=== PATIENT | male | born 1955 | race American Indian/Alaskan Native ===

== ENCOUNTER 2019-09-07 13:00 | Inpatient (IN) | payer OTHER, MEDICARE ==
--- NOTE | 2019-12-12 15:17 | Anesthesia Consultation ---
Anesthesia Consult and Med Hx Date of service: 12/14/19 - Airway Anesthetic Teeth Evaluation: Partials ROM Head & Neck: Adequate Mental/Hyoid Distance: Adequate Mallampati Class: Class III Intubation Access Assessment: Possibly Difficult (previous LMA 4) - Pulmonary Exam CTA: Yes - Cardiac Exam Cardiac Exam: RRR - Pre-Operative Health Status ASA Pre-Surgery Classification: ASA3 Proposed Anesthetic Plan: General - Pulmonary Hx Smoking: No Hx Respiratory Symptoms: No Hx Sleep Apnea: No (JAYDEN PRE SCREEN HIGH RISK) - Cardiovascular System Hx Hypertension: Yes Hx Heart Attack/AMI: No (CHF EF 40-45%) Hx Percutaneous Transluminal Coronary Angioplasty (PTCA): No Hx Cardia Arrhythmia: Yes (hx a-fib s/p cardioversion) Hx Valvular Heart Disease: Yes (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 States swelling started on its own and cannot recall any injury to the hand. Denies hx of gout. There is some pain, usually at night. He has no fevers, chills, or other systemic symptoms. On exam, there is nonpitting edema of the right hand with erythema most concentrated around the first metocarpopha langeal joint. Skin is intact and there is no obvious evidence of previous skin puncture. No warmth. All fingers are mobile though limited. Discussed with patient my concern for possible gout vs infection of the hand. Patient reports that he receives care at the [facility] and does not believe can be evaluated between now and DOS. Will make surgeon's office aware of hand swelling so that surgeon may evaluate prior to the procedure, at which time procedure may potentially be postponed. In the meantime, patient has been instructed to present to the ED if he develops increased swelling and pain or develops fevers, chills or other signs of systemic infection. Patient verbalized understanding and is in agreement with the plan.
[2019-12-12 15:36] LABS: Hematocrit 20.6 % (35.5-45.6); Hemoglobin 6.3 gm/dl (11.8-15.2); Mean Corpuscular HGB Conc 31 % (32-34); Mean Corpuscular Volume 74 fl (84-94); Platelet Count 237 K/mm3 (140-440); Red Blood Count 2.77 M/mm3 (3.65-5.03); Red Cell Distribution Width 16.6 % (13.2-15.2)
[2019-12-12 15:46] LABS: Calcium 10.6 mg/dL (8.4-10.2)
[2019-12-14] MEDS ORDERED: LACTATED RINGERS 1,000 ML IV SCH (06:00)
[2019-12-14] MEDS ORDERED: MIDAZOLAM 2 MG/2 ML INJ IV NR (06:00)
[2019-12-14] MEDS ORDERED: SODIUM CHLORIDE 0.9% 1000 ML 1,000 ML IV SCH ×2 (11:30→17:45)
[2019-12-14] MEDS ORDERED: SODIUM CHLORIDE 0.9% 1000 ML 1,000 ML ONE (12:15)
[2019-12-14] MEDS ORDERED: MIDAZOLAM 2 MG/2 ML INJ ONE ×2 (12:15→14:58)
[2019-12-14] MEDS ORDERED: VANCOMYCIN/NS 1 GM/250 ML 1 GM/250 ML BAG IV NR (12:39)
[2019-12-14] MEDS ORDERED: SODIUM CHLORIDE 0.9% 500 ML 500 ML ONE (13:24)
[2019-12-14] MEDS ORDERED: fentaNYL 100 MCG/2 ML INJ IV PRN (13:28)
--- NOTE | 2019-12-14 13:28 | Anesthesia Day of Surgery ---
Anesthesia Day of Surgery - Day of Surgery Patient Examined: Yes Patient H&P Reviewed: Yes Patient is NPO: Yes
[2019-12-14] MEDS ORDERED: PHENYLEPHRINE/NS 1,000 MCG/10 ML SYRINGE (OR USE) IV ONE (14:30)
[2019-12-14] MEDS ORDERED: propofoL 200 MG/20 ML VIAL IV ONE (14:38)
[2019-12-14] MEDS ORDERED: fentaNYL 100 MCG/2 ML INJ ONE (14:38)
[2019-12-14] MEDS ORDERED: LIDOCAINE MPF (2%) 20 MG/1 ML VIAL 5 ML ONE (14:38)
[2019-12-14] MEDS ORDERED: LIDOCAINE (1%) 10 MG/1 ML VIAL 20 ML MDV ONE (15:00)
[2019-12-14] MEDS ORDERED: BUPIVACAINE/PF (0.5%) 5 MG/1 ML 30 ML VIAL INFILTRATI ONE (15:01)
[2019-12-14] MEDS ORDERED: KETAMINE/STERILE WATER 50 MG/ML SYRINGE ONE (15:15)
[2019-12-14] MEDS ORDERED: SODIUM CHLORIDE 0.9% IRR 1,500 ML BOTTLE IR ONE (15:22)
--- NOTE | 2019-12-14 15:32 | Procedure Note ---
Date of procedure: 12/14/19 Pre-op diagnosis: Right proximal tibial fracture status post external fixation Post-op diagnosis: same Procedure: Removal of external fixator right leg Procedure Patient was brought to the OR on the hospital bed, he was then requested to move to the OR table supine following the patient's right lower extremity was prepped and draped in the usual sterile manner the patient was given IV sedation following this timeout procedure was done to identify the patient and the correct operative site which was very obvious because of the external fixator. Using combination of wrench and in a power drill the connecting rods were removed first followed by removal of the Schanz screws using the power drill. He was noted to have's purulent drainage from the most superior pin site this was debrided using a curette and irrigated cultures were obtained and will be sent to microbiology routine postop dressings were applied patient tolerated procedure there were no complications Anesthesia: other (IV sedation) Surgeon: KALYANI DONOHUE Product Responsibility Liaison: BRODY GRACIA Estimated blood loss: minimal Pathology: none Condition: stable Disposition: PACU
--- NOTE | 2019-12-14 17:51 | Post Anesthesia Evaluation ---
- Post Anesthesia Evaluation Patient Participated: Yes Airway Patent: Yes Stable Respiratory Function: Yes Nausea/Vomiting: No Temp > 96.8F: Yes Pain Manageable: Yes Adequeate Hydration: Yes Anesthesia Complications: No Other Comments: Patient will be admitted to floor under hospitalist care for further monitoring overnight in light of anemia, low grade fever, and possible cellulitis vs gout.
[2019-12-14 19:24] LABS: Hematocrit 25.2 % (35.5-45.6); Hemoglobin 7.8 gm/dl (11.8-15.2); Mean Corpuscular HGB Conc 31 % (32-34); Mean Corpuscular Volume 77 fl (84-94); Platelet Count 229 K/mm3 (140-440); Red Blood Count 3.26 M/mm3 (3.65-5.03); Red Cell Distribution Width 18.9 % (13.2-15.2)
[2019-12-14 21:22] LABS: Band Neutrophils # (Manual) 0.5 K/mm3; Basophils % (Manual) 0 % (0.0-1.8); Eosinophils % (Manual) 0 % (0.0-4.3); Total Cells Counted 100
[2019-12-14 21:23] LABS: Burr Cells Few; Hypochromasia 1+
[2019-12-14 21:24] LABS: Platelet Estimate Consistent w Auto; Schistocytes Rare; Tear Drop Cells Rare
[2019-12-14] MEDS ORDERED: METOCLOPRAMIDE 10 MG/2 ML INJ IV PRN ×2 (22:57→23:11)
[2019-12-14] MEDS ORDERED: ONDANSETRON 4 MG/2 ML INJ IV PRN (22:57)
[2019-12-14] MEDS ORDERED: ACETAMINOPHEN 325 MG TAB PO PRN (22:57)
[2019-12-14] MEDS ORDERED: MYCOPHENOLATE 500 MG PO SCH (23:00)
[2019-12-14] MEDS ORDERED: FAMOTIDINE 20 MG/2 ML INJ IV SCH (23:00)
[2019-12-14] MEDS ORDERED: carvediloL 25 MG TAB PO SCH (23:00)
[2019-12-14] MEDS ORDERED: D5W/0.9% NACL 1,000 ML IV SCH (23:00)
[2019-12-14] MEDS ORDERED: PROGRAF 2 MG PO SCH (23:00)
[2019-12-14] MEDS: TACROLIMUS 1 MG CAP PO SCH (23:44)
[2019-12-14] MEDS: MYCOPHENOLATE 500 MG TAB PO SCH (23:44)
[2019-12-15 05:07] LABS: Hematocrit 24.7 % (35.5-45.6); Hemoglobin 7.5 gm/dl (11.8-15.2); Mean Corpuscular HGB Conc 31 % (32-34); Mean Corpuscular Volume 76 fl (84-94); Red Blood Count 3.26 M/mm3 (3.65-5.03); Red Cell Distribution Width 18.4 % (13.2-15.2)
[2019-12-15 05:10] LABS: Basophils % (Auto) 0.6 % (0.0-1.8); Lymphocytes # (Auto) 0.9 K/mm3 (1.2-5.4); Lymphocytes % (Auto) 16.8 % (13.4-35.0); Monocytes # (Auto) 2.5 K/mm3 (0.0-0.8); Platelet Count 249 K/mm3 (140-440)
[2019-12-15 05:11] LABS: Basophils # (Auto) 0.1 K/mm3 (0.0-0.1)
[2019-12-15 05:18] LABS: Albumin 3.1 g/dL (3.9-5); Calcium 10.4 mg/dL (8.4-10.2)
--- NOTE | 2019-12-15 07:38 | Consultation ---
History of Present Illness - Reason for Consult Consult date: 12/14/19 Medical management Requesting physician: KALYANI DONOHUE - History of Present Illness Patient admitted to the floor after - Right proximal tibial fracture status post external fixation . Postop patient is doing well. No complications. No shortness of breath. No chest pain. Past History Past Medical History: diabetes, hypertension, other (Transplant) Past Surgical History: Other (Tibial fracture--right with external fixation) Social history: lives with family, full code Family history: hypertension Medications and Allergies Allergies Allergy/AdvReac Type Severity Reaction Status Date / Time cefazolin Allergy Intermediate Hives Verified 10/19/19 13:26 Home Medications Medication Instructions Recorded Confirmed Last Taken Type Aspirin 81 mg PO DAILY 10/16/19 12/14/19 5 Days Ago History ~12/09/19 Calcium Citrate/Vitamin D3 1,000 units PO DAILY 10/16/19 12/08/19 12/13/19 History Dronedarone (Nf) [Multaq (Nf)] 400 mg PO DAILY 10/16/19 12/08/19 12/13/19 His tory Mycophenolate 500 mg PO BID 10/16/19 12/08/19 12/13/19 History Prograf 2 mg PO Q12HR 10/16/19 12/08/19 12/13/19 History amLODIPine 5 mg PO DAILY 10/16/19 12/08/19 12/14/19 07:00 History carvediloL [Coreg] 20 mg PO BID 10/16/19 12/08/19 12/14/19 07:00 History glipiZIDE 5 mg PO DAILY 10/16/19 12/08/19 12/13/19 History predniSONE [Deltasone] 5 mg PO DAILY 10/16/19 12/08/19 12/13/19 History HYDROcodone/APAP 5-325 [[place] 1 each PO Q6HR PRN #20 tablet 10/19/19 12/08/19 12/13/19 Rx 5-325 mg TAB] HYDROcodone/APAP 7.5-325 [[place] 1 each PO Q6HR PRN #20 tablet 12/14/19 Unknown Rx 7.5-325 mg TAB] Sulfamethoxazole/Trimethoprim 1 each PO BID #30 tablet 12/14/19 Unknown Rx [Bactrim DS TAB] Active Meds: Active Medications Acetaminophen (Tylenol) 650 mg PO Q4H PRN PRN Reason: Pain MILD(1-3)/Fever >100.5/WHALEY Amlodipine Besylate (Amlodipine) 5 mg PO DAILY [facility] Carvedilol (Coreg) 25 mg PO BID [facility] Famotidine (Pepcid) 20 mg IV DAILY [facility] Hydromorphone HCl (Dilaudid) 1 mg IV Q3H PRN PRN Reason: Pain , Severe (7-10) Dextrose/Sodium Chloride (D5ns) 1,000 mls @ 75 mls/hr IV DIRECT [facility] Last Admin: 12/14/19 23:45 Dose: 75 mls/hr Documented by: Metoclopramide HCl (Reglan) 5 mg IV Q6H PRN PRN Reason: Nausea And Vomiting Miscellaneous Medication (Dronedarone (Nf)) 400 mg PO DAILY [facility] Mycophenolate Mofetil (Cellcept) 500 mg PO BID [facility] Last Admin: 12/14/19 23:44 Dose: 500 mg Documented by: Ondansetron HCl (Zofran) 4 mg IV Q3H PRN PRN Reason: Nausea And Vomiting Oxycodone/Acetaminophen (Percocet 5/325) 1 tab PO Q6H PRN PRN Reason: Pain, Moderate (4-6) Prednisone (Deltasone) 5 mg PO DAILY [facility] Sodium Chloride (Sodium Chloride Flush Syringe 10 Ml) 10 ml IV BID [facility] Sodium Chloride (Sodium Chloride Flush Syringe 10 Ml) 10 ml IV PRN PRN PRN Reason: LINE FLUSH Tacrolimus (Prograf) 2 mg PO Q12HR [facility] Last Admin: 12/14/19 23:44 Dose: 2 mg Documented by: Review of Systems All systems: negative (Right lower extremity pain) Exam - Constitutional Vitals: Temp Pulse Resp BP Pulse Ox 100.2 F H 68 18 135/61 100 12/15/19 05:30 12/15/19 05:30 12/15/19 05:30 12/15/19 05:30 12/15/19 05:30 General appearance: Present: mild distress (Secondary to pain in the right lower extremity), well-nourished - EENT Eyes: Present: PERRL ENT: hearing intact, clear oral mucosa - Neck Neck: Present: supple, normal ROM - Respiratory Respiratory effort: normal Respiratory: bilateral: CTA - Cardiovascular Heart Sounds: Present: S1 & S2. Absent: rub, click - Extremities Extremities: pulses symmetrical, No edema Peripheral Pulses: within normal limits - Abdominal General gastrointestinal: Present: soft, non-tender, non-distended, normal bowel sounds Male genitourinary: Present: normal - Integumentary Integumentary: Present: clear, warm, dry - Musculoskeletal Musculoskeletal: gait normal, strength equal bilaterally - Psychiatric Psychiatric: appropriate mood/affect, intact judgment & insight - Neurologic Neurologic: CNII-XII intact, moves all extremities HEART Score - HEART Score History: Slightly suspicious Age: > 65 Risk factors: 1-2 risk factors - Critical Actions Critical Actions: 0-3 pts:0.9-1.7%risk of adverse cardiac event.Candidate for discharge Results - Labs CBC & Chem 7: 12/15/19 04:39 12/15/19 04:39 Labs: Abnormal lab results 12/14/19 12/14/19 12/14/19 Range/Units 11:40 12:07 13:24 WBC (4.5-11.0) K/mm3 RBC (3.65-5.03) M/mm3 Hgb (11.8-15.2) gm/dl Hct (35.5-45.6) % MCV (84-94) fl MCH (28-32) pg MCHC (32-34) % RDW (13.2-15.2) % Lymph # (Auto) (1.2-5.4) K/mm3 Barnes # (Auto) (0.0-0.8) K/mm3 Seg Neutrophils % (40.0-70.0) % Seg Neuts % (Manual) (40.0-70.0) % Lymphocytes % (Manual) (13.4-35.0) % Seg Neutrophils # (1.8-7.7) K/mm3 Seg Neutrophils # Man (1.8-7.7) K/mm3 Lymphocytes # (Manual) (1.2-5.4) K/mm3 Monocytes # (Manual) (0.0-0.8) K/mm3 Sodium (137-145) mmol/L Potassium (3.6-5.0) mmol/L Chloride (98-107) mmol/L Carbon Dioxide (22-30) mmol/L BUN (9-20) mg/dL Creatinine (0.8-1.3) mg/dL Glucose (75-100) mg/dL POC Glucose 224 H (70-105) Uric Acid 11.7 H (3.5-7.6) mg/dL Calcium (8.4-10.2) mg/dL Alkaline Phosphatase (35-129) units/L Total Protein (6.3-8.2) g/dL Albumin (3.9-5) g/dL Crossmatch See Detail 12/14/19 12/14/19 12/15/19 Range/Units 16:10 19:01 04:39 WBC 17.7 H 13.9 H (4.5-11.0) K/mm3 RBC 3.26 L 3.26 L (3.65-5.03) M/mm3 Hgb 7.8 L 7.5 L (11.8-15.2) gm/dl Hct 25.2 L 24.7 L (35.5-45.6) % MCV 77 L 76 L (84-94) fl MCH 24 L 23 L (28-32) pg MCHC 31 L 31 L (32-34) % RDW 18.9 H 18.4 H (13.2-15.2) % Lymph # (Auto) 0.9 L (1.2-5.4) K/mm3 Barnes # (Auto) 2.5 H (0.0-0.8) K/mm3 Seg Neutrophils % 74.5 H (40.0-70.0) % Seg Neuts % (Manual) 86.0 H (40.0-70.0) % Lymphocytes % (Manual) 5.0 L (13.4-35.0) % Seg Neutrophils # 10.4 H (1.8-7.7) K/mm3 Seg Neutrophils # Man 15.2 H (1.8-7.7) K/mm3 Lymphocytes # (Manual) 0.9 L (1.2-5.4) K/mm3 Monocytes # (Manual) 0.9 H (0.0-0.8) K/mm3 Sodium (137-145) mmol/L Potassium (3.6-5.0) mmol/L Chloride (98-107) mmol/L Carbon Dioxide (22-30) mmol/L BUN (9-20) mg/dL Creatinine (0.8-1.3) mg/dL Glucose (75-100) mg/dL POC Glucose 198 H (70-105) Uric Acid (3.5-7.6) mg/dL Calcium (8.4-10.2) mg/dL Alkaline Phosphatase (35-129) units/L Total Protein (6.3-8.2) g/dL Albumin (3.9-5) g/dL Crossmatch 12/15/19 Range/Units 04:39 WBC (4.5-11.0) K/mm3 RBC (3.65-5.03) M/mm3 Hgb (11.8-15.2) gm/dl Hct (35.5-45.6) % MCV (84-94) fl MCH (28-32) pg MCHC (32-34) % RDW (13.2-15.2) % Lymph # (Auto) (1.2-5.4) K/mm3 Barnes # (Auto) (0.0-0.8) K/mm3 Seg Neutrophils % (40.0-70.0) % Seg Neuts % (Manual) (40.0-70.0) % Lymphocytes % (Manual) (13.4-35.0) % Seg Neutrophils # (1.8-7.7) K/mm3 Seg Neutrophils # Man (1.8-7.7) K/mm3 Lymphocytes # (Manual) (1.2-5.4) K/mm3 Monocytes # (Manual) (0.0-0.8) K/mm3 Sodium 149 H D (137-145) mmol/L Potassium 3.3 L (3.6-5.0) mmol/L Chloride 120.9 H (98-107) mmol/L Carbon Dioxide 11 L (22-30) mmol/L BUN 68 H (9-20) mg/dL Creatinine 2.8 H (0.8-1.3) mg/dL Glucose 157 H (75-100) mg/dL POC Glucose (70-105) Uric Acid (3.5-7.6) mg/dL Calcium 10.4 H (8.4-10.2) mg/dL Alkaline Phosphatase 141 H (35-129) units/L Total Protein 5.5 L (6.3-8.2) g/dL Albumin 3.1 L (3.9-5) g/dL Crossmatch Assessment and Plan - Patient Problems (1) Right tibial fracture Current Visit: Yes Status: Acute Qualifiers: Encounter type: initial encounter Salter-Ocampo Fracture Type: unspecified configuration Plan to address problem: Patient had right tibial fracture external fixation Postop patient doing well (2) URMILA (acute kidney injury) Current Visit: Yes Status: Acute Plan to address problem: IV fluids for now Nephrology consult (3) Hypernatremia Current Visit: Yes Status: Acute Plan to address problem: Half-normal saline for now (4) Hypokalemia Current Visit: Yes Status: Acute Plan to address problem: Supplemented (5) Hypertension Current Visit: Yes Status: Chronic Qualifiers: Hypertension type: essential hypertension Qualified Code(s): I10 - Essential (primary) hypertension Plan to address problem: Continue antihypertensives (6) T2DM (type 2 diabetes mellitus) Current Visit: Yes Status: Chronic Qualifiers: Diabetes mellitus keno terminal operator insulin use: without keno terminal operator use Plan to address problem: Hold her oral hypoglycemics Coverage for now Oral hypoglycemics to be resumed by primary team (7) S/P kidney transplant Current Visit: Yes Status: Acute Plan to address problem: Continue transplant medications including Prograf and mycophenolate (8) DVT prophylaxis Current Visit: Yes Status: Acute Plan to address problem: On heparin and GI prophylaxis
[2019-12-15] MEDS ORDERED: POTASSIUM CHLORIDE ER 20 MEQ TAB PO SCH (08:00)
[2019-12-15] MEDS ORDERED: SODIUM CHLORIDE 0.45% 500 ML IV SCH (09:00)
[2019-12-15] MEDS: carvediloL 25 MG TAB PO SCH ×2 (09:18→21:24)
[2019-12-15] MEDS: MYCOPHENOLATE 500 MG TAB PO SCH ×2 (09:18→21:23)
[2019-12-15] MEDS: amLODIPine 5 MG TAB PO SCH (09:18)
[2019-12-15] MEDS: TACROLIMUS 1 MG CAP PO SCH ×2 (09:18→21:22)
[2019-12-15] MEDS: predniSONE 5 MG TAB PO SCH (09:19)
[2019-12-15] MEDS ORDERED: DRONEDARONE 400 MG PO SCH (10:00)
[2019-12-15] MEDS ORDERED: FAMOTIDINE 20 MG/2 ML INJ IV SCH (10:00)
--- NOTE | 2019-12-15 11:36 | Consultation ---
History of Present Illness - Reason for Consult Consult date: 12/15/19 acute renal failure Requesting physician: LAYA ALDRIDGE - History of Present Illness This is a 64 yo AAM with past medical history of Hypertension, ESRD, has been on HD since 2008 until September 29 2017 when he received donor kidney transplantation. After initial delayed graft function renal function stabilized with baseline Cr around 1.3-1.5mg/dl based on recent chart review. Pt follows up with Dr Haque for management of CKD. Pt was hospitalized on 12/14/19 for elective surgery for Right proximal tibial fracture, now status post external fixation. Post op patient was admitted under hospitalist service for further monitoring overnight in light of anemia, low grade fever, and possible cellulitis. Labs also showed elevated BUN/Cr at 68/2.8mg/dl along with mild hypernatremia and hypokalemia for which renal consult is requested. Past History Past Medical History: diabetes, hypertension, renal failure (s/p DDKTx in 09/2017 ), other (Transplant) Past Surgical History: Other (Tibial fracture--right with external fixation, DDKTx in 09/2017) Social history: lives with family, full code Family history: hypertension Medications and Allergies Allergies Allergy/AdvReac Type Severity Reaction Status Date / Time cefazolin Allergy Intermediate Hives Verified 10/19/19 13:26 Home Medications Medication Instructions Recorded Confirmed Last Taken Type Aspirin 81 mg PO DAILY 10/16/19 12/14/19 5 Days Ago History ~12/09/19 Calcium Citrate/Vitamin D3 1,000 units PO DAILY 10/16/19 12/08/19 12/13/19 History Dronedarone (Nf) [Multaq (Nf)] 400 mg PO DAILY 10/16/19 12/08/19 12/13/19 History Mycophenolate 500 mg PO BID 10/16/19 12/08/19 12/13/19 History Prograf 2 mg PO Q12HR 10/16/19 12/08/19 12/13/19 History amLODIPine 5 mg PO DAILY 10/16/19 12/08/19 12/14/19 07:00 History carvediloL [Coreg] 20 mg PO BID 10/16/19 12/08/19 12/14/19 07:00 History glipiZIDE 5 mg PO DAILY 10/16/19 12/08/1920 History predniSONE [Deltasone] 5 mg PO DAILY 10/16/19 12/08/19 12/13/19 History HYDROcodone/APAP 5-325 [[place] 1 each PO Q6HR PRN #20 tablet 10/19/19 12/08/19 12/13/19 Rx 5-325 mg TAB] HYDROcodone/APAP 7.5-325 [[place] 1 each PO Q6HR PRN #20 tablet 12/14/19 Unknown Rx 7.5-325 mg TAB] Sulfamethoxazole/Trimethoprim 1 each PO BID #30 tablet 12/14/19 Unknown Rx [Bactrim DS TAB] Active Meds: Active Medications Acetaminophen (Tylenol) 650 mg PO Q4H PRN PRN Reason: Pain MILD(1-3)/Fever >100.5/WHALEY Amlodipine Besylate (Amlodipine) 5 mg PO DAILY [facility] Last Admin: 12/15/19 09:18 Dose: 5 mg Documented by: Carvedilol (Coreg) 25 mg PO BID [facility] Last Admin: 12/15/19 09:18 Dose: 25 mg Documented by: Famotidine (Pepcid) 20 mg IV DAILY [facility] Stop: 12/15/19 14:00 Last Admin: 12/15/19 09:18 Dose: 20 mg Documented by: Famotidine (Pepcid) 20 mg PO DAILY [facility] Hydromorphone HCl (Dilaudid) 1 mg IV Q3H PRN PRN Reason: Pain , Severe (7-10) Sodium Chloride (Nacl 0.45% 1000 Ml) 1,000 mls @ 75 mls/hr IV DIRECT [facility] Metoclopramide HCl (Reglan) 5 mg IV Q6H PRN PRN Reason: Nausea And Vomiting Miscellaneous Medication (Dronedarone (Nf)) 400 mg PO DAILY [facility] Mycophenolate Mofetil (Cellcept) 500 mg PO BID [facility] Last Admin: 12/15/19 09:18 Dose: 500 mg Documented by: Ondansetron HCl (Zofran) 4 mg IV Q3H PRN PRN Reason: Nausea And Vomiting Oxycodone/Acetaminophen (Percocet 5/325) 1 tab PO Q6H PRN PRN Reason: Pain, Moderate (4-6) Potassium Chloride (K-Dur) 40 meq PO ONCE [facility] Stop: 12/15/19 12:00 Last Admin: 12/15/19 09:18 Dose: 40 meq Documented by: Prednisone (Deltasone) 5 mg PO DAILY [facility] Last Admin: 12/15/19 09:19 Dose: 5 mg Documented by: Sodium Chloride (Sodium Chloride Flush Syringe 10 Ml) 10 ml IV BID [facility] Last Admin: 12/15/19 09:20 Dose: 10 ml Documented by: Sodium Chloride (Sodium Chloride Flush Syringe 10 Ml) 10 ml IV PRN PRN PRN Reason: LINE FLUSH Tacrolimus (Prograf) 2 mg PO Q12HR [facility] Last Admin: 12/15/19 09:18 Dose: 2 mg Documented by: Review of Systems All systems: negative Constitutional: fatigue, weakness, malaise Exam - Vital Signs Vital signs: Vital Signs Temp Pulse Resp BP Pulse Ox 98.3 F 70 20 116/52 100 12/12/19 14:45 12/12/19 14:45 12/12/19 14:45 12/12/19 14:45 12/12/19 14:45 - General Appearance General appearance: well-developed, well-nourished, appears stated age EENT: ATNC, PERRL, mucous membranes moist Neck: Present: neck supple Respiratory: Clear to Ascultation Heart: regular, S1S2 Gastrointestinal: Present: normoactive bowel sounds Integumentary: no rash Neurologic: no focal deficit, alert and oriented x3, strength 5/5, CN 3-12 intact Psychiatric: mood/affect appropriate, cooperative Results - Lab Results 12/15/19 04:39 12/15/19 04:39 Most recent lab results Calcium 10.4 mg/dL (8.4-10.2) H 12/15/19 04:39 Assessment and Plan - Patient Problems (1) URMILA (acute kidney injury) Current Visit: Yes Status: Acute Plan to address problem: Most likely secondary to pre-renal azotemia in post operative setting and in the setting of anemia. check UA, urine lytes, urine protein/cr ratio. IVF changed to 1/2 NS d/t developing hypernatrema, K supplementation with K Dur ongoing. Cont current immunossuppressive regime with prograf 2mg po bid, cellcept 500gm po bid, prednisone 5mg po qd. avoid nephrotoxins, NSAIDS, IV contrast (2) Hypernatremia Current Visit: Yes Status: Acute Plan to address problem: changed IVF to 1/2 NS (3) Hypokalemia Current Visit: Yes Status: Acute Plan to address problem: cont K supplementation with K Dur (4) Right tibial fracture Current Visit: Yes Status: Acute Qualifiers: Encounter type: initial encounter Salter-Ocampo Fracture Type: unspecified configuration Plan to address problem: s/p external fixation. follow ortho recommendations (5) S/P kidney transplant Current Visit: Yes Status: Acute Plan to address problem: Cont current immunossuppressive regime with prograf 2mg po bid, cellcept 500gm po bid, prednisone 5mg po qd. (6) Hypertension Current Visit: Yes Status: Chronic Qualifiers: Hypertension type: essential hypertension Qualified Code(s): I10 - Essential (primary) hypertension Plan to address problem: Monitor BP on current meds (7) T2DM (type 2 diabetes mellitus) Current Visit: Yes Status: Chronic Qualifiers: Diabetes mellitus supervisor intermediates insulin use: without detention use Plan to address problem: DM management as per hospitalist (8) Metabolic acidosis Current Visit: Yes Status: Acute Plan to address problem: start sodium bicarb 650mg po bid
--- NOTE | 2019-12-15 16:01 | Progress Note ---
Assessment and Plan s/p removal of external fixator multiple medical issues necessitating admission Subjective Date of service: 12/15/19 Interval history: feeling weak and tired... Objective Vital signs: Vital Signs - 12hr 12/15/19 12/15/19 12/15/19 05:30 07:46 07:51 Temperature 100.2 F H 99.4 F 98.5 F Pulse Rate 68 65 92 H Respiratory 18 18 18 Rate Blood Pressure 135/61 136/54 133/55 O2 Sat by Pulse 100 93 95 Oximetry 12/15/19 12:18 Temperature 97.9 F Pulse Rate 70 Respiratory 19 Rate Blood Pressure 130/61 O2 Sat by Pulse 100 Oximetry Incision: healing, clean and dry Weight bearing status: as tolerated - Labs CBC & BMP: 12/15/19 04:39 12/15/19 04:39 Labs: Abnormal lab results 12/14/19 12/15/19 12/15/19 Range/Units 19:01 04:39 04:39 WBC 17.7 H 13.9 H (4.5-11.0) K/mm3 RBC 3.26 L 3.26 L (3.65-5.03) M/mm3 Hgb 7.8 L 7.5 L (11.8-15.2) gm/dl Hct 25.2 L 24.7 L (35.5-45.6) % MCV 77 L 76 L (84-94) fl MCH 24 L 23 L (28-32) pg MCHC 31 L 31 L (32-34) % RDW 18.9 H 18.4 H (13.2-15.2) % Lymph # (Auto) 0.9 L (1.2-5.4) K/mm3 Kerr # (Auto) 2.5 H (0.0-0.8) K/mm3 Seg Neutrophils % 74.5 H (40.0-70.0) % Seg Neuts % (Manual) 86.0 H (40.0-70.0) % Lymphocytes % (Manual) 5.0 L (13.4-35.0) % Seg Neutrophils # 10.4 H (1.8-7.7) K/mm3 Seg Neutrophils # Man 15.2 H (1.8-7.7) K/mm3 Lymphocytes # (Manual) 0.9 L (1.2-5.4) K/mm3 Monocytes # (Manual) 0.9 H (0.0-0.8) K/mm3 Sodium 149 H D (137-145) mmol/L Potassium 3.3 L (3.6-5.0) mmol/L Chloride 120.9 H (98-107) mmol/L Carbon Dioxide 11 L (22-30) mmol/L BUN 68 H (9-20) mg/dL Creatinine 2.8 H (0.8-1.3) mg/dL Glucose 157 H (75-100) mg/dL Calcium 10.4 H (8.4-10.2) mg/dL Alkaline Phosphatase 141 H (35-129) units/L Total Protein 5.5 L (6.3-8.2) g/dL Albumin 3.1 L (3.9-5) g/dL
[2019-12-15] MEDS: HYDROmorphone 1 MG/1 ML INJ IV PRN (16:29)
[2019-12-15] MEDS: SODIUM CHLORIDE 0.45% 1000 ML 1,000 ML IV SCH (16:38)
--- NOTE | 2019-12-15 17:54 | Progress Note ---
Assessment and Plan - Patient Problems (1) URMILA (acute kidney injury) Current Visit: Yes Status: Acute Plan to address problem: Acute on chronic kidney disease gentle hydration. Follow-up creatinine baseline 1.5 (2) Hypernatremia Current Visit: Yes Status: Acute Plan to address problem: Hyponatremia treated with half-normal saline follow-up labs in a.m. (3) Hypokalemia Current Visit: Yes Status: Acute Plan to address problem: Hypokalemia we will treat with p.o. KCl. (4) Right tibial fracture Current Visit: Yes Status: Acute Qualifiers: Encounter type: initial encounter Salter-Ocampo Fracture Type: unspecified configuration Plan to address problem: Right tibial fracture followed by Orth O. External fixator has been removed. Stable for discharge. (5) S/P kidney transplant Current Visit: Yes Status: Acute (6) Hypertension Current Visit: Yes Status: Chronic Qualifiers: Hypertension type: essential hypertension Qualified Code(s): I10 - Essential (primary) hypertension Plan to address problem: Patient has fair control blood pressure amlodipine Coreg continue present [facility] management. (7) T2DM (type 2 diabetes mellitus) Current Visit: Yes Status: Chronic Qualifiers: Diabetes mellitus prison insulin use: without division field inspector use Plan to address problem: Fair but suboptimal control of diabetes will re-add glipizide 5 mg daily. Subjective Date of service: 12/15/19 Principal diagnosis: Leg pain Interval history: 64-year-old male with history of hypertension end-stage renal disease diabetes presented with left leg pain. Found to be secondary to pressure from external fixator. After having leg fused. Patient had external fixator removed. Plan discharge was discontinued secondary to multiple medical problems including anemia low-grade temp which is resolved and acute kidney injury. Patient had a baseline creatinine of about 1.3 and 1.5 it was now found to be 2.8. Renal consult was obtained. At present patient feels pretty good pain fairly well controlled does not want any pain medications at this time. Evaluated by Ortho no new recommendations from Ortho. Objective - Constitutional Vitals: Vital Signs - 12hr 12/15/19 12/15/19 12/15/19 07:46 07:51 12:18 Temperature 99.4 F 98.5 F 97.9 F Pulse Rate 65 92 H 70 Respiratory 18 18 19 Rate Blood Pressure 136/54 133/55 130/61 O2 Sat by Pulse 93 95 100 Oximetry 12/15/19 15:48 Temperature 97.5 F L Pulse Rate 73 Respiratory 19 Rate Blood Pressure 125/56 O2 Sat by Pulse 100 Oximetry General appearance: Present: no acute distress, well-nourished - EENT Eyes: PERRL, EOM intact ENT: hearing intact, clear oral mucosa Ears: bilateral: normal - Neck Neck: supple, normal ROM - Respiratory Respiratory effort: normal Respiratory: bilateral: CTA - Breasts Breasts: normal - Cardiovascular Rhythm: regular Heart Sounds: Present: S1 & S2. Absent: gallop, rub Extremities: pulses intact, No edema, normal color, Full ROM Extremity abnormal: other (Hip bandage.) - Gastrointestinal General gastrointestinal: Present: soft, non-tender, non-distended, normal bowel sounds - Genitourinary Male genitourinary: normal - Integumentary Integumentary: clear, warm, dry - Musculoskeletal Musculoskeletal: 1, strength equal bilaterally - Neurologic Neurologic: moves all extremities - Psychiatric Psychiatric: memory intact, appropriate mood/affect, intact judgment & insight - Labs CBC & Chem 7: 12/15/19 04:39 12/15/19 04:39 Labs: Abnormal lab results 12/14/19 12/15/19 12/15/19 Range/Units 19:01 04:39 04:39 WBC 17.7 H 13.9 H (4.5-11.0) K/mm3 RBC 3.26 L 3.26 L (3.65-5.03) M/mm3 Hgb 7.8 L 7.5 L (11.8-15.2) gm/dl Hct 25.2 L 24.7 L (35.5-45.6) % MCV 77 L 76 L (84-94) fl MCH 24 L 23 L (28-32) pg MCHC 31 L 31 L (32-34) % RDW 18.9 H 18.4 H (13.2-15.2) % Lymph # (Auto) 0.9 L (1.2-5.4) K/mm3 [place] # (Auto) 2.5 H (0.0-0.8) K/mm3 Seg Neutrophils % 74.5 H (40.0-70.0) % Seg Neuts % (Manual) 86.0 H (40.0-70.0) % Lymphocytes % (Manual) 5.0 L (13.4-35.0) % Seg Neutrophils # 10.4 H (1.8-7.7) K/mm3 Seg Neutrophils # Man 15.2 H (1.8-7.7) K/mm3 Lymphocytes # (Manual) 0.9 L (1.2-5.4) K/mm3 Monocytes # (Manual) 0.9 H (0.0-0.8) K/mm3 Sodium 149 H D (137-145) mmol/L Potassium 3.3 L (3.6-5.0) mmol/L Chloride 120.9 H (98-107) mmol/L Carbon Dioxide 11 L (22-30) mmol/L BUN 68 H (9-20) mg/dL Creatinine 2.8 H (0.8-1.3) mg/dL Glucose 157 H (75-100) mg/dL Calcium 10.4 H (8.4-10.2) mg/dL Alkaline Phosphatase 141 H (35-129) units/L Total Protein 5.5 L (6.3-8.2) g/dL Albumin 3.1 L (3.9-5) g/dL HEART Score - HEART Score Age: > 65 Risk factors: 1-2 risk factors - Critical Actions Critical Actions: 0-3 pts:0.9-1.7%risk of adverse cardiac event.Candidate for discharge
[2019-12-15] MEDS: POTASSIUM CHLORIDE ER 20 MEQ TAB PO SCH (18:35)
[2019-12-15] MEDS: SODIUM BICARBONATE 650 MG TAB PO SCH (21:22)
[2019-12-15] MEDS: LOPERAMIDE 2 MG CAP PO PRN (21:23)
[2019-12-16 06:55] LABS: Bacteria,Urine 1+ /HPF (Negative); Bilirubin,Urine NEG (Negative); Blood,Urine MOD (Negative); Color,Urine Yellow (Yellow); Mucus,Urine FEW /HPF; Urobilinogen,Urine < 2.0 mg/dL (<2.0)
[2019-12-16 07:18] LABS: Calcium 10.1 mg/dL (8.4-10.2)
[2019-12-16 07:32] LABS: Mean Corpuscular HGB Conc 28 % (32-34); Mean Corpuscular Volume 85 fl (84-94); Platelet Count 198 K/mm3 (140-440); Red Blood Count 3.07 M/mm3 (3.65-5.03); Red Cell Distribution Width 19.1 % (13.2-15.2)
[2019-12-16 07:33] LABS: Creatinine,Urine 97.4 mg/dL (0.1-20.0)
[2019-12-16 07:42] LABS: Hematocrit 26.1 % (35.5-45.6); Hemoglobin 7.3 gm/dl (11.8-15.2)
[2019-12-16] MEDS: SODIUM CHLORIDE 0.45% 1000 ML 1,000 ML IV SCH (07:59)
[2019-12-16] MEDS ORDERED: SODIUM BICARBONATE 150 MEQ in DEXTROSE 5% IN WATER 1,000 ML IV SCH (10:00)
[2019-12-16] MEDS: glipiZIDE XL 5 MG TAB PO SCH (10:42)
[2019-12-16 11:40] LABS: Band Neutrophils # (Manual) 0.3 K/mm3; Basophils % (Manual) 0 % (0.0-1.8); Eosinophils % (Manual) 0 % (0.0-4.3); Total Cells Counted 100
[2019-12-16 11:41] LABS: Hypochromasia 1+; Platelet Estimate Consistent w Auto; Poikilocytosis Few; Target Cells Few; Tear Drop Cells Few
[2019-12-16] MEDS: FAMOTIDINE 20 MG TAB PO SCH (12:38)
[2019-12-16] MEDS: SODIUM BICARBONATE 650 MG TAB PO SCH ×2 (12:39→22:00)
[2019-12-16] MEDS: POTASSIUM CHLORIDE ER 20 MEQ TAB PO SCH (12:39)
[2019-12-16] MEDS: amLODIPine 5 MG TAB PO SCH (12:40)
[2019-12-16] MEDS: carvediloL 25 MG TAB PO SCH ×2 (12:40→22:00)
[2019-12-16] MEDS: predniSONE 5 MG TAB PO SCH (12:40)
[2019-12-16] MEDS: TACROLIMUS 1 MG CAP PO SCH ×2 (12:42→22:00)
[2019-12-16] MEDS: MYCOPHENOLATE 500 MG TAB PO SCH ×2 (12:44→21:59)
--- NOTE | 2019-12-16 13:35 | Progress Note ---
Assessment and Plan - Patient Problems (1) URMILA (acute kidney injury) Current Visit: Yes Status: Acute Plan to address problem: In the setting of pre-renal injury. Renal function is stable, and showing slow improvement back to baseline. Continue with current regimen, IVF hydration. Agree with switching IVF to isotonic bicarbonate at 42 cc/hr. (2) Hypernatremia Current Visit: Yes Status: Acute Plan to address problem: Improved on most recent labs. (3) Hypokalemia Current Visit: Yes Status: Acute Plan to address problem: Replete per protocol. (4) Right tibial fracture Current Visit: Yes Status: Acute Qualifiers: Encounter type: initial encounter Salter-Ocampo Fracture Type: unspecified configuration Plan to address problem: S/p fixation. Further management per orthopedic surgery. (5) S/P kidney transplant Current Visit: Yes Status: Acute Plan to address problem: Continue on current immunosupression. (6) Hypertension Current Visit: Yes Status: Chronic Qualifiers: Hypertension type: essential hypertension Qualified Code(s): I10 - Essential (primary) hypertension Plan to address problem: Monitor on current regimen. (7) T2DM (type 2 diabetes mellitus) Current Visit: Yes Status: Chronic Qualifiers: Diabetes mellitus refrigerator glazier insulin use: without mcfp use Plan to address problem: DM management per primary attending. Subjective Date of service: 12/16/19 Principal diagnosis: Leg pain Interval history: No acute complaints this am. Objective - Vital Signs Vital signs: Vital Signs - 12hr 12/16/19 04:41 Temperature 97.6 F Pulse Rate 77 Respiratory 17 Rate Blood Pressure 125/52 [Right] O2 Sat by Pulse 99 Oximetry - General Appearance General appearance: well-developed, well-nourished, appears stated age EENT: ATNC, PERRL Neck: no JVD Respiratory: Present: Clear to Ascultation, Normal Exam Cardiology: regular Gastrointestinal: normal Integumentary: no rash Neurologic: no focal deficit Musculoskeletal: deferred Psychiatric: cooperative - Lab 12/16/19 06:38 12/16/19 06:38 Most recent lab results Calcium 10.1 mg/dL (8.4-10.2) 12/16/19 06:38 Urine Creatinine 97.4 mg/dL (0.1-20.0) H 12/16/19 06:15 Urine Sodium 14 mmol/L 12/16/19 06:15 Urine Total Protein 30 mg/dL (5-11.8) H 12/16/19 06:15 - Allied health notes Allied health notes reviewed: nursing Medications & Allergies - Medications Allergies/Adverse Reactions: Allergies cefazolin Allergy (Intermediate, Verified 10/19/19 13:26) Hives itching & hives Home Medications: Home Medications Medication Instructions Recorded Confirmed Last Taken Type Aspirin 81 mg PO DAILY 10/16/19 12/14/19 5 Days Ago History ~12/09/19 Calcium Citrate/Vitamin D3 1,000 units PO DAILY 10/16/19 12/08/19 12/13/19 History Mycophenolate 500 mg PO BID 10/16/19 12/08/19 12/13/19 History Prograf 2 mg PO Q12HR 10/16/19 12/08/19 12/13/19 History RX: Dronedarone (Nf) [Multaq (Nf)] 400 mg PO DAILY 10/16/19 12/08/19 12/13/19 History RX: carvediloL [Coreg] 20 mg PO BID 10/16/19 12/08/19 12/14/19 07:00 History RX: predniSONE [Deltasone] 5 mg PO DAILY 10/16/19 12/08/19 12/13/19 History amLODIPine 5 mg PO DAILY 10/16/19 12/08/19 12/14/19 07:00 History glipiZIDE 5 mg PO DAILY 10/16/19 12/08/19 12/13/19 History RX: HYDROcodone/APAP 5-325 [[facility] 1 each PO Q6HR PRN #20 tablet 10/19/19 12/08/19 12/13/19 Rx 5-325 mg TAB] RX: HYDROcodone/APAP 7.5-325 1 each PO Q6HR PRN #20 tablet 12/14/19 Unknown Rx [[facility] 7.5-325 mg TAB] Sulfamethoxazole/Trimethoprim 1 each PO BID #30 tablet 12/14/19 Unknown Rx [Bactrim DS TAB] Active Medications: Generic Name Dose Route Start Last Admin Trade Name Freq PRN Reason Stop Dose Admin Acetaminophen 650 mg 12/14/19 22:57 Tylenol PO Q4H PRN Pain MILD(1-3)/Fever >100.5/WHALEY Amlodipine Besylate 5 mg 12/15/19 10:00 12/15/19 09:18 Amlodipine PO 5 mg DAILY NANCY Administration Carvedilol 25 mg 12/15/19 10:00 12/15/19 21:24 Coreg PO 25 mg BID NANCY Administration Famotidine 20 mg 12/16/19 10:00 Pepcid PO DAILY NANCY Glipizide 5 mg 12/16/19 08:00 Glucotrol Xl PO DAILY@0800 [facility] Hydromorphone HCl 1 mg 12/14/19 22:57 12/15/19 16:29 Dilaudid IV 1 mg Q3H PRN Administration Pain , Severe (7-10) Sodium Chloride 1,000 mls @ 75 mls/hr 12/15/19 12:00 12/16/19 07:59 Nacl 0.45% 1000 Ml IV 75 mls/hr DIRECT NANCY Administration Sodium Bicarbonate 150 meq/ 1,150 mls @ 42 mls/hr 12/16/19 10:00 Dextrose IV DIRECT NANCY Loperamide HCl 2 mg 12/15/19 14:01 12/15/19 21:23 Imodium PO 2 mg BID PRN Administration Diarrhea Metoclopramide HCl 5 mg 12/14/19 23:11 Reglan IV Q6H PRN Nausea And Vomiting Miscellaneous Medication 400 mg 12/15/19 10:00 Dronedarone (Nf) PO DAILY [facility] Mycophenolate Mofetil 500 mg 12/14/19 23:00 12/15/19 21:23 Cellcept PO 500 mg BID NANCY Administration Ondansetron HCl 4 mg 12/14/19 22:57 Zofran IV Q3H PRN Nausea And Vomiting Oxycodone/Acetaminophen 1 tab 12/14/19 22:57 Percocet 5/325 PO Q6H PRN Pain, Moderate (4-6) Potassium Chloride 20 meq 12/15/19 18:00 12/15/19 18:35 K-Dur PO Not Given QDAY [facility] Prednisone 5 mg 12/15/19 10:00 12/15/19 09:19 Deltasone PO 5 mg DAILY NANCY Administration Sodium Bicarbonate 650 mg 12/15/19 22:00 12/15/19 21:22 Sodium Bicarbonate PO 650 mg BID NANCY Administration Sodium Chloride 10 ml 12/15/19 10:00 12/16/19 05:53 Sodium Chloride Flush Syringe 10 Ml IV Not Given BID NANCY Sodium Chloride 10 ml 12/14/19 22:57 Sodium Chloride Flush Syringe 10 Ml IV PRN PRN LINE FLUSH Tacrolimus 2 mg 12/14/19 23:00 12/15/19 21:22 Prograf PO 2 mg Q12HR NANCY Administration
--- NOTE | 2019-12-16 13:52 | Progress Note ---
Assessment and Plan - Patient Problems (1) URMILA (acute kidney injury) Current Visit: Yes Status: Acute Plan to address problem: Acute on chronic kidney disease gentle hydration. Renal function continues to improve down to 2.3 now. Follow-up creatinine baseline 1.5 renal function continues to improve (2) Hypernatremia Current Visit: Yes Status: Acute Plan to address problem: Hypernatremia resolved. (3) Hypokalemia Current Visit: Yes Status: Acute Plan to address problem: Hypokalemia we will treat with p.o. KCl. (4) Right tibial fracture Current Visit: Yes Status: Acute Qualifiers: Encounter type: initial encounter Salter-Ocampo Fracture Type: unspecified configuration Plan to address problem: Hardware removed external filter was removed. Await Ortho recommendations. Stable for discharge. (5) S/P kidney transplant Current Visit: Yes Status: Acute (6) Hypertension Current Visit: Yes Status: Chronic Qualifiers: Hypertension type: essential hypertension Qualified Code(s): I10 - Essential (primary) hypertension Plan to address problem: Patient has fair control blood pressure amlodipine Coreg continue present medical management. (7) T2DM (type 2 diabetes mellitus) Current Visit: Yes Status: Chronic Qualifiers: Diabetes mellitus jail insulin use: without jail use Plan to address problem: Fair but suboptimal control of diabetes will re-add glipizide 5 mg daily. Subjective Date of service: 12/16/19 Principal diagnosis: Leg pain Interval history: In bed resting comfortably pain controlled. Hospital course complicated over p.m. by metabolic acidosis. Objective - Constitutional Vitals: Vital Signs - 12hr 12/16/19 04:41 Temperature 97.6 F Pulse Rate 77 Respiratory 17 Rate Blood Pressure 125/52 [Right] O2 Sat by Pulse 99 Oximetry General appearance: Present: no acute distress, well-nourished - EENT Eyes: PERRL, EOM intact ENT: hearing intact, clear oral mucosa Ears: bilateral: normal - Neck Neck: supple, normal ROM - Respiratory Respiratory effort: normal Respiratory: bilateral: CTA - Breasts Breasts: normal - Cardiovascular Rhythm: regular Heart Sounds: Present: S1 & S2. Absent: gallop, rub Extremities: pulses intact, No edema, normal color, Full ROM Extremity abnormal: other (Knee grossly distended. Right knee. Area where external fixators were removed looks good no evidence of infection.) - Gastrointestinal General gastrointestinal: Present: soft, non-tender, non-distended, normal bowel sounds - Genitourinary Male genitourinary: normal - Integumentary Integumentary: clear, warm, dry - Musculoskeletal Musculoskeletal: 1, strength equal bilaterally - Neurologic Neurologic: moves all extremities - Psychiatric Psychiatric: memory intact, appropriate mood/affect, intact judgment & insight - Labs CBC & Chem 7: 12/16/19 06:38 12/16/19 06:38 Labs: Abnormal lab results 12/16/19 12/16/19 12/16/19 Range/Units 06:15 06:38 06:38 WBC 11.1 H (4.5-11.0) K/mm3 RBC 3.07 L (3.65-5.03) M/mm3 Hgb 7.3 L (11.8-15.2) gm/dl Hct 26.1 L (35.5-45.6) % MCH 24 L (28-32) pg MCHC 28 L (32-34) % RDW 19.1 H (13.2-15.2) % Seg Neuts % (Manual) 90.0 H (40.0-70.0) % Lymphocytes % (Manual) 5.0 L (13.4-35.0) % Seg Neutrophils # Man 10.0 H (1.8-7.7) K/mm3 Lymphocytes # (Manual) 0.6 L (1.2-5.4) K/mm3 Chloride 115.0 H (98-107) mmol/L Carbon Dioxide 9 L* (22-30) mmol/L BUN 57 H (9-20) mg/dL Creatinine 2.3 H (0.8-1.3) mg/dL Glucose 153 H (75-100) mg/dL Urine Creatinine 97.4 H (0.1-20.0) mg/dL Urine Total Protein 30 H (5-11.8) mg/dL HEART Score - HEART Score Age: > 65 Risk factors: 1-2 risk factors - Critical Actions Critical Actions: 0-3 pts:0.9-1.7%risk of adverse cardiac event.Candidate for discharge
[2019-12-16] MEDS: HYDROmorphone 1 MG/1 ML INJ IV PRN (18:32)
[2019-12-17] MEDS: carvediloL 25 MG TAB PO SCH ×2 (09:34→22:11)
[2019-12-17] MEDS: MYCOPHENOLATE 500 MG TAB PO SCH ×2 (09:34→22:11)
[2019-12-17] MEDS: SODIUM BICARBONATE 650 MG TAB PO SCH ×2 (09:34→22:10)
[2019-12-17] MEDS: POTASSIUM CHLORIDE ER 20 MEQ TAB PO SCH (09:35)
[2019-12-17] MEDS: TACROLIMUS 1 MG CAP PO SCH ×2 (09:35→22:10)
[2019-12-17] MEDS: FAMOTIDINE 20 MG TAB PO SCH (09:35)
[2019-12-17] MEDS: predniSONE 5 MG TAB PO SCH (09:35)
[2019-12-17] MEDS: glipiZIDE XL 5 MG TAB PO SCH (09:35)
[2019-12-17] MEDS: levoFLOXacin 500 MG TAB PO SCH (11:07)
[2019-12-17] MEDS: amLODIPine 5 MG TAB PO SCH (11:14)
[2019-12-17 11:55] LABS: Albumin 2.5 g/dL (3.9-5)
--- NOTE | 2019-12-17 12:17 | Progress Note ---
Assessment and Plan - Patient Problems (1) URMILA (acute kidney injury) Current Visit: Yes Status: Acute Plan to address problem: In the setting of pre-renal injury. Renal function is stable, and showing slow improvement back to baseline. Continue with current regimen, IVF hydration. Agree with switching IVF to isotonic bicarbonate but will plan to increase rate to 75cc/hr. (2) Hypernatremia Current Visit: Yes Status: Acute Plan to address problem: Improved on most recent labs. (3) Hypokalemia Current Visit: Yes Status: Acute Plan to address problem: Replete per protocol. (4) Right tibial fracture Current Visit: Yes Status: Acute Qualifiers: Encounter type: initial encounter Salter-Ocampo Fracture Type: unspecified configuration Plan to address problem: S/p fixation. Further management per orthopedic surgery. Surgical cultures now indicating (+)MRSA. Would recommend ID consult and evaluation. (5) S/P kidney transplant Current Visit: Yes Status: Acute Plan to address problem: Continue on current immunosupression. (6) Hypertension Current Visit: Yes Status: Chronic Qualifiers: Hypertension type: essential hypertension Qualified Code(s): I10 - Essential (primary) hypertension Plan to address problem: Monitor on current regimen. (7) T2DM (type 2 diabetes mellitus) Current Visit: Yes Status: Chronic Qualifiers: Diabetes mellitus watermaster insulin use: without watermaster use Plan to address problem: DM management per primary attending. Subjective Date of service: 12/17/19 Principal diagnosis: Leg pain Interval history: Labs reviewed, with fluctuations noted in serum creatinine. Surgical culture now showing evidence of MRSA. Objective - Vital Signs Vital signs: Vital Signs - 12hr 12/17/19 12/17/19 12/17/19 05:55 07:45 11:11 Temperature 98.3 F 98.8 F 98.6 F Pulse Rate 115 H 94 H 83 Respiratory 18 19 19 Rate Blood Pressure 109/52 117/56 136/55 O2 Sat by Pulse 100 98 100 Oximetry 12/17/19 11:14 Temperature Pulse Rate 82 Respiratory Rate Blood Pressure 136/55 O2 Sat by Pulse Oximetry - General Appearance General appearance: appears stated age, frail EENT: ATNC Neck: no JVD Respiratory: Present: Clear to Ascultation Cardiology: regular Gastrointestinal: normal Integumentary: warm and dry Neurologic: no focal deficit Musculoskeletal: deferred Psychiatric: cooperative - Lab 12/16/19 06:38 12/17/19 10:57 Most recent lab results Calcium 10.0 mg/dL (8.4-10.2) 12/17/19 10:57 Urine Creatinine 97.4 mg/dL (0.1-20.0) H 12/16/19 06:15 Urine Sodium 14 mmol/L 12/16/19 06:15 Urine Total Protein 30 mg/dL (5-11.8) H 12/16/19 06:15 Medications & Allergies - Medications Allergies/Adverse Reactions: Allergies cefazolin Allergy (Intermediate, Verified 10/19/19 13:26) Hives itching & hives Home Medications: Home Medications Medication Instructions Recorded Confirmed Last Taken Type Aspirin 81 mg PO DAILY 10/16/19 12/14/19 5 Days Ago History ~12/09/19 Calcium Citrate/Vitamin D3 1,000 units PO DAILY 10/16/19 12/08/19 12/13/19 Hi story Dronedarone (Nf) [Multaq (Nf)] 400 mg PO DAILY 10/16/19 12/08/19 12/13/19 History Mycophenolate 500 mg PO BID 10/16/19 12/08/19 12/13/19 History Prograf 2 mg PO Q12HR 10/16/19 12/08/19 12/13/19 History amLODIPine 5 mg PO DAILY 10/16/19 12/08/19 12/14/19 07:00 History carvediloL [Coreg] 20 mg PO BID 10/16/19 12/08/19 12/14/19 07:00 History glipiZIDE 5 mg PO DAILY 10/16/19 12/08/19 12/13/19 History predniSONE [Deltasone] 5 mg PO DAILY 10/16/19 12/08/19 12/13/19 History HYDROcodone/APAP 5-325 [[place] 1 each PO Q6HR PRN #20 tablet 10/19/19 12/08/19 12/13/19 Rx 5-325 mg TAB] HYDROcodone/APAP 7.5-325 [[place] 1 each PO Q6HR PRN #20 tablet 12/14/19 Unknown Rx 7.5-325 mg TAB] Sulfamethoxazole/Trimethoprim 1 each PO BID #30 tablet 12/14/19 Unknown Rx [Bactrim DS TAB] Active Medications: Generic Name Dose Route Start Last Admin Trade Name Freq PRN Reason Stop Dose Admin Acetaminophen 650 mg 12/14/19 22:57 Tylenol PO Q4H PRN Pain MILD(1-3)/Fever >100.5/WHALEY Amlodipine Besylate 5 mg 12/15/19 10:00 12/17/19 11:14 Amlodipine PO 5 mg DAILY NANCY Administration Carvedilol 25 mg 12/15/19 10:00 12/17/19 09:34 Coreg PO 25 mg BID NANCY Administration Famotidine 20 mg 12/16/19 10:00 12/17/19 09:35 Pepcid PO 20 mg DAILY NANCY Administration Glipizide 5 mg 12/16/19 08:00 12/17/19 09:35 Glucotrol Xl PO 5 mg DAILY@0800 NANCY Administration Hydromorphone HCl 1 mg 12/14/19 22:57 12/16/19 18:32 Dilaudid IV 1 mg Q3H PRN Administration Pain , Severe (7-10) Sodium Chloride 1,000 mls @ 75 mls/hr 12/15/19 12:00 12/16/19 07:59 Nacl 0.45% 1000 Ml IV 75 mls/hr DIRECT NANCY Administration Sodium Bicarbonate 150 meq/ 1,150 mls @ 42 mls/hr 12/16/19 10:00 12/16/19 17:30 Dextrose IV 42 mls/hr DIRECT NANCY Administration Levofloxacin 500 mg 12/17/19 10:00 12/17/19 11:07 Levaquin PO 500 mg Q48H NANCY Administration Loperamide HCl 2 mg 12/15/19 14:01 12/15/19 21:23 Imodium PO 2 mg BID PRN Administration Diarrhea Metoclopramide HCl 5 mg 12/14/19 23:11 Reglan IV Q6H PRN Nausea And Vomiting Miscellaneous Medication 400 mg 12/15/19 10:00 Dronedarone (Nf) PO DAILY [facility] Mycophenolate Mofetil 500 mg 12/14/19 23:00 12/17/19 09:34 Cellcept PO 500 mg BID NANCY Administration Ondansetron HCl 4 mg 12/14/19 22:57 Zofran IV Q3H PRN Nausea And Vomiting Oxycodone/Acetaminophen 1 tab 12/14/19 22:57 Percocet 5/325 PO Q6H PRN Pain, Moderate (4-6) Potassium Chloride 20 meq 12/15/19 18:00 12/17/19 09:35 K-Dur PO 20 meq QDAY NANCY Administration Prednisone 5 mg 12/15/19 10:00 12/17/19 09:35 Deltasone PO 5 mg DAILY NANCY Administration Sodium Bicarbonate 650 mg 12/15/19 22:00 12/17/19 09:34 Sodium Bicarbonate PO 650 mg BID NANCY Administration Sodium Chloride 10 ml 12/15/19 10:00 12/17/19 09:43 Sodium Chloride Flush Syringe 10 Ml IV 10 ml BID NANCY Administration Sodium Chloride 10 ml 12/14/19 22:57 Sodium Chloride Flush Syringe 10 Ml IV PRN PRN LINE FLUSH Tacrolimus 2 mg 12/14/19 23:00 12/17/19 09:35 Prograf PO 2 mg Q12HR NANCY Administration
--- NOTE | 2019-12-17 13:43 | Progress Note ---
Assessment and Plan - Patient Problems (1) URMILA (acute kidney injury) Current Visit: Yes Status: Acute Plan to address problem: Secondary to prerenal azotemia continues to improve. (2) Hypernatremia Current Visit: Yes Status: Acute Plan to address problem: Hypernatremia resolved. Sodium 143. (3) Hypokalemia Current Visit: Yes Status: Acute Plan to address problem: Hypokalemia we will treat with p.o. KCl. (4) Right tibial fracture Current Visit: Yes Status: Acute Qualifiers: Encounter type: initial encounter Salter-Ocampo Fracture Type: unspecified configuration Plan to address problem: Surgical procedure intervention went well. Further work-up pending Ortho recommendations. Otherwise patient could be discharged. (5) S/P kidney transplant Current Visit: Yes Status: Acute Plan to address problem: Renal function stable. (6) Hypertension Current Visit: Yes Status: Chronic Qualifiers: Hypertension type: essential hypertension Qualified Code(s): I10 - Essential (primary) hypertension Plan to address problem: Patient has optimal control blood pressure amlodipine Coreg continue present medical management. (7) T2DM (type 2 diabetes mellitus) Current Visit: Yes Status: Chronic Qualifiers: Diabetes mellitus prison insulin use: without termination clerk use Plan to address problem: Fair but suboptimal control of diabetes will re-add glipizide 5 mg daily. Improved with glipizide however we will add sliding scale insulin. (8) Metabolic acidosis Current Visit: Yes Status: Acute Plan to address problem: Improved with the initiation of bicarbonate isotonic. Subjective Date of service: 12/17/19 Principal diagnosis: Leg pain Interval history: In bed resting comfortably pain controlled. Hospital course complicated over p.m. by metabolic acidosis. Hospital course complicated by positive methicillin-resistant staph right leg. Sensitivities pending. Objective - Constitutional Vitals: Vital Signs - 12hr 12/17/19 12/17/19 12/17/19 05:55 07:45 11:11 Temperature 98.3 F 98.8 F 98.6 F Pulse Rate 115 H 94 H 83 Respiratory 18 19 19 Rate Blood Pressure 109/52 117/56 136/55 O2 Sat by Pulse 100 98 100 Oximetry 12/17/19 11:14 Temperature Pulse Rate 82 Respiratory Rate Blood Pressure 136/55 O2 Sat by Pulse Oximetry General appearance: Present: no acute distress, well-nourished - EENT Eyes: PERRL, EOM intact ENT: hearing intact, clear oral mucosa Ears: bilateral: normal - Neck Neck: supple, normal ROM - Respiratory Respiratory effort: normal Respiratory: bilateral: CTA - Breasts Breasts: normal - Cardiovascular Rhythm: regular Heart Sounds: Present: S1 & S2. Absent: gallop, rub Extremities: pulses intact, No edema, normal color, Full ROM Extremity abnormal: other (Right leg bandaged surgical site looks good.) - Gastrointestinal General gastrointestinal: Present: soft, non-tender, non-distended, normal bowel sounds - Genitourinary Male genitourinary: normal - Integumentary Integumentary: clear, warm, dry - Musculoskeletal Musculoskeletal: 1, strength equal bilaterally - Neurologic Neurologic: moves all extremities - Psychiatric Psychiatric: memory intact, appropriate mood/affect, intact judgment & insight - Labs CBC & Chem 7: 12/16/19 06:38 12/17/19 10:57 Labs: Abnormal lab results 12/17/19 Range/Units 10:57 Chloride 114.9 H (98-107) mmol/L Carbon Dioxide 11 L (22-30) mmol/L BUN 57 H (9-20) mg/dL Creatinine 2.7 H (0.8-1.3) mg/dL Glucose 334 H (75-100) mg/dL Total Bilirubin 1.50 H (0.1-1.2) mg/dL AST 166 H (5-40) units/L ALT 116 H (7-56) units/L Alkaline Phosphatase 279 H (35-129) units/L Total Protein 5.1 L (6.3-8.2) g/dL Albumin 2.5 L (3.9-5) g/dL HEART Score - HEART Score Age: > 65 Risk factors: 1-2 risk factors - Critical Actions Critical Actions: 0-3 pts:0.9-1.7%risk of adverse cardiac event.Candidate for heidi booth
[2019-12-17] MEDS ORDERED: VANCOMYCIN/NS 1 GM/250 ML 1 GM/250 ML BAG IV SCH (14:00)
[2019-12-17] MEDS ORDERED: VANCOMYCIN 1,250 MG in SODIUM CHLORIDE 0.9% 250ML 250 ML IV ONE (22:00)
[2019-12-17] MEDS: SODIUM BICARBONATE 150 MEQ in DEXTROSE 5% IN WATER 1,000 ML IV SCH (22:10)
[2019-12-18] MEDS: oxyCODONE /ACETAMINOPHEN 5-325MG TAB PO PRN (04:30)
[2019-12-18] MEDS: glipiZIDE XL 5 MG TAB PO SCH (09:31)
[2019-12-18] MEDS: predniSONE 5 MG TAB PO SCH (09:32)
[2019-12-18] MEDS: POTASSIUM CHLORIDE ER 20 MEQ TAB PO SCH (09:33)
[2019-12-18] MEDS: carvediloL 25 MG TAB PO SCH ×2 (10:32→21:54)
[2019-12-18] MEDS: SODIUM BICARBONATE 650 MG TAB PO SCH ×2 (10:34→21:53)
[2019-12-18] MEDS: FAMOTIDINE 20 MG TAB PO SCH (10:34)
[2019-12-18] MEDS ORDERED: VANCOMYCIN PHARMACY TO DOSE IV SCH (11:00)
[2019-12-18] MEDS: TACROLIMUS 1 MG CAP PO SCH ×2 (11:29→21:53)
[2019-12-18] MEDS: MYCOPHENOLATE 500 MG TAB PO SCH ×2 (11:30→21:53)
[2019-12-18] MEDS: amLODIPine 5 MG TAB PO SCH (11:31)
--- NOTE | 2019-12-18 12:12 | XRay Report ---
RIGHT FEMUR 2 VIEW(S) INDICATION / CLINICAL INFORMATION: rule out osteomyelitis COMPARISON: Prior radiograph of the tibia and fibula dated 12/04/2019 FINDINGS: BONES / JOINT(S): No acute fracture is noted of the femur. Old fractures are again noted of the proxi mal tibia metadiaphysis and proximal fibular shaft relatively unchanged from prior exam. There has be en interval removal of previously noted external fixation device in the tibia. Remote trauma of the i nferior aspect of the patella is similar to prior exam. 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 SOFT TISSUES: There is a persistent large suprapatellar knee joint effusion. Significant articular sw elling and fat stranding again noted at the knee, minimally worsened. Post surgical changes are noted in the pelvis. ADDITIONAL FINDINGS: None. Signer Name: Shelton Blum MD Signed: 12/18/2019 12:07 PM Workstation Name: [id number]
--- NOTE | 2019-12-18 14:33 | Progress Note ---
Assessment and Plan - Patient Problems (1) URMILA (acute kidney injury) Current Visit: Yes Status: Acute Plan to address problem: In the setting of pre-renal injury. Renal function is stable, and showing slow improvement back to baseline. No new labs this am Continue with current regimen, IVF hydration. Agree with switching IVF to isotonic bicarbonate but will plan to increase rate to 75cc/hr. Have discussed with nursing staff. (2) Hypernatremia Current Visit: Yes Status: Acute Plan to address problem: Improved on most recent labs. (3) Hypokalemia Current Visit: Yes Status: Acute Plan to address problem: Replete per protocol. (4) Right tibial fracture Current Visit: Yes Status: Acute Qualifiers: Encounter type: initial encounter Salter-Ocampo Fracture Type: unspecified configuration Plan to address problem: S/p fixation. Further management per orthopedic surgery. Surgical cultures now indicating (+)MRSA. Would recommend ID consult and evaluation. (5) S/P kidney transplant Current Visit: Yes Status: Acute Plan to address problem: Continue on current immunosupression. (6) Hypertension Current Visit: Yes Status: Chronic Qualifiers: Hypertension type: essential hypertension Qualified Code(s): I10 - Essential (primary) hypertension Plan to address problem: Monitor on current regimen. (7) T2DM (type 2 diabetes mellitus) Current Visit: Yes Status: Chronic Qualifiers: Diabetes mellitus intermodal dispatcher insulin use: without intermodal dispatcher use Plan to address problem: DM management per primary attending. Subjective Date of service: 12/18/19 Principal diagnosis: Leg pain Interval history: No acute changes overnight. No new renal function labs this am. Objective - Vital Signs Vital signs: Vital Signs - 12hr 12/18/19 12/18/19 07:29 12:00 Temperature 98.9 F 98.8 F Pulse Rate 98 H 97 H Respiratory 20 20 Rate Blood Pressure 90/47 Blood Pressure 104/52 [Right] O2 Sat by Pulse 98 98 Oximetry - General Appearance General appearance: appears stated age EENT: ATNC Neck: no JVD Respiratory: Present: Clear to Ascultation Cardiology: regular Gastrointestinal: normal Integumentary: no rash Neurologic: no focal deficit Musculoskeletal: deferred Psychiatric: cooperative - Lab 12/16/19 06:38 12/17/19 10:57 Most recent lab results Calcium 10.0 mg/dL (8.4-10.2) 12/17/19 10:57 Urine Creatinine 97.4 mg/dL (0.1-20.0) H 12/16/19 06:15 Urine Sodium 14 mmol/L 12/16/19 06:15 Urine Total Protein 30 mg/dL (5-11.8) H 12/16/19 06:15 - Allied health notes Allied health notes reviewed: nursing Medications & Allergies - Medications Allergies/Adverse Reactions: Allergies cefazolin Allergy (Intermediate, Verified 10/19/19 13:26) Hives itching & hives Home Medications: Home Medications Medication Instructions Recorded Confirmed Last Taken Type Aspirin 81 mg PO DAILY 10/16/19 12/14/19 5 Days Ago History ~12/09/19 Calcium Citrate/Vitamin D3 1,000 units PO DAILY 10/16/19 12/08/19 12/13/19 History Dronedarone (Nf) [Multaq (Nf)] 400 mg PO DAILY 10/16/19 12/08/19 12/13/19 History Mycophenolate 500 mg PO BID 10/16/19 12/08/19 12/13/19 History Prograf 2 mg PO Q12HR 10/16/19 12/08/19 12/13/19 History amLODIPine 5 mg PO DAILY 10/16/19 12/08/19 12/14/19 07:00 History carvediloL [Coreg] 20 mg PO BID 10/16/19 12/08/19 12/14/19 07:00 History glipiZIDE 5 mg PO DAILY 10/16/19 12/08/19 12/13/19 History predniSONE [Deltasone] 5 mg PO DAILY 10/16/19 12/08/19 12/13/19 History HYDROcodone/APAP 5-325 [[place] 1 each PO Q6HR PRN #20 tablet 10/19/19 12/08/19 12/13/19 Rx 5-325 mg TAB] HYDROcodone/APAP 7.5-325 [[place] 1 each PO Q6HR PRN #20 tablet 12/14/19 Unknown Rx 7.5-325 mg TAB] Sulfamethoxazole/Trimethoprim 1 each PO BID #30 tablet 12/14/19 Unknown Rx [Bactrim DS TAB] Active Medications: Generic Name Dose Route Start Last Admin Trade Name Freq PRN Reason Stop Dose Admin Acetaminophen 650 mg 12/14/19 22:57 Tylenol PO Q4H PRN Pain MILD(1-3)/Fever >100.5/WHALEY Amlodipine Besylate 5 mg 12/15/19 10:00 12/17/19 11:14 Amlodipine PO 5 mg DAILY NANCY Administration Carvedilol 25 mg 12/15/19 10:00 12/17/19 22:11 Coreg PO Not Given BID NANCY Famotidine 20 mg 12/16/19 10:00 12/17/19 09:35 Pepcid PO 20 mg DAILY NANCY Administration Glipizide 5 mg 12/16/19 08:00 12/17/19 09:35 Glucotrol Xl PO 5 mg DAILY@0800 NANCY Administration Hydromorphone HCl 1 mg 12/14/19 22:57 12/16/19 18:32 Dilaudid IV 1 mg Q3H PRN Administration Pain , Severe (7-10) Sodium Bicarbonate 150 meq/ 1,150 mls @ 75 mls/hr 12/17/19 13:00 12/17/19 22:10 Dextrose IV 75 mls/hr DIRECT NANCY Administration Levofloxacin 500 mg 12/17/19 10:00 12/17/19 11:07 Levaquin PO 500 mg Q48H NANCY Administration Loperamide HCl 2 mg 12/15/19 14:01 12/15/19 21:23 Imodium PO 2 mg BID PRN Administration Diarrhea Metoclopramide HCl 5 mg 12/14/19 23:11 Reglan IV Q6H PRN Nausea And Vomiting Miscellaneous Medication 400 mg 12/15/19 10:00 Dronedarone (Nf) PO DAILY [facility] Mycophenolate Mofetil 500 mg 12/14/19 23:00 12/17/19 22:11 Cellcept PO 500 mg BID NANCY Administration Ondansetron HCl 4 mg 12/14/19 22:57 Zofran IV Q3H PRN Nausea And Vomiting Oxycodone/Acetaminophen 1 tab 12/14/19 22:57 12/18/19 04:30 Percocet 5/325 PO 1 tab Q6H PRN Administration Pain, Moderate (4-6) Potassium Chloride 20 meq 12/15/19 18:00 12/17/19 09:35 K-Dur PO 20 meq QDAY NANCY Administration Prednisone 5 mg 12/15/19 10:00 12/17/19 09:35 Deltasone PO 5 mg DAILY NANCY Administration Sodium Bicarbonate 650 mg 12/15/19 22:00 12/17/19 22:10 Sodium Bicarbonate PO 650 mg BID NANCY Administration Sodium Chloride 10 ml 12/15/19 10:00 12/17/19 22:12 Sodium Chloride Flush Syringe 10 Ml IV 10 ml BID NANCY Administration Sodium Chloride 10 ml 12/14/19 22:57 Sodium Chloride Flush Syringe 10 Ml IV PRN PRN LINE FLUSH Tacrolimus 2 mg 12/14/19 23:00 12/17/19 22:10 Prograf PO 2 mg Q12HR NANCY Administration
--- NOTE | 2019-12-18 16:36 | Progress Note ---
Assessment and Plan - Patient Problems (1) URMILA (acute kidney injury) Current Visit: Yes Status: Acute Plan to address problem: Appears to be resolving closer to baseline. Renal following. Current creatinine 2.7. Follow-up labs in the a.m. (2) Hypernatremia Current Visit: Yes Status: Acute Plan to address problem: Hypernatremia has resolved now 143. (3) Hypokalemia Current Visit: Yes Status: Acute Plan to address problem: Hypokalemia we will treat with p.o. KCl. (4) Right tibial fracture Current Visit: Yes Status: Acute Qualifiers: Encounter type: initial encounter Salter-Ocampo Fracture Type: unspecified configuration Plan to address problem: Right tibial fracture status post correction. No evidence of infection. Clinically. Patient did have positive blood culture for MRSA most likely a con taminant. I have given patient a dose of bank await any ID recommendations. Started patient on p.o. Bactrim tolerating well. Await Ortho recommendations for discharge planning. (5) S/P kidney transplant Current Visit: Yes Status: Acute Plan to address problem: Renal function stable. (6) Hypertension Current Visit: Yes Status: Chronic Qualifiers: Hypertension type: essential hypertension Qualified Code(s): I10 - Essential (primary) hypertension Plan to address problem: Patient has optimal control blood pressure amlodipine Coreg continue present medical management. (7) T2DM (type 2 diabetes mellitus) Current Visit: Yes Status: Chronic Qualifiers: Diabetes mellitus prison insulin use: without prison use Plan to address problem: Patient diabetes still has suboptimal control. Patient is not eating better would add long acting insulin 15 units Levemir at night. (8) Metabolic acidosis Current Visit: Yes Status: Acute Plan to address problem: Improved with the initiation of bicarbonate isotonic. (9) DVT prophylaxis Current Visit: Yes Status: Acute Subjective Date of service: 12/18/19 Principal diagnosis: Leg pain Interval history: 64-year-old male with a history of hypertension end-stage renal disease received a kidney transplant several years ago and has had baseline creatinine of 1.3- 1.5. 12/14/2019 patient admitted for elective surgical correction of right proximal to tibial fracture. Patient underwent surgical intervention and external fixation device. 12/15/1999 patient was found to have elevated creatinine up from 1.5 at baseline to 2.8. Therefore renal consult was obtained. Was thought to be secondary to prerenal azotemia. Symptoms responding to IV volume replacement and creatinine going back down to baseline. 12/16/2019 patient's creatinine continued to improve toward baseline. 12/17/2019. Patient surgical blood culture showed positive for methicillin resistant staph aureus. May be contaminant because patient remained afebrile no leukocytosis. No tenderness to the area. And sensitivity of MRSA was pansensitive to Cipro and Bactrim. Patient was given 1 dose of Vanco IV and await any ID recommendations. Patient should be able to discharge with Bactrim since it is sensitive and patient is afebrile no leukocytosis. Does not appear to have underlying infection at this time. 12/18/2019. Patient is resting doubly afebrile placed on Bactrim because MRSA was sensitive to this. Await further recommendations from Ortho about discharge planning. Patient somewhat sad today. States he just lost his sister. Patient denies any wants for antidepressant medications. Objective - Constitutional Vitals: Vital Signs - 12hr 12/18/19 12/18/19 07:29 12:00 Temperature 98.9 F 98.8 F Pulse Rate 98 H 97 H Respiratory 20 20 Rate Blood Pressure 90/47 Blood Pressure 104/52 [Right] O2 Sat by Pulse 98 98 Oximetry General appearance: Present: no acute distress, well-nourished - EENT Eyes: PERRL, EOM intact ENT: hearing intact, clear oral mucosa Ears: bilateral: normal - Neck Neck: supple, normal ROM - Respiratory Respiratory effort: normal Respiratory: bilateral: CTA - Breasts Breasts: normal - Cardiovascular Rhythm: regular Heart Sounds: Present: S1 & S2. Absent: gallop, rub Extremities: pulses intact, No edema, normal color, Full ROM - Gastrointestinal General gastrointestinal: Present: soft, non-tender, non-distended, normal bowel sounds - Genitourinary Male genitourinary: normal - Integumentary Integumentary: clear, warm, dry - Musculoskeletal Musculoskeletal: strength equal bilaterally, other (Right leg bandaged. Very minimal serosanguineous exudate from external fixator site.) - Neurologic Neurologic: moves all extremities - Psychiatric Psychiatric: appropriate mood/affect, intact judgment & insight, memory intact, other (Poor cognition.) - Labs CBC & Chem 7: 12/16/19 06:38 12/17/19 10:57 HEART Score - HEART Score Age: > 65 Risk factors: 1-2 risk factors - Critical Actions Critical Actions: 0-3 pts:0.9-1.7%risk of adverse cardiac event.Candidate for discharge
[2019-12-18] MEDS: SULFAMETHOXAZOLE/TRIMETHOPRIM 800/160MG DS TAB PO SCH (21:53)
[2019-12-18] MEDS ORDERED: VANCOMYCIN 1,250 MG in SODIUM CHLORIDE 0.9% 250ML 250 ML IV SCH (22:00)
[2019-12-18] MEDS ORDERED: SULFAMETHOXAZOLE/TRIMETHOPRIM 200-40 MG/5 ML ORAL LIQD 30 ML PO SCH (22:00)
[2019-12-18] MEDS: INSULIN GLARGINE 100 UNITS/ML SUB-Q SCH (22:17)
[2019-12-19] MEDS: SULFAMETHOXAZOLE/TRIMETHOPRIM 800/160MG DS TAB PO SCH (09:35)
[2019-12-19] MEDS: predniSONE 5 MG TAB PO SCH (09:35)
[2019-12-19] MEDS: SODIUM BICARBONATE 650 MG TAB PO SCH ×2 (09:35→23:18)
[2019-12-19] MEDS: FAMOTIDINE 20 MG TAB PO SCH (09:35)
[2019-12-19] MEDS: TACROLIMUS 1 MG CAP PO SCH ×2 (09:35→23:22)
[2019-12-19] MEDS: carvediloL 25 MG TAB PO SCH ×2 (09:35→23:17)
[2019-12-19] MEDS: POTASSIUM CHLORIDE ER 20 MEQ TAB PO SCH (09:35)
[2019-12-19] MEDS: levoFLOXacin 500 MG TAB PO SCH (09:35)
[2019-12-19] MEDS: amLODIPine 5 MG TAB PO SCH (09:36)
[2019-12-19] MEDS: MYCOPHENOLATE 500 MG TAB PO SCH ×2 (09:36→23:18)
[2019-12-19] MEDS: glipiZIDE XL 5 MG TAB PO SCH (09:36)
[2019-12-19] MEDS: oxyCODONE /ACETAMINOPHEN 5-325MG TAB PO PRN (10:36)
[2019-12-19 10:56] LABS: Calcium 9.9 mg/dL (8.4-10.2)
--- NOTE | 2019-12-19 13:13 | Progress Note ---
Assessment and Plan - Patient Problems (1) URMILA (acute kidney injury) Current Visit: Yes Status: Acute Plan to address problem: In the setting of pre-renal injury. Renal function is stable, and showing slow improvement back to baseline. No new labs this am Continue with current regimen, IVF hydration. (2) Hypernatremia Current Visit: Yes Status: Acute Plan to address problem: Improved on most recent labs. (3) Hypokalemia Current Visit: Yes Status: Acute Plan to address problem: Replete per protocol. (4) Right tibial fracture Current Visit: Yes Status: Acute Qualifiers: Encounter type: initial encounter Salter-Ocampo Fracture Type: unspecified configuration Plan to address problem: S/p fixation. Further management per orthopedic surgery. Surgical cultures now indicating (+)MRSA. Antibiotic treatment per primary attending. (5) S/P kidney transplant Current Visit: Yes Status: Acute Plan to address problem: Continue on current immunosupression. (6) Hypertension Current Visit: Yes Status: Chronic Qualifiers: Hypertension type: essential hypertension Qualified Code(s): I10 - Essential (primary) hypertension Plan to address problem: Monitor on current regimen. (7) T2DM (type 2 diabetes mellitus) Current Visit: Yes Status: Chronic Qualifiers: Diabetes mellitus long term care phlebotomist insulin use: without mcc use Plan to address problem: DM management per primary attending. Subjective Date of service: 12/19/19 Principal diagnosis: Leg pain Interval history: Renal function stable, metabolic acidosis showing improvement with sodium bicarbonate gtt. No acute issues overnight. Objective - Vital Signs Vital signs: Vital Signs - 12hr 12/19/19 12/19/19 12/19/19 04:17 06:40 07:13 Temperature 99.6 F 98.1 F Pulse Rate 96 H 109 H Respiratory 20 19 Rate Respiratory Rate [Right Leg ] Blood Pressure 100/57 114/58 O2 Sat by Pulse 98 95 Oximetry 12/19/19 10:00 Temperature Pulse Rate Respiratory Rate Respiratory 17 Rate [Right Leg ] Blood Pressure O2 Sat by Pulse Oximetry - General Appearance General appearance: appears stated age EENT: ATNC Neck: no JVD Respiratory: Present: Clear to Ascultation Cardiology: regular, S1S2 Gastrointestinal: normal Integumentary: warm and dry Neurologic: no focal deficit Musculoskeletal: deferred - Lab 12/16/19 06:38 12/19/19 09:37 Most recent lab results Calcium 9.9 mg/dL (8.4-10.2) 12/19/19 09:37 Urine Creatinine 97.4 mg/dL (0.1-20.0) H 12/16/19 06:15 Urine Sodium 14 mmol/L 12/16/19 06:15 Urine Total Protein 30 mg/dL (5-11.8) H 12/16/19 06:15 - Allied health notes Allied health notes reviewed: nursing Medications & Allergies - Medications Allergies/Adverse Reactions: Allergies cefazolin Allergy (Intermediate, Verified 10/19/19 13:26) Hives itching & hives Home Medications: Home Medications Medication Instructions Recorded Confirmed Last Taken Type Aspirin 81 mg PO DAILY 10/16/19 12/14/19 5 Days Ago History ~12/09/19 Calcium Citrate/Vitamin D3 1,000 units PO DAILY 10/16/19 12/08/19 12/13/19 History Dronedarone (Nf) [Multaq (Nf)] 400 mg PO DAILY 10/16/19 12/08/19 12/13/19 History Mycophenolate 500 mg PO BID 10/16/19 12/08/19 12/13/19 History Prograf 2 mg PO Q12HR 10/16/19 12/08/19 12/13/19 History amLODIPine 5 mg PO DAILY 10/16/19 12/08/19 12/14/19 07:00 History carvediloL [Coreg] 20 mg PO BID 10/16/19 12/08/19 12/14/19 07:00 History glipiZIDE 5 mg PO DAILY 10/16/19 12/08/19 12/13/19 History predniSONE [Deltasone] 5 mg PO DAILY 10/16/19 12/08/19 12/13/19 History HYDROcodone/APAP 5-325 [[place] 1 each PO Q6HR PRN #20 tablet 10/19/19 12/08/19 12/13/19 Rx 5-325 mg TAB] HYDROcodone/APAP 7.5-325 [[place] 1 each PO Q6HR PRN #20 tablet 12/14/19 Unknown Rx 7.5-325 mg TAB] Sulfamethoxazole/Trimethoprim 1 each PO BID #30 tablet 12/14/19 Unknown Rx [Bactrim DS TAB] Active Medications: Generic Name Dose Route Start Last Admin Trade Name Freq PRN Reason Stop Dose Admin Acetaminophen 650 mg 12/14/19 22:57 Tylenol PO Q4H PRN Pain MILD(1-3)/Fever >100.5/WHALEY Amlodipine Besylate 5 mg 12/15/19 10:00 12/19/19 09:36 Amlodipine PO Not Given DAILY [facility] Carvedilol 25 mg 12/15/19 10:00 12/19/19 09:35 Coreg PO 25 mg BID NANCY Administration Famotidine 20 mg 12/16/19 10:00 12/19/19 09:35 Pepcid PO 20 mg DAILY NANCY Administration Glipizide 5 mg 12/16/19 08:00 12/19/19 09:36 Glucotrol Xl PO 5 mg DAILY@0800 [facility] Administration Hydromorphone HCl 1 mg 12/14/19 22:57 12/16/19 18:32 Dilaudid IV 1 mg Q3H PRN Administration Pain , Severe (7-10) Sodium Bicarbonate 150 meq/ 1,150 mls @ 75 mls/hr 12/17/19 13:00 12/17/19 22:10 Dextrose IV 75 mls/hr DIRECT NANCY Administration Insulin Glargine 15 units 12/18/19 22:00 12/18/19 22:17 Lantus SUB-Q 15 units QHS [facility] Administration Levofloxacin 500 mg 12/17/19 10:00 12/19/19 09:35 Levaquin PO 500 mg Q48H NANCY Administration Loperamide HCl 2 mg 12/15/19 14:01 12/15/19 21:23 Imodium PO 2 mg BID PRN Administration Diarrhea Metoclopramide HCl 5 mg 12/14/19 23:11 Reglan IV Q6H PRN Nausea And Vomiting Miscellaneous Medication 400 mg 12/15/19 10:00 Dronedarone (Nf) PO DAILY [facility] Mycophenolate Mofetil 500 mg 12/14/19 23:00 12/19/19 09:36 Cellcept PO 500 mg BID NANCY Administration Ondansetron HCl 4 mg 12/14/19 22:57 12/19/19 10:36 Zofran IV 4 mg Q3H PRN Administration Nausea And Vomiting Oxycodone/Acetaminophen 1 tab 12/14/19 22:57 12/19/19 10:36 Percocet 5/325 PO 1 tab Q6H PRN Administration Pain, Moderate (4-6) Potassium Chloride 20 meq 12/15/19 18:00 12/19/19 09:35 K-Dur PO 20 meq QDAY NANCY Administration Prednisone 5 mg 12/15/19 10:00 12/19/19 09:35 Deltasone PO 5 mg DAILY NANCY Administration Sodium Bicarbonate 650 mg 12/15/19 22:00 12/19/19 09:35 Sodium Bicarbonate PO 650 mg BID NANCY Administration Sodium Chloride 10 ml 12/15/19 10:00 12/19/19 09:36 Sodium Chloride Flush Syringe 10 Ml IV 10 ml BID NANCY Administration Sodium Chloride 10 ml 12/14/19 22:57 12/18/19 22:09 Sodium Chloride Flush Syringe 10 Ml IV 10 ml PRN PRN Administration LINE FLUSH Tacrolimus 2 mg 12/14/19 23:00 12/19/19 09:35 Prograf PO 2 mg Q12HR NANCY Administration Trimethoprim/Sulfamethoxazole 1 each 12/18/19 22:00 12/19/19 09:35 Bactrim Ds PO 1 each Q12HR NANCY Administration
--- NOTE | 2019-12-19 14:29 | Consultation ---
History of Present Illness - Reason for Consult Consult date: 12/19/19 Positive culture Requesting physician: OLEG HAQ - History of Present Illness The patient is a 64-year-old male with diabetes, hypertension, renal transplant recipient in 2018, on immunosuppression with Prograf, CellCept and prednisone underwent right proximal tibia fracture closed reduction and external fixator placement on 10/19/2019. He was hospitalized on 12/14/2019 for elective surgery for removal of his external fixator. Intraoperatively, patient was noted to have purulent drainage from the superior pin which was debrided using a curette and cultures were obtained. These cultures are growing MRSA, hence infectious diseases was consulted. Hospital stay has also been complicated by acute kidney injury being managed by nephrology. And with some low-grade fevers at the time of admission which have now improved. Patient is not the best of historians. Review of Systems: General: Low-grade fever HEENT: no new visual disturbance Respiratory: No cough, sputum, hemoptysis or shortness of breath Cardiovascular: No chest pain, syncope Gastrointestinal: No nausea, vomiting or diarrhea Genitourinary: No dysuria or hematuria Musculoskeletal: No new or worsening neck pain or back pain Neurologic: No headaches, seizures Hematologic: No easy bruising or bleeding Endocrine: No night sweats or acute weight loss Skin: negative for rash, jaundice Psychiatric: No suicidal or homicidal ideation Past History Past Medical History: diabetes, hypertension, renal failure (s/p DDKTx in 09/2017 ), other (Transplant) Past Surgical History: Other (Tibial fracture--right with external fixation, DDKTx in 09/2017) Social history: lives with family, full code Family history: hypertension Medications and Allergies Allergies Allergy/AdvReac Type Severity Reaction Status Date / Time cefazolin Allergy Intermediate Hives Verified 10/19/19 13:26 Home Medications Medication Instructions Recorded Confirmed Last Taken Type Aspirin 81 mg PO DAILY 10/16/19 12/14/19 5 Days Ago History ~12/09/19 Calcium Citrate/Vitamin D3 1,000 units PO DAILY 10/16/19 12/08/19 12/13/19 History Dronedarone (Nf) [Multaq (Nf)] 400 mg PO DAILY 10/16/19 12/08/19 12/13/19 Hist ory Mycophenolate 500 mg PO BID 10/16/19 12/08/19 12/13/19 History Prograf 2 mg PO Q12HR 10/16/19 12/08/19 12/13/19 History amLODIPine 5 mg PO DAILY 10/16/19 12/08/19 12/14/19 07:00 History carvediloL [Coreg] 20 mg PO BID 10/16/19 12/08/19 12/14/19 07:00 History glipiZIDE 5 mg PO DAILY 10/16/19 12/08/19 12/13/19 History predniSONE [Deltasone] 5 mg PO DAILY 10/16/19 12/08/19 12/13/19 History HYDROcodone/APAP 5-325 [Goldsmith 1 each PO Q6HR PRN #20 tablet 10/19/19 12/08/19 12/13/19 Rx 5-325 mg TAB] HYDROcodone/APAP 7.5-325 [Goldsmith 1 each PO Q6HR PRN #20 tablet 12/14/19 Unknown Rx 7.5-325 mg TAB] Sulfamethoxazole/Trimethoprim 1 each PO BID #30 tablet 12/14/19 Unknown Rx [Bactrim DS TAB] Active Meds: Active Medications Acetaminophen (Tylenol) 650 mg PO Q4H PRN PRN Reason: Pain MILD(1-3)/Fever >100.5/WHALEY Amlodipine Besylate (Amlodipine) 5 mg PO DAILY [facility] Last Admin: 12/19/19 09:36 Dose: Not Given Documented by: Carvedilol (Coreg) 25 mg PO BID [facility] Last Admin: 12/19/19 09:35 Dose: 25 mg Documented by: Famotidine (Pepcid) 20 mg PO DAILY [facility] Last Admin: 12/19/19 09:35 Dose: 20 mg Documented by: Glipizide (Glucotrol Xl) 5 mg PO DAILY@0800 [facility] Last Admin: 12/19/19 09:36 Dose: 5 mg Documented by: Hydromorphone HCl (Dilaudid) 1 mg IV Q3H PRN PRN Reason: Pain , Severe (7-10) Last Admin: 12/16/19 18:32 Dose: 1 mg Documented by: Sodium Bicarbonate 150 meq/ (Dextrose) 1,150 mls @ 75 mls/hr IV DIRECT [facility] Last Admin: 12/17/19 22:10 Dose: 75 mls/hr Documented by: Insulin Glargine (Lantus) 15 units SUB-Q QHS [facility] Last Admin: 12/18/19 22:17 Dose: 15 units Documented by: Levofloxacin (Levaquin) 500 mg PO Q48H [facility] Last Admin: 12/19/19 09:35 Dose: 500 mg Documented by: Loperamide HCl (Imodium) 2 mg PO BID PRN PRN Reason: Diarrhea Last Admin: 12/15/19 21:23 Dose: 2 mg Documented by: Metoclopramide HCl (Reglan) 5 mg IV Q6H PRN PRN Reason: Nausea And Vomiting Miscellaneous Medication (Dronedarone (Nf)) 400 mg PO DAILY [facility] Mycophenolate Mofetil (Cellcept) 500 mg PO BID [facility] Last Admin: 12/19/19 09:36 Dose: 500 mg Documented by: Ondansetron HCl (Zofran) 4 mg IV Q3H PRN PRN Reason: Nausea And Vomiting Last Admin: 12/19/19 10:36 Dose: 4 mg Documented by: Oxycodone/Acetaminophen (Percocet 5/325) 1 tab PO Q6H PRN PRN Reason: Pain, Moderate (4-6) Last Admin: 12/19/19 10:36 Dose: 1 tab Documented by: Potassium Chloride (K-Dur) 20 meq PO QDAY [facility] Last Admin: 12/19/19 09:35 Dose: 20 meq Documented by: Prednisone (Deltasone) 5 mg PO DAILY [facility] Last Admin: 12/19/19 09:35 Dose: 5 mg Documented by: Sodium Bicarbonate (Sodium Bicarbonate) 650 mg PO BID [facility] Last Admin: 12/19/19 09:35 Dose: 650 mg Documented by: Sodium Chloride (Sodium Chloride Flush Syringe 10 Ml) 10 ml IV BID [facility] Last Admin: 12/19/19 09:36 Dose: 10 ml Documented by: Sodium Chloride (Sodium Chloride Flush Syringe 10 Ml) 10 ml IV PRN PRN PRN Reason: LINE FLUSH Last Admin: 12/18/19 22:09 Dose: 10 ml Documented by: Tacrolimus (Prograf) 2 mg PO Q12HR [facility] Last Admin: 12/19/19 09:35 Dose: 2 mg Documented by: Trimethoprim/Sulfamethoxazole (Bactrim Ds) 1 each PO Q12HR [facility] Last Admin: 12/19/19 09:35 Dose: 1 each Documented by: Physical Examination - Physical Exam Narrative exam: Physical Exam: Constitutional: Alert, cooperative. No acute distress Head, Ears, Nose: Normocephalic, atraumatic. External ears, nose normal Eyes: Conjunctivae/corneas clear. No icterus. No ptosis. Neck: Supple, no meningeal signs Cardiovascular: S1, S2 normal. Respiratory: Good air entry, clear to auscultation bilaterally GI: Soft, non-tender; bowel sounds normal. No peritoneal signs Musculoskeletal: Right knee effusion. Right proximal tibia dressing present with small wound. Right hand and forearm with swelling, no warmth or cellulitis Skin: No rash or abscess Hem/Lymphatic: No palpable cervical or supraclavicular nodes. No lymphangitis Psych: Flat affect Neurological: Awake, alert, answering basic questions - Constitutional Vitals: Vital Signs Temp Pulse Resp BP Pulse Ox 98.1 F 109 H 17 114/58 95 12/19/19 07:13 12/19/19 07:13 12/19/19 10:00 12/19/19 07:13 12/19/19 07:13 Temperature -Last 24 Hours Temperature 98.1 F Temperature 99.6 F Temperature 98.4 F Temperature 99.7 F Temperature 98.9 F Results - Labs CBC & Chem 7: 12/16/19 06:38 12/19/19 09:37 Labs: Abnormal lab results 12/18/19 12/19/19 12/19/19 Range/Units 21:52 07:26 09:37 Potassium 3.4 L (3.6-5.0) mmol/L Chloride 109.8 H (98-107) mmol/L Carbon Dioxide 20 L D (22-30) mmol/L BUN 56 H (9-20) mg/dL Creatinine 2.8 H (0.8-1.3) mg/dL Glucose 245 H (75-100) mg/dL POC Glucose 237 H 204 H (70-105) Assessment and Plan Cultures: 12/14/2019 right leg surgical culture: MRSA A/P: 64-year-old male with diabetes, hypertension, renal transplant recipient in 2018, on immunosuppression with Prograf, CellCept and prednisone underwent right proximal tibia fracture closed reduction and external fixator placement on 10/19/2019. He was hospitalized on 12/14/2019 for elective surgery for removal of his external fixator, noted to have: #Low-grade fever, leukocytosis, infection associated with external fixator involving proximal tibia: Intraoperatively, patient was noted to have purulent drainage from the superior pin which was debrided using a curette and cultures were obtained. These cultures are growing MRSA. Patient is immunocompromised. All hardware has been removed. Patient is at risk of osteomyelitis. #Immunocompromised host, renal transplant recipient: On Prograf, CellCept, prednisone. #URMILA on CKD: Nephrology following. Renally dose antibiotics. Recs: Discontinued Bactrim, levofloxacin Started renally dosed IV daptomycin, avoiding vancomycin due to his URMILA on CKD and renal transplant Plan for 4 to 6 weeks of antibiotics, will likely need a tunneled central line for antibiotics ESR and CRP ordered Mike Andrade MD, FACP [facility] C: [phone] O: [phone] F: [phone]
--- NOTE | 2019-12-19 16:37 | Progress Note ---
Assessment and Plan s/p removal of external fixator multiple medical issues Continue observation Subjective Date of service: 12/19/19 Principal diagnosis: Leg pain Interval history: No major complaints noted Objective Vital signs: Vital Signs - 12hr 12/19/19 12/19/19 12/19/19 06:40 07:13 10:00 Temperature 98.1 F Pulse Rate 96 H 109 H Respiratory 19 Rate Respiratory 17 Rate [Right Leg ] Blood Pressure 114/58 O2 Sat by Pulse 98 95 Oximetry 12/19/19 16:20 Temperature 98.1 F Pulse Rate 94 H Respiratory 19 Rate Respiratory Rate [Right Leg ] Blood Pressure 113/55 O2 Sat by Pulse 93 Oximetry Incision: healing, clean and dry Weight bearing status: as tolerated - Labs CBC & BMP: 12/16/19 06:38 12/19/19 09:37 Labs: Abnormal lab results 12/18/19 12/19/19 12/19/19 Range/Units 21:52 07:26 09:37 Potassium 3.4 L (3.6-5.0) mmol/L Chloride 109.8 H (98-107) mmol/L Carbon Dioxide 20 L D (22-30) mmol/L BUN 56 H (9-20) mg/dL Creatinine 2.8 H (0.8-1.3) mg/dL Glucose 245 H (75-100) mg/dL POC Glucose 237 H 204 H (70-105)
[2019-12-19] MEDS: SODIUM BICARBONATE 150 MEQ in DEXTROSE 5% IN WATER 1,000 ML IV SCH (18:43)
--- NOTE | 2019-12-19 20:43 | Progress Note ---
Assessment and Plan Assessment and plan: - Patient Problems (1) URMILA (acute kidney injury) Current Visit: Yes Status: Acute Plan to address problem: Appears to be resolving closer to baseline. Renal following. Current creatinine 2.7. Follow-up labs in the a.m. (2) Hypernatremia Current Visit: Yes Status: Acute Plan to address problem: Hypernatremia has resolved now 143. (3) Hypokalemia Current Visit: Yes Status: Acute Plan to address problem: Hypokalemia we will treat with p.o. KCl. (4) Right tibial fracture Current Visit: Yes Status: Acute Qualifiers: Encounter type: initial encounter Salter-Ocampo Fracture Type: unspecified configuration Plan to address problem: Right tibial fracture status post correction. No evidence of infection. Clinically. Patient did have positive blood culture for MRSA most likely a contaminant. I have given patient a dose of bank await any ID recommendations. Started patient on p.o. Bactrim tolerating well. Await Ortho recommendations for discharge planning. (5) S/P kidney transplant Current Visit: Yes Status: Acute Plan to address problem: Renal function stable. (6) Hypertension Current Visit: Yes Status: Chronic Qualifiers: Hypertension type: essential hypertension Qualified Code(s): I10 - Essential (primary) hypertension Plan to address problem: Patient has optimal control blood pressure amlodipine Coreg continue present medical management. (7) T2DM (type 2 diabetes mellitus) Current Visit: Yes Status: Chronic Qualifiers: Diabetes mellitus fpc insulin use: without manager terminal use Plan to address problem: Patient diabetes still has suboptimal control. Patient is not eating better would add long acting insulin 15 units Levemir at night. (8) Metabolic acidosis Current Visit: Yes Status: Acute Plan to address problem: Improved with the initiation of bicarbonate isotonic. (9) DVT prophylaxis Current Visit: Yes Status: Acute Subjective Date of service: 12/18/19 Principal diagnosis: Leg pain Interval history: 64-year-old male with a history of hypertension end-stage renal disease received a kidney transplant several years ago and has had baseline creatinine of 1.3- 1.5. 12/14/2019 patient admitted for elective surgical correction of right proximal to tibial fracture. Patient underwent surgical intervention and external fixation device. 12/15/1999 patient was found to have elevated creatinine up from 1.5 at baseline to 2.8. Therefore renal consult was obtained. Was thought to be secondary to prerenal azotemia. Symptoms responding to IV volume replacement and creatinine going back down to baseline. 12/16/2019 patient's creatinine continued to improve toward baseline. 12/17/2019. Patient surgical blood culture showed positive for methicillin resistant staph aureus. May be contaminant because patient remained afebrile no leukocytosis. No tenderness to the area. And sensitivity of MRSA was pansensitive to Cipro and Bactrim. Patient was given 1 dose of Vanco IV and await any ID recommendations. Patient should be able to discharge with Bactrim since it is sensitive and patient is afebrile no leukocytosis. Does not appear to have underlying infection at this time. 12/18/2019. Patient is resting doubly afebrile placed on Bactrim because MRSA was sensitive to this. Await further recommendations from Ortho about discharge planning. Patient somewhat sad today. States he just lost his sister. Patient denies any wants for antidepressant medications. 12/18: Awaiting further plan by othor, continue on abx per ID and Nephrology following for Urmila, Showing slight improvement and not at baseline. monitor upper ext History Interval history: Patient seen and examined, still with right upper ext edema, moves it some, no pain. Hospitalist Physical - Physical exam Narrative exam: General appearance: Present: no acute distress, well-nourished - EENT Eyes: PERRL, EOM intact ENT: hearing intact, clear oral mucosa Ears: bilateral: normal - Neck Neck: supple, normal ROM - Respiratory Respiratory effort: normal Respiratory: bilateral: CTA - Breasts Breasts: normal - Cardiovascular Rhythm: regular Heart Sounds: Present: S1 & S2. Absent: gallop, rub Extremities: pulses intact, edema, normal color, Full ROM - Gastrointestinal General gastrointestinal: Present: soft, non-tender, non-distended, normal bowel sounds - Genitourinary Male genitourinary: normal - Integumentary Integumentary: clear, warm, edema on right upper ext - Musculoskeletal Musculoskeletal: strength equal bilaterally, right knee with bulging, chronic, other (Right leg bandaged. Very minimal serosanguineous exudate from external fixator site.) - Neurologic Neurologic: moves all extremities - Psychiatric Psychiatric: appropriate mood/affect, intact judgment & insight, memory intact, other (Poor cognition.) - Constitutional Vitals: Temp Pulse Resp BP Pulse Ox 98.3 F 90 20 100/55 96 12/19/19 19:03 12/19/19 19:03 12/19/19 19:03 12/19/19 19:03 12/19/19 19:03 General appearance: Present: no acute distress, well-nourished HEART Score - HEART Score Age: > 65 Risk factors: 1-2 risk factors - Critical Actions Critical Actions: 0-3 pts:0.9-1.7%risk of adverse cardiac event.Candidate for discharge Results - Labs CBC & Chem 7: 12/16/19 06:38 12/20/19 09:11 Labs: Laboratory Last Values WBC 11.1 K/mm3 (4.5-11.0) H 12/16/19 06:38 RBC 3.07 M/mm3 (3.65-5.03) L 12/16/19 06:38 Hgb 7.3 gm/dl (11.8-15.2) L 12/16/19 06:38 Hct 26.1 % (35.5-45.6) L 12/16/19 06:38 MCV 85 fl (84-94) 12/16/19 06:38 MCH 24 pg (28-32) L 12/16/19 06:38 MCHC 28 % (32-34) L 12/16/19 06:38 RDW 19.1 % (13.2-15.2) H 12/16/19 06:38 Plt Count 198 K/mm3 (140-440) 12/16/19 06:38 Lymph % (Auto) Plasma Processing Centrifuge Operator 12/16/19 06:38 [place] % (Auto) Plasma Processing Centrifuge Operator 12/16/19 06:38 Eos % (Auto) Plasma Processing Centrifuge Operator 12/16/19 06:38 Baso % (Auto) Plasma Processing Centrifuge Operator 12/16/19 06:38 Lymph # (Auto) Plasma Processing Centrifuge Operator 12/16/19 06:38 [place] # (Auto) Plasma Processing Centrifuge Operator 12/16/19 06:38 Eos # (Auto) Plasma Processing Centrifuge Operator 12/16/19 06:38 Baso # (Auto) Plasma Processing Centrifuge Operator 12/16/19 06:38 Add Manual Diff Complete 12/16/19 06:38 Total Counted 100 12/16/19 06:38 Seg Neutrophils % Plasma Processing Centrifuge Operator 12/16/19 06:38 Seg Neuts % (Manual) 90.0 % (40.0-70.0) H 12/16/19 06:38 Band Neutrophils % 3.0 % 12/16/19 06:38 Lymphocytes % (Manual) 5.0 % (13.4-35.0) L 12/16/19 06:38 Reactive Lymphs % (Man) 0 % 12/16/19 06:38 Monocytes % (Manual) 2.0 % (0.0-7.3) 12/16/19 06:38 Eosinophils % (Manual) 0 % (0.0-4.3) 12/16/19 06:38 Basophils % (Manual) 0 % (0.0-1.8) 12/16/19 06:38 Metamyelocytes % 0 % 12/16/19 06:38 Myelocytes % 0 % 12/16/19 06:38 Promyelocytes % 0 % 12/16/19 06:38 Blast Cells % 0 % 12/16/19 06:38 Nucleated RBC % Not Reportable 12/16/19 06:38 Seg Neutrophils # Plasma Processing Centrifuge Operator 12/16/19 06:38 Seg Neutrophils # Man 10.0 K/mm3 (1.8-7.7) H 12/16/19 06:38 Band Neutrophils # 0.3 K/mm3 12/16/19 06:38 Lymphocytes # (Manual) 0.6 K/mm3 (1.2-5.4) L 12/16/19 06:38 Abs React Lymphs (Man) 0.0 K/mm3 12/16/19 06:38 Monocytes # (Manual) 0.2 K/mm3 (0.0-0.8) 12/16/19 06:38 Eosinophils # (Manual) 0.0 K/mm3 (0.0-0.4) 12/16/19 06:38 Basophils # (Manual) 0.0 K/mm3 (0.0-0.1) 12/16/19 06:38 Metamyelocytes # 0.0 K/mm3 12/16/19 06:38 Myelocytes # 0.0 K/mm3 12/16/19 06:38 Promyelocytes # 0.0 K/mm3 12/16/19 06:38 Blast Cells # 0.0 K/mm3 12/16/19 06:38 WBC Morphology Not Reportable 12/16/19 06:38 Hypersegmented Neuts Not Reportable 12/16/19 06:38 Hyposegmented Neuts Not Reportable 12/16/19 06:38 Hypogranular Neuts Not Reportable 12/16/19 06:38 Smudge Cells Not Reportable 12/16/19 06:38 Toxic Granulation Not Reportable 12/16/19 06:38 Toxic Vacuolation Not Reportable 12/16/19 06:38 Dohle Bodies Not Reportable 12/16/19 06:38 Pelger-Huet Anomaly Not Reportable 12/16/19 06:38 Robert Rods Not Reportable 12/16/19 06:38 Platelet Estimate Consistent w auto 12/16/19 06:38 Clumped Platelets Not Reportable 12/16/19 06:38 Plt Clumps, EDTA Not Reportable 12/16/19 06:38 Large Platelets Not Reportable 12/16/19 06:38 Giant Platelets Not Reportable 12/16/19 06:38 Platelet Satelliting Not Reportable 12/16/19 06:38 Plt Morphology Comment Not Reportable 12/16/19 06:38 RBC Morphology Not Reportable 12/16/19 06:38 Dimorphic RBCs Not Reportable 12/16/19 06:38 Polychromasia Not Reportable 12/16/19 06:38 Hypochromasia 1+ 12/16/19 06:38 Poikilocytosis Few 12/16/19 06:38 Anisocytosis Not Reportable 12/16/19 06:38 Microcytosis Few 12/16/19 06:38 Macrocytosis Not Reportable 12/16/19 06:38 Spherocytes Not Reportable 12/16/19 06:38 Pappenheimer Bodies Not Reportable 12/16/19 06:38 Sickle Cells Not Reportable 12/16/19 06:38 Target Cells Few 12/16/19 06:38 Tear Drop Cells Few 12/16/19 06:38 Ovalocytes Not Reportable 12/16/19 06:38 Helmet Cells Not Reportable 12/16/19 06:38 [place] Bodies Not Reportable 12/16/19 06:38 [place] Rings Not Reportable 12/16/19 06:38 Juju Cells Not Reportable 12/16/19 06:38 Bite Cells Not Reportable 12/16/19 06:38 Crenated Cell Not Reportable 12/16/19 06:38 Elliptocytes Not Reportable 12/16/19 06:38 Acanthocytes (Spur) Not Reportable 12/16/19 06:38 Rouleaux Not Reportable 12/16/19 06:38 Hemoglobin C Crystals Not Reportable 12/16/19 06:38 Schistocytes Not Reportable 12/16/19 06:38 Malaria parasites Not Reportable 12/16/19 06:38 Hector Bodies Not Reportable 12/16/19 06:38 Hem Pathologist Commnt No 12/16/19 06:38 Sodium 144 mmol/L (137-145) 12/19/19 09:37 Potassium 3.4 mmol/L (3.6-5.0) L 12/19/19 09:37 Chloride 109.8 mmol/L (98-107) H 12/19/19 09:37 Carbon Dioxide 20 mmol/L (22-30) L D 12/19/19 09:37 Anion Gap 18 mmol/L 12/19/19 09:37 BUN 56 mg/dL (9-20) H 12/19/19 09:37 Creatinine 2.8 mg/dL (0.8-1.3) H 12/19/19 09:37 Estimated GFR 28 ml/min 12/19/19 09:37 BUN/Creatinine Ratio 20 % 12/19/19 09:37 Glucose 245 mg/dL (75-100) H 12/19/19 09:37 POC Glucose 204 (70-105) H 12/19/19 07:26 Uric Acid 11.7 mg/dL (3.5-7.6) H 12/14/19 13:24 Calcium 9.9 mg/dL (8.4-10.2) 12/19/19 09:37 Total Bilirubin 1.50 mg/dL (0.1-1.2) H 12/17/19 10:57 AST 166 units/L (5-40) H 12/17/19 10:57 ALT 116 units/L (7-56) H 12/17/19 10:57 Alkaline Phosphatase 279 units/L (35-129) H 12/17/19 10:57 Total Protein 5.1 g/dL (6.3-8.2) L 12/17/19 10:57 Albumin 2.5 g/dL (3.9-5) L 12/17/19 10:57 Albumin/Globulin Ratio 1.0 % 12/17/19 10:57 Urine Color Yellow (Yellow) 12/16/19 06:15 Urine Turbidity Clear (Clear) 12/16/19 06:15 Urine pH 5.0 (5.0-7.0) 12/16/19 06:15 Ur Specific [place] 1.013 (1.003-1.030) 12/16/19 06:15 Urine Protein 30 mg/dl mg/dL (Negative) 12/16/19 06:15 Urine Glucose (UA) Neg mg/dL (Negative) 12/16/19 06:15 Urine Ketones Neg mg/dL (Negative) 12/16/19 06:15 Urine Blood Mod (Negative) 12/16/19 06:15 Urine Nitrite Neg (Negative) 12/16/19 06:15 Urine Bilirubin Neg (Negative) 12/16/19 06:15 Urine Urobilinogen < 2.0 mg/dL (<2.0) 12/16/19 06:15 Ur Leukocyte Esterase Neg (Negative) 12/16/19 06:15 Urine WBC (Auto) 1.0 /HPF (0.0-6.0) 12/16/19 06:15 Urine RBC (Auto) 1.0 /HPF (0.0-6.0) 12/16/19 06:15 Urine Bacteria (Auto) 1+ /HPF (Negative) 12/16/19 06:15 Urine Mucus Few /HPF 12/16/19 06:15 Urine Creatinine 97.4 mg/dL (0.1-20.0) H 12/16/19 06:15 Urine Sodium 14 mmol/L 12/16/19 06:15 Urine Total Protein 30 mg/dL (5-11.8) H 12/16/19 06:15 Random Vancomycin 11.7 ug/mL (0-40.0) 12/19/19 09:37 Coronavirus (PCR) Negative (Negative) 12/12/19 14:40 Blood Type O POSITIVE 12/14/19 11:40 Antibody Screen Negative 12/14/19 11:40 Crossmatch See Detail 12/14/19 11:40 Lassiter/IV: Voiding Method Urinal IV Catheter Type [Left Wrist] INT / Saline Lock IV Catheter Type [Left Hand] Peripheral IV IV Catheter Type [Left Forearm Peripheral IV ] Active Medications - Current Medications Current Medications: Generic Name Dose Route Start Last Admin Trade Name Freq PRN Reason Stop Dose Admin Acetaminophen 650 mg 12/14/19 22:57 Tylenol PO Q4H PRN Pain MILD(1-3)/Fever >100.5/WHALEY Amlodipine Besylate 5 mg 12/15/19 10:00 12/19/19 09:36 Amlodipine PO Not Given DAILY [facility] Carvedilol 25 mg 12/15/19 10:00 12/19/19 09:35 Coreg PO 25 mg BID NANCY Administration Famotidine 20 mg 12/16/19 10:00 12/19/19 09:35 Pepcid PO 20 mg DAILY NANCY Administration Glipizide 5 mg 12/16/19 08:00 12/19/19 09:36 Glucotrol Xl PO 5 mg DAILY@0800 NANCY Administration Hydromorphone HCl 1 mg 12/14/19 22:57 12/16/19 18:32 Dilaudid IV 1 mg Q3H PRN Administration Pain , Severe (7-10) Sodium Bicarbonate 150 meq/ 1,150 mls @ 75 mls/hr 12/17/19 13:00 12/19/19 18:43 Dextrose IV 75 mls/hr DIRECT NANCY Administration Daptomycin 500 mg/ Sodium 100 mls @ 200 mls/hr 12/19/19 16:00 Chloride IV Q48H [facility] Protocol Insulin Glargine 15 units 12/18/19 22:00 12/18/19 22:17 Lantus SUB-Q 15 units QHS NANCY Administration Loperamide HCl 2 mg 12/15/19 14:01 12/15/19 21:23 Imodium PO 2 mg BID PRN Administration Diarrhea Metoclopramide HCl 5 mg 12/14/19 23:11 Reglan IV Q6H PRN Nausea And Vomiting Miscellaneous Medication 400 mg 12/15/19 10:00 Dronedarone (Nf) PO DAILY [facility] Mycophenolate Mofetil 500 mg 12/14/19 23:00 12/19/19 09:36 Cellcept PO 500 mg BID NANCY Administration Ondansetron HCl 4 mg 12/14/19 22:57 12/19/19 10:36 Zofran IV 4 mg Q3H PRN Administration Nausea And Vomiting Oxycodone/Acetaminophen 1 tab 12/14/19 22:57 12/19/19 10:36 Percocet 5/325 PO 1 tab Q6H PRN Administration Pain, Moderate (4-6) Potassium Chloride 20 meq 12/15/19 18:00 12/19/19 09:35 K-Dur PO 20 meq QDAY NANCY Administration Prednisone 5 mg 12/15/19 10:00 12/19/19 09:35 Deltasone PO 5 mg DAILY NANCY Administration Sodium Bicarbonate 650 mg 12/15/19 22:00 12/19/19 09:35 Sodium Bicarbonate PO 650 mg BID NANCY Administration Sodium Chloride 10 ml 12/15/19 10:00 12/19/19 09:36 Sodium Chloride Flush Syringe 10 Ml IV 10 ml BID NANCY Administration Sodium Chloride 10 ml 12/14/19 22:57 12/18/19 22:09 Sodium Chloride Flush Syringe 10 Ml IV 10 ml PRN PRN Administration LINE FLUSH Tacrolimus 2 mg 12/14/19 23:00 12/19/19 09:35 Prograf PO 2 mg Q12HR NANCY Administration Nutrition/Malnutrition Assess - Dietary Evaluation Nutrition/Malnutrition Findings: Nutrition Notes Start: 12/15/19 14:11 Freq: Status: Active Protocol: Document 12/19/19 14:32 AMIE (Rec: 12/19/19 14:44 AMIE [id number]) Co-Sign 12/19/19 14:32 LM Nutrition Notes Initial or Follow up Reassessment Current Diagnosis Acute Kidney Injury,Diabetes Other Pertinent Diagnosis s/p kidney transplant, tibia fx, Hypernatremia, Hypokalemia Current Diet Consistent Carb Labs/Tests Na 143 K 4 BUN 57 Cr 2.7 BG 334 Pertinent Medications Glipizide Lantus K-Dur 20 mEq Prednisone Prograft Height 6 ft Weight 79.3 kg [place] Body Weight (kg) 80.90 BMI 23.7 Weight Status Underweight Subjective/Other Information F/u Torrey administration and intakes. Per RN, pt is sleeping. RN reported pt drinking [place] in water at breakfast. Pt ate 50% of breakfast due to low appetite and slept during lunch. Pt had some vomit this AM prior to meal. Burn Absent Trauma Absent GI Symptoms Vomiting Skin Integrity/Comment multiple pressure ulcers Current % PO Fair (50-74%) Minimum of two criteria No physical signs of malnutrition #1 Nutrition Diagnosis Increased nutrient needs ( specify in comment below) Diagnosis Progress(for reassessment Continues documentation) Is patient on ventilator? No Is Patient Ambulatory and/or Out of Bed No REE-([facility]-confined to bed) [phone] Calculation Used for Recommendations [facility] Additional Notes Protein (.8-1.5g/kg): 63-119g Fluid 1ml/kcal Nutrition Intervention Change Diet Order: Continue consistent carbohydrate diet Add Supplement/Snack (indicate name/kcal [place] BID /protein ) Glucerna Vanilla daily Provides kCal: 410 Provides Protein (gm) 15 Goal #1 Pt will meet 75-100% of energy and protein needs by PO. Goal #2 Wound care Anticipated Discharge Needs: Consistent Carbohydrate diet Follow-Up By: 01/19/20 Additional Comments F/u [place], ONS, and intakes
[2019-12-19] MEDS: INSULIN GLARGINE 100 UNITS/ML SUB-Q SCH (23:18)
--- NOTE | 2019-12-20 08:45 | Progress Note ---
Assessment and Plan Assessment and plan: - Patient Problems (1) URMILA (acute kidney injury) Current Visit: Yes Status: Acute Plan to address problem: Appears to be resolving closer to baseline. Renal following. Current creatinine 2.7. Follow-up labs in the a.m. (2) Hypernatremia Current Visit: Yes Status: Acute Plan to address problem: Hypernatremia has resolved now 143. (3) Hypokalemia Current Visit: Yes Status: Acute Plan to address problem: Hypokalemia we will treat with p.o. KCl. (4) Right tibial fracture Current Visit: Yes Status: Acute Qualifiers: Encounter type: initial encounter Salter-Ocampo Fracture Type: unspecified configuration Plan to address problem: Right tibial fracture status post correction. No evidence of infection. Clinically. Patient did have positive blood culture for MRSA most likely a contaminant. I have given patient a dose of bank await any ID recommendations. Started patient on p.o. Bactrim tolerating well. Await Ortho recommendations for discharge planning. (5) S/P kidney transplant Current Visit: Yes Status: Acute Plan to address problem: Renal function stable. (6) Hypertension Current Visit: Yes Status: Chronic Qualifiers: Hypertension type: essential hypertension Qualified Code(s): I10 - Essential (primary) hypertension Plan to address problem: Patient has optimal control blood pressure amlodipine Coreg continue present medical management. (7) T2DM (type 2 diabetes mellitus) Current Visit: Yes Status: Chronic Qualifiers: Diabetes mellitus senior living insulin use: without intermediate frame tender use Plan to address problem: Patient diabetes still has suboptimal control. Patient is not eating better would add long acting insulin 15 units Levemir at night. (8) Metabolic acidosis Current Visit: Yes Status: Acute Plan to address problem: Improved with the initiation of bicarbonate isotonic. (9) DVT prophylaxis Current Visit: Yes Status: Acute Subjective Date of service: 12/18/19 Principal diagnosis: Leg pain Interval history: 64-year-old male with a history of hypertension end-stage renal disease received a kidney transplant several years ago and has had baseline creatinine of 1.3- 1.5. 12/14/2019 patient admitted for elective surgical correction of right proximal to tibial fracture. Patient underwent surgical intervention and external fixation device. 12/15/1999 patient was found to have elevated creatinine up from 1.5 at baseline to 2.8. Therefore renal consult was obtained. Was thought to be secondary to prerenal azotemia. Symptoms responding to IV volume replacement and creatinine going back down to baseline. 12/16/2019 patient's creatinine continued to improve toward baseline. 12/17/2019. Patient surgical blood culture showed positive for methicillin resistant staph aureus. May be contaminant because patient remained afebrile no leukocytosis. No tenderness to the area. And sensitivity of MRSA was pansensitive to Cipro and Bactrim. Patient was given 1 dose of Vanco IV and await any ID recommendations. Patient should be able to discharge with Bactrim since it is sensitive and patient is afebrile no leukocytosis. Does not appear to have underlying infection at this time. 12/18/2019. Patient is resting doubly afebrile placed on Bactrim because MRSA was sensitive to this. Await further recommendations from Ortho about discharge planning. Patient somewhat sad today. States he just lost his sister. Patient denies any wants for antidepressant medications. 12/18: Awaiting further plan by othor, continue on abx per ID and Nephrology following for urmila, Showing slight improvement and not at baseline. Monitor Right upper ext 12/19: Consult Vascular due to concern for upper ext, obtain doppler of right upper ext History Interval history: Patient seen and examined, still with right upper ext edema, moves it some, no pain. Hospitalist Physical - Physical exam Narrative exam: General appearance: Present: no acute distress, well-nourished - EENT Eyes: PERRL, EOM intact ENT: hearing intact, clear oral mucosa Ears: bilateral: normal - Neck Neck: supple, normal ROM - Respiratory Respiratory effort: normal Respiratory: bilateral: CTA - Breasts Breasts: normal - Cardiovascular Rhythm: regular Heart Sounds: Present: S1 & S2. Absent: gallop, rub Extremities: pulses intact, edema, normal color, Full ROM - Gastrointestinal General gastrointestinal: Present: soft, non-tender, non-distended, normal bowel sounds - Genitourinary Male genitourinary: normal - Integumentary Integumentary: clear, warm, edema on right upper ext - Musculoskeletal Musculoskeletal: strength equal bilaterally, right knee with bulging, chronic, other (Right leg bandaged. Very minimal serosanguineous exudate from external fixator site.) - Neurologic Neurologic: moves all extremities - Psychiatric Psychiatric: appropriate mood/affect, intact judgment & insight, memory intact, other (Poor cognition.) - Constitutional Vitals: Temp Pulse Resp BP Pulse Ox 97.9 F 94 H 20 108/63 99 12/20/19 08:04 12/20/19 08:04 12/20/19 08:04 12/20/19 08:04 12/20/19 08:04 General appearance: Present: no acute distress, well-nourished HEART Score - HEART Score Age: > 65 Risk factors: 1-2 risk factors - Critical Actions Critical Actions: 0-3 pts:0.9-1.7%risk of adverse cardiac event.Candidate for discharge Results - Labs CBC & Chem 7: 12/16/19 06:38 12/20/19 09:11 Labs: Laboratory Last Values WBC 11.1 K/mm3 (4.5-11.0) H 12/16/19 06:38 RBC 3.07 M/mm3 (3.65-5.03) L 12/16/19 06:38 Hgb 7.3 gm/dl (11.8-15.2) L 12/16/19 06:38 Hct 26.1 % (35.5-45.6) L 12/16/19 06:38 MCV 85 fl (84-94) 12/16/19 06:38 MCH 24 pg (28-32) L 12/16/19 06:38 MCHC 28 % (32-34) L 12/16/19 06:38 RDW 19.1 % (13.2-15.2) H 12/16/19 06:38 Plt Count 198 K/mm3 (140-440) 12/16/19 06:38 Lymph % (Auto) Criminal Records Technician 12/16/19 06:38 Gallia % (Auto) Criminal Records Technician 12/16/19 06:38 Eos % (Auto) Criminal Records Technician 12/16/19 06:38 Baso % (Auto) Criminal Records Technician 12/16/19 06:38 Lymph # (Auto) Criminal Records Technician 12/16/19 06:38 [place] # (Auto) Criminal Records Technician 12/16/19 06:38 Eos # (Auto) Criminal Records Technician 12/16/19 06:38 Baso # (Auto) Criminal Records Technician 12/16/19 06:38 Add Manual Diff Complete 12/16/19 06:38 Total Counted 100 12/16/19 06:38 Seg Neutrophils % Criminal Records Technician 12/16/19 06:38 Seg Neuts % (Manual) 90.0 % (40.0-70.0) H 12/16/19 06:38 Band Neutrophils % 3.0 % 12/16/19 06:38 Lymphocytes % (Manual) 5.0 % (13.4-35.0) L 12/16/19 06:38 Reactive Lymphs % (Man) 0 % 12/16/19 06:38 Monocytes % (Manual) 2.0 % (0.0-7.3) 12/16/19 06:38 Eosinophils % (Manual) 0 % (0.0-4.3) 12/16/19 06:38 Basophils % (Manual) 0 % (0.0-1.8) 12/16/19 06:38 Metamyelocytes % 0 % 12/16/19 06:38 Myelocytes % 0 % 12/16/19 06:38 Promyelocytes % 0 % 12/16/19 06:38 Blast Cells % 0 % 12/16/19 06:38 Nucleated RBC % Not Reportable 12/16/19 06:38 Seg Neutrophils # Criminal Records Technician 12/16/19 06:38 Seg Neutrophils # Man 10.0 K/mm3 (1.8-7.7) H 12/16/19 06:38 Band Neutrophils # 0.3 K/mm3 12/16/19 06:38 Lymphocytes # (Manual) 0.6 K/mm3 (1.2-5.4) L 12/16/19 06:38 Abs React Lymphs (Man) 0.0 K/mm3 12/16/19 06:38 Monocytes # (Manual) 0.2 K/mm3 (0.0-0.8) 12/16/19 06:38 Eosinophils # (Manual) 0.0 K/mm3 (0.0-0.4) 12/16/19 06:38 Basophils # (Manual) 0.0 K/mm3 (0.0-0.1) 12/16/19 06:38 Metamyelocytes # 0.0 K/mm3 12/16/19 06:38 Myelocytes # 0.0 K/mm3 12/16/19 06:38 Promyelocytes # 0.0 K/mm3 12/16/19 06:38 Blast Cells # 0.0 K/mm3 12/16/19 06:38 WBC Morphology Not Reportable 12/16/19 06:38 Hypersegmented Neuts Not Reportable 12/16/19 06:38 Hyposegmented Neuts Not Reportable 12/16/19 06:38 Hypogranular Neuts Not Reportable 12/16/19 06:38 Smudge Cells Not Reportable 12/16/19 06:38 Toxic Granulation Not Reportable 12/16/19 06:38 Toxic Vacuolation Not Reportable 12/16/19 06:38 Dohle Bodies Not Reportable 12/16/19 06:38 Pelger-Huet Anomaly Not Reportable 12/16/19 06:38 Robert Rods Not Reportable 12/16/19 06:38 Platelet Estimate Consistent w auto 12/16/19 06:38 Clumped Platelets Not Reportable 12/16/19 06:38 Plt Clumps, EDTA Not Reportable 12/16/19 06:38 Large Platelets Not Reportable 12/16/19 06:38 Giant Platelets Not Reportable 12/16/19 06:38 Platelet Satelliting Not Reportable 12/16/19 06:38 Plt Morphology Comment Not Reportable 12/16/19 06:38 RBC Morphology Not Reportable 12/16/19 06:38 Dimorphic RBCs Not Reportable 12/16/19 06:38 Polychromasia Not Reportable 12/16/19 06:38 Hypochromasia 1+ 12/16/19 06:38 Poikilocytosis Few 12/16/19 06:38 Anisocytosis Not Reportable 12/16/19 06:38 Microcytosis Few 12/16/19 06:38 Macrocytosis Not Reportable 12/16/19 06:38 Spherocytes Not Reportable 12/16/19 06:38 Pappenheimer Bodies Not Reportable 12/16/19 06:38 Sickle Cells Not Reportable 12/16/19 06:38 Target Cells Few 12/16/19 06:38 Tear Drop Cells Few 12/16/19 06:38 Ovalocytes Not Reportable 12/16/19 06:38 Helmet Cells Not Reportable 12/16/19 06:38 [place] Bodies Not Reportable 12/16/19 06:38 [place] Rings Not Reportable 12/16/19 06:38 Juju Cells Not Reportable 12/16/19 06:38 Bite Cells Not Reportable 12/16/19 06:38 Crenated Cell Not Reportable 12/16/19 06:38 Elliptocytes Not Reportable 12/16/19 06:38 Acanthocytes (Spur) Not Reportable 12/16/19 06:38 Rouleaux Not Reportable 12/16/19 06:38 Hemoglobin C Crystals Not Reportable 12/16/19 06:38 Schistocytes Not Reportable 12/16/19 06:38 Malaria parasites Not Reportable 12/16/19 06:38 Hector Bodies Not Reportable 12/16/19 06:38 Hem Pathologist Commnt No 12/16/19 06:38 Sodium 144 mmol/L (137-145) 12/19/19 09:37 Potassium 3.4 mmol/L (3.6-5.0) L 12/19/19 09:37 Chloride 109.8 mmol/L (98-107) H 12/19/19 09:37 Carbon Dioxide 20 mmol/L (22-30) L D 12/19/19 09:37 Anion Gap 18 mmol/L 12/19/19 09:37 BUN 56 mg/dL (9-20) H 12/19/19 09:37 Creatinine 2.8 mg/dL (0.8-1.3) H 12/19/19 09:37 Estimated GFR 28 ml/min 12/19/19 09:37 BUN/Creatinine Ratio 20 % 12/19/19 09:37 Glucose 245 mg/dL (75-100) H 12/19/19 09:37 POC Glucose 134 (70-105) H 12/20/19 08:18 Uric Acid 11.7 mg/dL (3.5-7.6) H 12/14/19 13:24 Calcium 9.9 mg/dL (8.4-10.2) 12/19/19 09:37 Total Bilirubin 1.50 mg/dL (0.1-1.2) H 12/17/19 10:57 AST 166 units/L (5-40) H 12/17/19 10:57 ALT 116 units/L (7-56) H 12/17/19 10:57 Alkaline Phosphatase 279 units/L (35-129) H 12/17/19 10:57 Total Protein 5.1 g/dL (6.3-8.2) L 12/17/19 10:57 Albumin 2.5 g/dL (3.9-5) L 12/17/19 10:57 Albumin/Globulin Ratio 1.0 % 12/17/19 10:57 Urine Color Yellow (Yellow) 12/16/19 06:15 Urine Turbidity Clear (Clear) 12/16/19 06:15 Urine pH 5.0 (5.0-7.0) 12/16/19 06:15 Ur Specific [place] 1.013 (1.003-1.030) 12/16/19 06:15 Urine Protein 30 mg/dl mg/dL (Negative) 12/16/19 06:15 Urine Glucose (UA) Neg mg/dL (Negative) 12/16/19 06:15 Urine Ketones Neg mg/dL (Negative) 12/16/19 06:15 Urine Blood Mod (Negative) 12/16/19 06:15 Urine Nitrite Neg (Negative) 12/16/19 06:15 Urine Bilirubin Neg (Negative) 12/16/19 06:15 Urine Urobilinogen < 2.0 mg/dL (<2.0) 12/16/19 06:15 Ur Leukocyte Esterase Neg (Negative) 12/16/19 06:15 Urine WBC (Auto) 1.0 /HPF (0.0-6.0) 12/16/19 06:15 Urine RBC (Auto) 1.0 /HPF (0.0-6.0) 12/16/19 06:15 Urine Bacteria (Auto) 1+ /HPF (Negative) 12/16/19 06:15 Urine Mucus Few /HPF 12/16/19 06:15 Urine Creatinine 97.4 mg/dL (0.1-20.0) H 12/16/19 06:15 Urine Sodium 14 mmol/L 12/16/19 06:15 Urine Total Protein 30 mg/dL (5-11.8) H 12/16/19 06:15 Random Vancomycin 11.7 ug/mL (0-40.0) 12/19/19 09:37 Coronavirus (PCR) Negative (Negative) 12/12/19 14:40 Blood Type O POSITIVE 12/14/19 11:40 Antibody Screen Negative 12/14/19 11:40 Crossmatch See Detail 12/14/19 11:40 Lassiter/IV: Voiding Method Diaper IV Catheter Type [Left Wrist] INT / Saline Lock IV Catheter Type [Left Hand] Peripheral IV IV Catheter Type [Left Forearm Peripheral IV ] Active Medications - Current Medications Current Medications: Generic Name Dose Route Start Last Admin Trade Name Freq PRN Reason Stop Dose Admin Acetaminophen 650 mg 12/14/19 22:57 Tylenol PO Q4H PRN Pain MILD(1-3)/Fever >100.5/WHALEY Amlodipine Besylate 5 mg 12/15/19 10:00 12/19/19 09:36 Amlodipine PO Not Given DAILY [facility] Carvedilol 25 mg 12/15/19 10:00 12/19/19 23:17 Coreg PO 25 mg BID NANCY Administration Famotidine 20 mg 12/16/19 10:00 12/19/19 09:35 Pepcid PO 20 mg DAILY NANCY Administration Glipizide 5 mg 12/16/19 08:00 12/19/19 09:36 Glucotrol Xl PO 5 mg DAILY@0800 [facility] Administration Hydromorphone HCl 1 mg 12/14/19 22:57 12/16/19 18:32 Dilaudid IV 1 mg Q3H PRN Administration Pain , Severe (7-10) Sodium Bicarbonate 150 meq/ 1,150 mls @ 75 mls/hr 12/17/19 13:00 12/19/19 18:43 Dextrose IV 75 mls/hr DIRECT NANCY Administration Daptomycin 500 mg/ Sodium 100 mls @ 200 mls/hr 12/19/19 16:00 12/19/19 23:28 Chloride IV Not Given Q48H [facility] Protocol Insulin Glargine 15 units 12/18/19 22:00 12/19/19 23:18 Lantus SUB-Q 15 units QHS NANCY Administration Loperamide HCl 2 mg 12/15/19 14:01 12/15/19 21:23 Imodium PO 2 mg BID PRN Administration Diarrhea Metoclopramide HCl 5 mg 12/14/19 23:11 Reglan IV Q6H PRN Nausea And Vomiting Miscellaneous Medication 400 mg 12/15/19 10:00 Dronedarone (Nf) PO DAILY [facility] Mycophenolate Mofetil 500 mg 12/14/19 23:00 12/19/19 23:18 Cellcept PO 500 mg BID NANCY Administration Ondansetron HCl 4 mg 12/14/19 22:57 12/19/19 10:36 Zofran IV 4 mg Q3H PRN Administration Nausea And Vomiting Oxycodone/Acetaminophen 1 tab 12/14/19 22:57 12/19/19 10:36 Percocet 5/325 PO 1 tab Q6H PRN Administration Pain, Moderate (4-6) Potassium Chloride 20 meq 12/15/19 18:00 12/19/19 09:35 K-Dur PO 20 meq QDAY NANCY Administration Prednisone 5 mg 12/15/19 10:00 12/19/19 09:35 Deltasone PO 5 mg DAILY NANCY Administration Sodium Bicarbonate 650 mg 12/15/19 22:00 12/19/19 23:18 Sodium Bicarbonate PO 650 mg BID NANCY Administration Sodium Chloride 10 ml 12/15/19 10:00 12/19/19 23:27 Sodium Chloride Flush Syringe 10 Ml IV 10 ml BID NANCY Administration Sodium Chloride 10 ml 12/14/19 22:57 12/18/19 22:09 Sodium Chloride Flush Syringe 10 Ml IV 10 ml PRN PRN Administration LINE FLUSH Tacrolimus 2 mg 12/14/19 23:00 12/19/19 23:22 Prograf PO 2 mg Q12HR NANCY Administration Nutrition/Malnutrition Assess - Dietary Evaluation Nutrition/Malnutrition Findings: Nutrition Notes Start: 12/15/19 14:11 Freq: Status: Active Protocol: Document 12/19/19 14:32 AMIE (Rec: 12/19/19 14:44 AMIE [id number]) Co-Sign 12/19/19 14:32 LM Nutrition Notes Initial or Follow up Reassessment Current Diagnosis Acute Kidney Injury,Diabetes Other Pertinent Diagnosis s/p kidney transplant, tibia fx, Hypernatremia, Hypokalemia Current Diet Consistent Carb Labs/Tests Na 143 K 4 BUN 57 Cr 2.7 BG 334 Pertinent Medications Glipizide Lantus K-Dur 20 mEq Prednisone Prograft Height 6 ft Weight 79.3 kg [place] Body Weight (kg) 80.90 BMI 23.7 Weight Status Underweight Subjective/Other Information F/u Torrey administration and intakes. Per RN, pt is sleeping. RN reported pt drinking Torrey in water at breakfast. Pt ate 50% of breakfast due to low appetite and slept during lunch. Pt had some vomit this AM prior to meal. Burn Absent Trauma Absent GI Symptoms Vomiting Skin Integrity/Comment multiple pressure ulcers Current % PO Fair (50-74%) Minimum of two criteria No physical signs of malnutrition #1 Nutrition Diagnosis Increased nutrient needs ( specify in comment below) Diagnosis Progress(for reassessment Continues documentation) Is patient on ventilator? No Is Patient Ambulatory and/or Out of Bed No REE-([facility]-confined to bed) [phone] Calculation Used for Recommendations [facility] Additional Notes Protein (.8-1.5g/kg): 63-119g Fluid 1ml/kcal Nutrition Intervention Change Diet Order: Continue consistent carbohydrate diet Add Supplement/Snack (indicate name/kcal Torrey BID /protein ) Glucerna Vanilla daily Provides kCal: 410 Provides Protein (gm) 15 Goal #1 Pt will meet 75-100% of energy and protein needs by PO. Goal #2 Wound care Anticipated Discharge Needs: Consistent Carbohydrate diet Follow-Up By: 12/21/19 Additional Comments F/u Torrey, ONS, and intakes
--- NOTE | 2019-12-20 09:29 | Progress Note ---
Assessment and Plan - Patient Problems (1) URMILA (acute kidney injury) Current Visit: Yes Status: Acute Plan to address problem: In the setting of pre-renal injury. Renal function is stable, and showing slow improvement back to baseline. No new labs this am Given level of swelling/edema on RUE, will hold off on IVF for now and will await assessment of labs this am. (2) Hypernatremia Current Visit: Yes Status: Acute Plan to address problem: Improved on most recent labs. (3) Hypokalemia Current Visit: Yes Status: Acute Plan to address problem: Replete per protocol. (4) Right tibial fracture Current Visit: Yes Status: Acute Qualifiers: Encounter type: initial encounter Salter-Ocampo Fracture Type: unspecified configuration Plan to address problem: S/p fixation. Further management per orthopedic surgery. Surgical cultures now indicating (+)MRSA. ID recommendations appreciated. Plan for detention antibiotics for 4-6 weeks. Per ID would need central line placement for buttermaker helper antibiotic regimen as an outpatient. He has IV line inserted in his LUE, which is the site of the previous AVF. Antibiotic treatment per primary attending. (5) S/P kidney transplant Current Visit: Yes Status: Acute Plan to address problem: Continue on current immunosupression. (6) Hypertension Current Visit: Yes Status: Chronic Qualifiers: Hypertension type: essential hypertension Qualified Code(s): I10 - Essential (primary) hypertension Plan to address problem: Monitor on current regimen. (7) T2DM (type 2 diabetes mellitus) Current Visit: Yes Status: Chronic Qualifiers: Diabetes mellitus buttermaker helper insulin use: without buttermaker helper use Plan to address problem: DM management per primary attending. Subjective Date of service: 12/20/19 Principal diagnosis: Leg pain Interval history: No acute changes overnight. Labs are being drawn this am. Continues on IVF hydration. Objective - Vital Signs Vital signs: Vital Signs - 12hr 12/20/19 12/20/19 12/20/19 00:17 05:03 08:04 Temperature 98.2 F 97.6 F 97.9 F Pulse Rate 94 H 93 H 94 H Respiratory 17 17 20 Rate Blood Pressure 100/64 110/57 108/63 O2 Sat by Pulse 96 96 99 Oximetry - General Appearance General appearance: appears stated age, chronically ill EENT: ATNC Neck: no JVD Respiratory: Present: Clear to Ascultation, Normal Exam Cardiology: regular Gastrointestinal: normal Integumentary: warm and dry Neurologic: no focal deficit Musculoskeletal: deferred Psychiatric: cooperative - Lab 12/16/19 06:38 12/19/19 09:37 Most recent lab results Calcium 9.9 mg/dL (8.4-10.2) 12/19/19 09:37 Urine Creatinine 97.4 mg/dL (0.1-20.0) H 12/16/19 06:15 Urine Sodium 14 mmol/L 12/16/19 06:15 Urine Total Protein 30 mg/dL (5-11.8) H 12/16/19 06:15 - Allied health notes Allied health notes reviewed: nursing Medications & Allergies - Medications Allergies/Adverse Reactions: Allergies cefazolin Allergy (Intermediate, Verified 10/19/19 13:26) Hives itching & hives Home Medications: Home Medications Medication Instructions Recorded Confirmed Last Taken Type Aspirin 81 mg PO DAILY 10/16/19 12/14/19 5 Days Ago History ~12/09/19 Calcium Citrate/Vitamin D3 1,000 units PO DAILY 10/16/19 12/08/19 12/13/19 History Dronedarone (Nf) [Multaq (Nf)] 400 mg PO DAILY 10/16/19 12/08/19 12/13/19 History Mycophenolate 500 mg PO BID 10/16/19 12/08/19 12/13/19 History Prograf 2 mg PO Q12HR 10/16/19 12/08/19 12/13/19 History amLODIPine 5 mg PO DAILY 10/16/19 12/08/19 12/14/19 07:00 History carvediloL [Coreg] 20 mg PO BID 10/16/19 12/08/19 12/14/19 07:00 History glipiZIDE 5 mg PO DAILY 10/16/19 12/08/19 12/13/19 History predniSONE [Deltasone] 5 mg PO DAILY 10/16/19 12/08/19 12/13/19 History HYDROcodone/APAP 5-325 [[place] 1 each PO Q6HR PRN #20 tablet 10/19/19 12/08/19 12/13/19 Rx 5-325 mg TAB] HYDROcodone/APAP 7.5-325 [[place] 1 each PO Q6HR PRN #20 tablet 12/14/19 Unknown Rx 7.5-325 mg TAB] Sulfamethoxazole/Trimethoprim 1 each PO BID #30 tablet 12/14/19 Unknown Rx [Bactrim DS TAB] Active Medications: Generic Name Dose Route Start Last Admin Trade Name Freq PRN Reason Stop Dose Admin Acetaminophen 650 mg 12/14/19 22:57 Tylenol PO Q4H PRN Pain MILD(1-3)/Fever >100.5/WHALEY Amlodipine Besylate 5 mg 12/15/19 10:00 12/19/19 09:36 Amlodipine PO Not Given DAILY [facility] Carvedilol 25 mg 12/15/19 10:00 12/19/19 23:17 Coreg PO 25 mg BID NANCY Administration Famotidine 20 mg 12/16/19 10:00 12/19/19 09:35 Pepcid PO 20 mg DAILY NANCY Administration Glipizide 5 mg 12/16/19 08:00 12/19/19 09:36 Glucotrol Xl PO 5 mg DAILY@0800 NANCY Administration Hydromorphone HCl 1 mg 12/14/19 22:57 12/16/19 18:32 Dilaudid IV 1 mg Q3H PRN Administration Pain , Severe (7-10) Sodium Bicarbonate 150 meq/ 1,150 mls @ 75 mls/hr 12/17/19 13:00 12/19/19 18:43 Dextrose IV 75 mls/hr DIRECT NANCY Administration Daptomycin 500 mg/ Sodium 100 mls @ 200 mls/hr 12/19/19 16:00 12/19/19 23:28 Chloride IV Not Given Q48H [facility] Protocol Insulin Glargine 15 units 12/18/19 22:00 12/19/19 23:18 Lantus SUB-Q 15 units QHS NANCY Administration Loperamide HCl 2 mg 12/15/19 14:01 12/15/19 21:23 Imodium PO 2 mg BID PRN Administration Diarrhea Metoclopramide HCl 5 mg 12/14/19 23:11 Reglan IV Q6H PRN Nausea And Vomiting Miscellaneous Medication 400 mg 12/15/19 10:00 Dronedarone (Nf) PO DAILY [facility] Mycophenolate Mofetil 500 mg 12/14/19 23:00 12/19/19 23:18 Cellcept PO 500 mg BID NANCY Administration Ondansetron HCl 4 mg 12/14/19 22:57 12/19/19 10:36 Zofran IV 4 mg Q3H PRN Administration Nausea And Vomiting Oxycodone/Acetaminophen 1 tab 12/14/19 22:57 12/19/19 10:36 Percocet 5/325 PO 1 tab Q6H PRN Administration Pain, Moderate (4-6) Potassium Chloride 20 meq 12/15/19 18:00 12/19/19 09:35 K-Dur PO 20 meq QDAY NANCY Administration Prednisone 5 mg 12/15/19 10:00 12/19/19 09:35 Deltasone PO 5 mg DAILY NANCY Administration Sodium Bicarbonate 650 mg 12/15/19 22:00 12/19/19 23:18 Sodium Bicarbonate PO 650 mg BID NANCY Administration Sodium Chloride 10 ml 12/15/19 10:00 12/19/19 23:27 Sodium Chloride Flush Syringe 10 Ml IV 10 ml BID NANCY Administration Sodium Chloride 10 ml 12/14/19 22:57 12/18/19 22:09 Sodium Chloride Flush Syringe 10 Ml IV 10 ml PRN PRN Administration LINE FLUSH Tacrolimus 2 mg 12/14/19 23:00 12/19/19 23:22 Prograf PO 2 mg Q12HR NANCY Administration
[2019-12-20] MEDS: amLODIPine 5 MG TAB PO SCH (10:15)
[2019-12-20 10:34] LABS: Calcium 9.8 mg/dL (8.4-10.2)
[2019-12-20 10:37] LABS: C-Reactive Protein 25.9 mg/dL (0.00-1.30)
[2019-12-20] MEDS: FAMOTIDINE 20 MG TAB PO SCH (10:49)
[2019-12-20] MEDS: SODIUM BICARBONATE 650 MG TAB PO SCH ×2 (10:49→21:26)
[2019-12-20] MEDS: carvediloL 25 MG TAB PO SCH ×2 (10:50→21:26)
[2019-12-20] MEDS: predniSONE 5 MG TAB PO SCH (10:50)
[2019-12-20] MEDS: POTASSIUM CHLORIDE ER 20 MEQ TAB PO SCH (10:50)
[2019-12-20] MEDS: glipiZIDE XL 5 MG TAB PO SCH (10:50)
[2019-12-20] MEDS: MYCOPHENOLATE 500 MG TAB PO SCH ×2 (10:50→21:27)
[2019-12-20] MEDS: TACROLIMUS 1 MG CAP PO SCH ×2 (10:51→21:27)
[2019-12-20] MEDS: oxyCODONE /ACETAMINOPHEN 5-325MG TAB PO PRN (10:55)
--- NOTE | 2019-12-20 12:18 | Progress Note ---
Assessment and Plan Cultures: 12/14/2019 right leg surgical culture: MRSA A/P: 64-year-old male with diabetes, hypertension, renal transplant recipient in 2018, on immunosuppression with Prograf, CellCept and prednisone underwent right proximal tibia fracture closed reduction and external fixator placement on 10/19/2019. He was hospitalized on 12/14/2019 for elective surgery for removal of his external fixator, noted to have: #Low-grade fever, leukocytosis, infection associated with external fixator involving proximal tibia: Intraoperatively, patient was noted to have purulent drainage from the superior pin which was debrided using a curette and cultures were obtained. These cultures are growing MRSA. Patient is immunocompromised. All hardware has been removed. Patient is at risk of osteomyelitis. ESR and CRP are both elevated. #Immunocompromised host, renal transplant recipient: On Prograf, CellCept, prednisone. #URMILA on CKD: Nephrology following. Renally dose antibiotics. #RUE swelling/edema Recs: Continue renally dosed IV daptomycin, avoiding vancomycin due to his URMILA on CKD and renal transplant Plan for 4 to 6 weeks of antibiotics, will likely need a tunneled central line for antibiotics ?Eval for RUE DVT, patient with edematous RUE. D/W Dr. Rosario. Mike Andrade MD, FACP [facility] ([facility]) C: [phone] O: [phone] F: [phone] Subjective Date of service: 12/20/19 Principal diagnosis: Leg pain Interval history: Patient complains of R hand swelling. NO fever. No other complaints. Objective - Exam Narrative Exam: Physical Exam: Constitutional: Alert, cooperative. No acute distress Head, Ears, Nose: Normocephalic, atraumatic. External ears, nose normal Eyes: Conjunctivae/corneas clear. No icterus. No ptosis. Neck: Supple, no meningeal signs Cardiovascular: S1, S2 normal. Respiratory: Good air entry, clear to auscultation bilaterally GI: Soft, non-tender; bowel sounds normal. No peritoneal signs Musculoskeletal: Right knee effusion. Right proximal tibia dressing present with small wound. Right hand and forearm with swelling, no warmth or cellulitis Skin: No rash or abscess Hem/Lymphatic: No palpable cervical or supraclavicular nodes. No lymphangitis Psych: Flat affect Neurological: Awake, alert, answering basic questions - Constitutional Vitals: Vital Signs Temp Pulse Resp BP Pulse Ox 97.9 F 94 H 20 108/63 99 12/20/19 08:04 12/20/19 08:04 12/20/19 08:04 12/20/19 08:04 12/20/19 08:04 Temperature -Last 24 Hours Temperature 97.9 F Temperature 97.6 F Temperature 98.2 F Temperature 98.3 F Temperature 98.1 F - Labs CBC & Chem 7: 12/16/19 06:38 12/20/19 09:11 Labs: Abnormal lab results 12/19/19 12/20/19 12/20/19 Range/Units 21:27 08:18 09:11 BUN (9-20) mg/dL Creatinine (0.8-1.3) mg/dL Glucose (75-100) mg/dL POC Glucose 262 H 134 H (70-105) C-Reactive Protein 25.90 H (0.00-1.30) mg/dL 12/20/19 12/20/19 Range/Units 09:11 12:08 BUN 58 H (9-20) mg/dL Creatinine 2.7 H (0.8-1.3) mg/dL Glucose 140 H (75-100) mg/dL POC Glucose 172 H (70-105) C-Reactive Protein (0.00-1.30) mg/dL
[2019-12-20] MEDS: INSULIN GLARGINE 100 UNITS/ML SUB-Q SCH (21:27)
[2019-12-21] MEDS ORDERED: ENOXAPARIN 100 MG/1 ML INJ SUB-Q ONE (08:10)
--- NOTE | 2019-12-21 08:15 | Progress Note ---
Assessment and Plan Assessment and plan: 64-year-old male with a history of hypertension end-stage renal disease received a kidney transplant several years ago and has had baseline creatinine of 1.3- 1.5. - Patient Problems SEPSIS UNKNOWN SOURCE- POA URMILA (acute kidney injury) with vasomotor nephropathy Current Visit: Yes Status: Acute Plan to address problem: Appears to be resolving closer to baseline. Renal following. Current cre atinine 2.7. Follow-up labs in the a.m. Hypernatremia Current Visit: Yes Status: Acute Plan to address problem: Hypernatremia has resolved now 143. Hypokalemia Current Visit: Yes Status: Acute Plan to address problem: Hypokalemia we will treat with p.o. KCl. Right tibial fracture Current Visit: Yes Status: Acute Qualifiers: Encounter type: initial encounter Salter-Ocampo Fracture Type: unspecified configuration Plan to address problem: Right tibial fracture status post correction. No evidence of infection. Clinically. Patient did have positive blood culture for MRSA most likely a contaminant. I have given patient a dose of bank await any ID recommendations. Started patient on p.o. Bactrim tolerating well. Await Ortho recommendations fo r discharge planning. Bilateral pressure ulcer of the sacrum stge 3: Wound care following S/P kidney transplant Current Visit: Yes Status: Acute Plan to address problem: Renal function stable. Hypertension Current Visit: Yes Status: Chronic Qualifiers: Hypertension type: essential hypertension Qualified Code(s): I10 - Essential (primary) hypertension Plan to address problem: Patient has optimal control blood pressure amlodipine Coreg continue present medical management. T2DM (type 2 diabetes mellitus) Current Visit: Yes Status: Chronic Qualifiers: Diabetes mellitus equipment operator intermodal yard insulin use: without equipment operator intermodal yard use Plan to address problem: Patient diabetes still has suboptimal control. Patient is not eating better w ould add long acting insulin 15 units Levemir at night. Metabolic acidosis Current Visit: Yes Status: Acute Plan to address problem: Improved with the initiation of bicarbonate isotonic. Precipitous drop in HCT, Anemia: Continue to monitor. DVT prophylaxis Current Visit: Yes Status: Acute 12/14/2019 patient admitted for elective surgical correction of right proximal to tibial fracture. Patient underwent surgical intervention and external fixation device. 12/15/1999 patient was found to have elevated creatinine up from 1.5 at baseline to 2.8. Therefore renal consult was obtained. Was thought to be secondary to prerenal azotemia. Symptoms responding to IV volume replacement and creatinine going back down to baseline. 12/16/2019 patient's creatinine continued to improve toward baseline. 12/17/2019. Patient surgical blood culture showed positive for methicillin resi stant staph aureus. May be contaminant because patient remained afebrile no leukocytosis. No tenderness to the area. And sensitivity of MRSA was pansensitive to Cipro and Bactrim. Patient was given 1 dose of Vanco IV and await any ID recommendations. Patient should be able to discharge with Bactrim since it is sensitive and patient is afebrile no leukocytosis. Does not appear to have underlying infection at this time. 12/18/2019. Patient is resting doubly afebrile placed on Bactrim because MRSA was sensitive to this. Await further recommendations from Ortho about discharge planning. Patient somewhat sad today. States he just lost his sister. Patient denies any wants for antidepressant medications. 12/18: Awaiting further plan by othor, continue on abx per ID and Nephrology following for urmila, Showing slight improvement and not at baseline. Monitor Right upper ext 12/19: Consult Vascular due to concern for upper ext, obtain doppler of right upper ext 12/20: Unsure why Doppler has not been done, nurse not aware either, call placed to department for stat exam, will give a dose of Lovenox prophylactically. Finally doppler done and no DVT. Elevate Upper ext History Interval history: Patient seen and examined, still with right upper ext edema, moves it some, no pain. Hospitalist Physical - Physical exam Narrative exam: General appearance: Present: no acute distress, well-nourished - EENT Eyes: PERRL, EOM intact ENT: hearing intact, clear oral mucosa Ears: bilateral: normal - Neck Neck: supple, normal ROM - Respiratory Respiratory effort: normal Respiratory: bilateral: CTA - Breasts Breasts: normal - Cardiovascular Rhythm: regular Heart Sounds: Present: S1 & S2. Absent: gallop, rub Extremities: pulses intact, edema, normal color, Full ROM - Gastrointestinal General gastrointestinal: Present: soft, non-tender, non-distended, normal bowel sounds - Genitourinary Male genitourinary: normal - Integumentary Integumentary: clear, warm, edema on right upper ext EXTENSIVE SWELLING WITH BLISTER. - Musculoskeletal Musculoskeletal: strength equal bilaterally, right knee with bulging, chronic, other (Right leg bandaged. Very minimal serosanguineous exudate from external fixator site.) - Neurologic Neurologic: moves all extremities - Psychiatric Psychiatric: appropriate mood/affect, intact judgment & insight, memory intact, other (Poor cognition.) - Constitutional Vitals: Temp Pulse Resp BP Pulse Ox 97.8 F 75 16 105/58 97 12/21/19 05:19 12/21/19 05:19 12/21/19 05:19 12/21/19 05:19 12/21/19 05:19 General appearance: Present: no acute distress, well-nourished HEART Score - HEART Score Age: > 65 Risk factors: 1-2 risk factors - Critical Actions Critical Actions: 0-3 pts:0.9-1.7%risk of adverse cardiac event.Candidate for discharge Results - Labs CBC & Chem 7: 12/16/19 06:38 12/20/19 09:11 Labs: Laboratory Last Values WBC 11.1 K/mm3 (4.5-11.0) H 12/16/19 06:38 RBC 3.07 M/mm3 (3.65-5.03) L 12/16/19 06:38 Hgb 7.3 gm/dl (11.8-15.2) L 12/16/19 06:38 Hct 26.1 % (35.5-45.6) L 12/16/19 06:38 MCV 85 fl (84-94) 12/16/19 06:38 MCH 24 pg (28-32) L 12/16/19 06:38 MCHC 28 % (32-34) L 12/16/19 06:38 RDW 19.1 % (13.2-15.2) H 12/16/19 06:38 Plt Count 198 K/mm3 (140-440) 12/16/19 06:38 Lymph % (Auto) [employer] 12/16/19 06:38 [place] % (Auto) [employer] 12/16/19 06:38 Eos % (Auto) [employer] 12/16/19 06:38 Baso % (Auto) [employer] 12/16/19 06:38 Lymph # (Auto) [employer] 12/16/19 06:38 [place] # (Auto) [employer] 12/16/19 06:38 Eos # (Auto) [employer] 12/16/19 06:38 Baso # (Auto) [employer] 12/16/19 06:38 Add Manual Diff Complete 12/16/19 06:38 Total Counted 100 12/16/19 06:38 Seg Neutrophils % [employer] 12/16/19 06:38 Seg Neuts % (Manual) 90.0 % (40.0-70.0) H 12/16/19 06:38 Band Neutrophils % 3.0 % 12/16/19 06:38 Lymphocytes % (Manual) 5.0 % (13.4-35.0) L 12/16/19 06:38 Reactive Lymphs % (Man) 0 % 12/16/19 06:38 Monocytes % (Manual) 2.0 % (0.0-7.3) 12/16/19 06:38 Eosinophils % (Manual) 0 % (0.0-4.3) 12/16/19 06:38 Basophils % (Manual) 0 % (0.0-1.8) 12/16/19 06:38 Metamyelocytes % 0 % 12/16/19 06:38 Myelocytes % 0 % 12/16/19 06:38 Promyelocytes % 0 % 12/16/19 06:38 Blast Cells % 0 % 12/16/19 06:38 Nucleated RBC % Not Reportable 12/16/19 06:38 Seg Neutrophils # [employer] 12/16/19 06:38 Seg Neutrophils # Man 10.0 K/mm3 (1.8-7.7) H 12/16/19 06:38 Band Neutrophils # 0.3 K/mm3 12/16/19 06:38 Lymphocytes # (Manual) 0.6 K/mm3 (1.2-5.4) L 12/16/19 06:38 Abs React Lymphs (Man) 0.0 K/mm3 12/16/19 06:38 Monocytes # (Manual) 0.2 K/mm3 (0.0-0.8) 12/16/19 06:38 Eosinophils # (Manual) 0.0 K/mm3 (0.0-0.4) 12/16/19 06:38 Basophils # (Manual) 0.0 K/mm3 (0.0-0.1) 12/16/19 06:38 Metamyelocytes # 0.0 K/mm3 12/16/19 06:38 Myelocytes # 0.0 K/mm3 12/16/19 06:38 Promyelocytes # 0.0 K/mm3 12/16/19 06:38 Blast Cells # 0.0 K/mm3 12/16/19 06:38 WBC Morphology Not Reportable 12/16/19 06:38 Hypersegmented Neuts Not Reportable 12/16/19 06:38 Hyposegmented Neuts Not Reportable 12/16/19 06:38 Hypogranular Neuts Not Reportable 12/16/19 06:38 Smudge Cells Not Reportable 12/16/19 06:38 Toxic Granulation Not Reportable 12/16/19 06:38 Toxic Vacuolation Not Reportable 12/16/19 06:38 Dohle Bodies Not Reportable 12/16/19 06:38 Pelger-Huet Anomaly Not Reportable 12/16/19 06:38 Robert Rods Not Reportable 12/16/19 06:38 Platelet Estimate Consistent w auto 12/16/19 06:38 Clumped Platelets Not Reportable 12/16/19 06:38 Plt Clumps, EDTA Not Reportable 12/16/19 06:38 Large Platelets Not Reportable 12/16/19 06:38 Giant Platelets Not Reportable 12/16/19 06:38 Platelet Satelliting Not Reportable 12/16/19 06:38 Plt Morphology Comment Not Reportable 12/16/19 06:38 RBC Morphology Not Reportable 12/16/19 06:38 Dimorphic RBCs Not Reportable 12/16/19 06:38 Polychromasia Not Reportable 12/16/19 06:38 Hypochromasia 1+ 12/16/19 06:38 Poikilocytosis Few 12/16/19 06:38 Anisocytosis Not Reportable 12/16/19 06:38 Microcytosis Few 12/16/19 06:38 Macrocytosis Not Reportable 12/16/19 06:38 Spherocytes Not Reportable 12/16/19 06:38 Pappenheimer Bodies Not Reportable 12/16/19 06:38 Sickle Cells Not Reportable 12/16/19 06:38 Target Cells Few 12/16/19 06:38 Tear Drop Cells Few 12/16/19 06:38 Ovalocytes Not Reportable 12/16/19 06:38 Helmet Cells Not Reportable 12/16/19 06:38 Santana-Eton Bodies Not Reportable 12/16/19 06:38 [place] Rings Not Reportable 12/16/19 06:38 [place] Cells Not Reportable 12/16/19 06:38 Bite Cells Not Reportable 12/16/19 06:38 Crenated Cell Not Reportable 12/16/19 06:38 Elliptocytes Not Reportable 12/16/19 06:38 Acanthocytes (Spur) Not Reportable 12/16/19 06:38 Rouleaux Not Reportable 12/16/19 06:38 Hemoglobin C Crystals Not Reportable 12/16/19 06:38 Schistocytes Not Reportable 12/16/19 06:38 Malaria parasites Not Reportable 12/16/19 06:38 ESR 73 mm/Hr (0-20) 12/20/19 09:11 Hector Bodies Not Reportable 12/16/19 06:38 Hem Pathologist Commnt No 12/16/19 06:38 Sodium 141 mmol/L (137-145) 12/20/19 09:11 Potassium 3.6 mmol/L (3.6-5.0) 12/20/19 09:11 Chloride 103.7 mmol/L (98-107) 12/20/19 09:11 Carbon Dioxide 23 mmol/L (22-30) 12/20/19 09:11 Anion Gap 18 mmol/L 12/20/19 09:11 BUN 58 mg/dL (9-20) H 12/20/19 09:11 Creatinine 2.7 mg/dL (0.8-1.3) H 12/20/19 09:11 Estimated GFR 29 ml/min 12/20/19 09:11 BUN/Creatinine Ratio 21 % 12/20/19 09:11 Glucose 140 mg/dL (75-100) H 12/20/19 09:11 POC Glucose 192 (70-105) H 12/20/19 21:15 Uric Acid 11.7 mg/dL (3.5-7.6) H 12/14/19 13:24 Calcium 9.8 mg/dL (8.4-10.2) 12/20/19 09:11 Total Bilirubin 1.50 mg/dL (0.1-1.2) H 12/17/19 10:57 AST 166 units/L (5-40) H 12/17/19 10:57 ALT 116 units/L (7-56) H 12/17/19 10:57 Alkaline Phosphatase 279 units/L (35-129) H 12/17/19 10:57 Total Creatine Kinase 101 units/L (55-170) 12/20/19 09:11 C-Reactive Protein 25.90 mg/dL (0.00-1.30) H 12/20/19 09:11 Total Protein 5.1 g/dL (6.3-8.2) L 12/17/19 10:57 Albumin 2.5 g/dL (3.9-5) L 12/17/19 10:57 Albumin/Globulin Ratio 1.0 % 12/17/19 10:57 Urine Color Yellow (Yellow) 12/16/19 06:15 Urine Turbidity Clear (Clear) 12/16/19 06:15 Urine pH 5.0 (5.0-7.0) 12/16/19 06:15 Ur Specific [place] 1.013 (1.003-1.030) 12/16/19 06:15 Urine Protein 30 mg/dl mg/dL (Negative) 12/16/19 06:15 Urine Glucose (UA) Neg mg/dL (Negative) 12/16/19 06:15 Urine Ketones Neg mg/dL (Negative) 12/16/19 06:15 Urine Blood Mod (Negative) 12/16/19 06:15 Urine Nitrite Neg (Negative) 12/16/19 06:15 Urine Bilirubin Neg (Negative) 12/16/19 06:15 Urine Urobilinogen < 2.0 mg/dL (<2.0) 12/16/19 06:15 Ur Leukocyte Esterase Neg (Negative) 12/16/19 06:15 Urine WBC (Auto) 1.0 /HPF (0.0-6.0) 12/16/19 06:15 Urine RBC (Auto) 1.0 /HPF (0.0-6.0) 12/16/19 06:15 Urine Bacteria (Auto) 1+ /HPF (Negative) 12/16/19 06:15 Urine Mucus Few /HPF 12/16/19 06:15 Urine Creatinine 97.4 mg/dL (0.1-20.0) H 12/16/19 06:15 Urine Sodium 14 mmol/L 12/16/19 06:15 Urine Total Protein 30 mg/dL (5-11.8) H 12/16/19 06:15 Random Vancomycin 11.7 ug/mL (0-40.0) 12/19/19 09:37 Coronavirus (PCR) Negative (Negative) 12/12/19 14:40 Blood Type O POSITIVE 12/14/19 11:40 Antibody Screen Negative 12/14/19 11:40 Crossmatch See Detail 12/14/19 11:40 Lassiter/IV: Voiding Method Urinal IV Catheter Type [Left Wrist] INT / Saline Lock IV Catheter Type [Left Hand] Peripheral IV IV Catheter Type [Left Forearm Peripheral IV ] Active Medications - Current Medications Current Medications: Generic Name Dose Route Start Last Admin Trade Name Freq PRN Reason Stop Dose Admin Acetaminophen 650 mg 12/14/19 22:57 Tylenol PO Q4H PRN Pain MILD(1-3)/Fever >100.5/WHALEY Amlodipine Besylate 5 mg 12/15/19 10:00 12/20/19 10:15 Amlodipine PO Not Given DAILY NANCY Carvedilol 25 mg 12/15/19 10:00 12/20/19 21:26 Coreg PO 25 mg BID NANCY Administration Enoxaparin Sodium 100 mg 12/21/19 08:10 Enoxaparin SUB-Q 12/21/19 08:11 ONCE ONE Protocol Famotidine 20 mg 12/16/19 10:00 12/20/19 10:49 Pepcid PO 20 mg DAILY NANCY Administration Glipizide 5 mg 12/16/19 08:00 12/20/19 10:50 Glucotrol Xl PO 5 mg DAILY@0800 NANCY Administration Hydromorphone HCl 1 mg 12/14/19 22:57 12/16/19 18:32 Dilaudid IV 1 mg Q3H PRN Administration Pain , Severe (7-10) Sodium Bicarbonate 150 meq/ 1,150 mls @ 75 mls/hr 12/17/19 13:00 12/19/19 18 :43 Dextrose IV 75 mls/hr DIRECT NANCY Administration Daptomycin 500 mg/ Sodium 100 mls @ 200 mls/hr 12/19/19 16:00 12/19/19 23:28 Chloride IV Not Given Q48H NANCY Protocol Insulin Glargine 15 units 12/18/19 22:00 12/20/19 21:27 Lantus SUB-Q 15 units QHS NANCY Administration Loperamide HCl 2 mg 12/15/19 14:01 12/15/19 21:23 Imodium PO 2 mg BID PRN Administration Diarrhea Metoclopramide HCl 5 mg 12/14/19 23:11 Reglan IV Q6H PRN Nausea And Vomiting Miscellaneous Medication 400 mg 12/15/19 10:00 Dronedarone (Nf) PO DAILY NANCY Mycophenolate Mofetil 500 mg 12/14/19 23:00 12/20/19 21:27 Cellcept PO 500 mg BID NANCY Administration Ondansetron HCl 4 mg 12/14/19 22:57 12/19/19 10:36 Zofran IV 4 mg Q3H PRN Administration Nausea And Vomiting Oxycodone/Acetaminophen 1 tab 12/14/19 22:57 12/20/19 10:55 Percocet 5/325 PO 1 tab Q6H PRN Administration Pain, Moderate (4-6) Potassium Chloride 20 meq 12/15/19 18:00 12/20/19 10:50 K-Dur PO 20 meq QDAY NANCY Administration Prednisone 5 mg 12/15/19 10:00 12/20/19 10:50 Deltasone PO 5 mg DAILY NANCY Administration Sodium Bicarbonate 650 mg 12/15/19 22:00 12/20/19 21:26 Sodium Bicarbonate PO 650 mg BID NANCY Administration Sodium Chloride 10 ml 12/15/19 10:00 12/20/19 21:28 Sodium Chloride Flush Syringe 10 Ml IV 10 ml BID NANCY Administration Sodium Chloride 10 ml 12/14/19 22:57 12/18/19 22:09 Sodium Chloride Flush Syringe 10 Ml IV 10 ml PRN PRN Administration LINE FLUSH Tacrolimus 2 mg 12/14/19 23:00 12/20/19 21:27 Prograf PO 2 mg Q12HR NANCY Administration Nutrition/Malnutrition Assess - Dietary Evaluation Nutrition/Malnutrition Findings: Nutrition Notes Start: 12/15/19 14:1 1 Freq: Status: Active Protocol: Document 12/19/19 14:32 AMIE (Rec: 12/19/19 14:44 AMIE [id number]) Co-Sign 12/19/19 14:32 LM Nutrition Notes Initial or Follow up Reassessment Current Diagnosis Acute Kidney Injury,Diabetes Other Pertinent Diagnosis s/p kidney transplant, tibia fx, Hypernatremia, Hypokalemia Current Diet Consistent Carb Labs/Tests Na 143 K 4 BUN 57 Cr 2.7 BG 334 Pertinent Medications Glipizide Lantus K-Dur 20 mEq Prednisone Prograft Height 6 ft Weight 79.3 kg [place] Body Weight (kg) 80.90 BMI 23.7 Weight Status Underweight Subjective/Other Information F/u Torrey administration and intakes. Per RN, pt is sleeping. RN reported pt drinking Torrey in water at breakfast. Pt ate 50% of breakfast due to low appetite and slept during lunch. Pt had some vomit this AM prior to meal. Burn Absent Trauma Absent GI Symptoms Vomiting Skin Integrity/Comment multiple pressure ulcers Current % PO Fair (50-74%) Minimum of two criteria No physical signs of malnutrition #1 Nutrition Diagnosis Increased nutrient needs ( specify in comment below) Diagnosis Progress(for reassessment Continues documentation) Is patient on ventilator? No Is Patient Ambulatory and/or Out of Bed No REE-([facility]-confined to bed) [phone] Calculation Used for Recommendations [facility] Additional Notes Protein (.8-1.5g/kg): 63-119g Fluid 1ml/kcal Nutrition Intervention Change Diet Order: Continue consistent carbohydrate diet Add Supplement/Snack (indicate name/kcal Torrey BID /protein ) Glucerna Vanilla daily Provides kCal: 410 Provides Protein (gm) 15 Goal #1 Pt will meet 75-100% of energy and protein needs by PO. Goal #2 Wound care Anticipated Discharge Needs: Consistent Carbohydrate diet Follow-Up By: 12/21/19 Additional Comments F/u Torrey, ONS, and intakes
[2019-12-21] MEDS: glipiZIDE XL 5 MG TAB PO SCH (09:35)
[2019-12-21] MEDS: TACROLIMUS 1 MG CAP PO SCH ×2 (09:35→21:01)
[2019-12-21] MEDS: predniSONE 5 MG TAB PO SCH (09:35)
[2019-12-21] MEDS: POTASSIUM CHLORIDE ER 20 MEQ TAB PO SCH (09:35)
[2019-12-21] MEDS: MYCOPHENOLATE 500 MG TAB PO SCH ×2 (09:36→21:01)
[2019-12-21] MEDS: amLODIPine 5 MG TAB PO SCH (09:36)
[2019-12-21] MEDS: SODIUM BICARBONATE 650 MG TAB PO SCH ×2 (09:36→21:01)
[2019-12-21] MEDS: FAMOTIDINE 20 MG TAB PO SCH (09:36)
[2019-12-21] MEDS: carvediloL 25 MG TAB PO SCH ×2 (09:37→21:01)
[2019-12-21] MEDS ORDERED: ENOXAPARIN 80 MG/0.8 ML INJ SUB-Q NR (10:00)
--- NOTE | 2019-12-21 10:13 | Consultation ---
History of Present Illness - Reason for Consult Consult date: 12/21/19 Right arm swelling - History of Present Illness Patient with a history of end-stage renal disease previously on dialysis through left arm accesses. He has since undergone a renal transplant and no longer has any active accesses. The patient's does not state that he has had any access created in his right arm nor catheters placed in his right neck. He complains of massive right arm swelling that begins just below the humeral head and extends to the hand. There is discoloration with blistering extending onto the dorsum of the hand extending onto the proximal fingers. Patient does have a palpable radial pulse. He has intact sensation and motor. He states that the swelling began approximately 1 week ago. No inciting events. Patient has not had prior arm swelling Past History Past Medical History: diabetes, hypertension, renal failure (s/p DDKTx in 09/2017 ), other (Transplant) Past Surgical History: Other (Tibial fracture--right with external fixation, DDKTx in 09/2017) Social history: lives with family, full code Family history: hypertension Medications and Allergies Allergies Allergy/AdvReac Type Severity Reaction Status Date / Time cefazolin Allergy Intermediate Hives Verified 10/19/19 13:26 Home Medications Medication Instructions Recorded Confirmed Last Taken Type Aspirin 81 mg PO DAILY 10/16/19 12/14/19 5 Days Ago History ~12/09/19 Calcium Citrate/Vitamin D3 1,000 units PO DAILY 10/16/19 12/08/19 12/13/19 History Dronedarone (Nf) [Multaq (Nf)] 400 mg PO DAILY 10/16/19 12/08/19 12/13/19 History Mycophenolate 500 mg PO BID 10/16/19 12/08/19 12/13/19 History Prograf 2 mg PO Q12HR 10/16/19 12/08/19 12/13/19 History amLODIPine 5 mg PO DAILY 10/16/19 12/08/19 12/14/19 07:00 History carvediloL [Coreg] 20 mg PO BID 10/16/19 12/08/19 12/14/19 07:00 History glipiZIDE 5 mg PO DAILY 10/16/19 12/08/19 12/13/19 History predniSONE [Deltasone] 5 mg PO DAILY 10/16/19 12/08/19 12/13/19 History HYDROcodone/APAP 5-325 [[place] 1 each PO Q6HR PRN #20 tablet 10/19/19 12/08/19 Rx 5-325 mg TAB] HYDROcodone/APAP 7.5-325 [[place] 1 each PO Q6HR PRN #20 tablet 12/14/19 Unknown Rx 7.5-325 mg TAB] Sulfamethoxazole/Trimethoprim 1 each PO BID #30 tablet 12/14/19 Unknown Rx [Bactrim DS TAB] Active Meds: Active Medications Acetaminophen (Tylenol) 650 mg PO Q4H PRN PRN Reason: Pain MILD(1-3)/Fever >100.5/WHALEY Amlodipine Besylate (Amlodipine) 5 mg PO DAILY [facility] Last Admin: 12/21/19 09:36 Dose: 5 mg Documented by: Carvedilol (Coreg) 25 mg PO BID [facility] Last Admin: 12/21/19 09:37 Dose: Not Given Documented by: Enoxaparin Sodium (Enoxaparin) 80 mg SUB-Q ONCE NR Stop: 12/21/19 14:00 Last Admin: 12/21/19 09:34 Dose: 80 mg Documented by: Famotidine (Pepcid) 20 mg PO DAILY [facility] Last Admin: 12/21/19 09:36 Dose: 20 mg Documented by: Glipizide (Glucotrol Xl) 5 mg PO DAILY@0800 [facility] Last Admin: 12/21/19 09:35 Dose: 5 mg Documented by: Hydromorphone HCl (Dilaudid) 1 mg IV Q3H PRN PRN Reason: Pain , Severe (7-10) Last Admin: 12/16/19 18:32 Dose: 1 mg Documented by: Sodium Bicarbonate 150 meq/ (Dextrose) 1,150 mls @ 75 mls/hr IV DIRECT [facility] Last Admin: 12/19/19 18:43 Dose: 75 mls/hr Documented by: Daptomycin 500 mg/ Sodium (Chloride) 100 mls @ 200 mls/hr IV Q48H [facility]; Protocol Last Admin: 12/19/19 23:28 Dose: Not Given Documented by: Insulin Glargine (Lantus) 15 units SUB-Q QHS [facility] Last Admin: 12/20/19 21:27 Dose: 15 units Documented by: Loperamide HCl (Imodium) 2 mg PO BID PRN PRN Reason: Diarrhea Last Admin: 12/15/19 21:23 Dose: 2 mg Documented by: Metoclopramide HCl (Reglan) 5 mg IV Q6H PRN PRN Reason: Nausea And Vomiting Miscellaneous Medication (Dronedarone (Nf)) 400 mg PO DAILY [facility] Mycophenolate Mofetil (Cellcept) 500 mg PO BID [facility] Last Admin: 12/21/19 09:36 Dose: 500 mg Documented by: Ondansetron HCl (Zofran) 4 mg IV Q3H PRN PRN Reason: Nausea And Vomiting Last Admin: 12/19/19 10:36 Dose: 4 mg Documented by: Oxycodone/Acetaminophen (Percocet 5/325) 1 tab PO Q6H PRN PRN Reason: Pain, Moderate (4-6) Last Admin: 12/20/19 10:55 Dose: 1 tab Documented by: Potassium Chloride (K-Dur) 20 meq PO QDAY [facility] Last Admin: 12/21/19 09:35 Dose: 20 meq Documented by: Prednisone (Deltasone) 5 mg PO DAILY [facility] Last Admin: 12/21/19 09:35 Dose: 5 mg Documented by: Sodium Bicarbonate (Sodium Bicarbonate) 650 mg PO BID [facility] Last Admin: 12/21/19 09:36 Dose: 650 mg Documented by: Sodium Chloride (Sodium Chloride Flush Syringe 10 Ml) 10 ml IV BID [facility] Last Admin: 12/21/19 09:44 Dose: 10 ml Documented by: Sodium Chloride (Sodium Chloride Flush Syringe 10 Ml) 10 ml IV PRN PRN PRN Reason: LINE FLUSH Last Admin: 12/18/19 22:09 Dose: 10 ml Documented by: Tacrolimus (Prograf) 2 mg PO Q12HR [facility] Last Admin: 12/21/19 09:35 Dose: 2 mg Documented by: Review of Systems All systems: negative Exam - Constitutional Vitals: Temp Pulse Resp BP Pulse Ox 97.8 F 56 L 16 114/53 97 12/21/19 05:19 12/21/19 09:37 12/21/19 05:19 12/21/19 09:37 12/21/19 05:19 General appearance: Present: no acute distress - EENT Eyes: Present: EOM intact ENT: hearing intact - Neck Neck: Present: supple, normal ROM - Respiratory Respiratory effort: normal - Extremities Extremities: abnormal Extremity abnormal: edema - Abdominal General gastrointestinal: Present: deferred Male genitourinary: Present: deferred - Rectal Rectal Exam: deferred - Psychiatric Psychiatric: cooperative Results - Labs CBC & Chem 7: 12/16/19 06:38 12/20/19 09:11 Labs: Abnormal lab results 12/20/19 12/20/19 12/20/19 Range/Units 09:11 09:11 12:08 BUN 58 H (9-20) mg/dL Creatinine 2.7 H (0.8-1.3) mg/dL Glucose 140 H (75-100) mg/dL POC Glucose 172 H (70-105) C-Reactive Protein 25.90 H (0.00-1.30) mg/dL 12/20/19 12/20/19 Range/Units 17:11 21:15 BUN (9-20) mg/dL Creatinine (0.8-1.3) mg/dL Glucose (75-100) mg/dL POC Glucose 142 H 192 H (70-105) C-Reactive Protein (0.00-1.30) mg/dL Assessment and Plan Patient with new onset right arm swelling from just below the humeral head extending onto the hands with discoloration and blistering and intact motor, sensation and pulses. He is awaiting a ultrasound which was ordered yesterday. Patient was prophylactically placed on Lovenox. Further recommendations to follow.
--- NOTE | 2019-12-21 11:22 | Event Note ---
Date: 12/21/19 Patient scheduled for tunneled PICC line tomorrow tentatively. The patient is still awaiting an ultrasound of his right arm with massive right arm swelling. He may require intervention on the right arm depending on ultrasound results.
--- NOTE | 2019-12-21 12:23 | Progress Note ---
Assessment and Plan Cultures: 12/14/2019 right leg surgical culture: MRSA A/P: 64-year-old male with diabetes, hypertension, renal transplant recipient in 2018, on immunosuppression with Prograf, CellCept and prednisone underwent right proximal tibia fracture closed reduction and external fixator placement on 10/19/2019. He was hospitalized on 12/14/2019 for elective surgery for removal of his external fixator, noted to have: #Low-grade fever, leukocytosis, infection associated with external fixator involving proximal tibia: Intraoperatively, patient was noted to have purulent drainage from the superior pin which was debrided using a curette and cultures were obtained. These cultures are growing MRSA. Patient is immunocompromised. All hardware has been removed. Patient is at risk of osteomyelitis. ESR and CRP are both elevated. #Immunocompromised host, renal transplant recipient: On Prograf, CellCept, prednisone. #URMILA on CKD: Nephrology following. Renally dose antibiotics. #RUE swelling/edema Recs: Continue renally dosed IV daptomycin, avoiding vancomycin due to his URMILA on CKD and renal transplant Plan for 4 to 6 weeks of antibiotics, will likely need a tunneled central line for antibiotics awaiting RUE US results, vascular IR on board Mike Andrade MD, FACP [facility] C: [phone] O: [phone] F: [phone] Subjective Date of service: 12/21/19 Principal diagnosis: Leg pain Interval history: No fever. No other complaints. Right UE still swollen. Objective - Exam Narrative Exam: Physical Exam: Constitutional: Alert, cooperative. No acute distress Head, Ears, Nose: Normocephalic, atraumatic. External ears, nose normal Eyes: Conjunctivae/corneas clear. No icterus. No ptosis. Neck: Supple, no meningeal signs Cardiovascular: S1, S2 normal. Respiratory: Good air entry, clear to auscultation bilaterally GI: Soft, non-tender; bowel sounds normal. No peritoneal signs Musculoskeletal: Right knee effusion. Right proximal tibia dressing present with small wound. Right hand and forearm with swelling/edema, no warmth or cellulitis Skin: No rash or abscess Hem/Lymphatic: No palpable cervical or supraclavicular nodes. No lymphangitis Psych: Flat affect Neurological: Awake, alert, answering basic questions - Constitutional Vitals: Vital Signs Temp Pulse Resp BP Pulse Ox 97.8 F 56 L 16 114/53 97 12/21/19 05:19 12/21/19 09:37 12/21/19 05:19 12/21/19 09:37 12/21/19 05:19 Temperature -Last 24 Hours Temperature 97.8 F Temperature 97.9 F Temperature 98.1 F Temperature 97.9 F - Labs CBC & Chem 7: 12/16/19 06:38 12/20/19 09:11 Labs: Abnormal lab results 12/20/19 12/20/19 Range/Units 17:11 21:15 POC Glucose 142 H 192 H (70-105)
--- NOTE | 2019-12-21 13:01 | Vascular Lab Report ---
RIGHT UPPER EXTREMITY VENOUS DOPPLER ULTRASOUND HISTORY: Right arm swelling for 2 weeks COMPARISON: None. TECHNIQUE: Grayscale, color and spectral Doppler imaging of the venous system of the right upper extr emity was performed. FINDINGS: Internal Jugular Vein: Normal grayscale appearance and flow. Subclavian Vein: Normal grayscale appearance and flow. Axillary Vein: Normal venous flow, compressibility and augmentation. Brachial vein: Normal venous flow, compressibility and augmentation. Radial vein: Normal venous flow, compressibility and augmentation. Ulnar vein: Normal venous flow, compressibility and augmentation. Additional Findings: None. IMPRESSION: 1. No sonographic evidence of deep venous thrombosis in the right upper extremity. Signer Name: Fermin Ware Jr, MD Signed: 12/21/2019 12:56 PM Workstation Name: [id number]
--- NOTE | 2019-12-21 13:20 | Progress Note ---
Assessment and Plan - Patient Problems (1) URMILA (acute kidney injury) Current Visit: Yes Status: Acute Plan to address problem: In the setting of pre-renal injury. Renal function is stable, and showing slow improvement back to baseline. No new labs this am Given level of swelling/edema on RUE, have held off on IVF for now and closely monitor. Need to encourage adequate oral intake. (2) Hypernatremia Current Visit: Yes Status: Acute Plan to address problem: Improved on most recent labs. (3) Hypokalemia Current Visit: Yes Status: Acute Plan to address problem: Replete per protocol. (4) Right tibial fracture Current Visit: Yes Status: Acute Qualifiers: Encounter type: initial encounter Salter-Ocampo Fracture Type: unspecified configuration Plan to address problem: S/p fixation. Further management per orthopedic surgery. Surgical cultures now indicating (+)MRSA. ID recommendations appreciated. Plan for termite treater helper antibiotics for 4-6 weeks. Per ID would need central line placement for termite treater helper antibiotic regimen as an outpatient. He has IV line inserted in his LUE, which is the site of the previous AVF. Antibiotic treatment per primary attending. (5) S/P kidney transplant Current Visit: Yes Status: Acute Plan to address problem: Continue on current immunosupression. (6) Hypertension Current Visit: Yes Status: Chronic Qualifiers: Hypertension type: essential hypertension Qualified Code(s): I10 - Essential (primary) hypertension Plan to address problem: Monitor on current regimen. (7) T2DM (type 2 diabetes mellitus) Current Visit: Yes Status: Chronic Qualifiers: Diabetes mellitus skilled nursing insulin use: without termite treater helper use Plan to address problem: DM management per primary attending. Subjective Date of service: 12/21/19 Principal diagnosis: Leg pain Interval history: No acute issues overnight. Vascular consult noted. Patient underwent RUE US, which did not show evidence of thrombosis. Placed on prophylactic lovenox. Renal function reviewed, stable. Objective - Vital Signs Vital signs: Vital Signs - 12hr 12/21/19 12/21/19 12/21/19 05:19 09:36 09:37 Temperature 97.8 F Pulse Rate 75 56 L 56 L Respiratory 16 Rate Blood Pressure 105/58 114/53 114/53 O2 Sat by Pulse 97 Oximetry - General Appearance General appearance: appears stated age EENT: ATNC Neck: no JVD Respiratory: Present: Clear to Ascultation Cardiology: regular Gastrointestinal: normal Integumentary: warm and dry Neurologic: no focal deficit Musculoskeletal: other (edema of RUE noted ) Psychiatric: cooperative - Lab 12/16/19 06:38 12/20/19 09:11 Most recent lab results Calcium 9.8 mg/dL (8.4-10.2) 12/20/19 09:11 Urine Creatinine 97.4 mg/dL (0.1-20.0) H 12/16/19 06:15 Urine Sodium 14 mmol/L 12/16/19 06:15 Urine Total Protein 30 mg/dL (5-11.8) H 12/16/19 06:15 - Allied health notes Allied health notes reviewed: nursing Medications & Allergies - Medications Allergies/Adverse Reactions: Allergies cefazolin Allergy (Intermediate, Verified 10/19/19 13:26) Hives itching & hives Home Medications: Home Medications Medication Instructions Recorded Confirmed Last Taken Type Aspirin 81 mg PO DAILY 10/16/19 12/14/19 5 Days Ago History ~12/09/19 Calcium Citrate/Vitamin D3 1,000 units PO DAILY 10/16/19 12/08/19 12/13/19 History Dronedarone (Nf) [Multaq (Nf)] 400 mg PO DAILY 10/16/19 12/08/19 12/13/19 History Mycophenolate 500 mg PO BID 10/16/19 12/08/19 12/13/19 History Prograf 2 mg PO Q12HR 10/16/19 12/08/19 12/13/19 History amLODIPine 5 mg PO DAILY 10/16/19 12/08/19 12/14/19 07:00 History carvediloL [Coreg] 20 mg PO BID 10/16/19 12/08/19 12/14/19 07:00 History glipiZIDE 5 mg PO DAILY 10/16/19 12/08/19 12/13/19 History predniSONE [Deltasone] 5 mg PO DAILY 10/16/19 12/08/19 12/13/19 History HYDROcodone/APAP 5-325 [[place] 1 each PO Q6HR PRN #20 tablet 10/19/19 12/08/19 12/13/19 Rx 5-325 mg TAB] HYDROcodone/APAP 7.5-325 [[place] 1 each PO Q6HR PRN #20 tablet 12/14/19 Unknown Rx 7.5-325 mg TAB] Sulfamethoxazole/Trimethoprim 1 each PO BID #30 tablet 12/14/19 Unknown Rx [Bactrim DS TAB] Active Medications: Generic Name Dose Route Start Last Admin Trade Name Freq PRN Reason Stop Dose Admin Acetaminophen 650 mg 12/14/19 22:57 Tylenol PO Q4H PRN Pain MILD(1-3)/Fever >100.5/WHALEY Amlodipine Besylate 5 mg 12/15/19 10:00 12/21/19 09:36 Amlodipine PO 5 mg DAILY [facility] Administration Carvedilol 25 mg 12/15/19 10:00 12/21/19 09:37 Coreg PO Not Given BID NANCY Enoxaparin Sodium 80 mg 12/21/19 10:00 12/21/19 09:34 Enoxaparin SUB-Q 12/21/19 14:00 80 mg ONCE NR Administration Famotidine 20 mg 12/16/19 10:00 12/21/19 09:36 Pepcid PO 20 mg DAILY [facility] Administration Glipizide 5 mg 12/16/19 08:00 12/21/19 09:35 Glucotrol Xl PO 5 mg DAILY@0800 [facility] Administration Hydromorphone HCl 1 mg 12/14/19 22:57 12/16/19 18:32 Dilaudid IV 1 mg Q3H PRN Administration Pain , Severe (7-10) Sodium Bicarbonate 150 meq/ 1,150 mls @ 75 mls/hr 12/17/19 13:00 12/19/19 18:43 Dextrose IV 75 mls/hr DIRECT [facility] Administration Daptomycin 500 mg/ Sodium 100 mls @ 200 mls/hr 12/19/19 16:00 12/19/19 23:28 Chloride IV Not Given Q48H [facility] Protocol Insulin Glargine 15 units 12/18/19 22:00 12/20/19 21:27 Lantus SUB-Q 15 units QHS [facility] Administration Loperamide HCl 2 mg 12/15/19 14:01 12/15/19 21:23 Imodium PO 2 mg BID PRN Administration Diarrhea Metoclopramide HCl 5 mg 12/14/19 23:11 Reglan IV Q6H PRN Nausea And Vomiting Miscellaneous Medication 400 mg 12/15/19 10:00 Dronedarone (Nf) PO DAILY [facility] Mycophenolate Mofetil 500 mg 12/14/19 23:00 12/21/19 09:36 Cellcept PO 500 mg BID [facility] Administration Ondansetron HCl 4 mg 12/14/19 22:57 12/19/19 10:36 Zofran IV 4 mg Q3H PRN Administration Nausea And Vomiting Oxycodone/Acetaminophen 1 tab 12/14/19 22:57 12/20/19 10:55 Percocet 5/325 PO 1 tab Q6H PRN Administration Pain, Moderate (4-6) Potassium Chloride 20 meq 12/15/19 18:00 12/21/19 09:35 K-Dur PO 20 meq QDAY [facility] Administration Prednisone 5 mg 12/15/19 10:00 12/21/19 09:35 Deltasone PO 5 mg DAILY [facility] Administration Sodium Bicarbonate 650 mg 12/15/19 22:00 12/21/19 09:36 Sodium Bicarbonate PO 650 mg BID [facility] Administration Sodium Chloride 10 ml 12/15/19 10:00 12/21/19 09:44 Sodium Chloride Flush Syringe 10 Ml IV 10 ml BID [facility] Administration Sodium Chloride 10 ml 12/14/19 22:57 12/18/19 22:09 Sodium Chloride Flush Syringe 10 Ml IV 10 ml PRN PRN Administration LINE FLUSH Tacrolimus 2 mg 12/14/19 23:00 12/21/19 09:35 Prograf PO 2 mg Q12HR [facility] Administration
[2019-12-21] MEDS: INSULIN GLARGINE 100 UNITS/ML SUB-Q SCH (21:46)
[2019-12-22 06:22] LABS: Hematocrit 20.4 % (35.5-45.6); Hemoglobin 6.6 gm/dl (11.8-15.2); Mean Corpuscular HGB Conc 32 % (32-34); Mean Corpuscular Volume 73 fl (84-94); Platelet Count 288 K/mm3 (140-440); Red Blood Count 2.77 M/mm3 (3.65-5.03); Red Cell Distribution Width 18.2 % (13.2-15.2)
[2019-12-22 06:36] LABS: Calcium 9.6 mg/dL (8.4-10.2)
[2019-12-22] MEDS: DEXTROSE 50% IN WATER (25GM) 50 ML SYRINGE IV PRN ×2 (07:05→14:00)
[2019-12-22] MEDS ORDERED: MIDAZOLAM 2 MG/2 ML INJ ONE (08:35)
[2019-12-22] MEDS ORDERED: HEPARIN 10,000 UNITS/10 ML VIAL ONE (08:35)
[2019-12-22] MEDS ORDERED: fentaNYL 100 MCG/2 ML INJ ONE (08:35)
[2019-12-22] MEDS ORDERED: HEPARIN/NS 5000 UNIT/500ML 500 ML IR ONE (08:35)
[2019-12-22] MEDS ORDERED: SODIUM CHLORIDE 0.9% 250ML 250 ML ONE (08:36)
[2019-12-22] MEDS: LIDOCAINE 1%/EPINEPHRINE 1:100,000 VIAL (20 ML) INFILTRATI ONE ×2 (09:22→09:25)
--- NOTE | 2019-12-22 09:27 | Progress Note ---
Assessment and Plan - Patient Problems (1) URMILA (acute kidney injury) Current Visit: Yes Status: Acute Plan to address problem: In the setting of pre-renal injury. Renal function noted this am. Will place on gentle IVF with NS at 42 cc/hr x 1L and reassess labs. (2) Hypernatremia Current Visit: Yes Status: Acute Plan to address problem: Improved on most recent labs. (3) Hypokalemia Current Visit: Yes Status: Acute Plan to address problem: Replete per protocol. (4) Right tibial fracture Current Visit: Yes Status: Acute Qualifiers: Encounter type: initial encounter Salter-Ocampo Fracture Type: unspecified configuration Plan to address problem: S/p fixation. Further management per orthopedic surgery. Surgical cultures now indicating (+)MRSA. ID recommendations appreciated. Plan for custodial antibiotics for 4-6 weeks. Per ID would need central line placement for computer terminal operator antibiotic regimen as an outpatient. He has IV line inserted in his LUE, which is the site of the previous AVF. Antibiotic treatment per primary attending. (5) S/P kidney transplant Current Visit: Yes Status: Acute Plan to address problem: Continue on current immunosupression. (6) Hypertension Current Visit: Yes Status: Chronic Qualifiers: Hypertension type: essential hypertension Qualified Code(s): I10 - Essential (primary) hypertension Plan to address problem: Monitor on current regimen. (7) T2DM (type 2 diabetes mellitus) Current Visit: Yes Status: Chronic Qualifiers: Diabetes mellitus computer terminal operator insulin use: without computer terminal operator use Plan to address problem: DM management per primary attending. Subjective Date of service: 12/22/19 Principal diagnosis: Leg pain Interval history: For tunnelled PICC placement today. Renal function labs noted. Hypoglycemia episode this am, with levels improved after an amp d50. NPO for procedure. Objective - Vital Signs Vital signs: Vital Signs - 12hr 12/22/19 12/22/19 12/22/19 01:19 07:58 08:00 Temperature 98.2 F Pulse Rate 58 L 61 61 Respiratory 18 20 Rate Blood Pressure 124/64 Blood Pressure 107/56 [Right] O2 Sat by Pulse 100 99 100 Oximetry - General Appearance General appearance: well-developed EENT: ATNC Neck: no JVD Respiratory: Present: Clear to Ascultation Cardiology: regular Integumentary: warm and dry Neurologic: no focal deficit Musculoskeletal: other (RUE edema. ) - Lab 12/22/19 05:48 12/22/19 05:48 Most recent lab results Calcium 9.6 mg/dL (8.4-10.2) 12/22/19 05:48 Urine Creatinine 97.4 mg/dL (0.1-20.0) H 12/16/19 06:15 Urine Sodium 14 mmol/L 12/16/19 06:15 Urine Total Protein 30 mg/dL (5-11.8) H 12/16/19 06:15 - Allied health notes Allied health notes reviewed: nursing Medications & Allergies - Medications Allergies/Adverse Reactions: Allergies cefazolin Allergy (Intermediate, Verified 10/19/19 13:26) Hives itching & hives Home Medications: Home Medications Medication Instructions Recorded Confirmed Last Taken Type Aspirin 81 mg PO DAILY 10/16/19 12/14/19 5 Days Ago History ~12/09/19 Calcium Citrate/Vitamin D3 1,000 units PO DAILY 10/16/19 12/08/19 12/13/19 History Dronedarone (Nf) [Multaq (Nf)] 400 mg PO DAILY 10/16/19 12/08/19 12/13/19 History Mycophenolate 500 mg PO BID 10/16/19 12/08/19 12/13/19 History Prograf 2 mg PO Q12HR 10/16/19 12/08/19 12/13/19 History amLODIPine 5 mg PO DAILY 10/16/19 12/08/19 12/14/19 07:00 History carvediloL [Coreg] 20 mg PO BID 10/16/19 12/08/19 12/14/19 07:00 History glipiZIDE 5 mg PO DAILY 10/16/19 12/08/19 12/13/19 History predniSONE [Deltasone] 5 mg PO DAILY 10/16/19 12/08/19 12/13/19 History HYDROcodone/APAP 5-325 [[place] 1 each PO Q6HR PRN #20 tablet 10/19/19 12/08/19 12/13/19 Rx 5-325 mg TAB] HYDROcodone/APAP 7.5-325 [[place] 1 each PO Q6HR PRN #20 tablet 12/14/19 Unknown Rx 7.5-325 mg TAB] Sulfamethoxazole/Trimethoprim 1 each PO BID #30 tablet 12/14/19 Unknown Rx [Bactrim DS TAB] Active Medications: Generic Name Dose Route Start Last Admin Trade Name Freq PRN Reason Stop Dose Admin Acetaminophen 650 mg 12/14/19 22:57 Tylenol PO Q4H PRN Pain MILD(1-3)/Fever >100.5/WHALEY Amlodipine Besylate 5 mg 12/15/19 10:00 12/21/19 09:36 Amlodipine PO 5 mg DAILY [facility] Administration Carvedilol 25 mg 12/15/19 10:00 12/21/19 21:01 Coreg PO 25 mg BID [facility] Administration Dextrose 50 ml 12/22/19 07:00 12/22/19 07:05 D50w (25gm) Syringe IV 25 ml PRN PRN Administration Hypoglycemia Protocol Famotidine 20 mg 12/16/19 10:00 12/21/19 09:36 Pepcid PO 20 mg DAILY [facility] Administration Glipizide 5 mg 12/16/19 08:00 12/21/19 09:35 Glucotrol Xl PO 5 mg DAILY@0800 [facility] Administration Hydromorphone HCl 1 mg 12/14/19 22:57 12/16/19 18:32 Dilaudid IV 1 mg Q3H PRN Administration Pain , Severe (7-10) Daptomycin 500 mg/ Sodium 100 mls @ 200 mls/hr 12/19/19 16:00 12/21/19 16:39 Chloride IV 200 mls/hr Q48H [facility] Administration Protocol Insulin Glargine 15 units 12/18/19 22:00 12/21/19 21:46 Lantus SUB-Q Not Given QHS [facility] Loperamide HCl 2 mg 12/15/19 14:01 12/15/19 21:23 Imodium PO 2 mg BID PRN Administration Diarrhea Metoclopramide HCl 5 mg 12/14/19 23:11 Reglan IV Q6H PRN Nausea And Vomiting Miscellaneous Medication 400 mg 12/15/19 10:00 Dronedarone (Nf) PO DAILY [facility] Mycophenolate Mofetil 500 mg 12/14/19 23:00 12/21/19 21:01 Cellcept PO 500 mg BID [facility] Administration Ondansetron HCl 4 mg 12/14/19 22:57 12/19/19 10:36 Zofran IV 4 mg Q3H PRN Administration Nausea And Vomiting Oxycodone/Acetaminophen 1 tab 12/14/19 22:57 12/20/19 10:55 Percocet 5/325 PO 1 tab Q6H PRN Administration Pain, Moderate (4-6) Potassium Chloride 20 meq 12/15/19 18:00 12/21/19 09:35 K-Dur PO 20 meq QDAY [facility] Administration Prednisone 5 mg 12/15/19 10:00 12/21/19 09:35 Deltasone PO 5 mg DAILY [facility] Administration Sodium Bicarbonate 650 mg 12/15/19 22:00 12/21/19 21:01 Sodium Bicarbonate PO 650 mg BID [facility] Administration Sodium Chloride 10 ml 12/15/19 10:00 12/21/19 21:01 Sodium Chloride Flush Syringe 10 Ml IV 10 ml BID [facility] Administration Sodium Chloride 10 ml 12/14/19 22:57 12/18/19 22:09 Sodium Chloride Flush Syringe 10 Ml IV 10 ml PRN PRN Administration LINE FLUSH Tacrolimus 2 mg 12/14/19 23:00 12/21/19 21:01 Prograf PO 2 mg Q12HR [facility] Administration
[2019-12-22] MEDS ORDERED: SODIUM CHLORIDE 0.9% 1000 ML 1,000 ML IV SCH (09:45)
--- NOTE | 2019-12-22 09:47 | Operative Report ---
Operative Report Operative Report: Date of Procedure: 12/22/2019 Pre-operative Diagnosis: Need for Long-Term Antibiotics with Limited IV Access Post-operative Diagnosis: Same Procedure(s): 1. Ultrasound-Guided Access Right Internal Jugular Vein 2. Placement of Bard 5 Angolan Cuffed Power Line PICC Line 3. Radiologic Supervision with Interpretation 4. Monitored Moderate Sedation (Total Anesthesia Time: 20 minutes) Surgeon: Indio Becker M.D. Medical Director Of Hospice: None Anesthesia: Monitored Moderate Sedation/2% Lidocaine Total Anesthesia Time: 20 Minutes EBL: Minimal Counts: Correct Complications: None Condition: Stable Findings: Successful placement of right internal jugular PICC line with distal tip in the right atrium. 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 He had a right tibial fracture that was initially treated with external fixation. Upon going to the operating room for ORIF he was found to have purulent drainage from the superior screw of his external fixator. The microbiology revealed MRSA so it was determined that he would require long-term antibiotics. He is in need of a PICC line for the antibiotics. He was given the risk, benefits, and alternative procedures and consented to the procedure. Description of Procedure: The patient was brought to the [facility] and laid in supine position. After timeout was performed the patient's right neck and chest were prepped and draped in normal sterile fashion. Ultrasound was used to identify the right internal jugular vein and confirm patency. Once patency was confirmed the overlying skin and soft tissue was anesthetized with lidocaine. An 11 blade was used to make a small stab incision and a 21-gauge micropuncture needle was used with ultrasound guidance in the right internal jugular vein. A 0.018 wire was advanced through the needle and into the inferior vena cava under direct fluoroscopic visualization. The needle was removed and the 5 Angolan MicroEZ Peel-Away Sheath was advanced into the internal jugular vein by Seldinger technique. The exit site on the chest and the presumed tract was then anesthetized with lidocaine. The PICC line was then connected to the tunneler and after making a small stab incision on the chest with an 11 blade the PICC line was tunneled from the exit site on the chest to the entry site on the neck. The PICC line was then cut to length and inserted into the MicroEZ Peel-Away Sheath. The SafeSheath was peeled away and the PICC line was positioned with the distal tip in the right atrium. Both ports easily aspirated and flushed. The neck incision was then closed with a 4-0 Monocryl in interrupted fashion and dressed with Dermabond. The catheter was secured in position with a 3-0 Ethilon and dressed with a sterile dressing. The final fluoroscopy demonstrated the catheter was in adequate position with the distal tip in the right atrium and no evidence of pneumothorax. The patient tolerated the procedure well and was transported back to his room in stable condition.
[2019-12-22] MEDS ORDERED: SODIUM CHLORIDE 0.9% 500 ML 500 ML IV NR (11:20)
[2019-12-22] MEDS: POTASSIUM CHLORIDE ER 20 MEQ TAB PO SCH (12:07)
[2019-12-22] MEDS: carvediloL 25 MG TAB PO SCH ×2 (12:07→21:25)
[2019-12-22] MEDS: SODIUM BICARBONATE 650 MG TAB PO SCH (12:07)
[2019-12-22] MEDS: FAMOTIDINE 20 MG TAB PO SCH (12:11)
[2019-12-22] MEDS: predniSONE 5 MG TAB PO SCH (12:11)
[2019-12-22] MEDS: MYCOPHENOLATE 500 MG TAB PO SCH ×2 (12:12→21:24)
[2019-12-22] MEDS: TACROLIMUS 1 MG CAP PO SCH ×2 (12:12→21:24)
[2019-12-22] MEDS: amLODIPine 5 MG TAB PO SCH (12:13)
--- NOTE | 2019-12-22 13:07 | Progress Note ---
Assessment and Plan Cultures: 12/14/2019 right leg surgical culture: MRSA A/P: 64-year-old male with diabetes, hypertension, renal transplant recipient in 2018, on immunosuppression with Prograf, CellCept and prednisone underwent right proximal tibia fracture closed reduction and external fixator placement on 10/19/2019. He was hospitalized on 12/14/2019 for elective surgery for removal of his external fixator, noted to have: #Low-grade fever, leukocytosis, infection associated with external fixator involving proximal tibia: Intraoperatively, patient was noted to have purulent drainage from the superior pin which was debrided using a curette and cultures were obtained. These cultures are growing MRSA. Patient is immunocompromised. All hardware has been removed. Patient is at risk of osteomyelitis. ESR and CRP are both elevated. #Immunocompromised host, renal transplant recipient: On Prograf, CellCept, prednisone. #URMILA on CKD: Nephrology following. Renally dose antibiotics. #RUE swelling/edema: DVT scan negative. Recs: Continue renally dosed IV daptomycin 500 mg q48 hours, avoiding vancomycin due to his URMILA on CKD and renal transplant Plan to complete 4 weeks of abx ending 01/11/2020 Weekly CBC, creatinine, AST, ALT, CPK, CRP while on IV abx ID clinic follow up in 3 weeks (supervisor net making notified) Mike Andrade MD, FACP [facility] C: [phone] O: [phone] F: [phone] Subjective Date of service: 12/22/19 Principal diagnosis: Leg pain Interval history: No fever. No other complaints. Right UE still swollen. Got tunneled line placement. Objective - Exam Narrative Exam: Physical Exam: Constitutional: Alert, cooperative. No acute distress Head, Ears, Nose: Normocephalic, atraumatic. External ears, nose normal Eyes: Conjunctivae/corneas clear. No icterus. No ptosis. Neck: Supple, no meningeal signs Cardiovascular: S1, S2 normal. Respiratory: Good air entry, clear to auscultation bilaterally GI: Soft, non-tender; bowel sounds normal. No peritoneal signs Musculoskeletal: Right knee effusion. Right proximal tibia dressing present with small wound. Right hand and forearm with swelling/edema, no warmth or cellulitis. Right upper chest PICC line + Skin: No rash or abscess Hem/Lymphatic: No palpable cervical or supraclavicular nodes. No lymphangitis Psych: Flat affect Neurological: Awake, alert, answering basic questions - Constitutional Vitals: Vital Signs Temp Pulse Resp BP Pulse Ox 98.2 F 61 20 144/59 100 12/22/19 01:19 12/22/19 12:13 12/22/19 07:58 12/22/19 12:13 12/22/19 08:00 Temperature -Last 24 Hours Temperature 98.2 F Temperature 98.5 F - Labs CBC & Chem 7: 12/22/19 05:48 12/22/19 05:48 Labs: Abnormal lab results 12/22/19 12/22/19 12/22/19 Range/Units 05:48 05:48 06:59 WBC 13.7 H (4.5-11.0) K/mm3 RBC 2.77 L (3.65-5.03) M/mm3 Hgb 6.6 L (11.8-15.2) gm/dl Hct 20.4 L (35.5-45.6) % MCV 73 L (84-94) fl MCH 24 L (28-32) pg RDW 18.2 H (13.2-15.2) % BUN 57 H (9-20) mg/dL Creatinine 3.1 H (0.8-1.3) mg/dL Glucose 31 L* (75-100) mg/dL POC Glucose 47 L (70-105) 12/22/19 Range/Units 07:39 WBC (4.5-11.0) K/mm3 RBC (3.65-5.03) M/mm3 Hgb (11.8-15.2) gm/dl Hct (35.5-45.6) % MCV (84-94) fl MCH (28-32) pg RDW (13.2-15.2) % BUN (9-20) mg/dL Creatinine (0.8-1.3) mg/dL Glucose (75-100) mg/dL POC Glucose 107 H (70-105)
--- NOTE | 2019-12-22 14:33 | Progress Note ---
Assessment and Plan Assessment and plan: 64-year-old male with a history of hypertension end-stage renal disease received a kidney transplant several years ago and has had baseline creatinine of 1.3- 1.5. - Patient Problems SEPSIS UNKNOWN SOURCE- POA URMILA (acute kidney injury) with vasomotor nephropathy Current Visit: Yes Status: Acute Plan to address problem: Appears to be resolving closer to baseline. Renal following. Current cre atinine 2.7. Follow-up labs in the a.m. Hypernatremia Current Visit: Yes Status: Acute Plan to address problem: Hypernatremia has resolved now 143. Hypokalemia Current Visit: Yes Status: Acute Plan to address problem: Hypokalemia we will treat with p.o. KCl. Right tibial fracture Current Visit: Yes Status: Acute Qualifiers: Encounter type: initial encounter Salter-Ocampo Fracture Type: unspecified configuration Plan to address problem: Right tibial fracture status post correction. No evidence of infection. Clinically. Patient did have positive blood culture for MRSA most likely a contaminant. I have given patient a dose of bank await any ID recommendations. Started patient on p.o. Bactrim tolerating well. Await Ortho recommendations fo r discharge planning. Bilateral pressure ulcer of the sacrum stge 3: Wound care following S/P kidney transplant Current Visit: Yes Status: Acute Plan to address problem: Renal function stable. Hypertension Current Visit: Yes Status: Chronic Qualifiers: Hypertension type: essential hypertension Qualified Code(s): I10 - Essential (primary) hypertension Plan to address problem: Patient has optimal control blood pressure amlodipine Coreg continue present medical management. T2DM (type 2 diabetes mellitus) Current Visit: Yes Status: Chronic Qualifiers: Diabetes mellitus intermission coordinator insulin use: without intermission coordinator use Plan to address problem: Patient diabetes still has suboptimal control. Patient is not eating better w ould add long acting insulin 15 units Levemir at night. Metabolic acidosis Current Visit: Yes Status: Acute Plan to address problem: Improved with the initiation of bicarbonate isotonic. Precipitous drop in HCT, Anemia: Continue to monitor. DVT prophylaxis Current Visit: Yes Status: Acute 12/14/2019 patient admitted for elective surgical correction of right proximal to tibial fracture. Patient underwent surgical intervention and external fixation device. 12/15/1999 patient was found to have elevated creatinine up from 1.5 at baseline to 2.8. Therefore renal consult was obtained. Was thought to be secondary to prerenal azotemia. Symptoms responding to IV volume replacement and creatinine going back down to baseline. 12/16/2019 patient's creatinine continued to improve toward baseline. 12/17/2019. Patient surgical blood culture showed positive for methicillin resi stant staph aureus. May be contaminant because patient remained afebrile no leukocytosis. No tenderness to the area. And sensitivity of MRSA was pansensitive to Cipro and Bactrim. Patient was given 1 dose of Vanco IV and await any ID recommendations. Patient should be able to discharge with Bactrim since it is sensitive and patient is afebrile no leukocytosis. Does not appear to have underlying infection at this time. 12/18/2019. Patient is resting doubly afebrile placed on Bactrim because MRSA was sensitive to this. Await further recommendations from Ortho about discharge planning. Patient somewhat sad today. States he just lost his sister. Patient denies any wants for antidepressant medications. 12/18: Awaiting further plan by othor, continue on abx per ID and Nephrology following for urmila, Showing slight improvement and not at baseline. Monitor Right upper ext 12/19: Consult Vascular due to concern for upper ext, obtain doppler of right upper ext 12/20: Unsure why Doppler has not been done, nurse not aware either, call placed to department for stat exam, will give a dose of Lovenox prophylactically. Finally doppler done and no DVT. Elevate Upper ext 12/21: CONTINUE ABX, DISCUSSED WITH NURSINGS STAFF TO ELEVATE UPPER EXT, Tunnle catheter placed. Renal function slightly worse. Continue to monitor. History Interval history: Patient seen and examined, still with right upper ext edema, moves it some, no pain. Hospitalist Physical - Physical exam Narrative exam: General appearance: Present: no acute distress, well-nourished - EENT Eyes: PERRL, EOM intact ENT: hearing intact, clear oral mucosa Ears: bilateral: normal - Neck Neck: supple, normal ROM - Respiratory Respiratory effort: normal Respiratory: bilateral: CTA - Breasts Breasts: normal - Cardiovascular Rhythm: regular Heart Sounds: Present: S1 & S2. Absent: gallop, rub Extremities: pulses intact, edema, normal color, Full ROM - Gastrointestinal General gastrointestinal: Present: soft, non-tender, non-distended, normal bowel sounds - Genitourinary Male genitourinary: normal - Integumentary Integumentary: clear, warm, edema on right upper ext EXTENSIVE SWELLING WITH BLISTER. - Musculoskeletal Musculoskeletal: strength equal bilaterally, right knee with bulging, chronic, other (Right leg bandaged. Very minimal serosanguineous exudate from external fixator site.) - Neurologic Neurologic: moves all extremities - Psychiatric Psychiatric: appropriate mood/affect, intact judgment & insight, memory intact, other (Poor cognition.) - Constitutional Vitals: Temp Pulse Resp BP Pulse Ox 98.2 F 61 20 144/59 100 12/22/19 01:19 12/22/19 12:13 12/22/19 07:58 12/22/19 12:13 12/22/19 08:00 General appearance: Present: no acute distress, well-nourished HEART Score - HEART Score Age: > 65 Risk factors: 1-2 risk factors - Critical Actions Critical Actions: 0-3 pts:0.9-1.7%risk of adverse cardiac event.Candidate for discharge Results - Labs CBC & Chem 7: 12/22/19 05:48 12/22/19 05:48 Labs: Laboratory Last Values WBC 13.7 K/mm3 (4.5-11.0) H 12/22/19 05:48 RBC 2.77 M/mm3 (3.65-5.03) L 12/22/19 05:48 Hgb 6.6 gm/dl (11.8-15.2) L 12/22/19 05:48 Hct 20.4 % (35.5-45.6) L 12/22/19 05:48 MCV 73 fl (84-94) L 12/22/19 05:48 MCH 24 pg (28-32) L 12/22/19 05:48 MCHC 32 % (32-34) 12/22/19 05:48 RDW 18.2 % (13.2-15.2) H 12/22/19 05:48 Plt Count 288 K/mm3 (140-440) 12/22/19 05:48 Lymph % (Auto) [facility] 12/16/19 06:38 [place] % (Auto) [facility] 12/16/19 06:38 Eos % (Auto) [facility] 12/16/19 06:38 Baso % (Auto) [facility] 12/16/19 06:38 Lymph # (Auto) [facility] 12/16/19 06:38 [place] # (Auto) [facility] 12/16/19 06:38 Eos # (Auto) [facility] 12/16/19 06:38 Baso # (Auto) [facility] 12/16/19 06:38 Add Manual Diff Complete 12/16/19 06:38 Total Counted 100 12/16/19 06:38 Seg Neutrophils % [facility] 12/16/19 06:38 Seg Neuts % (Manual) 90.0 % (40.0-70.0) H 12/16/19 06:38 Band Neutrophils % 3.0 % 12/16/19 06:38 Lymphocytes % (Manual) 5.0 % (13.4-35.0) L 12/16/19 06:38 Reactive Lymphs % (Man) 0 % 12/16/19 06:38 Monocytes % (Manual) 2.0 % (0.0-7.3) 12/16/19 06:38 Eosinophils % (Manual) 0 % (0.0-4.3) 12/16/19 06:38 Basophils % (Manual) 0 % (0.0-1.8) 12/16/19 06:38 Metamyelocytes % 0 % 12/16/19 06:38 Myelocytes % 0 % 12/16/19 06:38 Promyelocytes % 0 % 12/16/19 06:38 Blast Cells % 0 % 12/16/19 06:38 Nucleated RBC % Not Reportable 12/16/19 06:38 Seg Neutrophils # [facility] 12/16/19 06:38 Seg Neutrophils # Man 10.0 K/mm3 (1.8-7.7) H 12/16/19 06:38 Band Neutrophils # 0.3 K/mm3 12/16/19 06:38 Lymphocytes # (Manual) 0.6 K/mm3 (1.2-5.4) L 12/16/19 06:38 Abs React Lymphs (Man) 0.0 K/mm3 12/16/19 06:38 Monocytes # (Manual) 0.2 K/mm3 (0.0-0.8) 12/16/19 06:38 Eosinophils # (Manual) 0.0 K/mm3 (0.0-0.4) 12/16/19 06:38 Basophils # (Manual) 0.0 K/mm3 (0.0-0.1) 12/16/19 06:38 Metamyelocytes # 0.0 K/mm3 12/16/19 06:38 Myelocytes # 0.0 K/mm3 12/16/19 06:38 Promyelocytes # 0.0 K/mm3 12/16/19 06:38 Blast Cells # 0.0 K/mm3 12/16/19 06:38 WBC Morphology Not Reportable 12/16/19 06:38 Hypersegmented Neuts Not Reportable 12/16/19 06:38 Hyposegmented Neuts Not Reportable 12/16/19 06:38 Hypogranular Neuts Not Reportable 12/16/19 06:38 Smudge Cells Not Reportable 12/16/19 06:38 Toxic Granulation Not Reportable 12/16/19 06:38 Toxic Vacuolation Not Reportable 12/16/19 06:38 Dohle Bodies Not Reportable 12/16/19 06:38 Pelger-Huet Anomaly Not Reportable 12/16/19 06:38 Robert Rods Not Reportable 12/16/19 06:38 Platelet Estimate Consistent w auto 12/16/19 06:38 Clumped Platelets Not Reportable 12/16/19 06:38 Plt Clumps, EDTA Not Reportable 12/16/19 06:38 Large Platelets Not Reportable 12/16/19 06:38 Giant Platelets Not Reportable 12/16/19 06:38 Platelet Satelliting Not Reportable 12/16/19 06:38 Plt Morphology Comment Not Reportable 12/16/19 06:38 RBC Morphology Not Reportable 12/16/19 06:38 Dimorphic RBCs Not Reportable 12/16/19 06:38 Polychromasia Not Reportable 12/16/19 06:38 Hypochromasia 1+ 12/16/19 06:38 Poikilocytosis Few 12/16/19 06:38 Anisocytosis Not Reportable 12/16/19 06:38 Microcytosis Few 12/16/19 06:38 Macrocytosis Not Reportable 12/16/19 06:38 Spherocytes Not Reportable 12/16/19 06:38 Pappenheimer Bodies Not Reportable 12/16/19 06:38 Sickle Cells Not Reportable 12/16/19 06:38 Target Cells Few 12/16/19 06:38 Tear Drop Cells Few 12/16/19 06:38 Ovalocytes Not Reportable 12/16/19 06:38 Helmet Cells Not Reportable 12/16/19 06:38 [place] Bodies Not Reportable 12/16/19 06:38 [place] Rings Not Reportable 12/16/19 06:38 Juju Cells Not Reportable 12/16/19 06:38 Bite Cells Not Reportable 12/16/19 06:38 Crenated Cell Not Reportable 12/16/19 06:38 Elliptocytes Not Reportable 12/16/19 06:38 Acanthocytes (Spur) Not Reportable 12/16/19 06:38 Rouleaux Not Reportable 12/16/19 06:38 Hemoglobin C Crystals Not Reportable 12/16/19 06:38 Schistocytes Not Reportable 12/16/19 06:38 Malaria parasites Not Reportable 12/16/19 06:38 ESR 73 mm/Hr (0-20) 12/20/19 09:11 Hector Bodies Not Reportable 12/16/19 06:38 Hem Pathologist Commnt No 12/16/19 06:38 Sodium 139 mmol/L (137-145) 12/22/19 05:48 Potassium 4.0 mmol/L (3.6-5.0) 12/22/19 05:48 Chloride 101.2 mmol/L (98-107) 12/22/19 05:48 Carbon Dioxide 26 mmol/L (22-30) 12/22/19 05:48 Anion Gap 16 mmol/L 12/22/19 05:48 BUN 57 mg/dL (9-20) H 12/22/19 05:48 Creatinine 3.1 mg/dL (0.8-1.3) H 12/22/19 05:48 Estimated GFR 25 ml/min 12/22/19 05:48 BUN/Creatinine Ratio 18 % 12/22/19 05:48 Glucose 31 mg/dL (75-100) L* 12/22/19 05:48 POC Glucose 59 (70-105) L 12/22/19 14:07 Uric Acid 11.7 mg/dL (3.5-7.6) H 12/14/19 13:24 Calcium 9.6 mg/dL (8.4-10.2) 12/22/19 05:48 Total Bilirubin 1.50 mg/dL (0.1-1.2) H 12/17/19 10:57 AST 166 units/L (5-40) H 12/17/19 10:57 ALT 116 units/L (7-56) H 12/17/19 10:57 Alkaline Phosphatase 279 units/L (35-129) H 12/17/19 10:57 Total Creatine Kinase 101 units/L (55-170) 12/20/19 09:11 C-Reactive Protein 25.90 mg/dL (0.00-1.30) H 12/20/19 09:11 Total Protein 5.1 g/dL (6.3-8.2) L 12/17/19 10:57 Albumin 2.5 g/dL (3.9-5) L 12/17/19 10:57 Albumin/Globulin Ratio 1.0 % 12/17/19 10:57 Urine Color Yellow (Yellow) 12/16/19 06:15 Urine Turbidity Clear (Clear) 12/16/19 06:15 Urine pH 5.0 (5.0-7.0) 12/16/19 06:15 Ur Specific [place] 1.013 (1.003-1.030) 12/16/19 06:15 Urine Protein 30 mg/dl mg/dL (Negative) 12/16/19 06:15 Urine Glucose (UA) Neg mg/dL (Negative) 12/16/19 06:15 Urine Ketones Neg mg/dL (Negative) 12/16/19 06:15 Urine Blood Mod (Negative) 12/16/19 06:15 Urine Nitrite Neg (Negative) 12/16/19 06:15 Urine Bilirubin Neg (Negative) 12/16/19 06:15 Urine Urobilinogen < 2.0 mg/dL (<2.0) 12/16/19 06:15 Ur Leukocyte Esterase Neg (Negative) 12/16/19 06:15 Urine WBC (Auto) 1.0 /HPF (0.0-6.0) 12/16/19 06:15 Urine RBC (Auto) 1.0 /HPF (0.0-6.0) 12/16/19 06:15 Urine Bacteria (Auto) 1+ /HPF (Negative) 12/16/19 06:15 Urine Mucus Few /HPF 12/16/19 06:15 Urine Creatinine 97.4 mg/dL (0.1-20.0) H 12/16/19 06:15 Urine Sodium 14 mmol/L 12/16/19 06:15 Urine Total Protein 30 mg/dL (5-11.8) H 12/16/19 06:15 Random Vancomycin 11.7 ug/mL (0-40.0) 12/19/19 09:37 Coronavirus (PCR) Negative (Negative) 12/12/19 14:40 Blood Type O POSITIVE 12/22/19 11:20 Antibody Screen Negative 12/22/19 11:20 Crossmatch See Detail 12/22/19 11:20 Lassiter/IV: Voiding Method Diaper IV Catheter Type [Left Wrist] INT / Saline Lock IV Catheter Type [Left Hand] Peripheral IV IV Catheter Type [Right CVL Internal Jugular] IV Catheter Type [Left Forearm Peripheral IV ] Active Medications - Current Medications Current Medications: Generic Name Dose Route Start Last Admin Trade Name Freq PRN Reason Stop Dose Admin Acetaminophen 650 mg 12/14/19 22:57 Tylenol PO Q4H PRN Pain MILD(1-3)/Fever >100.5/WHALEY Amlodipine Besylate 5 mg 12/15/19 10:00 12/22/19 12:13 Amlodipine PO 5 mg DAILY NANCY Administration Carvedilol 25 mg 12/15/19 10:00 12/22/19 12:07 Coreg PO 25 mg BID NANCY Administration Dextrose 50 ml 12/22/19 07:00 12/22/19 14:00 D50w (25gm) Syringe IV 20 ml PRN PRN Administration Hypoglycemia Protocol Famotidine 20 mg 12/16/19 10:00 12/22/19 12:11 Pepcid PO 20 mg DAILY NANCY Administration Hydromorphone HCl 1 mg 12/14/19 22:57 12/16/19 18:32 Dilaudid IV 1 mg Q3H PRN Administration Pain , Severe (7-10) Daptomycin 500 mg/ Sodium 100 mls @ 200 mls/hr 12/19/19 16:00 12/21/19 16:39 Chloride IV 200 mls/hr Q48H NANCY Administration Protocol Sodium Chloride 1,000 mls @ 42 mls/hr 12/22/19 09:45 12/22/19 12:48 Nacl 0.9% 1000 Ml IV 12/23/19 09:34 42 mls/hr DIRECT NANCY Administration Sodium Chloride 500 mls @ 0 mls/hr 12/22/19 11:20 Nacl 0.9% 500 Ml IV 12/22/19 20:00 ONCE NR As Directed Insulin Glargine 15 units 12/18/19 22:00 12/21/19 21:46 Lantus SUB-Q Not Given QHS NANCY Loperamide HCl 2 mg 12/15/19 14:01 12/15/19 21:23 Imodium PO 2 mg BID PRN Administration Diarrhea Metoclopramide HCl 5 mg 12/14/19 23:11 Reglan IV Q6H PRN Nausea And Vomiting Miscellaneous Medication 400 mg 12/15/19 10:00 Dronedarone (Nf) PO DAILY NANCY Mycophenolate Mofetil 500 mg 12/14/19 23:00 12/22/19 12:12 Cellcept PO 500 mg BID NANCY Administration Ondansetron HCl 4 mg 12/14/19 22:57 12/19/19 10:36 Zofran IV 4 mg Q3H PRN Administration Nausea And Vomiting Oxycodone/Acetaminophen 1 tab 12/14/19 22:57 12/20/19 10:55 Percocet 5/325 PO 1 tab Q6H PRN Administration Pain, Moderate (4-6) Potassium Chloride 20 meq 12/15/19 18:00 12/22/19 12:07 K-Dur PO 20 meq QDAY NANCY Administration Prednisone 5 mg 12/15/19 10:00 12/22/19 12:11 Deltasone PO 5 mg DAILY NANCY Administration Sodium Bicarbonate 650 mg 12/15/19 22:00 12/22/19 12:07 Sodium Bicarbonate PO 650 mg BID NANCY Administration Sodium Chloride 10 ml 12/15/19 10:00 12/22/19 12:15 Sodium Chloride Flush Syringe 10 Ml IV 10 ml BID NANCY Administration Sodium Chloride 10 ml 12/14/19 22:57 12/18/19 22:09 Sodium Chloride Flush Syringe 10 Ml IV 10 ml PRN PRN Administration LINE FLUSH Tacrolimus 2 mg 12/14/19 23:00 12/22/19 12:12 Prograf PO 2 mg Q12HR NANCY Administration Nutrition/Malnutrition Assess - Dietary Evaluation Nutrition/Malnutrition Findings: Nutrition Notes Start: 12/15/19 14:11 Freq: Status: Active Protocol: Document 12/21/19 13:25 [email or web address] (Rec: 12/21/19 14:10 [email or web address]) Co-Sign 12/21/19 13:25 LP Nutrition Notes Initial or Follow up Reassessment Current Diagnosis Acute Kidney Injury,Diabetes Other Pertinent Diagnosis s/p kidney transplant, tibia fx, Hypernatremia, Hypokalemia Current Diet Consistent CHO Labs/Tests 12/19 BUN 58 Cr 2.7 BG 140 Pertinent Medications K-Dur 20mEq Height 6 ft Weight 79.3 kg [place] Body Weight (kg) 80.90 BMI 23.7 Weight Status Underweight Subjective/Other Information F/U for torrey, ONS and intakes . Pt had 3 torrey packets at bedside. Pt was sleeping at time of visit x2.Per RN, pt drinks liquids alot. Pt just received lunch tray at time of second visit. Burn Absent Trauma Absent Skin Integrity/Comment multiple pressure ulcers Current % PO Negligible Minimum of two criteria No Fluid Accumulation Mild (non-severe) #1 Nutrition Diagnosis Increased nutrient needs ( specify in comment below) Diagnosis Progress(for reassessment Continues documentation) Is patient on ventilator? No Is Patient Ambulatory and/or Out of Bed No REE-([facility]-confined to bed) [phone] Calculation Used for Recommendations [facility] Additional Notes Protein (0.8-1.5g/kg): 63-119g Fluid 1ml/kcal Nutrition Intervention Change Diet Order: Continue Add Supplement/Snack (indicate name/kcal Glucerna TID /protein ) D/C Torrey Provides kCal: 660 Provides Protein (gm) 30 Goal #1 Pt will meet 75-100% of energy and protein needs by PO. Goal #2 Wound healing Anticipated Discharge Needs: Consistent Carbohydrate diet Follow-Up By: 12/26/19 Additional Comments F/U intakes, ONS
[2019-12-22] MEDS: INSULIN GLARGINE 100 UNITS/ML SUB-Q SCH (21:40)
[2019-12-23 06:46] LABS: Hematocrit 23.6 % (35.5-45.6); Hemoglobin 7.6 gm/dl (11.8-15.2); Mean Corpuscular HGB Conc 32 % (32-34); Mean Corpuscular Volume 76 fl (84-94); Platelet Count 267 K/mm3 (140-440); Red Blood Count 3.11 M/mm3 (3.65-5.03)
[2019-12-23 06:48] LABS: Red Cell Distribution Width 20.4 % (13.2-15.2)
[2019-12-23 07:08] LABS: Calcium 9.4 mg/dL (8.4-10.2)
--- NOTE | 2019-12-23 09:04 | Progress Note ---
Assessment and Plan Assessment and plan: 64-year-old male with a history of hypertension end-stage renal disease received a kidney transplant several years ago and has had baseline creatinine of 1.3- 1.5. - Patient Problems SEPSIS UNKNOWN SOURCE- POA URMILA (acute kidney injury) with vasomotor nephropathy Current Visit: Yes Status: Acute Plan to address problem: Appears to be resolving closer to baseline. Renal following. Current cre atinine 2.7. Follow-up labs in the a.m. Hypernatremia Current Visit: Yes Status: Acute Plan to address problem: Hypernatremia has resolved now 143. Hypokalemia Current Visit: Yes Status: Acute Plan to address problem: Hypokalemia we will treat with p.o. KCl. Right tibial fracture Current Visit: Yes Status: Acute Qualifiers: Encounter type: initial encounter Salter-Ocampo Fracture Type: unspecified configuration Plan to address problem: Right tibial fracture status post correction. No evidence of infection. Clinically. Patient did have positive blood culture for MRSA most likely a contaminant. I have given patient a dose of bank await any ID recommendations. Started patient on p.o. Bactrim tolerating well. Await Ortho recommendations fo r discharge planning. Bilateral pressure ulcer of the sacrum stge 3: Wound care following S/P kidney transplant Current Visit: Yes Status: Acute Plan to address problem: Renal function stable. Hypertension Current Visit: Yes Status: Chronic Qualifiers: Hypertension type: essential hypertension Qualified Code(s): I10 - Essential (primary) hypertension Plan to address problem: Patient has optimal control blood pressure amlodipine Coreg continue present medical management. T2DM (type 2 diabetes mellitus) Current Visit: Yes Status: Chronic Qualifiers: Diabetes mellitus long chain dyeing machine operator insulin use: without long chain dyeing machine operator use Plan to address problem: Patient diabetes still has suboptimal control. Patient is not eating better w ould add long acting insulin 15 units Levemir at night. Metabolic acidosis Current Visit: Yes Status: Acute Plan to address problem: Improved with the initiation of bicarbonate isotonic. Precipitous drop in HCT, Anemia: Continue to monitor. DVT prophylaxis Current Visit: Yes Status: Acute 12/14/2019 patient admitted for elective surgical correction of right proximal to tibial fracture. Patient underwent surgical intervention and external fixation device. 12/15/1999 patient was found to have elevated creatinine up from 1.5 at baseline to 2.8. Therefore renal consult was obtained. Was thought to be secondary to prerenal azotemia. Symptoms responding to IV volume replacement and creatinine going back down to baseline. 12/16/2019 patient's creatinine continued to improve toward baseline. 12/17/2019. Patient surgical blood culture showed positive for methicillin resi stant staph aureus. May be contaminant because patient remained afebrile no leukocytosis. No tenderness to the area. And sensitivity of MRSA was pansensitive to Cipro and Bactrim. Patient was given 1 dose of Vanco IV and await any ID recommendations. Patient should be able to discharge with Bactrim since it is sensitive and patient is afebrile no leukocytosis. Does not appear to have underlying infection at this time. 12/18/2019. Patient is resting doubly afebrile placed on Bactrim because MRSA was sensitive to this. Await further recommendations from Ortho about discharge planning. Patient somewhat sad today. States he just lost his sister. Patient denies any wants for antidepressant medications. 12/18: Awaiting further plan by othor, continue on abx per ID and Nephrology following for urmila, Showing slight improvement and not at baseline. Monitor Right upper ext 12/19: Consult Vascular due to concern for upper ext, obtain doppler of right upper ext 12/20: Unsure why Doppler has not been done, nurse not aware either, call placed to department for stat exam, will give a dose of Lovenox prophylactically. Finally doppler done and no DVT. Elevate Upper ext 12/21: CONTINUE ABX, DISCUSSED WITH NURSINGS STAFF TO ELEVATE UPPER EXT, Tunnle catheter placed. Renal function slightly worse. Continue to monitor. 12/22: Clinically improving, Tunnel catheter placed, awaiting, clearance from Nephrology for discharge, Leukocytosis and renal functions showing slight improvement. Continue to monitor Right upper ext swelling. S/P 1 unit PRBC transfused, totalling 2 units for this admission. History Interval history: Patient seen and examined, still with right upper ext edema, moves it some, no pain. warm, pulses appreciated Hospitalist Physical - Physical exam Narrative exam: General appearance: Present: no acute distress, well-nourished - EENT Eyes: PERRL, EOM intact ENT: hearing intact, clear oral mucosa Ears: bilateral: normal - Neck Neck: supple, normal ROM - Respiratory Respiratory effort: normal Respiratory: bilateral: CTA - Breasts Breasts: normal - Cardiovascular Rhythm: regular Heart Sounds: Present: S1 & S2. Absent: gallop, rub Extremities: pulses intact, edema, normal color, Full ROM - Gastrointestinal General gastrointestinal: Present: soft, non-tender, non-distended, normal bowel sounds - Genitourinary Male genitourinary: normal - Integumentary Integumentary: clear, warm, edema on right upper ext EXTENSIVE SWELLING WITH BLISTER. - Musculoskeletal Musculoskeletal: strength equal bilaterally, right knee with bulging, chronic, other (Right leg bandaged. Very minimal serosanguineous exudate from external fixator site.) - Neurologic Neurologic: moves all extremities - Psychiatric Psychiatric: appropriate mood/affect, intact judgment & insight, memory intact, other (Poor cognition.) - Constitutional Vitals: Temp Pulse Resp BP Pulse Ox 98.1 F 58 L 18 135/61 96 12/23/19 07:43 12/23/19 07:43 12/23/19 07:43 12/23/19 07:43 12/23/19 07:43 General appearance: Present: no acute distress, well-nourished HEART Score - HEART Score Age: > 65 Risk factors: 1-2 risk factors - Critical Actions Critical Actions: 0-3 pts:0.9-1.7%risk of adverse cardiac event.Candidate for discharge Results - Labs CBC & Chem 7: 12/23/19 06:35 12/23/19 06:35 Labs: Laboratory Last Values WBC 12.9 K/mm3 (4.5-11.0) H 12/23/19 06:35 RBC 3.11 M/mm3 (3.65-5.03) L 12/23/19 06:35 Hgb 7.6 gm/dl (11.8-15.2) L 12/23/19 06:35 Hct 23.6 % (35.5-45.6) L 12/23/19 06:35 MCV 76 fl (84-94) L 12/23/19 06:35 MCH 25 pg (28-32) L 12/23/19 06:35 MCHC 32 % (32-34) 12/23/19 06:35 RDW 20.4 % (13.2-15.2) H 12/23/19 06:35 Plt Count 267 K/mm3 (140-440) 12/23/19 06:35 Lymph % (Auto) Television News Reporter 12/16/19 06:38 Dixon % (Auto) Television News Reporter 12/16/19 06:38 Eos % (Auto) Television News Reporter 12/16/19 06:38 Baso % (Auto) Television News Reporter 12/16/19 06:38 Lymph # (Auto) Television News Reporter 12/16/19 06:38 Dixon # (Auto) Television News Reporter 12/16/19 06:38 Eos # (Auto) Television News Reporter 12/16/19 06:38 Baso # (Auto) Television News Reporter 12/16/19 06:38 Add Manual Diff Complete 12/16/19 06:38 Total Counted 100 12/16/19 06:38 Seg Neutrophils % Television News Reporter 12/16/19 06:38 Seg Neuts % (Manual) 90.0 % (40.0-70.0) H 12/16/19 06:38 Band Neutrophils % 3.0 % 12/16/19 06:38 Lymphocytes % (Manual) 5.0 % (13.4-35.0) L 12/16/19 06:38 Reactive Lymphs % (Man) 0 % 12/16/19 06:38 Monocytes % (Manual) 2.0 % (0.0-7.3) 12/16/19 06:38 Eosinophils % (Manual) 0 % (0.0-4.3) 12/16/19 06:38 Basophils % (Manual) 0 % (0.0-1.8) 12/16/19 06:38 Metamyelocytes % 0 % 12/16/19 06:38 Myelocytes % 0 % 12/16/19 06:38 Promyelocytes % 0 % 12/16/19 06:38 Blast Cells % 0 % 12/16/19 06:38 Nucleated RBC % Not Reportable 12/16/19 06:38 Seg Neutrophils # Television News Reporter 12/16/19 06:38 Seg Neutrophils # Man 10.0 K/mm3 (1.8-7.7) H 12/16/19 06:38 Band Neutrophils # 0.3 K/mm3 12/16/19 06:38 Lymphocytes # (Manual) 0.6 K/mm3 (1.2-5.4) L 12/16/19 06:38 Abs React Lymphs (Man) 0.0 K/mm3 12/16/19 06:38 Monocytes # (Manual) 0.2 K/mm3 (0.0-0.8) 12/16/19 06:38 Eosinophils # (Manual) 0.0 K/mm3 (0.0-0.4) 12/16/19 06:38 Basophils # (Manual) 0.0 K/mm3 (0.0-0.1) 12/16/19 06:38 Metamyelocytes # 0.0 K/mm3 12/16/19 06:38 Myelocytes # 0.0 K/mm3 12/16/19 06:38 Promyelocytes # 0.0 K/mm3 12/16/19 06:38 Blast Cells # 0.0 K/mm3 12/16/19 06:38 WBC Morphology Not Reportable 12/16/19 06:38 Hypersegmented Neuts Not Reportable 12/16/19 06:38 Hyposegmented Neuts Not Reportable 12/16/19 06:38 Hypogranular Neuts Not Reportable 12/16/19 06:38 Smudge Cells Not Reportable 12/16/19 06:38 Toxic Granulation Not Reportable 12/16/19 06:38 Toxic Vacuolation Not Reportable 12/16/19 06:38 Dohle Bodies Not Reportable 12/16/19 06:38 Pelger-Huet Anomaly Not Reportable 12/16/19 06:38 Robert Rods Not Reportable 12/16/19 06:38 Platelet Estimate Consistent w auto 12/16/19 06:38 Clumped Platelets Not Reportable 12/16/19 06:38 Plt Clumps, EDTA Not Reportable 12/16/19 06:38 Large Platelets Not Reportable 12/16/19 06:38 Giant Platelets Not Reportable 12/16/19 06:38 Platelet Satelliting Not Reportable 12/16/19 06:38 Plt Morphology Comment Not Reportable 12/16/19 06:38 RBC Morphology Not Reportable 12/16/19 06:38 Dimorphic RBCs Not Reportable 12/16/19 06:38 Polychromasia Not Reportable 12/16/19 06:38 Hypochromasia 1+ 12/16/19 06:38 Poikilocytosis Few 12/16/19 06:38 Anisocytosis Not Reportable 12/16/19 06:38 Microcytosis Few 12/16/19 06:38 Macrocytosis Not Reportable 12/16/19 06:38 Spherocytes Not Reportable 12/16/19 06:38 Pappenheimer Bodies Not Reportable 12/16/19 06:38 Sickle Cells Not Reportable 12/16/19 06:38 Target Cells Few 12/16/19 06:38 Tear Drop Cells Few 12/16/19 06:38 Ovalocytes Not Reportable 12/16/19 06:38 Helmet Cells Not Reportable 12/16/19 06:38 Santana-Derma Bodies Not Reportable 12/16/19 06:38 [place] Rings Not Reportable 12/16/19 06:38 [place] Cells Not Reportable 12/16/19 06:38 Bite Cells Not Reportable 12/16/19 06:38 Crenated Cell Not Reportable 12/16/19 06:38 Elliptocytes Not Reportable 12/16/19 06:38 Acanthocytes (Spur) Not Reportable 12/16/19 06:38 Rouleaux Not Reportable 12/16/19 06:38 Hemoglobin C Crystals Not Reportable 12/16/19 06:38 Schistocytes Not Reportable 12/16/19 06:38 Malaria parasites Not Reportable 12/16/19 06:38 ESR 73 mm/Hr (0-20) 12/20/19 09:11 Hector Bodies Not Reportable 12/16/19 06:38 Hem Pathologist Commnt No 12/16/19 06:38 Sodium 138 mmol/L (137-145) 12/23/19 06:35 Potassium 4.4 mmol/L (3.6-5.0) 12/23/19 06:35 Chloride 102.2 mmol/L (98-107) 12/23/19 06:35 Carbon Dioxide 26 mmol/L (22-30) 12/23/19 06:35 Anion Gap 14 mmol/L 12/23/19 06:35 BUN 51 mg/dL (9-20) H 12/23/19 06:35 Creatinine 2.7 mg/dL (0.8-1.3) H 12/23/19 06:35 Estimated GFR 29 ml/min 12/23/19 06:35 BUN/Creatinine Ratio 19 % 12/23/19 06:35 Glucose 78 mg/dL (75-100) 12/23/19 06:35 POC Glucose 96 (70-105) 12/23/19 07:59 Uric Acid 11.7 mg/dL (3.5-7.6) H 12/14/19 13:24 Calcium 9.4 mg/dL (8.4-10.2) 12/23/19 06:35 Total Bilirubin 1.50 mg/dL (0.1-1.2) H 12/17/19 10:57 AST 166 units/L (5-40) H 12/17/19 10:57 ALT 116 units/L (7-56) H 12/17/19 10:57 Alkaline Phosphatase 279 units/L (35-129) H 12/17/19 10:57 Total Creatine Kinase 101 units/L (55-170) 12/20/19 09:11 C-Reactive Protein 25.90 mg/dL (0.00-1.30) H 12/20/19 09:11 Total Protein 5.1 g/dL (6.3-8.2) L 12/17/19 10:57 Albumin 2.5 g/dL (3.9-5) L 12/17/19 10:57 Albumin/Globulin Ratio 1.0 % 12/17/19 10:57 Urine Color Yellow (Yellow) 12/16/19 06:15 Urine Turbidity Clear (Clear) 12/16/19 06:15 Urine pH 5.0 (5.0-7.0) 12/16/19 06:15 Ur Specific [place] 1.013 (1.003-1.030) 12/16/19 06:15 Urine Protein 30 mg/dl mg/dL (Negative) 12/16/19 06:15 Urine Glucose (UA) Neg mg/dL (Negative) 12/16/19 06:15 Urine Ketones Neg mg/dL (Negative) 12/16/19 06:15 Urine Blood Mod (Negative) 12/16/19 06:15 Urine Nitrite Neg (Negative) 12/16/19 06:15 Urine Bilirubin Neg (Negative) 12/16/19 06:15 Urine Urobilinogen < 2.0 mg/dL (<2.0) 12/16/19 06:15 Ur Leukocyte Esterase Neg (Negative) 12/16/19 06:15 Urine WBC (Auto) 1.0 /HPF (0.0-6.0) 12/16/19 06:15 Urine RBC (Auto) 1.0 /HPF (0.0-6.0) 12/16/19 06:15 Urine Bacteria (Auto) 1+ /HPF (Negative) 12/16/19 06:15 Urine Mucus Few /HPF 12/16/19 06:15 Urine Creatinine 97.4 mg/dL (0.1-20.0) H 12/16/19 06:15 Urine Sodium 14 mmol/L 12/16/19 06:15 Urine Total Protein 30 mg/dL (5-11.8) H 12/16/19 06:15 Random Vancomycin 11.7 ug/mL (0-40.0) 12/19/19 09:37 Coronavirus (PCR) Negative (Negative) 12/12/19 14:40 Blood Type O POSITIVE 12/22/19 11:20 Antibody Screen Negative 12/22/19 11:20 Crossmatch See Detail 12/22/19 11:20 Lassiter/IV: Voiding Method Diaper IV Catheter Type [Left Wrist] INT / Saline Lock IV Catheter Type [Left Hand] Peripheral IV IV Catheter Type [Right PICC Line Internal Jugular] IV Catheter Type [Left Forearm Peripheral IV ] Active Medications - Current Medications Current Medications: Generic Name Dose Route Start Last Admin Trade Name Freq PRN Reason Stop Dose Admin Acetaminophen 650 mg 12/14/19 22:57 Tylenol PO Q4H PRN Pain MILD(1-3)/Fever >100.5/WHALEY Amlodipine Besylate 5 mg 12/15/19 10:00 12/22/19 12:13 Amlodipine PO 5 mg DAILY NANCY Administration Carvedilol 25 mg 12/15/19 10:00 12/22/19 21:25 Coreg PO 25 mg BID NANCY Administration Dextrose 50 ml 12/22/19 07:00 12/22/19 14:00 D50w (25gm) Syringe IV 20 ml PRN PRN Administration Hypoglycemia Protocol Famotidine 20 mg 12/16/19 10:00 12/22/19 12:11 Pepcid PO 20 mg DAILY NANCY Administration Hydromorphone HCl 1 mg 12/14/19 22:57 12/16/19 18:32 Dilaudid IV 1 mg Q3H PRN Administration Pain , Severe (7-10) Daptomycin 500 mg/ Sodium 100 mls @ 200 mls/hr 12/19/19 16:00 12/21/19 16:39 Chloride IV 200 mls/hr Q48H NANCY Administration Protocol Sodium Chloride 1,000 mls @ 42 mls/hr 12/22/19 09:45 12/22/19 12:48 Nacl 0.9% 1000 Ml IV 12/23/19 09:34 42 mls/hr DIRECT NANCY Administration Insulin Glargine 15 units 12/18/19 22:00 12/22/19 21:40 Lantus SUB-Q Not Given QHS NANCY Loperamide HCl 2 mg 12/15/19 14:01 12/15/19 21:23 Imodium PO 2 mg BID PRN Administration Diarrhea Metoclopramide HCl 5 mg 12/14/19 23:11 Reglan IV Q6H PRN Nausea And Vomiting Miscellaneous Medication 400 mg 12/15/19 10:00 Dronedarone (Nf) PO DAILY NANCY Mycophenolate Mofetil 500 mg 12/14/19 23:00 12/22/19 21:24 Cellcept PO 500 mg BID NANCY Administration Ondansetron HCl 4 mg 12/14/19 22:57 12/19/19 10:36 Zofran IV 4 mg Q3H PRN Administration Nausea And Vomiting Oxycodone/Acetaminophen 1 tab 12/14/19 22:57 12/20/19 10:55 Percocet 5/325 PO 1 tab Q6H PRN Administration Pain, Moderate (4-6) Potassium Chloride 20 meq 12/15/19 18:00 12/22/19 12:07 K-Dur PO 20 meq QDAY NANCY Administration Prednisone 5 mg 12/15/19 10:00 12/22/19 12:11 Deltasone PO 5 mg DAILY NANCY Administration Sodium Bicarbonate 650 mg 12/15/19 22:00 12/22/19 12:07 Sodium Bicarbonate PO 650 mg BID NANCY Administration Sodium Chloride 10 ml 12/15/19 10:00 12/22/19 12:15 Sodium Chloride Flush Syringe 10 Ml IV 10 ml BID NANCY Administration Sodium Chloride 10 ml 12/14/19 22:57 12/18/19 22:09 Sodium Chloride Flush Syringe 10 Ml IV 10 ml PRN PRN Administration LINE FLUSH Tacrolimus 2 mg 12/14/19 23:00 12/22/19 21:24 Prograf PO 2 mg Q12HR NANCY Administration Nutrition/Malnutrition Assess - Dietary Evaluation Nutrition/Malnutrition Findings: Nutrition Notes Start: 12/15/19 14:11 Freq: Status: Active Protocol: Document 12/21/19 13:25 [email or web address] (Rec: 12/21/19 14:10 [email or web address]) Co-Sign 12/21/19 13:25 LP Nutrition Notes Initial or Follow up Reassessment Current Diagnosis Acute Kidney Injury,Diabetes Other Pertinent Diagnosis s/p kidney transplant, tibia fx, Hypernatremia, Hypokalemia Current Diet Consistent CHO Labs/Tests 12/19 BUN 58 Cr 2.7 BG 140 Pertinent Medications K-Dur 20mEq Height 6 ft Weight 79.3 kg [place] Body Weight (kg) 80.90 BMI 23.7 Weight Status Underweight Subjective/Other Information F/U for torrey, ONS and intakes . Pt had 3 torrey packets at bedside. Pt was sleeping at time of visit x2.Per RN, pt drinks liquids alot. Pt just received lunch tray at time of second visit. Burn Absent Trauma Absent Skin Integrity/Comment multiple pressure ulcers Current % PO Negligible Minimum of two criteria No Fluid Accumulation Mild (non-severe) #1 Nutrition Diagnosis Increased nutrient needs ( specify in comment below) Diagnosis Progress(for reassessment Continues documentation) Is patient on ventilator? No Is Patient Ambulatory and/or Out of Bed No REE-([facility]-confined to bed) [phone] Calculation Used for Recommendations [facility] Additional Notes Protein (0.8-1.5g/kg): 63-119g Fluid 1ml/kcal Nutrition Intervention Change Diet Order: Continue Add Supplement/Snack (indicate name/kcal Glucerna TID /protein ) D/C Torrey Provides kCal: 660 Provides Protein (gm) 30 Goal #1 Pt will meet 75-100% of energy and protein needs by PO. Goal #2 Wound healing Anticipated Discharge Needs: Consistent Carbohydrate diet Follow-Up By: 12/26/19 Additional Comments F/U intakes, ONS
[2019-12-23] MEDS: carvediloL 25 MG TAB PO SCH ×2 (10:41→23:28)
[2019-12-23] MEDS: POTASSIUM CHLORIDE ER 20 MEQ TAB PO SCH (10:42)
[2019-12-23] MEDS: predniSONE 5 MG TAB PO SCH (10:43)
[2019-12-23] MEDS: TACROLIMUS 1 MG CAP PO SCH ×2 (10:43→23:21)
[2019-12-23] MEDS: MYCOPHENOLATE 500 MG TAB PO SCH ×2 (10:43→23:21)
[2019-12-23] MEDS: amLODIPine 5 MG TAB PO SCH (10:43)
[2019-12-23] MEDS: SODIUM BICARBONATE 650 MG TAB PO SCH ×2 (10:44→23:19)
[2019-12-23] MEDS: FAMOTIDINE 20 MG TAB PO SCH (10:44)
--- NOTE | 2019-12-23 11:28 | Progress Note ---
Assessment and Plan - Patient Problems (1) Acute kidney failure Current Visit: Yes Status: Acute Plan to address problem: Acute tubular necrosis secondary to sepsis. Kidney function is improving. Continue to monitor electrolytes and renal function (2) S/P kidney transplant Current Visit: Yes Status: Acute Plan to address problem: Check Prograf level. Continue immunosuppression (3) Swelling of right upper extremity Current Visit: Yes Status: Acute Plan to address problem: Needs vascular follow-up (4) Type 2 diabetes mellitus with diabetic nephropathy Current Visit: Yes Status: Acute Plan to address problem: Blood sugar management by primary attending (5) Hypertensive chronic kidney disease with stage 1 through stage 4 chronic kidney disease, or unspecified chronic kidney disease Current Visit: Yes Status: Acute Plan to address problem: Follow-up blood pressure on current medication (6) Metabolic acidosis Current Visit: Yes Status: Acute Plan to address problem: Improving. Continue treatment (7) Infection of wound due to methicillin resistant Staphylococcus aureus (MRSA) Current Visit: Yes Status: Acute Plan to address problem: Continue antibiotics. Patient on isolation. Infectious disease web consultant on the case (8) Right tibial fracture Current Visit: Yes Status: Acute Qualifiers: Encounter type: initial encounter Salter-Ocampo Fracture Type: unspecified configuration Plan to address problem: Management per orthopedic surgery (9) Diarrhea Current Visit: Yes Status: Acute Plan to address problem: Needs stool work-up including excluding C. difficile colitis given the antibiotic use Subjective Date of service: 12/23/19 Principal diagnosis: Leg pain Interval history: Patient seen sitting up in bed. He is having diarrhea. He complains of the swelling of his right arm/hand Objective - Exam Narrative Exam: Middle-aged -[place] male sitting up in bed in no acute distress HEENT: NCAT, pink oral mucous membrane Neck: Supple, no venous distention CVS: S1S2 RRR with no murmur, rub or gallop Chest: Clear to auscultation Abdomen: Protuberant, soft, nontender, no organomegaly, bowel sounds are present Extremities: 3+ swelling of the right' upper extremity extending to the hand. Mild edema to the right leg,, Dressing right leg Genitourinary deferred Neuro: Awake, alert no focal deficits - Vital Signs Vital signs: Vital Signs - 12hr 12/22/19 12/23/19 12/23/19 23:35 05:16 07:43 Temperature 98.2 F 98.0 F 98.1 F Pulse Rate 69 58 L Respiratory 18 18 18 Rate Blood Pressure 144/68 145/63 135/61 O2 Sat by Pulse 97 96 Oximetry 12/23/19 12/23/19 10:41 10:43 Temperature Pulse Rate 58 L 58 L Respiratory Rate Blood Pressure 135/61 135/61 O2 Sat by Pulse Oximetry - Lab 12/23/19 06:35 12/23/19 06:35 Most recent lab results Calcium 9.4 mg/dL (8.4-10.2) 12/23/19 06:35 Urine Creatinine 97.4 mg/dL (0.1-20.0) H 12/16/19 06:15 Urine Sodium 14 mmol/L 12/16/19 06:15 Urine Total Protein 30 mg/dL (5-11.8) H 12/16/19 06:15 Medications & Allergies - Medications Allergies/Adverse Reactions: Allergies cefazolin Allergy (Intermediate, Verified 10/19/19 13:26) Hives itching & hives Home Medications: Home Medications Medication Instructions Recorded Confirmed Last Taken Type Aspirin 81 mg PO DAILY 10/16/19 12/14/19 5 Days Ago History ~12/09/19 Calcium Citrate/Vitamin D3 1,000 units PO DAILY 10/16/19 12/08/19 12/13/19 History Dronedarone (Nf) [Multaq (Nf)] 400 mg PO DAILY 10/16/19 12/08/19 12/13/19 History Mycophenolate 500 mg PO BID 10/16/19 12/08/19 12/13/19 History Prograf 2 mg PO Q12HR 10/16/19 12/08/19 12/13/19 History amLODIPine 5 mg PO DAILY 10/16/19 12/08/19 12/14/19 07:00 History carvediloL [Coreg] 20 mg PO BID 10/16/19 12/08/19 12/14/19 07:00 History glipiZIDE 5 mg PO DAILY 10/16/19 12/08/19 12/13/19 History predniSONE [Deltasone] 5 mg PO DAILY 10/16/19 12/08/19 12/13/19 History HYDROcodone/APAP 5-325 [[place] 1 each PO Q6HR PRN #20 tablet 10/19/19 12/08/19 12/13/19 Rx 5-325 mg TAB] HYDROcodone/APAP 7.5-325 [[place] 1 each PO Q6HR PRN #20 tablet 12/14/19 Unknown Rx 7.5-325 mg TAB] Sulfamethoxazole/Trimethoprim 1 each PO BID #30 tablet 12/14/19 Unknown Rx [Bactrim DS TAB] Active Medications: Generic Name Dose Route Start Last Admin Trade Name Freq PRN Reason Stop Dose Admin Acetaminophen 650 mg 12/14/19 22:57 Tylenol PO Q4H PRN Pain MILD(1-3)/Fever >100.5/WHALEY Amlodipine Besylate 5 mg 12/15/19 10:00 12/23/19 10:43 Amlodipine PO 5 mg DAILY NANCY Administration Carvedilol 25 mg 12/15/19 10:00 12/23/19 10:41 Coreg PO 25 mg BID NANCY Administration Dextrose 50 ml 12/22/19 07:00 12/22/19 14:00 D50w (25gm) Syringe IV 20 ml PRN PRN Administration Hypoglycemia Protocol Famotidine 20 mg 12/16/19 10:00 12/23/19 10:44 Pepcid PO 20 mg DAILY NANCY Administration Hydromorphone HCl 1 mg 12/14/19 22:57 12/16/19 18:32 Dilaudid IV 1 mg Q3H PRN Administration Pain , Severe (7-10) Daptomycin 500 mg/ Sodium 100 mls @ 200 mls/hr 12/19/19 16:00 12/21/19 16:39 Chloride IV 200 mls/hr Q48H NANCY Administration Protocol Insulin Glargine 15 units 12/18/19 22:00 12/22/19 21:40 Lantus SUB-Q Not Given QHS NANCY Loperamide HCl 2 mg 12/15/19 14:01 12/15/19 21:23 Imodium PO 2 mg BID PRN Administration Diarrhea Metoclopramide HCl 5 mg 12/14/19 23:11 Reglan IV Q6H PRN Nausea And Vomiting Miscellaneous Medication 400 mg 12/15/19 10:00 Dronedarone (Nf) PO DAILY NANCY Mycophenolate Mofetil 500 mg 12/14/19 23:00 12/23/19 10:43 Cellcept PO 500 mg BID NANCY Administration Ondansetron HCl 4 mg 12/14/19 22:57 12/19/19 10:36 Zofran IV 4 mg Q3H PRN Administration Nausea And Vomiting Oxycodone/Acetaminophen 1 tab 12/14/19 22:57 12/20/19 10:55 Percocet 5/325 PO 1 tab Q6H PRN Administration Pain, Moderate (4-6) Potassium Chloride 20 meq 12/15/19 18:00 12/23/19 10:42 K-Dur PO 20 meq QDAY NANCY Administration Prednisone 5 mg 12/15/19 10:00 12/23/19 10:43 Deltasone PO 5 mg DAILY NANCY Administration Sodium Bicarbonate 650 mg 12/15/19 22:00 12/23/19 10:44 Sodium Bicarbonate PO 650 mg BID NANCY Administration Sodium Chloride 10 ml 12/15/19 10:00 12/22/19 12:15 Sodium Chloride Flush Syringe 10 Ml IV 10 ml BID NANCY Administration Sodium Chloride 10 ml 12/14/19 22:57 12/18/19 22:09 Sodium Chloride Flush Syringe 10 Ml IV 10 ml PRN PRN Administration LINE FLUSH Tacrolimus 2 mg 12/14/19 23:00 12/23/19 10:43 Prograf PO 2 mg Q12HR NANCY Administration
[2019-12-23] MEDS: LOPERAMIDE 2 MG CAP PO PRN (12:33)
--- NOTE | 2019-12-23 15:44 | Progress Note ---
Assessment and Plan Cultures: 12/14/2019 right leg surgical culture: MRSA A/P: 64-year-old male with diabetes, hypertension, renal transplant recipient in 2018, on immunosuppression with Prograf, CellCept and prednisone underwent right proximal tibia fracture closed reduction and external fixator placement on 10/19/2019. He was hospitalized on 12/14/2019 for elective surgery for removal of his external fixator, noted to have: #Low-grade fever, leukocytosis, infection associated with external fixator involving proximal tibia: Intraoperatively, patient was noted to have purulent drainage from the superior pin which was debrided using a curette and cultures were obtained. These cultures are growing MRSA. Patient is immunocompromised. All hardware has been removed. Patient is at risk of osteomyelitis. ESR and CRP are both elevated. #Immunocompromised host, renal transplant recipient: On Prograf, CellCept, prednisone. #URMILA on CKD: Nephrology following. Renally dose antibiotics. #RUE swelling/edema: DVT scan negative. Recs: Continue renally dosed IV daptomycin 500 mg q48 hours, avoiding vancomycin due to his URMILA on CKD and renal transplant Plan to complete 4 weeks of abx ending 01/11/2020 Weekly CBC, creatinine, AST, ALT, CPK, CRP while on IV abx ID clinic follow up in 3 weeks (fire protection fabricator notified) Mike Andrade MD, FACP [facility] C: [phone] O: [phone] F: [phone] Subjective Date of service: 12/23/19 Principal diagnosis: Leg pain Interval history: No fever. No other complaints. Right UE still swollen, but slightly better Objective - Exam Narrative Exam: Physical Exam: Constitutional: Alert, cooperative. No acute distress Head, Ears, Nose: Normocephalic, atraumatic. External ears, nose normal Eyes: Conjunctivae/corneas clear. No icterus. No ptosis. Neck: Supple, no meningeal signs Cardiovascular: S1, S2 normal. Respiratory: Good air entry, clear to auscultation bilaterally GI: Soft, non-tender; bowel sounds normal. No peritoneal signs Musculoskeletal: Right knee effusion. Right proximal tibia dressing present with small wound. Right hand and forearm with swelling/edema, no warmth or cellulitis. Right upper chest PICC line + Skin: No rash or abscess Hem/Lymphatic: No palpable cervical or supraclavicular nodes. No lymphangitis Psych: Flat affect Neurological: Awake, alert, oriented - Constitutional Vitals: Vital Signs Temp Pulse Resp BP Pulse Ox 98.1 F 62 20 106/49 99 12/23/19 11:26 12/23/19 11:26 12/23/19 11:26 12/23/19 11:26 12/23/19 11:26 Temperature -Last 24 Hours Temperature 98.1 F Temperature 98.1 F Temperature 98.0 F Temperature 98.2 F Temperature 98.5 F Temperature 98.2 F Temperature 98.4 F Temperature 98.1 F Temperature 98.1 F Temperature 97.9 F Temperature 97.9 F Temperature 98.3 F - Labs CBC & Chem 7: 12/23/19 06:35 12/23/19 06:35 Labs: Abnormal lab results 12/22/19 12/22/19 12/23/19 Range/Units 11:20 21:46 06:35 WBC 12.9 H (4.5-11.0) K/mm3 RBC 3.11 L (3.65-5.03) M/mm3 Hgb 7.6 L (11.8-15.2) gm/dl Hct 23.6 L (35.5-45.6) % MCV 76 L (84-94) fl MCH 25 L (28-32) pg RDW 20.4 H (13.2-15.2) % BUN (9-20) mg/dL Creatinine (0.8-1.3) mg/dL POC Glucose 108 H (70-105) Crossmatch See Detail 12/23/19 12/23/19 Range/Units 06:35 11:42 WBC (4.5-11.0) K/mm3 RBC (3.65-5.03) M/mm3 Hgb (11.8-15.2) gm/dl Hct (35.5-45.6) % MCV (84-94) fl MCH (28-32) pg RDW (13.2-15.2) % BUN 51 H (9-20) mg/dL Creatinine 2.7 H (0.8-1.3) mg/dL POC Glucose 186 H (70-105) Crossmatch
[2019-12-23] MEDS: INSULIN GLARGINE 100 UNITS/ML SUB-Q SCH (23:22)
[2019-12-23] MEDS: INSULIN LISPRO 100 UNIT/ML VIAL 3 mL SUB-Q SCH (23:38)
[2019-12-24 08:37] LABS: Calcium 9.5 mg/dL (8.4-10.2)
[2019-12-24 08:59] LABS: Hematocrit 24.5 % (35.5-45.6); Hemoglobin 7.7 gm/dl (11.8-15.2); Mean Corpuscular HGB Conc 32 % (32-34); Mean Corpuscular Volume 78 fl (84-94); Platelet Count 262 K/mm3 (140-440); Red Blood Count 3.12 M/mm3 (3.65-5.03)
[2019-12-24 09:02] LABS: Red Cell Distribution Width 20.5 % (13.2-15.2)
[2019-12-24] MEDS: MYCOPHENOLATE 500 MG TAB PO SCH ×2 (10:03→22:43)
[2019-12-24] MEDS: FAMOTIDINE 20 MG TAB PO SCH (10:03)
[2019-12-24] MEDS: SODIUM BICARBONATE 650 MG TAB PO SCH ×3 (10:03→22:42)
[2019-12-24] MEDS: TACROLIMUS 1 MG CAP PO SCH ×2 (10:03→22:44)
[2019-12-24] MEDS: POTASSIUM CHLORIDE ER 20 MEQ TAB PO SCH (10:03)
[2019-12-24] MEDS: INSULIN LISPRO 100 UNIT/ML VIAL 3 mL SUB-Q SCH ×4 (10:04→22:42)
[2019-12-24] MEDS: predniSONE 5 MG TAB PO SCH (10:04)
[2019-12-24] MEDS: amLODIPine 5 MG TAB PO SCH (10:04)
[2019-12-24] MEDS: carvediloL 25 MG TAB PO SCH ×2 (10:05→22:40)
--- NOTE | 2019-12-24 11:10 | Progress Note ---
Assessment and Plan Assessment and plan: 64-year-old male with a history of hypertension end-stage renal disease received a kidney transplant several years ago and has had baseline creatinine of 1.3- 1.5. - Patient Problems SEPSIS UNKNOWN SOURCE- POA URMILA (acute kidney injury) with vasomotor nephropathy Current Visit: Yes Status: Acute Plan to address problem: Appears to be resolving closer to baseline. Renal following. Current cre atinine 2.7. Follow-up labs in the a.m. Hypernatremia Current Visit: Yes Status: Acute Plan to address problem: Hypernatremia has resolved now 143. Hypokalemia Current Visit: Yes Status: Acute Plan to address problem: Hypokalemia we will treat with p.o. KCl. Right tibial fracture Current Visit: Yes Status: Acute Qualifiers: Encounter type: initial encounter Salter-Ocampo Fracture Type: unspecified configuration Plan to address problem: Right tibial fracture status post correction. No evidence of infection. Clinically. Patient did have positive blood culture for MRSA most likely a contaminant. I have given patient a dose of bank await any ID recommendations. Started patient on p.o. Bactrim tolerating well. Await Ortho recommendations fo r discharge planning. Bilateral pressure ulcer of the sacrum stge 3: Wound care following S/P kidney transplant Current Visit: Yes Status: Acute Plan to address problem: Renal function stable. Hypertension Current Visit: Yes Status: Chronic Qualifiers: Hypertension type: essential hypertension Qualified Code(s): I10 - Essential (primary) hypertension Plan to address problem: Patient has optimal control blood pressure amlodipine Coreg continue present medical management. T2DM (type 2 diabetes mellitus) Current Visit: Yes Status: Chronic Qualifiers: Diabetes mellitus oysterman insulin use: without oysterman use Plan to address problem: Patient diabetes still has suboptimal control. Patient is not eating better w ould add long acting insulin 15 units Levemir at night. Metabolic acidosis Current Visit: Yes Status: Acute Plan to address problem: Improved with the initiation of bicarbonate isotonic. Precipitous drop in HCT, Anemia: Continue to monitor. DVT prophylaxis Current Visit: Yes Status: Acute 12/14/2019 patient admitted for elective surgical correction of right proximal to tibial fracture. Patient underwent surgical intervention and external fixation device. 12/15/1999 patient was found to have elevated creatinine up from 1.5 at baseline to 2.8. Therefore renal consult was obtained. Was thought to be secondary to prerenal azotemia. Symptoms responding to IV volume replacement and creatinine going back down to baseline. 12/16/2019 patient's creatinine continued to improve toward baseline. 12/17/2019. Patient surgical blood culture showed positive for methicillin resistant staph aureus. May be contaminant because patient remained afebrile no leukocytosis. No tenderness to the area. And sensitivity of MRSA was pansensitive to Cipro and Bactrim. Patient was given 1 dose of Vanco IV and a wait any ID recommendations. Patient should be able to discharge with Bactrim since it is sensitive and patient is afebrile no leukocytosis. Does not appear to have underlying infection at this time. 12/18/2019. Patient is resting doubly afebrile placed on Bactrim because MRSA was sensitive to this. Await further recommendations from Ortho about discharge planning. Patient somewhat sad today. States he just lost his sister. Patient denies any wants for antidepressant medications. 12/18: Awaiting further plan by othor, continue on abx per ID and Nephrology following for urmila, Showing slight improvement and not at baseline. Monitor Right upper ext 12/19: Consult Vascular due to concern for upper ext, obtain doppler of right upper ext 12/20: Unsure why Doppler has not been done, nurse not aware either, call placed to department for stat exam, will give a dose of Lovenox prophylactically. Finally doppler done and no DVT. Elevate Upper ext 12/21: CONTINUE ABX, DISCUSSED WITH NURSINGS STAFF TO ELEVATE UPPER EXT, Tunnle catheter placed. Renal function slightly worse. Continue to monitor. 12/22: Clinically improving, Tunnel catheter placed, awaiting, clearance from Nephrology for discharge, Leukocytosis and renal functions showing slight improvement. Continue to monitor Right upper ext swelling. S/P 1 unit PRBC transfused, totalling 2 units for this admission. 12/23: Continue current clinical support. Anticipate discharge in a.m. mild elevation in WBC. Also monitor hemoglobin following transfusion. History Interval history: Patient seen and examined, still with right upper ext edema, swelling improving some. Moves it some, no pain. warm, pulses appreciated Hospitalist Physical - Physical exam Narrative exam: General appearance: Present: no acute distress, well-nourished - EENT Eyes: PERRL, EOM intact ENT: hearing intact, clear oral mucosa Ears: bilateral: normal - Neck Neck: supple, normal ROM - Respiratory Respiratory effort: normal Respiratory: bilateral: CTA - Breasts Breasts: normal - Cardiovascular Rhythm: regular Heart Sounds: Present: S1 & S2. Absent: gallop, rub Extremities: pulses intact, edema, normal color, Full ROM - Gastrointestinal General gastrointestinal: Present: soft, non-tender, non-distended, normal bowel sounds - Genitourinary Male genitourinary: normal - Integumentary Integumentary: clear, warm, edema on right upper ext EXTENSIVE SWELLING WITH BLISTER. - Musculoskeletal Musculoskeletal: strength equal bilaterally, right knee with bulging, chronic, other (Right leg bandaged. Very minimal serosanguineous exudate from external fixator site.) - Neurologic Neurologic: moves all extremities - Psychiatric Psychiatric: appropriate mood/affect, intact judgment & insight, memory intact, other (Poor cognition.) - Constitutional Vitals: Temp Pulse Resp BP Pulse Ox 98.3 F 57 L 18 124/57 97 12/24/19 07:12 12/24/19 10:05 12/24/19 07:12 12/24/19 10:05 12/24/19 07:12 General appearance: Present: no acute distress, well-nourished HEART Score - HEART Score Age: > 65 Risk factors: 1-2 risk factors - Critical Actions Critical Actions: 0-3 pts:0.9-1.7%risk of adverse cardiac event.Candidate for discharge Results - Labs CBC & Chem 7: 12/24/19 07:46 12/24/19 07:46 Labs: Laboratory Last Values WBC 13.9 K/mm3 (4.5-11.0) H 12/24/19 07:46 RBC 3.12 M/mm3 (3.65-5.03) L 12/24/19 07:46 Hgb 7.7 gm/dl (11.8-15.2) L 12/24/19 07:46 Hct 24.5 % (35.5-45.6) L 12/24/19 07:46 MCV 78 fl (84-94) L 12/24/19 07:46 MCH 25 pg (28-32) L 12/24/19 07:46 MCHC 32 % (32-34) 12/24/19 07:46 RDW 20.5 % (13.2-15.2) H 12/24/19 07:46 Plt Count 262 K/mm3 (140-440) 12/24/19 07:46 Lymph % (Auto) Compressor Station Engineer Chief 12/16/19 06:38 Hayes % (Auto) Compressor Station Engineer Chief 12/16/19 06:38 Eos % (Auto) Compressor Station Engineer Chief 12/16/19 06:38 Baso % (Auto) Compressor Station Engineer Chief 12/16/19 06:38 Lymph # (Auto) Compressor Station Engineer Chief 12/16/19 06:38 Hayes # (Auto) Compressor Station Engineer Chief 12/16/19 06:38 Eos # (Auto) Compressor Station Engineer Chief 12/16/19 06:38 Baso # (Auto) Compressor Station Engineer Chief 12/16/19 06:38 Add Manual Diff Complete 12/16/19 06:38 Total Counted 100 12/16/19 06:38 Seg Neutrophils % Compressor Station Engineer Chief 12/16/19 06:38 Seg Neuts % (Manual) 90.0 % (40.0-70.0) H 12/16/19 06:38 Band Neutrophils % 3.0 % 12/16/19 06:38 Lymphocytes % (Manual) 5.0 % (13.4-35.0) L 12/16/19 06:38 Reactive Lymphs % (Man) 0 % 12/16/19 06:38 Monocytes % (Manual) 2.0 % (0.0-7.3) 12/16/19 06:38 Eosinophils % (Manual) 0 % (0.0-4.3) 12/16/19 06:38 Basophils % (Manual) 0 % (0.0-1.8) 12/16/19 06:38 Metamyelocytes % 0 % 12/16/19 06:38 Myelocytes % 0 % 12/16/19 06:38 Promyelocytes % 0 % 12/16/19 06:38 Blast Cells % 0 % 12/16/19 06:38 Nucleated RBC % Not Reportable 12/16/19 06:38 Seg Neutrophils # Compressor Station Engineer Chief 12/16/19 06:38 Seg Neutrophils # Man 10.0 K/mm3 (1.8-7.7) H 12/16/19 06:38 Band Neutrophils # 0.3 K/mm3 12/16/19 06:38 Lymphocytes # (Manual) 0.6 K/mm3 (1.2-5.4) L 12/16/19 06:38 Abs React Lymphs (Man) 0.0 K/mm3 12/16/19 06:38 Monocytes # (Manual) 0.2 K/mm3 (0.0-0.8) 12/16/19 06:38 Eosinophils # (Manual) 0.0 K/mm3 (0.0-0.4) 12/16/19 06:38 Basophils # (Manual) 0.0 K/mm3 (0.0-0.1) 12/16/19 06:38 Metamyelocytes # 0.0 K/mm3 12/16/19 06:38 Myelocytes # 0.0 K/mm3 12/16/19 06:38 Promyelocytes # 0.0 K/mm3 12/16/19 06:38 Blast Cells # 0.0 K/mm3 12/16/19 06:38 WBC Morphology Not Reportable 12/16/19 06:38 Hypersegmented Neuts Not Reportable 12/16/19 06:38 Hyposegmented Neuts Not Reportable 12/16/19 06:38 Hypogranular Neuts Not Reportable 12/16/19 06:38 Smudge Cells Not Reportable 12/16/19 06:38 Toxic Granulation Not Reportable 12/16/19 06:38 Toxic Vacuolation Not Reportable 12/16/19 06:38 Dohle Bodies Not Reportable 12/16/19 06:38 Pelger-Huet Anomaly Not Reportable 12/16/19 06:38 Robert Rods Not Reportable 12/16/19 06:38 Platelet Estimate Consistent w auto 12/16/19 06:38 Clumped Platelets Not Reportable 12/16/19 06:38 Plt Clumps, EDTA Not Reportable 12/16/19 06:38 Large Platelets Not Reportable 12/16/19 06:38 Giant Platelets Not Reportable 12/16/19 06:38 Platelet Satelliting Not Reportable 12/16/19 06:38 Plt Morphology Comment Not Reportable 12/16/19 06:38 RBC Morphology Not Reportable 12/16/19 06:38 Dimorphic RBCs Not Reportable 12/16/19 06:38 Polychromasia Not Reportable 12/16/19 06:38 Hypochromasia 1+ 12/16/19 06:38 Poikilocytosis Few 12/16/19 06:38 Anisocytosis Not Reportable 12/16/19 06:38 Microcytosis Few 12/16/19 06:38 Macrocytosis Not Reportable 12/16/19 06:38 Spherocytes Not Reportable 12/16/19 06:38 Pappenheimer Bodies Not Reportable 12/16/19 06:38 Sickle Cells Not Reportable 12/16/19 06:38 Target Cells Few 12/16/19 06:38 Tear Drop Cells Few 12/16/19 06:38 Ovalocytes Not Reportable 12/16/19 06:38 Helmet Cells Not Reportable 12/16/19 06:38 Santana-Weingarten Bodies Not Reportable 12/16/19 06:38 Keystone Rings Not Reportable 12/16/19 06:38 Juju Cells Not Reportable 12/16/19 06:38 Bite Cells Not Reportable 12/16/19 06:38 Crenated Cell Not Reportable 12/16/19 06:38 Elliptocytes Not Reportable 12/16/19 06:38 Acanthocytes (Spur) Not Reportable 12/16/19 06:38 Rouleaux Not Reportable 12/16/19 06:38 Hemoglobin C Crystals Not Reportable 12/16/19 06:38 Schistocytes Not Reportable 12/16/19 06:38 Malaria parasites Not Reportable 12/16/19 06:38 ESR 73 mm/Hr (0-20) 12/20/19 09:11 Hector Bodies Not Reportable 12/16/19 06:38 Hem Pathologist Commnt No 12/16/19 06:38 Sodium 138 mmol/L (137-145) 12/24/19 07:46 Potassium 5.0 mmol/L (3.6-5.0) 12/24/19 07:46 Chloride 103.9 mmol/L (98-107) 12/24/19 07:46 Carbon Dioxide 21 mmol/L (22-30) L 12/24/19 07:46 Anion Gap 18 mmol/L 12/24/19 07:46 BUN 44 mg/dL (9-20) H 12/24/19 07:46 Creatinine 2.5 mg/dL (0.8-1.3) H 12/24/19 07:46 Estimated GFR 32 ml/min 12/24/19 07:46 BUN/Creatinine Ratio 18 % 12/24/19 07:46 Glucose 120 mg/dL (75-100) H 12/24/19 07:46 POC Glucose 143 (70-105) H 12/24/19 07:27 Uric Acid 11.7 mg/dL (3.5-7.6) H 12/14/19 13:24 Calcium 9.5 mg/dL (8.4-10.2) 12/24/19 07:46 Total Bilirubin 1.50 mg/dL (0.1-1.2) H 12/17/19 10:57 AST 166 units/L (5-40) H 12/17/19 10:57 ALT 116 units/L (7-56) H 12/17/19 10:57 Alkaline Phosphatase 279 units/L (35-129) H 12/17/19 10:57 Total Creatine Kinase 101 units/L (55-170) 12/20/19 09:11 C-Reactive Protein 25.90 mg/dL (0.00-1.30) H 12/20/19 09:11 Total Protein 5.1 g/dL (6.3-8.2) L 12/17/19 10:57 Albumin 2.5 g/dL (3.9-5) L 12/17/19 10:57 Albumin/Globulin Ratio 1.0 % 12/17/19 10:57 Urine Color Yellow (Yellow) 12/16/19 06:15 Urine Turbidity Clear (Clear) 12/16/19 06:15 Urine pH 5.0 (5.0-7.0) 12/16/19 06:15 Ur Specific [place] 1.013 (1.003-1.030) 12/16/19 06:15 Urine Protein 30 mg/dl mg/dL (Negative) 12/16/19 06:15 Urine Glucose (UA) Neg mg/dL (Negative) 12/16/19 06:15 Urine Ketones Neg mg/dL (Negative) 12/16/19 06:15 Urine Blood Mod (Negative) 12/16/19 06:15 Urine Nitrite Neg (Negative) 12/16/19 06:15 Urine Bilirubin Neg (Negative) 12/16/19 06:15 Urine Urobilinogen < 2.0 mg/dL (<2.0) 12/16/19 06:15 Ur Leukocyte Esterase Neg (Negative) 12/16/19 06:15 Urine WBC (Auto) 1.0 /HPF (0.0-6.0) 12/16/19 06:15 Urine RBC (Auto) 1.0 /HPF (0.0-6.0) 12/16/19 06:15 Urine Bacteria (Auto) 1+ /HPF (Negative) 12/16/19 06:15 Urine Mucus Few /HPF 12/16/19 06:15 Urine Creatinine 97.4 mg/dL (0.1-20.0) H 12/16/19 06:15 Urine Sodium 14 mmol/L 12/16/19 06:15 Urine Total Protein 30 mg/dL (5-11.8) H 12/16/19 06:15 Random Vancomycin 11.7 ug/mL (0-40.0) 12/19/19 09:37 Coronavirus (PCR) Negative (Negative) 12/12/19 14:40 Blood Type O POSITIVE 12/22/19 11:20 Antibody Screen Negative 12/22/19 11:20 Crossmatch See Detail 12/22/19 11:20 Lassiter/IV: Voiding Method Urinal IV Catheter Type [Left Wrist] INT / Saline Lock IV Catheter Type [Left Hand] Peripheral IV IV Catheter Type [Right PICC Line Internal Jugular] IV Catheter Type [Left Forearm Peripheral IV ] Active Medications - Current Medications Current Medications: Generic Name Dose Route Start Last Admin Trade Name Freq PRN Reason Stop Dose Admin Acetaminophen 650 mg 12/14/19 22:57 Tylenol PO Q4H PRN Pain MILD(1-3)/Fever >100.5/WHALEY Amlodipine Besylate 5 mg 12/15/19 10:00 12/24/19 10:04 Amlodipine PO 5 mg DAILY NANCY Administration Carvedilol 25 mg 12/15/19 10:00 12/24/19 10:05 Coreg PO Not Given BID NANCY Dextrose 50 ml 12/22/19 07:00 12/22/19 14:00 D50w (25gm) Syringe IV 20 ml PRN PRN Administration Hypoglycemia Protocol Famotidine 20 mg 12/16/19 10:00 12/24/19 10:03 Pepcid PO 20 mg DAILY NANCY Administration Hydromorphone HCl 1 mg 12/14/19 22:57 12/16/19 18:32 Dilaudid IV 1 mg Q3H PRN Administration Pain , Severe (7-10) Daptomycin 500 mg/ Sodium 100 mls @ 200 mls/hr 12/19/19 16:00 12/23/19 17:01 Chloride IV 200 mls/hr Q48H NANCY Administration Protocol Insulin Glargine 15 units 12/18/19 22:00 12/23/19 23:22 Lantus SUB-Q 15 units QHS NANCY Administration Insulin Human Lispro 0 unit 12/23/19 17:30 12/24/19 10:04 Humalog SUB-Q Not Given ACHS [facility] Protocol Loperamide HCl 2 mg 12/15/19 14:01 12/23/19 12:33 Imodium PO 2 mg BID PRN Administration Diarrhea Metoclopramide HCl 5 mg 12/14/19 23:11 Reglan IV Q6H PRN Nausea And Vomiting Miscellaneous Medication 400 mg 12/15/19 10:00 Dronedarone (Nf) PO DAILY [facility] Mycophenolate Mofetil 500 mg 12/14/19 23:00 12/24/19 10:03 Cellcept PO 500 mg BID NANCY Administration Ondansetron HCl 4 mg 12/14/19 22:57 12/19/19 10:36 Zofran IV 4 mg Q3H PRN Administration Nausea And Vomiting Oxycodone/Acetaminophen 1 tab 12/14/19 22:57 12/20/19 10:55 Percocet 5/325 PO 1 tab Q6H PRN Administration Pain, Moderate (4-6) Potassium Chloride 20 meq 12/15/19 18:00 12/24/19 10:03 K-Dur PO 20 meq QDAY NANCY Administration Prednisone 5 mg 12/15/19 10:00 12/24/19 10:04 Deltasone PO 5 mg DAILY NANCY Administration Sodium Bicarbonate 650 mg 12/15/19 22:00 12/24/19 10:03 Sodium Bicarbonate PO 650 mg BID NANCY Administration Sodium Chloride 10 ml 12/15/19 10:00 12/24/19 10:05 Sodium Chloride Flush Syringe 10 Ml IV 10 ml BID NANCY Administration Sodium Chloride 10 ml 12/14/19 22:57 12/18/19 22:09 Sodium Chloride Flush Syringe 10 Ml IV 10 ml PRN PRN Administration LINE FLUSH Tacrolimus 2 mg 12/14/19 23:00 12/24/19 10:03 Prograf PO 2 mg Q12HR NANCY Administration Nutrition/Malnutrition Assess - Dietary Evaluation Nutrition/Malnutrition Findings: Nutrition Notes Start: 12/15/19 14:11 Freq: Status: Active Protocol: Document 12/21/19 13:25 [email or web address] (Rec: 12/21/19 14:10 [email or web address]) Co-Sign 12/21/19 13:25 LP Nutrition Notes Initial or Follow up Reassessment Current Diagnosis Acute Kidney Injury,Diabetes Other Pertinent Diagnosis s/p kidney transplant, tibia fx, Hypernatremia, Hypokalemia Current Diet Consistent CHO Labs/Tests 12/19 BUN 58 Cr 2.7 BG 140 Pertinent Medications K-Dur 20mEq Height 6 ft Weight 79.3 kg Edwards Body Weight (kg) 80.90 BMI 23.7 Weight Status Underweight Subjective/Other Information F/U for torrey, ONS and intakes . Pt had 3 torrey packets at bedside. Pt was sleeping at time of visit x2.Per RN, pt drinks liquids alot. Pt just received lunch tray at time of second visit. Burn Absent Trauma Absent Skin Integrity/Comment multiple pressure ulcers Current % PO Negligible Minimum of two criteria No Fluid Accumulation Mild (non-severe) #1 Nutrition Diagnosis Increased nutrient needs ( specify in comment below) Diagnosis Progress(for reassessment Continues documentation) Is patient on ventilator? No Is Patient Ambulatory and/or Out of Bed No REE-([facility]-confined to bed) [phone] Calculation Used for Recommendations [facility] Additional Notes Protein (0.8-1.5g/kg): 63-119g Fluid 1ml/kcal Nutrition Intervention Change Diet Order: Continue Add Supplement/Snack (indicate name/kcal Glucerna TID /protein ) D/C Torrey Provides kCal: 660 Provides Protein (gm) 30 Goal #1 Pt will meet 75-100% of energy and protein needs by PO. Goal #2 Wound healing Anticipated Discharge Needs: Consistent Carbohydrate diet Follow-Up By: 12/26/19 Additional Comments F/U intakes, ONS
--- NOTE | 2019-12-24 12:31 | Progress Note ---
Assessment and Plan - Patient Problems (1) Acute kidney failure Current Visit: Yes Status: Acute Plan to address problem: Acute tubular necrosis secondary to sepsis. Kidney function is still improving. Continue to monitor electrolytes and renal function (2) S/P kidney transplant Current Visit: Yes Status: Acute Plan to address problem: Follow up Prograf level. Continue immunosuppression (3) Swelling of right upper extremity Current Visit: Yes Status: Acute Plan to address problem: Needs vascular follow-up (4) Type 2 diabetes mellitus with diabetic nephropathy Current Visit: Yes Status: Acute Plan to address problem: Blood sugar management by primary attending (5) Hypertensive chronic kidney disease with stage 1 through stage 4 chronic kidney disease, or unspecified chronic kidney disease Current Visit: Yes Status: Acute Plan to address problem: Follow-up blood pressure on current medication (6) Metabolic acidosis Current Visit: Yes Status: Acute Plan to address problem: Improving. Continue treatment (7) Infection of wound due to methicillin resistant Staphylococcus aureus (MRSA) Current Visit: Yes Status: Acute Plan to address problem: Continue antibiotics. Patient on isolation. Infectious disease surgical consultant on the case (8) Right tibial fracture Current Visit: Yes Status: Acute Qualifiers: Encounter type: initial encounter [place] Fracture Type: unspecified configuration Plan to address problem: Management per orthopedic surgery (9) Diarrhea Current Visit: Yes Status: Acute Plan to address problem: Needs stool work-up including excluding C. difficile colitis given the antibiotic use Subjective Date of service: 12/24/19 Principal diagnosis: Leg pain Interval history: Patient seen sitting up in bed. He feels better today. No nausea or vomiting. Pain is improved Objective - Exam Narrative Exam: Middle-aged -[place] male sitting up in bed in no acute distress HEENT: NCAT, Neck: Supple, no venous distention CVS: S1S2 RRR with no murmur, rub or gallop Chest: Clear to auscultation Abdomen: Protuberant, soft, nontender, no organomegaly, bowel sounds are present Extremities: 3+ swelling of the right' upper extremity extending to the hand. Mild edema to the right leg,, Dressing right leg Genitourinary deferred Neuro: Awake, alert no focal deficits - Vital Signs Vital signs: Vital Signs - 12hr 12/24/19 12/24/19 12/24/19 06:19 07:12 10:04 Temperature 98.2 F 98.3 F Pulse Rate 62 57 L 57 L Respiratory 20 18 Rate Blood Pressure 124/57 124/57 Blood Pressure 132/65 [Right] O2 Sat by Pulse 96 97 Oximetry 12/24/19 12/24/19 10:05 11:45 Temperature 98.5 F Pulse Rate 57 L 57 L Respiratory 18 Rate Blood Pressure 124/57 124/59 Blood Pressure [Right] O2 Sat by Pulse 96 Oximetry - Lab 12/24/19 07:46 12/24/19 07:46 Most recent lab results Calcium 9.5 mg/dL (8.4-10.2) 12/24/19 07:46 Urine Creatinine 97.4 mg/dL (0.1-20.0) H 12/16/19 06:15 Urine Sodium 14 mmol/L 12/16/19 06:15 Urine Total Protein 30 mg/dL (5-11.8) H 12/16/19 06:15 Medications & Allergies - Medications Allergies/Adverse Reactions: Allergies cefazolin Allergy (Intermediate, Verified 10/19/19 13:26) Hives itching & hives Home Medications: Home Medications Medication Instructions Recorded Confirmed Last Taken Type Aspirin 81 mg PO DAILY 10/16/19 12/14/19 5 Days Ago History ~12/09/19 Calcium Citrate/Vitamin D3 1,000 units PO DAILY 10/16/19 12/08/19 12/13/19 History Dronedarone (Nf) [Multaq (Nf)] 400 mg PO DAILY 10/16/19 12/08/19 12/13/19 History Mycophenolate 500 mg PO BID 10/16/19 12/08/19 12/13/19 History Prograf 2 mg PO Q12HR 10/16/19 12/08/19 12/13/19 History amLODIPine 5 mg PO DAILY 10/16/19 12/08/19 12/14/19 07:00 History carvediloL [Coreg] 20 mg PO BID 10/16/19 12/08/19 12/14/19 07:00 History glipiZIDE 5 mg PO DAILY 10/16/19 12/08/19 12/13/19 History predniSONE [Deltasone] 5 mg PO DAILY 10/16/19 12/08/19 12/13/19 History HYDROcodone/APAP 5-325 [[place] 1 each PO Q6HR PRN #20 tablet 10/19/19 12/08/19 12/13/19 Rx 5-325 mg TAB] HYDROcodone/APAP 7.5-325 [[place] 1 each PO Q6HR PRN #20 tablet 12/14/19 Unknown Rx 7.5-325 mg TAB] Sulfamethoxazole/Trimethoprim 1 each PO BID #30 tablet 12/14/19 Unknown Rx [Bactrim DS TAB] Active Medications: Generic Name Dose Route Start Last Admin Trade Name Freq PRN Reason Stop Dose Admin Acetaminophen 650 mg 12/14/19 22:57 Tylenol PO Q4H PRN Pain MILD(1-3)/Fever >100.5/WHALEY Amlodipine Besylate 5 mg 12/15/19 10:00 12/24/19 10:04 Amlodipine PO 5 mg DAILY NANCY Administration Carvedilol 25 mg 12/15/19 10:00 12/24/19 10:05 Coreg PO Not Given BID NANCY Dextrose 50 ml 12/22/19 07:00 12/22/19 14:00 D50w (25gm) Syringe IV 20 ml PRN PRN Administration Hypoglycemia Protocol Famotidine 20 mg 12/16/19 10:00 12/24/19 10:03 Pepcid PO 20 mg DAILY NANCY Administration Hydromorphone HCl 1 mg 12/14/19 22:57 12/16/19 18:32 Dilaudid IV 1 mg Q3H PRN Administration Pain , Severe (7-10) Daptomycin 500 mg/ Sodium 100 mls @ 200 mls/hr 12/19/19 16:00 12/23/19 17:01 Chloride IV 200 mls/hr Q48H NANCY Administration Protocol Insulin Glargine 15 units 12/18/19 22:00 12/23/19 23:22 Lantus SUB-Q 15 units QHS NANCY Administration Insulin Human Lispro 0 unit 12/23/19 17:30 12/24/19 10:04 Humalog SUB-Q Not Given ACHS [facility] Protocol Loperamide HCl 2 mg 12/15/19 14:01 12/23/19 12:33 Imodium PO 2 mg BID PRN Administration Diarrhea Metoclopramide HCl 5 mg 12/14/19 23:11 Reglan IV Q6H PRN Nausea And Vomiting Miscellaneous Medication 400 mg 12/15/19 10:00 Dronedarone (Nf) PO DAILY NANCY Mycophenolate Mofetil 500 mg 12/14/19 23:00 12/24/19 10:03 Cellcept PO 500 mg BID NANCY Administration Ondansetron HCl 4 mg 12/14/19 22:57 12/19/19 10:36 Zofran IV 4 mg Q3H PRN Administration Nausea And Vomiting Oxycodone/Acetaminophen 1 tab 12/14/19 22:57 12/20/19 10:55 Percocet 5/325 PO 1 tab Q6H PRN Administration Pain, Moderate (4-6) Potassium Chloride 20 meq 12/15/19 18:00 12/24/19 10:03 K-Dur PO 20 meq QDAY NANCY Administration Prednisone 5 mg 12/15/19 10:00 12/24/19 10:04 Deltasone PO 5 mg DAILY NANCY Administration Sodium Bicarbonate 650 mg 12/15/19 22:00 12/24/19 10:03 Sodium Bicarbonate PO 650 mg BID NANCY Administration Sodium Chloride 10 ml 12/15/19 10:00 12/24/19 10:05 Sodium Chloride Flush Syringe 10 Ml IV 10 ml BID NANCY Administration Sodium Chloride 10 ml 12/14/19 22:57 12/18/19 22:09 Sodium Chloride Flush Syringe 10 Ml IV 10 ml PRN PRN Administration LINE FLUSH Tacrolimus 2 mg 12/14/19 23:00 12/24/19 10:03 Prograf PO 2 mg Q12HR NANCY Administration
[2019-12-24] MEDS: INSULIN GLARGINE 100 UNITS/ML SUB-Q SCH (22:44)
--- NOTE | 2019-12-25 09:35 | Progress Note ---
Assessment and Plan Assessment and plan: 64-year-old male with a history of hypertension end-stage renal disease received a kidney transplant several years ago and has had baseline creatinine of 1.3- 1.5. - Patient Problems SEPSIS UNKNOWN SOURCE- POA URMILA (acute kidney injury) with vasomotor nephropathy Current Visit: Yes Status: Acute Plan to address problem: Appears to be resolving closer to baseline. Renal following. Current cre atinine 2.7. Follow-up labs in the a.m. Hypernatremia Current Visit: Yes Status: Acute Plan to address problem: Hypernatremia has resolved now 143. Hypokalemia Current Visit: Yes Status: Acute Plan to address problem: Hypokalemia we will treat with p.o. KCl. Right tibial fracture Current Visit: Yes Status: Acute Qualifiers: Encounter type: initial encounter Salter-Ocampo Fracture Type: unspecified configuration Plan to address problem: Right tibial fracture status post correction. No evidence of infection. Clinically. Patient did have positive blood culture for MRSA most likely a contaminant. I have given patient a dose of bank await any ID recommendations. Started patient on p.o. Bactrim tolerating well. Await Ortho recommendations fo r discharge planning. Bilateral pressure ulcer of the sacrum stge 3: Wound care following S/P kidney transplant Current Visit: Yes Status: Acute Plan to address problem: Renal function stable. Hypertension Current Visit: Yes Status: Chronic Qualifiers: Hypertension type: essential hypertension Qualified Code(s): I10 - Essential (primary) hypertension Plan to address problem: Patient has optimal control blood pressure amlodipine Coreg continue present medical management. T2DM (type 2 diabetes mellitus) Current Visit: Yes Status: Chronic Qualifiers: Diabetes mellitus watermaster insulin use: without watermaster use Plan to address problem: Patient diabetes still has suboptimal control. Patient is not eating better w ould add long acting insulin 15 units Levemir at night. Metabolic acidosis Current Visit: Yes Status: Acute Plan to address problem: Improved with the initiation of bicarbonate isotonic. Precipitous drop in HCT, Anemia: Continue to monitor. DVT prophylaxis Current Visit: Yes Status: Acute 12/14/2019 patient admitted for elective surgical correction of right proximal to tibial fracture. Patient underwent surgical intervention and external fixation device. 12/15/1999 patient was found to have elevated creatinine up from 1.5 at baseline to 2.8. Therefore renal consult was obtained. Was thought to be secondary to prerenal azotemia. Symptoms responding to IV volume replacement and creatinine going back down to baseline. 12/16/2019 patient's creatinine continued to improve toward baseline. 12/17/2019. Patient surgical blood culture showed positive for methicillin resistant staph aureus. May be contaminant because patient remained afebrile no leukocytosis. No tenderness to the area. And sensitivity of MRSA was pansensitive to Cipro and Bactrim. Patient was given 1 dose of Vanco IV and a wait any ID recommendations. Patient should be able to discharge with Bactrim since it is sensitive and patient is afebrile no leukocytosis. Does not appear to have underlying infection at this time. 12/18/2019. Patient is resting doubly afebrile placed on Bactrim because MRSA was sensitive to this. Await further recommendations from Ortho about discharge planning. Patient somewhat sad today. States he just lost his sister. Patient denies any wants for antidepressant medications. 12/18: Awaiting further plan by othor, continue on abx per ID and Nephrology following for urmila, Showing slight improvement and not at baseline. Monitor Right upper ext 12/19: Consult Vascular due to concern for upper ext, obtain doppler of right upper ext 12/20: Unsure why Doppler has not been done, nurse not aware either, call placed to department for stat exam, will give a dose of Lovenox prophylactically. Finally doppler done and no DVT. Elevate Upper ext 12/21: CONTINUE ABX, DISCUSSED WITH NURSINGS STAFF TO ELEVATE UPPER EXT, Tunnle catheter placed. Renal function slightly worse. Continue to monitor. 12/22: Clinically improving, Tunnel catheter placed, awaiting, clearance from Nephrology for discharge, Leukocytosis and renal functions showing slight improvement. Continue to monitor Right upper ext swelling. S/P 1 unit PRBC transfused, totalling 2 units for this admission. 12/23: Continue current clinical support. Anticipate discharge in a.m. mild elevation in WBC. Also monitor hemoglobin following transfusion. 12/24: Patient is a 64-year-old male with history of kidney transplant who presented to the hospital with right tibia fracture status post surgical correction. Did have MRSA culture which was considered a contaminant. Hospital stay had been complicated with precipitous drop in hemoglobin and also right upper extremity swelling. Doppler study was done of the right upper extremity and was negative for DVT. Due to prolonged antibiotic coverage patient was seen by vascular and a tunnel catheter placed. Renal function has continued to improve. And patient is now pending discharge. From medicine standpoint patient can be discharged when okay with nephrology and Ortho. Anticipate the patient will benefit from rehab either at home or at a facility. During this ho spitalization patient did receive 2 units packed red blood cell. History Interval history: Patient seen and examined, still with right upper ext edema, swelling improving some dressing in place is able to move the arm much improved from previous. Remains warm, pulses appreciated Hospitalist Physical - Physical exam Narrative exam: General appearance: Present: no acute distress, well-nourished - EENT Eyes: PERRL, EOM intact ENT: hearing intact, clear oral mucosa Ears: bilateral: normal - Neck Neck: supple, normal ROM - Respiratory Respiratory effort: normal Respiratory: bilateral: CTA - Breasts Breasts: normal - Cardiovascular Rhythm: regular Heart Sounds: Present: S1 & S2. Absent: gallop, rub Extremities: pulses intact, edema, normal color, Full ROM - Gastrointestinal General gastrointestinal: Present: soft, non-tender, non-distended, normal bowel sounds - Genitourinary Male genitourinary: normal - Integumentary Integumentary: clear, warm, edema on right upper ext EXTENSIVE SWELLING WITH BLISTER, now with dressing applied. Moves with no difficulty.. - Musculoskeletal Musculoskeletal: strength equal bilaterally, right knee with bulging, chronic, other (Right leg bandaged. Very minimal serosanguineous exudate from external fixator site.) - Neurologic Neurologic: moves all extremities - Psychiatric Psychiatric: appropriate mood/affect, intact judgment & insight, memory intact, other (Poor cognition.) - Constitutional Vitals: Temp Pulse Resp BP Pulse Ox 98.4 F 59 L 20 146/62 95 12/25/19 08:10 12/25/19 08:10 12/25/19 08:10 12/25/19 08:10 12/25/19 08:10 General appearance: Present: no acute distress, well-nourished HEART Score - HEART Score Age: > 65 Risk factors: 1-2 risk factors - Critical Actions Critical Actions: 0-3 pts:0.9-1.7%risk of adverse cardiac event.Candidate for discharge Results - Labs CBC & Chem 7: 12/24/19 07:46 12/24/19 07:46 Labs: Laboratory Last Values WBC 13.9 K/mm3 (4.5-11.0) H 12/24/19 07:46 RBC 3.12 M/mm3 (3.65-5.03) L 12/24/19 07:46 Hgb 7.7 gm/dl (11.8-15.2) L 12/24/19 07:46 Hct 24.5 % (35.5-45.6) L 12/24/19 07:46 MCV 78 fl (84-94) L 12/24/19 07:46 MCH 25 pg (28-32) L 12/24/19 07:46 MCHC 32 % (32-34) 12/24/19 07:46 RDW 20.5 % (13.2-15.2) H 12/24/19 07:46 Plt Count 262 K/mm3 (140-440) 12/24/19 07:46 Lymph % (Auto) Front End Loader Driver 12/16/19 06:38 Beltrami % (Auto) Front End Loader Driver 12/16/19 06:38 Eos % (Auto) Front End Loader Driver 12/16/19 06:38 Baso % (Auto) Front End Loader Driver 12/16/19 06:38 Lymph # (Auto) Front End Loader Driver 12/16/19 06:38 [place] # (Auto) Front End Loader Driver 12/16/19 06:38 Eos # (Auto) Front End Loader Driver 12/16/19 06:38 Baso # (Auto) Front End Loader Driver 12/16/19 06:38 Add Manual Diff Complete 12/16/19 06:38 Total Counted 100 12/16/19 06:38 Seg Neutrophils % Front End Loader Driver 12/16/19 06:38 Seg Neuts % (Manual) 90.0 % (40.0-70.0) H 12/16/19 06:38 Band Neutrophils % 3.0 % 12/16/19 06:38 Lymphocytes % (Manual) 5.0 % (13.4-35.0) L 12/16/19 06:38 Reactive Lymphs % (Man) 0 % 12/16/19 06:38 Monocytes % (Manual) 2.0 % (0.0-7.3) 12/16/19 06:38 Eosinophils % (Manual) 0 % (0.0-4.3) 12/16/19 06:38 Basophils % (Manual) 0 % (0.0-1.8) 12/16/19 06:38 Metamyelocytes % 0 % 12/16/19 06:38 Myelocytes % 0 % 12/16/19 06:38 Promyelocytes % 0 % 12/16/19 06:38 Blast Cells % 0 % 12/16/19 06:38 Nucleated RBC % Not Reportable 12/16/19 06:38 Seg Neutrophils # Front End Loader Driver 12/16/19 06:38 Seg Neutrophils # Man 10.0 K/mm3 (1.8-7.7) H 12/16/19 06:38 Band Neutrophils # 0.3 K/mm3 12/16/19 06:38 Lymphocytes # (Manual) 0.6 K/mm3 (1.2-5.4) L 12/16/19 06:38 Abs React Lymphs (Man) 0.0 K/mm3 12/16/19 06:38 Monocytes # (Manual) 0.2 K/mm3 (0.0-0.8) 12/16/19 06:38 Eosinophils # (Manual) 0.0 K/mm3 (0.0-0.4) 12/16/19 06:38 Basophils # (Manual) 0.0 K/mm3 (0.0-0.1) 12/16/19 06:38 Metamyelocytes # 0.0 K/mm3 12/16/19 06:38 Myelocytes # 0.0 K/mm3 12/16/19 06:38 Promyelocytes # 0.0 K/mm3 12/16/19 06:38 Blast Cells # 0.0 K/mm3 12/16/19 06:38 WBC Morphology Not Reportable 12/16/19 06:38 Hypersegmented Neuts Not Reportable 12/16/19 06:38 Hyposegmented Neuts Not Reportable 12/16/19 06:38 Hypogranular Neuts Not Reportable 12/16/19 06:38 Smudge Cells Not Reportable 12/16/19 06:38 Toxic Granulation Not Reportable 12/16/19 06:38 Toxic Vacuolation Not Reportable 12/16/19 06:38 Dohle Bodies Not Reportable 12/16/19 06:38 Pelger-Huet Anomaly Not Reportable 12/16/19 06:38 Robert Rods Not Reportable 12/16/19 06:38 Platelet Estimate Consistent w auto 12/16/19 06:38 Clumped Platelets Not Reportable 12/16/19 06:38 Plt Clumps, EDTA Not Reportable 12/16/19 06:38 Large Platelets Not Reportable 12/16/19 06:38 Giant Platelets Not Reportable 12/16/19 06:38 Platelet Satelliting Not Reportable 12/16/19 06:38 Plt Morphology Comment Not Reportable 12/16/19 06:38 RBC Morphology Not Reportable 12/16/19 06:38 Dimorphic RBCs Not Reportable 12/16/19 06:38 Polychromasia Not Reportable 12/16/19 06:38 Hypochromasia 1+ 12/16/19 06:38 Poikilocytosis Few 12/16/19 06:38 Anisocytosis Not Reportable 12/16/19 06:38 Microcytosis Few 12/16/19 06:38 Macrocytosis Not Reportable 12/16/19 06:38 Spherocytes Not Reportable 12/16/19 06:38 Pappenheimer Bodies Not Reportable 12/16/19 06:38 Sickle Cells Not Reportable 12/16/19 06:38 Target Cells Few 12/16/19 06:38 Tear Drop Cells Few 12/16/19 06:38 Ovalocytes Not Reportable 12/16/19 06:38 Helmet Cells Not Reportable 12/16/19 06:38 Santana-Harleigh Bodies Not Reportable 12/16/19 06:38 [place] Rings Not Reportable 12/16/19 06:38 Juju Cells Not Reportable 12/16/19 06:38 Bite Cells Not Reportable 12/16/19 06:38 Crenated Cell Not Reportable 12/16/19 06:38 Elliptocytes Not Reportable 12/16/19 06:38 Acanthocytes (Spur) Not Reportable 12/16/19 06:38 Rouleaux Not Reportable 12/16/19 06:38 Hemoglobin C Crystals Not Reportable 12/16/19 06:38 Schistocytes Not Reportable 12/16/19 06:38 Malaria parasites Not Reportable 12/16/19 06:38 ESR 73 mm/Hr (0-20) 12/20/19 09:11 Hector Bodies Not Reportable 12/16/19 06:38 Hem Pathologist Commnt No 12/16/19 06:38 Sodium 138 mmol/L (137-145) 12/24/19 07:46 Potassium 5.0 mmol/L (3.6-5.0) 12/24/19 07:46 Chloride 103.9 mmol/L (98-107) 12/24/19 07:46 Carbon Dioxide 21 mmol/L (22-30) L 12/24/19 07:46 Anion Gap 18 mmol/L 12/24/19 07:46 BUN 44 mg/dL (9-20) H 12/24/19 07:46 Creatinine 2.5 mg/dL (0.8-1.3) H 12/24/19 07:46 Estimated GFR 32 ml/min 12/24/19 07:46 BUN/Creatinine Ratio 18 % 12/24/19 07:46 Glucose 120 mg/dL (75-100) H 12/24/19 07:46 POC Glucose 51 (70-105) L 12/25/19 08:24 Uric Acid 11.7 mg/dL (3.5-7.6) H 12/14/19 13:24 Calcium 9.5 mg/dL (8.4-10.2) 12/24/19 07:46 Total Bilirubin 1.50 mg/dL (0.1-1.2) H 12/17/19 10:57 AST 166 units/L (5-40) H 12/17/19 10:57 ALT 116 units/L (7-56) H 12/17/19 10:57 Alkaline Phosphatase 279 units/L (35-129) H 12/17/19 10:57 Total Creatine Kinase 101 units/L (55-170) 12/20/19 09:11 C-Reactive Protein 25.90 mg/dL (0.00-1.30) H 12/20/19 09:11 Total Protein 5.1 g/dL (6.3-8.2) L 12/17/19 10:57 Albumin 2.5 g/dL (3.9-5) L 12/17/19 10:57 Albumin/Globulin Ratio 1.0 % 12/17/19 10:57 Urine Color Yellow (Yellow) 12/16/19 06:15 Urine Turbidity Clear (Clear) 12/16/19 06:15 Urine pH 5.0 (5.0-7.0) 12/16/19 06:15 Ur Specific [place] 1.013 (1.003-1.030) 12/16/19 06:15 Urine Protein 30 mg/dl mg/dL (Negative) 12/16/19 06:15 Urine Glucose (UA) Neg mg/dL (Negative) 12/16/19 06:15 Urine Ketones Neg mg/dL (Negative) 12/16/19 06:15 Urine Blood Mod (Negative) 12/16/19 06:15 Urine Nitrite Neg (Negative) 12/16/19 06:15 Urine Bilirubin Neg (Negative) 12/16/19 06:15 Urine Urobilinogen < 2.0 mg/dL (<2.0) 12/16/19 06:15 Ur Leukocyte Esterase Neg (Negative) 12/16/19 06:15 Urine WBC (Auto) 1.0 /HPF (0.0-6.0) 12/16/19 06:15 Urine RBC (Auto) 1.0 /HPF (0.0-6.0) 12/16/19 06:15 Urine Bacteria (Auto) 1+ /HPF (Negative) 12/16/19 06:15 Urine Mucus Few /HPF 12/16/19 06:15 Urine Creatinine 97.4 mg/dL (0.1-20.0) H 12/16/19 06:15 Urine Sodium 14 mmol/L 12/16/19 06:15 Urine Total Protein 30 mg/dL (5-11.8) H 12/16/19 06:15 Random Vancomycin 11.7 ug/mL (0-40.0) 12/19/19 09:37 Coronavirus (PCR) Negative (Negative) 12/12/19 14:40 Blood Type O POSITIVE 12/22/19 11:20 Antibody Screen Negative 12/22/19 11:20 Crossmatch See Detail 12/22/19 11:20 Lassiter/IV: Voiding Method Urinal IV Catheter Type [Left Wrist] INT / Saline Lock IV Catheter Type [Left Hand] Peripheral IV IV Catheter Type [Right PICC Line Internal Jugular] IV Catheter Type [Left Forearm Peripheral IV ] Active Medications - Current Medications Current Medications: Generic Name Dose Route Start Last Admin Trade Name Freq PRN Reason Stop Dose Admin Acetaminophen 650 mg 12/14/19 22:57 Tylenol PO Q4H PRN Pain MILD(1-3)/Fever >100.5/WHALEY Amlodipine Besylate 5 mg 12/15/19 10:00 12/24/19 10:04 Amlodipine PO 5 mg DAILY NANCY Administration Carvedilol 25 mg 12/15/19 10:00 12/24/19 22:40 Coreg PO 25 mg BID NANCY Administration Dextrose 50 ml 12/22/19 07:00 12/22/19 14:00 D50w (25gm) Syringe IV 20 ml PRN PRN Administration Hypoglycemia Protocol Famotidine 20 mg 12/16/19 10:00 12/24/19 10:03 Pepcid PO 20 mg DAILY NANCY Administration Hydromorphone HCl 1 mg 12/14/19 22:57 12/16/19 18:32 Dilaudid IV 1 mg Q3H PRN Administration Pain , Severe (7-10) Daptomycin 500 mg/ Sodium 100 mls @ 200 mls/hr 12/19/19 16:00 12/23/19 17:01 Chloride IV 01/11/20 23:59 200 mls/hr Q48H NANCY Administration Protocol Insulin Glargine 10 units 12/25/19 09:32 Lantus SUB-Q QHS [facility] Insulin Human Lispro 0 unit 12/23/19 17:30 12/24/19 22:42 Humalog SUB-Q 3 unit ACHS NANCY Administration Protocol Loperamide HCl 2 mg 12/15/19 14:01 12/23/19 12:33 Imodium PO 2 mg BID PRN Administration Diarrhea Metoclopramide HCl 5 mg 12/14/19 23:11 Reglan IV Q6H PRN Nausea And Vomiting Miscellaneous Medication 400 mg 12/15/19 10:00 Dronedarone (Nf) PO DAILY [facility] Mycophenolate Mofetil 500 mg 12/14/19 23:00 12/24/19 22:43 Cellcept PO 500 mg BID NANCY Administration Ondansetron HCl 4 mg 12/14/19 22:57 12/19/19 10:36 Zofran IV 4 mg Q3H PRN Administration Nausea And Vomiting Oxycodone/Acetaminophen 1 tab 12/14/19 22:57 12/20/19 10:55 Percocet 5/325 PO 1 tab Q6H PRN Administration Pain, Moderate (4-6) Potassium Chloride 20 meq 12/15/19 18:00 12/24/19 10:03 K-Dur PO 20 meq QDAY NANCY Administration Prednisone 5 mg 12/15/19 10:00 12/24/19 10:04 Deltasone PO 5 mg DAILY NANCY Administration Sodium Bicarbonate 650 mg 12/15/19 22:00 12/24/19 22:42 Sodium Bicarbonate PO 650 mg BID NANCY Administration Sodium Chloride 10 ml 12/15/19 10:00 12/24/19 22:42 Sodium Chloride Flush Syringe 10 Ml IV 10 ml BID NANCY Administration Sodium Chloride 10 ml 12/14/19 22:57 12/18/19 22:09 Sodium Chloride Flush Syringe 10 Ml IV 10 ml PRN PRN Administration LINE FLUSH Tacrolimus 2 mg 12/14/19 23:00 12/24/19 22:44 Prograf PO 2 mg Q12HR NANCY Administration Nutrition/Malnutrition Assess - Dietary Evaluation Nutrition/Malnutrition Findings: Nutrition Notes Start: 12/15/19 14:11 Freq: Status: Active Protocol: Document 12/21/19 13:25 [email or web address] (Rec: 12/21/19 14:10 [email or web address]) Co-Sign 12/21/19 13:25 LP Nutrition Notes Initial or Follow up Reassessment Current Diagnosis Acute Kidney Injury,Diabetes Other Pertinent Diagnosis s/p kidney transplant, tibia fx, Hypernatremia, Hypokalemia Current Diet Consistent CHO Labs/Tests 12/19 BUN 58 Cr 2.7 BG 140 Pertinent Medications K-Dur 20mEq Height 6 ft Weight 79.3 kg [place] Body Weight (kg) 80.90 BMI 23.7 Weight Status Underweight Subjective/Other Information F/U for torrey, ONS and intakes . Pt had 3 torrey packets at bedside. Pt was sleeping at time of visit x2.Per RN, pt drinks liquids alot. Pt just received lunch tray at time of second visit. Burn Absent Trauma Absent Skin Integrity/Comment multiple pressure ulcers Current % PO Negligible Minimum of two criteria No Fluid Accumulation Mild (non-severe) #1 Nutrition Diagnosis Increased nutrient needs ( specify in comment below) Diagnosis Progress(for reassessment Continues documentation) Is patient on ventilator? No Is Patient Ambulatory and/or Out of Bed No REE-(Camilla-St. Jeor-confined to bed) [phone] Calculation Used for Recommendations [facility] Additional Notes Protein (0.8-1.5g/kg): 63-119g Fluid 1ml/kcal Nutrition Intervention Change Diet Order: Continue Add Supplement/Snack (indicate name/kcal Glucerna TID /protein ) D/C Torrey Provides kCal: 660 Provides Protein (gm) 30 Goal #1 Pt will meet 75-100% of energy and protein needs by PO. Goal #2 Wound healing Anticipated Discharge Needs: Consistent Carbohydrate diet Follow-Up By: 12/26/19 Additional Comments F/U intakes, ONS
[2019-12-25] MEDS: INSULIN LISPRO 100 UNIT/ML VIAL 3 mL SUB-Q SCH ×4 (09:43→23:18)
[2019-12-25] MEDS: POTASSIUM CHLORIDE ER 20 MEQ TAB PO SCH (10:42)
[2019-12-25] MEDS: FAMOTIDINE 20 MG TAB PO SCH (10:43)
[2019-12-25] MEDS: amLODIPine 5 MG TAB PO SCH (10:43)
[2019-12-25] MEDS: TACROLIMUS 1 MG CAP PO SCH ×2 (10:43→22:11)
[2019-12-25] MEDS: predniSONE 5 MG TAB PO SCH (10:43)
[2019-12-25] MEDS: MYCOPHENOLATE 500 MG TAB PO SCH ×2 (10:44→22:12)
[2019-12-25] MEDS: carvediloL 25 MG TAB PO SCH ×2 (10:44→22:12)
[2019-12-25] MEDS: SODIUM BICARBONATE 650 MG TAB PO SCH ×2 (10:51→22:12)
--- NOTE | 2019-12-25 11:03 | Progress Note ---
Assessment and Plan - Patient Problems (1) URMILA (acute kidney injury) Current Visit: Yes Status: Acute Plan to address problem: Acute tubular necrosis secondary to sepsis. Kidney function is still improving. Continue to monitor electrolytes and renal function (2) Hypernatremia Current Visit: Yes Status: Acute Plan to address problem: resolved (3) Hypokalemia Current Visit: Yes Status: Acute Plan to address problem: resolved (4) Right tibial fracture Current Visit: Yes Status: Acute Qualifiers: Encounter type: initial encounter Salter-Ocampo Fracture Type: unspecified configuration Plan to address problem: Management per orthopedic surgery (5) S/P kidney transplant Current Visit: Yes Status: Acute Plan to address problem: Follow up Prograf level. Continue immunosuppression (6) Hypertension Current Visit: Yes Status: Chronic Qualifiers: Hypertension type: essential hypertension Qualified Code(s): I10 - Essential (primary) hypertension Plan to address problem: Follow-up blood pressure on current medication (7) T2DM (type 2 diabetes mellitus) Current Visit: Yes Status: Chronic Qualifiers: Diabetes mellitus master police detective insulin use: without master police detective use Plan to address problem: Blood sugar management by primary attending (8) Metabolic acidosis Current Visit: Yes Status: Acute Plan to address problem: Improving. Continue treatment with po Na bicarb (9) Infection of wound due to methicillin resistant Staphylococcus aureus (MRSA) Current Visit: Yes Status: Acute Plan to address problem: Continue antibiotics. Patient on isolation. Infectious disease managing consultant on the case Subjective Date of service: 12/25/19 Principal diagnosis: Leg pain Interval history: Pt awake, alert, in no acute distress Objective - Vital Signs Vital signs: Vital Signs - 12hr 12/25/19 12/25/19 12/25/19 00:52 05:11 08:10 Temperature 98.3 F 98.0 F 98.4 F Pulse Rate 64 62 59 L Respiratory 18 16 20 Rate Blood Pressure 126/60 146/62 Blood Pressure 122/64 [Right] O2 Sat by Pulse 98 97 95 Oximetry 12/25/19 12/25/19 10:43 10:44 Temperature Pulse Rate 59 L 59 L Respiratory Rate Blood Pressure 146/62 146/62 Blood Pressure [Right] O2 Sat by Pulse Oximetry - General Appearance General appearance: well-developed, well-nourished, appears stated age EENT: ATNC, PERRL, mucous membranes moist Neck: no JVD Respiratory: Present: Clear to Ascultation Cardiology: regular, S1S2 Gastrointestinal: normoactive bowel sounds Integumentary: no rash Neurologic: no focal deficit, alert and oriented x3, strength 5/5, CN 3-12 intact Psychiatric: mood/affect appropriate, cooperative - Lab 12/24/19 07:46 12/24/19 07:46 Most recent lab results Calcium 9.5 mg/dL (8.4-10.2) 12/24/19 07:46 Urine Creatinine 97.4 mg/dL (0.1-20.0) H 12/16/19 06:15 Urine Sodium 14 mmol/L 12/16/19 06:15 Urine Total Protein 30 mg/dL (5-11.8) H 12/16/19 06:15 Medications & Allergies - Medications Allergies/Adverse Reactions: Allergies cefazolin Allergy (Intermediate, Verified 10/19/19 13:26) Hives itching & hives Home Medications: Home Medications Medication Instructions Recorded Confirmed Last Taken Type Aspirin 81 mg PO DAILY 10/16/19 12/14/19 5 Days Ago History ~12/09/19 Calcium Citrate/Vitamin D3 1,000 units PO DAILY 10/16/19 12/08/19 12/13/19 History Dronedarone (Nf) [Multaq (Nf)] 400 mg PO DAILY 10/16/19 12/08/19 12/13/19 History Mycophenolate 500 mg PO BID 10/16/19 12/08/19 12/13/19 History Prograf 2 mg PO Q12HR 10/16/19 12/08/19 12/13/19 History amLODIPine 5 mg PO DAILY 10/16/19 12/08/19 12/14/19 07:00 History carvediloL [Coreg] 20 mg PO BID 10/16/19 12/08/19 12/14/19 07:00 History glipiZIDE 5 mg PO DAILY 10/16/19 12/08/19 12/13/19 History predniSONE [Deltasone] 5 mg PO DAILY 10/16/19 12/08/19 12/13/19 History HYDROcodone/APAP 5-325 [[place] 1 each PO Q6HR PRN #20 tablet 10/19/19 12/08/19 12/13/19 Rx 5-325 mg TAB] HYDROcodone/APAP 7.5-325 [[place] 1 each PO Q6HR PRN #20 tablet 12/14/19 Unknown Rx 7.5-325 mg TAB] Sulfamethoxazole/Trimethoprim 1 each PO BID #30 tablet 12/14/19 Unknown Rx [Bactrim DS TAB] Active Medications: Generic Name Dose Route Start Last Admin Trade Name Freq PRN Reason Stop Dose Admin Acetaminophen 650 mg 12/14/19 22:57 Tylenol PO Q4H PRN Pain MILD(1-3)/Fever >100.5/WHALEY Amlodipine Besylate 5 mg 12/15/19 10:00 12/25/19 10:43 Amlodipine PO 5 mg DAILY NANCY Administration Carvedilol 25 mg 12/15/19 10:00 12/25/19 10:44 Coreg PO 25 mg BID NANCY Administration Dextrose 50 ml 12/22/19 07:00 12/22/19 14:00 D50w (25gm) Syringe IV 20 ml PRN PRN Administration Hypoglycemia Protocol Famotidine 20 mg 12/16/19 10:00 12/25/19 10:43 Pepcid PO 20 mg DAILY NANCY Administration Hydromorphone HCl 1 mg 12/14/19 22:57 12/16/19 18:32 Dilaudid IV 1 mg Q3H PRN Administration Pain , Severe (7-10) Daptomycin 500 mg/ Sodium 100 mls @ 200 mls/hr 12/19/19 16:00 12/23/19 17:01 Chloride IV 01/11/20 23:59 200 mls/hr Q48H NANCY Administration Protocol Insulin Glargine 10 units 12/25/19 09:32 Lantus SUB-Q QHS [facility] Insulin Human Lispro 0 unit 12/23/19 17:30 12/25/19 09:43 Humalog SUB-Q Not Given ACHS [facility] Protocol Loperamide HCl 2 mg 12/15/19 14:01 12/23/19 12:33 Imodium PO 2 mg BID PRN Administration Diarrhea Metoclopramide HCl 5 mg 12/14/19 23:11 Reglan IV Q6H PRN Nausea And Vomiting Miscellaneous Medication 400 mg 12/15/19 10:00 Dronedarone (Nf) PO DAILY [facility] Mycophenolate Mofetil 500 mg 12/14/19 23:00 12/25/19 10:44 Cellcept PO 500 mg BID NANCY Administration Ondansetron HCl 4 mg 12/14/19 22:57 12/19/19 10:36 Zofran IV 4 mg Q3H PRN Administration Nausea And Vomiting Oxycodone/Acetaminophen 1 tab 12/14/19 22:57 12/20/19 10:55 Percocet 5/325 PO 1 tab Q6H PRN Administration Pain, Moderate (4-6) Potassium Chloride 20 meq 12/15/19 18:00 12/25/19 10:42 K-Dur PO 20 meq QDAY NANCY Administration Prednisone 5 mg 12/15/19 10:00 12/25/19 10:43 Deltasone PO 5 mg DAILY NANCY Administration Sodium Bicarbonate 650 mg 12/15/19 22:00 12/25/19 10:51 Sodium Bicarbonate PO 650 mg BID NANCY Administration Sodium Chloride 10 ml 12/15/19 10:00 12/25/19 10:45 Sodium Chloride Flush Syringe 10 Ml IV 10 ml BID NANCY Administration Sodium Chloride 10 ml 12/14/19 22:57 12/18/19 22:09 Sodium Chloride Flush Syringe 10 Ml IV 10 ml PRN PRN Administration LINE FLUSH Tacrolimus 2 mg 12/14/19 23:00 12/25/19 10:43 Prograf PO 2 mg Q12HR NANCY Administration
[2019-12-25 11:21] LABS: Hematocrit 24.5 % (35.5-45.6); Hemoglobin 7.9 gm/dl (11.8-15.2); Mean Corpuscular HGB Conc 32 % (32-34); Mean Corpuscular Volume 78 fl (84-94); Platelet Count 295 K/mm3 (140-440); Red Blood Count 3.15 M/mm3 (3.65-5.03)
[2019-12-25 11:26] LABS: Red Cell Distribution Width 20.7 % (13.2-15.2)
[2019-12-25 11:41] LABS: Calcium 9.8 mg/dL (8.4-10.2)
--- NOTE | 2019-12-25 11:52 | Progress Note ---
Assessment and Plan Cultures: 12/14/2019 right leg surgical culture: MRSA A/P: 64-year-old male with diabetes, hypertension, renal transplant recipient in 2018, on immunosuppression with Prograf, CellCept and prednisone underwent right proximal tibia fracture closed reduction and external fixator placement on 10/19/2019. He was hospitalized on 12/14/2019 for elective surgery for removal of his external fixator, noted to have: #Low-grade fever, leukocytosis, infection associated with external fixator involving proximal tibia: Intraoperatively, patient was noted to have purulent drainage from the superior pin which was debrided using a curette and cultures were obtained. These cultures are growing MRSA. Patient is immunocompromised. All hardware has been removed. Patient is at risk of osteomyelitis. ESR and CRP are both elevated. #Immunocompromised host, renal transplant recipient: On Prograf, CellCept, prednisone. #URMILA on CKD: Nephrology following. Renally dose antibiotics. Creatinine appears to be improving #RUE swelling/edema: DVT scan negative. Recs: Continue renally dosed IV daptomycin 500 mg q48 hours, avoiding vancomycin due to his URMIAL on CKD and renal transplant Plan to complete 4 weeks of abx ending 01/11/2020 Weekly CBC, creatinine, AST, ALT, CPK, CRP while on IV abx ID clinic follow up in 3 weeks (manufacturing scheduler notified) Mike Andrade MD, FACP [facility] ([facility] C: [phone] O: [phone] F: [phone] Subjective Date of service: 12/25/19 Principal diagnosis: Leg pain Interval history: No fever. No other complaints. Right UE remains swollen. Objective - Exam Narrative Exam: Physical Exam: Constitutional: Alert, cooperative. No acute distress Head, Ears, Nose: Normocephalic, atraumatic. External ears, nose normal Eyes: Conjunctivae/corneas clear. No icterus. No ptosis. Neck: Supple, no meningeal signs Cardiovascular: S1, S2 normal. Respiratory: Good air entry, clear to auscultation bilaterally GI: Soft, non-tender; bowel sounds normal. No peritoneal signs Musculoskeletal: Right proximal tibia dressing present with small wound. Right hand and forearm with swelling/edema, no warmth or cellulitis, distally with skin tear and oozing. Right upper chest PICC line + Skin: No rash or abscess Hem/Lymphatic: No palpable cervical or supraclavicular nodes. No lymphangitis Psych: Flat affect Neurological: Awake, alert, oriented - Constitutional Vitals: Vital Signs Temp Pulse Resp BP Pulse Ox 98.4 F 59 L 20 146/62 95 12/25/19 08:10 12/25/19 10:44 12/25/19 08:10 12/25/19 10:44 12/25/19 08:10 Temperature -Last 24 Hours Temperature 98.4 F Temperature 98.0 F Temperature 98.3 F Temperature 97.8 F Temperature 98.7 F - Labs CBC & Chem 7: 12/25/19 11:00 12/25/19 11:00 Labs: Abnormal lab results 12/24/19 12/24/19 12/24/19 Range/Units 12:01 17:10 21:41 WBC (4.5-11.0) K/mm3 RBC (3.65-5.03) M/mm3 Hgb (11.8-15.2) gm/dl Hct (35.5-45.6) % MCV (84-94) fl MCH (28-32) pg RDW (13.2-15.2) % BUN (9-20) mg/dL Creatinine (0.8-1.3) mg/dL Glucose (75-100) mg/dL POC Glucose 218 H 190 H 287 H (70-105) 12/25/19 12/25/19 12/25/19 Range/Units 08:24 09:59 11:00 WBC 14.3 H (4.5-11.0) K/mm3 RBC 3.15 L (3.65-5.03) M/mm3 Hgb 7.9 L (11.8-15.2) gm/dl Hct 24.5 L (35.5-45.6) % MCV 78 L (84-94) fl MCH 25 L (28-32) pg RDW 20.7 H (13.2-15.2) % BUN (9-20) mg/dL Creatinine (0.8-1.3) mg/dL Glucose (75-100) mg/dL POC Glucose 51 L 114 H (70-105) 12/25/19 Range/Units 11:00 WBC (4.5-11.0) K/mm3 RBC (3.65-5.03) M/mm3 Hgb (11.8-15.2) gm/dl Hct (35.5-45.6) % MCV (84-94) fl MCH (28-32) pg RDW (13.2-15.2) % BUN 37 H (9-20) mg/dL Creatinine 2.3 H (0.8-1.3) mg/dL Glucose 113 H (75-100) mg/dL POC Glucose (70-105)
[2019-12-25 12:57] LABS: Anisocytosis 1+; Band Neutrophils # (Manual) 0.1 K/mm3; Basophils % (Manual) 0 % (0.0-1.8); Eosinophils % (Manual) 0 % (0.0-4.3); Hypochromasia 2+; Total Cells Counted 100
[2019-12-25 12:58] LABS: Platelet Estimate Consistent w Auto; Poikilocytosis 1+; Tear Drop Cells Few
[2019-12-25] MEDS: INSULIN GLARGINE 100 UNITS/ML SUB-Q SCH (22:12)
[2019-12-26] MEDS: INSULIN LISPRO 100 UNIT/ML VIAL 3 mL SUB-Q SCH ×4 (07:52→21:24)
[2019-12-26] MEDS: FAMOTIDINE 20 MG TAB PO SCH (09:20)
[2019-12-26] MEDS: amLODIPine 5 MG TAB PO SCH (09:20)
[2019-12-26] MEDS: carvediloL 25 MG TAB PO SCH ×2 (09:20→21:16)
[2019-12-26] MEDS: TACROLIMUS 1 MG CAP PO SCH ×2 (09:21→21:15)
[2019-12-26] MEDS: MYCOPHENOLATE 500 MG TAB PO SCH ×2 (09:21→21:14)
[2019-12-26] MEDS: SODIUM BICARBONATE 650 MG TAB PO SCH ×2 (09:21→21:11)
[2019-12-26] MEDS: predniSONE 5 MG TAB PO SCH (09:21)
[2019-12-26] MEDS: POTASSIUM CHLORIDE ER 20 MEQ TAB PO SCH (09:21)
--- NOTE | 2019-12-26 10:05 | Progress Note ---
Assessment and Plan - Patient Problems (1) URMILA (acute kidney injury) Current Visit: Yes Status: Acute Plan to address problem: Acute tubular necrosis secondary to sepsis. Kidney function is improving. Continue to monitor electrolytes and renal function (2) Hypernatremia Current Visit: Yes Status: Acute Plan to address problem: resolved (3) Hypokalemia Current Visit: Yes Status: Acute Plan to address problem: resolved (4) Right tibial fracture Current Visit: Yes Status: Acute Qualifiers: Encounter type: initial encounter Salter-Ocampo Fracture Type: unspecified configuration Plan to address problem: Management per orthopedic surgery (5) S/P kidney transplant Current Visit: Yes Status: Acute Plan to address problem: Follow up Prograf level. Continue immunosuppression (6) Hypertension Current Visit: Yes Status: Chronic Qualifiers: Hypertension type: essential hypertension Qualified Code(s): I10 - Essential (primary) hypertension Plan to address problem: Follow-up blood pressure on current medication (7) T2DM (type 2 diabetes mellitus) Current Visit: Yes Status: Chronic Qualifiers: Diabetes mellitus long wall mining machine tender insulin use: without long wall mining machine tender use Plan to address problem: Blood sugar management by primary attending (8) Metabolic acidosis Current Visit: Yes Status: Acute Plan to address problem: Improving. Continue treatment with po Na bicarb (9) Infection of wound due to methicillin resistant Staphylococcus aureus (MRSA) Current Visit: Yes Status: Acute Plan to address problem: Continue antibiotics. Patient on isolation. follow ID recommendations Subjective Date of service: 12/26/19 Principal diagnosis: Leg pain Interval history: Pt awake, alert, in no acute distress Objective - Vital Signs Vital signs: Vital Signs - 12hr 12/25/19 12/26/19 12/26/19 22:40 00:00 06:07 Temperature 98.7 F 98.0 F Pulse Rate 63 62 Respiratory 18 20 18 Rate Blood Pressure 152/51 171/47 O2 Sat by Pulse 94 94 Oximetry 12/26/19 07:27 Temperature 98.4 F Pulse Rate 69 Respiratory 18 Rate Blood Pressure 114/57 O2 Sat by Pulse 97 Oximetry - General Appearance General appearance: well-developed, well-nourished, appears stated age EENT: ATNC, PERRL, mucous membranes moist Neck: no JVD Respiratory: Present: Clear to Ascultation Cardiology: regular, S1S2 Gastrointestinal: normoactive bowel sounds Integumentary: no rash, other (no edema ) Neurologic: no focal deficit, alert and oriented x3, strength 5/5, CN 3-12 intact Psychiatric: mood/affect appropriate, cooperative - Lab 12/25/19 11:00 12/25/19 11:00 Most recent lab results Calcium 9.8 mg/dL (8.4-10.2) 12/25/19 11:00 Urine Creatinine 97.4 mg/dL (0.1-20.0) H 12/16/19 06:15 Urine Sodium 14 mmol/L 12/16/19 06:15 Urine Total Protein 30 mg/dL (5-11.8) H 12/16/19 06:15 Medications & Allergies - Medications Allergies/Adverse Reactions: Allergies cefazolin Allergy (Intermediate, Verified 10/19/19 13:26) Hives itching & hives Home Medications: Home Medications Medication Instructions Recorded Confirmed Last Taken Type Aspirin 81 mg PO DAILY 10/16/19 12/14/19 5 Days Ago History ~12/09/19 Calcium Citrate/Vitamin D3 1,000 units PO DAILY 10/16/19 12/08/19 12/13/19 History Dronedarone (Nf) [Multaq (Nf)] 400 mg PO DAILY 10/16/19 12/08/19 12/13/19 History Mycophenolate 500 mg PO BID 10/16/19 12/08/19 12/13/19 History Prograf 2 mg PO Q12HR 10/16/19 12/08/19 12/13/19 History amLODIPine 5 mg PO DAILY 10/16/19 12/08/19 12/14/19 07:00 History carvediloL [Coreg] 20 mg PO BID 10/16/19 12/08/19 12/14/19 07:00 History glipiZIDE 5 mg PO DAILY 10/16/19 12/08/19 12/13/19 History predniSONE [Deltasone] 5 mg PO DAILY 10/16/19 12/08/19 12/13/19 History HYDROcodone/APAP 5-325 [[place] 1 each PO Q6HR PRN #20 tablet 10/19/19 12/08/19 12/13/19 Rx 5-325 mg TAB] HYDROcodone/APAP 7.5-325 [[place] 1 each PO Q6HR PRN #20 tablet 09/24/20 Unknown Rx 7.5-325 mg TAB] Sulfamethoxazole/Trimethoprim 1 each PO BID #30 tablet 12/14/19 Unknown Rx [Bactrim DS TAB] Active Medications: Generic Name Dose Route Start Last Admin Trade Name Freq PRN Reason Stop Dose Admin Acetaminophen 650 mg 12/14/19 22:57 Tylenol PO Q4H PRN Pain MILD(1-3)/Fever >100.5/WHALEY Amlodipine Besylate 5 mg 12/15/19 10:00 12/26/19 09:20 Amlodipine PO 5 mg DAILY NANCY Administration Carvedilol 25 mg 12/15/19 10:00 12/26/19 09:20 Coreg PO 25 mg BID NANCY Administration Dextrose 50 ml 12/22/19 07:00 12/22/19 14:00 D50w (25gm) Syringe IV 20 ml PRN PRN Administration Hypoglycemia Protocol Famotidine 20 mg 12/16/19 10:00 12/26/19 09:20 Pepcid PO 20 mg DAILY NANCY Administration Hydromorphone HCl 1 mg 12/14/19 22:57 12/16/19 18:32 Dilaudid IV 1 mg Q3H PRN Administration Pain , Severe (7-10) Daptomycin 500 mg/ Sodium 100 mls @ 200 mls/hr 12/19/19 16:00 12/25/19 15:41 Chloride IV 01/11/20 23:59 200 mls/hr Q48H NANCY Administration Protocol Insulin Glargine 10 units 12/25/19 22:00 12/25/19 22:12 Lantus SUB-Q 10 units QHS NANCY Administration Insulin Human Lispro 0 unit 12/23/19 17:30 12/26/19 07:52 Humalog SUB-Q Not Given ACHS NANCY Protocol Loperamide HCl 2 mg 12/15/19 14:01 12/23/19 12:33 Imodium PO 2 mg BID PRN Administration Diarrhea Metoclopramide HCl 5 mg 12/14/19 23:11 Reglan IV Q6H PRN Nausea And Vomiting Miscellaneous Medication 400 mg 12/15/19 10:00 Dronedarone (Nf) PO DAILY [facility] Mycophenolate Mofetil 500 mg 12/14/19 23:00 12/26/19 09:21 Cellcept PO 500 mg BID NANCY Administration Ondansetron HCl 4 mg 12/14/19 22:57 12/19/19 10:36 Zofran IV 4 mg Q3H PRN Administration Nausea And Vomiting Oxycodone/Acetaminophen 1 tab 12/14/19 22:57 12/20/19 10:55 Percocet 5/325 PO 1 tab Q6H PRN Administration Pain, Moderate (4-6) Potassium Chloride 20 meq 12/15/19 18:00 12/26/19 09:21 K-Dur PO 20 meq QDAY ANNCY Administration Prednisone 5 mg 12/15/19 10:00 12/26/19 09:21 Deltasone PO 5 mg DAILY NANCY Administration Sodium Bicarbonate 650 mg 12/15/19 22:00 12/26/19 09:21 Sodium Bicarbonate PO 650 mg BID NANCY Administration Sodium Chloride 10 ml 12/15/19 10:00 12/26/19 09:22 Sodium Chloride Flush Syringe 10 Ml IV 10 ml BID NANCY Administration Sodium Chloride 10 ml 12/14/19 22:57 12/18/19 22:09 Sodium Chloride Flush Syringe 10 Ml IV 10 ml PRN PRN Administration LINE FLUSH Tacrolimus 2 mg 12/14/19 23:00 12/26/19 09:21 Prograf PO 2 mg Q12HR NANCY Administration
--- NOTE | 2019-12-26 10:46 | Progress Note ---
Assessment and Plan Assessment and plan: 64-year-old male with a history of hypertension end-stage renal disease received a kidney transplant several years ago and has had baseline creatinine of 1.3- 1.5. He presented to the hospital for surgical correction of right proximal tibial fracture. 12/14/2019 patient admitted for elective surgical correction of right proximal to tibial fracture. Patient underwent surgical intervention and external fixation device. 12/15/1999 patient was found to have elevated creatinine up from 1.5 at baseline to 2.8. Therefore renal consult was obtained. Was thought to be secondary to prerenal azotemia. Symptoms responding to IV volume replacement and creatinine going back down to baseline. 12/16/2019 patient's creatinine continued to improve toward baseline. 12/17/2019. Patient surgical blood culture showed positive for methicillin resistant staph aureus. May be contaminant because patient remained afebrile no leukocytosis. No tenderness to the area. And sensitivity of MRSA was pansensitive to Cipro and Bactrim. Patient was given 1 dose of Vanco IV and await any ID recommendations. Patient should be able to discharge with Bactrim since it is sensitive and patient is afebrile no leukocytosis. Does not appear to have underlying infection at this time. 12/18/2019. Patient is resting doubly afebrile placed on Bactrim because MRSA was sensitive to this. Await further recommendations from Ortho about discharge planning. Patient somewhat sad today. States he just lost his sister. Patient denies any wants for antidepressant medications. 12/18: Awaiting further plan by othor, continue on abx per ID and Nephrology following for urmila, Showing slight improvement and not at baseline. Monitor Right upper ext 12/19: Consult Vascular due to concern for upper ext, obtain doppler of right upper ext 12/20: Unsure why Doppler has not been done, nurse not aware either, call placed to department for stat exam, will give a dose of Lovenox prophylactically. Finally doppler done and no DVT. Elevate Upper ext 12/21: CONTINUE ABX, DISCUSSED WITH NURSINGS STAFF TO ELEVATE UPPER EXT, Tunnle catheter placed. Renal function slightly worse. Continue to monitor. 12/22: Clinically improving, Tunnel catheter placed, awaiting, clearance from Nephrology for discharge, Leukocytosis and renal functions showing slight improvement. Continue to monitor Right upper ext swelling. S/P 1 unit PRBC transfused, totalling 2 units for this admission. 12/23: Continue current clinical support. Anticipate discharge in a.m. mild elevation in WBC. Also monitor hemoglobin following transfusion. 12/24: Patient is a 64-year-old male with history of kidney transplant who presented to the hospital with right tibia fracture status post surgical correction. Did have MRSA culture which was considered a contaminant. Hospital stay had been complicated with precipitous drop in hemoglobin and also right upper extremity swelling. Doppler study was done of the right upper extremity and was negative for DVT. Due to prolonged antibiotic coverage patient was seen by vascular and a tunnel catheter placed. Renal function has continued to improve. And patient is now pending discharge. From medicine standpoint patient can be discharged when okay with nephrology and Ortho. Anticipate the patient will benefit from rehab either at home or at a facility. During this hospitalization patient did receive 2 units packed red blood cell. 12/25. Patient seen and examined at bedside this morning. He has no complaints today. Labs reviewed. Will benefit from rehab. Still on daptomycin for MRSA treatment. ID, Ortho and nephrology on board. Patient Problems SEPSIS UNKNOWN SOURCE- POA URMILA (acute kidney injury) with vasomotor nephropathy Current Visit: Yes Status: Acute Plan to address problem: Appears to be resolving closer to baseline. Renal following. Current cre atinine 2.7. Follow-up labs in the a.m. Hypernatremia Current Visit: Yes Status: Acute Plan to address problem: Resolved Hypokalemia Current Visit: Yes Status: Acute Plan to address problem: Hypokalemia we will treat with p.o. KCl. Right tibial fracture Current Visit: Yes Status: Acute Qualifiers: Encounter type: initial encounter Salter-Ocampo Fracture Type: unspecified configuration Plan to address problem: Right tibial fracture status post correction. No evidence of infection. Clinically. Patient did have positive blood culture for MRSA. ID recommends daptomycin Await Ortho recommendations for discharge planning. Bilateral pressure ulcer of the sacrum stge 3: Wound care following S/P kidney transplant Current Visit: Yes Status: Acute Plan to address problem: Renal function stable. Hypertension Current Visit: Yes Status: Chronic Qualifiers: Hypertension type: essential hypertension Qualified Code(s): I10 - Essen tial (primary) hypertension Plan to address problem: Patient has optimal control blood pressure amlodipine Coreg continue present medical management. T2DM (type 2 diabetes mellitus) Current Visit: Yes Status: Chronic Qualifiers: Diabetes mellitus group home insulin use: without blast hole driller use Plan to address problem: Patient diabetes still has suboptimal control. Patient is not eating better would add long acting insulin 15 units Levemir at night. Metabolic acidosis Current Visit: Yes Status: Acute Plan to address problem: Improved with the initiation of bicarbonate isotonic. Precipitous drop in HCT, Anemia Continue to monitor. DVT prophylaxis Current Visit: Yes Status: Acute History Interval history: Patient seen and examined this morning. He is on IV daptomycin for MRSA. He still complains of right lower extremity swelling. Has wound dressing intact with drainage. States swelling has slightly improved. Hospitalist Physical - Constitutional Vitals: Temp Pulse Resp BP Pulse Ox 98.4 F 69 18 114/57 97 12/26/19 07:27 12/26/19 07:27 12/26/19 07:27 12/26/19 07:27 12/26/19 07:27 General appearance: Present: no acute distress, well-nourished - EENT Eyes: Present: PERRL - Neck Neck: Present: supple - Respiratory Respiratory: bilateral: CTA - Cardiovascular Heart Sounds: Present: S1 & S2 - Extremities Extremities: abnormal (RUE: Positive right forearm/hand swelling with drainage. Movement is improved) HEART Score - HEART Score Age: > 65 Risk factors: 1-2 risk factors - Critical Actions Critical Actions: 0-3 pts:0.9-1.7%risk of adverse cardiac event.Candidate for discharge Results - Labs CBC & Chem 7: 12/25/19 11:00 12/25/19 11:00 Labs: Laboratory Last Values WBC 14.3 K/mm3 (4.5-11.0) H 12/25/19 11:00 RBC 3.15 M/mm3 (3.65-5.03) L 12/25/19 11:00 Hgb 7.9 gm/dl (11.8-15.2) L 12/25/19 11:00 Hct 24.5 % (35.5-45.6) L 12/25/19 11:00 MCV 78 fl (84-94) L 12/25/19 11:00 MCH 25 pg (28-32) L 12/25/19 11:00 MCHC 32 % (32-34) 12/25/19 11:00 RDW 20.7 % (13.2-15.2) H 12/25/19 11:00 Plt Count 295 K/mm3 (140-440) 12/25/19 11:00 Lymph % (Auto) Optical Scientist 12/16/19 06:38 Coos % (Auto) Optical Scientist 12/16/19 06:38 Eos % (Auto) Optical Scientist 12/16/19 06:38 Baso % (Auto) Optical Scientist 12/16/19 06:38 Lymph # (Auto) Optical Scientist 12/16/19 06:38 [place] # (Auto) Optical Scientist 12/16/19 06:38 Eos # (Auto) Optical Scientist 12/16/19 06:38 Baso # (Auto) Optical Scientist 12/16/19 06:38 Add Manual Diff Complete 12/25/19 11:00 Total Counted 100 12/25/19 11:00 Seg Neutrophils % Optical Scientist 12/16/19 06:38 Seg Neuts % (Manual) 88.0 % (40.0-70.0) H 12/25/19 11:00 Band Neutrophils % 1.0 % 12/25/19 11:00 Lymphocytes % (Manual) 2.0 % (13.4-35.0) L 12/25/19 11:00 Reactive Lymphs % (Man) 0 % 12/25/19 11:00 Monocytes % (Manual) 7.0 % (0.0-7.3) 12/25/19 11:00 Eosinophils % (Manual) 0 % (0.0-4.3) 12/25/19 11:00 Basophils % (Manual) 0 % (0.0-1.8) 12/25/19 11:00 Metamyelocytes % 2.0 % 12/25/19 11:00 Myelocytes % 0 % 12/25/19 11:00 Promyelocytes % 0 % 12/25/19 11:00 Blast Cells % 0 % 12/25/19 11:00 Nucleated RBC % 1.0 % (0.0-0.9) H 12/25/19 11:00 Seg Neutrophils # Optical Scientist 12/16/19 06:38 Seg Neutrophils # Man 12.6 K/mm3 (1.8-7.7) H 12/25/19 11:00 Band Neutrophils # 0.1 K/mm3 12/25/19 11:00 Lymphocytes # (Manual) 0.3 K/mm3 (1.2-5.4) L 12/25/19 11:00 Abs React Lymphs (Man) 0.0 K/mm3 12/25/19 11:00 Monocytes # (Manual) 1.0 K/mm3 (0.0-0.8) H 12/25/19 11:00 Eosinophils # (Manual) 0.0 K/mm3 (0.0-0.4) 12/25/19 11:00 Basophils # (Manual) 0.0 K/mm3 (0.0-0.1) 12/25/19 11:00 Metamyelocytes # 0.3 K/mm3 12/25/19 11:00 Myelocytes # 0.0 K/mm3 12/25/19 11:00 Promyelocytes # 0.0 K/mm3 12/25/19 11:00 Blast Cells # 0.0 K/mm3 12/25/19 11:00 WBC Morphology Not Reportable 12/25/19 11:00 Hypersegmented Neuts Not Reportable 12/25/19 11:00 Hyposegmented Neuts Not Reportable 12/25/19 11:00 Hypogranular Neuts Not Reportable 12/25/19 11:00 Smudge Cells Not Reportable 12/25/19 11:00 Toxic Granulation Not Reportable 12/25/19 11:00 Toxic Vacuolation Not Reportable 12/25/19 11:00 Dohle Bodies Not Reportable 12/25/19 11:00 Pelger-Huet Anomaly Not Reportable 12/25/19 11:00 Robert Rods Not Reportable 12/25/19 11:00 Platelet Estimate Consistent w auto 12/25/19 11:00 Clumped Platelets Not Reportable 12/25/19 11:00 Plt Clumps, EDTA Not Reportable 12/25/19 11:00 Large Platelets Not Reportable 12/25/19 11:00 Giant Platelets Not Reportable 12/25/19 11:00 Platelet Satelliting Not Reportable 12/25/19 11:00 Plt Morphology Comment Not Reportable 12/25/19 11:00 RBC Morphology Not Reportable 12/25/19 11:00 Dimorphic RBCs Not Reportable 12/25/19 11:00 Polychromasia Not Reportable 12/25/19 11:00 Hypochromasia 2+ 12/25/19 11:00 Poikilocytosis 1+ 12/25/19 11:00 Anisocytosis 1+ 12/25/19 11:00 Microcytosis Not Reportable 12/25/19 11:00 Macrocytosis Not Reportable 12/25/19 11:00 Spherocytes Not Reportable 12/25/19 11:00 Pappenheimer Bodies Not Reportable 12/25/19 11:00 Sickle Cells Not Reportable 12/25/19 11:00 Target Cells Not Reportable 12/25/19 11:00 Tear Drop Cells Few 12/25/19 11:00 Ovalocytes Not Reportable 12/25/19 11:00 Helmet Cells Not Reportable 12/25/19 11:00 Santana-Gearhart Bodies Not Reportable 12/25/19 11:00 Mason Rings Not Reportable 12/25/19 11:00 Oxford Cells Not Reportable 12/25/19 11:00 Bite Cells Not Reportable 12/25/19 11:00 Crenated Cell Not Reportable 12/25/19 11:00 Elliptocytes Few 12/25/19 11:00 Acanthocytes (Spur) Not Reportable 12/25/19 11:00 Rouleaux Not Reportable 12/25/19 11:00 Hemoglobin C Crystals Not Reportable 12/25/19 11:00 Schistocytes Not Reportable 12/25/19 11:00 Malaria parasites Not Reportable 12/25/19 11:00 ESR 73 mm/Hr (0-20) 12/20/19 09:11 Hector Bodies Not Reportable 12/25/19 11:00 Hem Pathologist Commnt No 12/25/19 11:00 Sodium 139 mmol/L (137-145) 12/25/19 11:00 Potassium 4.6 mmol/L (3.6-5.0) 12/25/19 11:00 Chloride 104.4 mmol/L (98-107) 12/25/19 11:00 Carbon Dioxide 27 mmol/L (22-30) 12/25/19 11:00 Anion Gap 12 mmol/L 12/25/19 11:00 BUN 37 mg/dL (9-20) H 12/25/19 11:00 Creatinine 2.3 mg/dL (0.8-1.3) H 12/25/19 11:00 Estimated GFR 35 ml/min 12/25/19 11:00 BUN/Creatinine Ratio 16 % 12/25/19 11:00 Glucose 113 mg/dL (75-100) H 12/25/19 11:00 POC Glucose 114 (70-105) H 12/26/19 07:44 Uric Acid 11.7 mg/dL (3.5-7.6) H 12/14/19 13:24 Calcium 9.8 mg/dL (8.4-10.2) 12/25/19 11:00 Total Bilirubin 1.50 mg/dL (0.1-1.2) H 12/17/19 10:57 AST 166 units/L (5-40) H 12/17/19 10:57 ALT 116 units/L (7-56) H 12/17/19 10:57 Alkaline Phosphatase 279 units/L (35-129) H 12/17/19 10:57 Total Creatine Kinase 101 units/L (55-170) 12/20/19 09:11 C-Reactive Protein 25.90 mg/dL (0.00-1.30) H 12/20/19 09:11 Total Protein 5.1 g/dL (6.3-8.2) L 12/17/19 10:57 Albumin 2.5 g/dL (3.9-5) L 12/17/19 10:57 Albumin/Globulin Ratio 1.0 % 12/17/19 10:57 Urine Color Yellow (Yellow) 12/16/19 06:15 Urine Turbidity Clear (Clear) 12/16/19 06:15 Urine pH 5.0 (5.0-7.0) 12/16/19 06:15 Ur Specific Widener 1.013 (1.003-1.030) 12/16/19 06:15 Urine Protein 30 mg/dl mg/dL (Negative) 12/16/19 06:15 Urine Glucose (UA) Neg mg/dL (Negative) 12/16/19 06:15 Urine Ketones Neg mg/dL (Negative) 12/16/19 06:15 Urine Blood Mod (Negative) 12/16/19 06:15 Urine Nitrite Neg (Negative) 12/16/19 06:15 Urine Bilirubin Neg (Negative) 12/16/19 06:15 Urine Urobilinogen < 2.0 mg/dL (<2.0) 12/16/19 06:15 Ur Leukocyte Esterase Neg (Negative) 12/16/19 06:15 Urine WBC (Auto) 1.0 /HPF (0.0-6.0) 12/16/19 06:15 Urine RBC (Auto) 1.0 /HPF (0.0-6.0) 12/16/19 06:15 Urine Bacteria (Auto) 1+ /HPF (Negative) 12/16/19 06:15 Urine Mucus Few /HPF 12/16/19 06:15 Urine Creatinine 97.4 mg/dL (0.1-20.0) H 12/16/19 06:15 Urine Sodium 14 mmol/L 12/16/19 06:15 Urine Total Protein 30 mg/dL (5-11.8) H 12/16/19 06:15 Random Vancomycin 11.7 ug/mL (0-40.0) 12/19/19 09:37 Coronavirus (PCR) Negative (Negative) 12/12/19 14:40 Blood Type O POSITIVE 12/22/19 11:20 Antibody Screen Negative 12/22/19 11:20 Crossmatch See Detail 12/22/19 11:20 Lassiter/IV: Voiding Method Urinal IV Catheter Type [Left Wrist] INT / Saline Lock IV Catheter Type [Left Hand] Peripheral IV IV Catheter Type [Right PICC Line Internal Jugular] IV Catheter Type [Left Forearm Peripheral IV ] Active Medications - Current Medications Current Medications: Generic Name Dose Route Start Last Admin Trade Name Freq PRN Reason Stop Dose Admin Acetaminophen 650 mg 12/14/19 22:57 Tylenol PO Q4H PRN Pain MILD(1-3)/Fever >100.5/WHALEY Amlodipine Besylate 5 mg 12/15/19 10:00 12/26/19 09:20 Amlodipine PO 5 mg DAILY NANCY Administration Carvedilol 25 mg 12/15/19 10:00 12/26/19 09:20 Coreg PO 25 mg BID NANCY Administration Dextrose 50 ml 12/22/19 07:00 12/22/19 14:00 D50w (25gm) Syringe IV 20 ml PRN PRN Administration Hypoglycemia Protocol Famotidine 20 mg 12/16/19 10:00 12/26/19 09:20 Pepcid PO 20 mg DAILY NANCY Administration Hydromorphone HCl 1 mg 12/14/19 22:57 12/16/19 18:32 Dilaudid IV 1 mg Q3H PRN Administration Pain , Severe (7-10) Daptomycin 500 mg/ Sodium 100 mls @ 200 mls/hr 12/19/19 16:00 12/25/19 15:41 Chloride IV 01/11/20 23:59 200 mls/hr Q48H NANCY Administration Protocol Insulin Glargine 10 units 12/25/19 22:00 12/25/19 22:12 Lantus SUB-Q 10 units QHS NANCY Administration Insulin Human Lispro 0 unit 12/23/19 17:30 12/26/19 07:52 Humalog SUB-Q Not Given ACHS [facility] Protocol Loperamide HCl 2 mg 12/15/19 14:01 12/23/19 12:33 Imodium PO 2 mg BID PRN Administration Diarrhea Metoclopramide HCl 5 mg 12/14/19 23:11 Reglan IV Q6H PRN Nausea And Vomiting Miscellaneous Medication 400 mg 12/15/19 10:00 Dronedarone (Nf) PO DAILY NANCY Mycophenolate Mofetil 500 mg 12/14/19 23:00 12/26/19 09:21 Cellcept PO 500 mg BID NANCY Administration Ondansetron HCl 4 mg 12/14/19 22:57 12/19/19 10:36 Zofran IV 4 mg Q3H PRN Administration Nausea And Vomiting Oxycodone/Acetaminophen 1 tab 12/14/19 22:57 12/20/19 10:55 Percocet 5/325 PO 1 tab Q6H PRN Administration Pain, Moderate (4-6) Potassium Chloride 20 meq 12/15/19 18:00 12/26/19 09:21 K-Dur PO 20 meq QDAY NANCY Administration Prednisone 5 mg 12/15/19 10:00 12/26/19 09:21 Deltasone PO 5 mg DAILY NANCY Administration Sodium Bicarbonate 650 mg 12/15/19 22:00 12/26/19 09:21 Sodium Bicarbonate PO 650 mg BID NANCY Administration Sodium Chloride 10 ml 12/15/19 10:00 12/26/19 09:22 Sodium Chloride Flush Syringe 10 Ml IV 10 ml BID NANCY Administration Sodium Chloride 10 ml 12/14/19 22:57 12/18/19 22:09 Sodium Chloride Flush Syringe 10 Ml IV 10 ml PRN PRN Administration LINE FLUSH Tacrolimus 2 mg 12/14/19 23:00 12/26/19 09:21 Prograf PO 2 mg Q12HR NANCY Administration Nutrition/Malnutrition Assess - Dietary Evaluation Nutrition/Malnutrition Findings: Nutrition Notes Start: 12/15/19 14:11 Freq: Status: Active Protocol: Document 12/21/19 13:25 [email or web address] (Rec: 12/21/19 14:10 [email or web address]) Co-Sign 12/21/19 13:25 LP Nutrition Notes Initial or Follow up Reassessment Current Diagnosis Acute Kidney Injury,Diabetes Other Pertinent Diagnosis s/p kidney transplant, tibia fx, Hypernatremia, Hypokalemia Current Diet Consistent CHO Labs/Tests 12/19 BUN 58 Cr 2.7 BG 140 Pertinent Medications K-Dur 20mEq Height 6 ft Weight 79.3 kg [place] Body Weight (kg) 80.90 BMI 23.7 Weight Status Underweight Subjective/Other Information F/U for torrey, ONS and intakes . Pt had 3 torrey packets at bedside. Pt was sleeping at time of visit x2.Per RN, pt drinks liquids alot. Pt just received lunch tray at time of second visit. Burn Absent Trauma Absent Skin Integrity/Comment multiple pressure ulcers Current % PO Negligible Minimum of two criteria No Fluid Accumulation Mild (non-severe) #1 Nutrition Diagnosis Increased nutrient needs ( specify in comment below) Diagnosis Progress(for reassessment Continues documentation) Is patient on ventilator? No Is Patient Ambulatory and/or Out of Bed No REE-([facility]-confined to bed) 1944.492 Calculation Used for Recommendations [facility] Additional Notes Protein (0.8-1.5g/kg): 63-119g Fluid 1ml/kcal Nutrition Intervention Change Diet Order: Continue Add Supplement/Snack (indicate name/kcal Glucerna TID /protein ) D/C Torrey Provides kCal: 660 Provides Protein (gm) 30 Goal #1 Pt will meet 75-100% of energy and protein needs by PO. Goal #2 Wound healing Anticipated Discharge Needs: Consistent Carbohydrate diet Follow-Up By: 12/26/19 Additional Comments F/U intakes, ONS
[2019-12-26 11:56] LABS: Calcium 9.6 mg/dL (8.4-10.2)
--- NOTE | 2019-12-26 14:11 | Progress Note ---
Assessment and Plan Cultures: 12/14/2019 right leg surgical culture: MRSA A/P: 64-year-old male with diabetes, hypertension, renal transplant recipient in 2018, on immunosuppression with Prograf, CellCept and prednisone underwent right proximal tibia fracture closed reduction and external fixator placement on 10/19/2019. He was hospitalized on 12/14/2019 for elective surgery for removal of his external fixator, noted to have: #Low-grade fever, leukocytosis, infection associated with external fixator involving proximal tibia: Intraoperatively, patient was noted to have purulent drainage from the superior pin which was debrided using a curette and cultures were obtained. These cultures are growing MRSA. Patient is immunocompromised. All hardware has been removed. Patient is at risk of osteomyelitis. ESR and CRP are both elevated. #Immunocompromised host, renal transplant recipient: On Prograf, CellCept, prednisone. #URMILA on CKD: Nephrology following. Renally dose antibiotics. Creatinine appears to be improving #Right hand abscess Recs: stat wound culture ordered, spoke to RN CT Right hand ordered without contrast due to renal function Need to discuss with primary team and Dr. Perez, concern for R hand abscess Meanwhile, continue renally dosed IV daptomycin 500 mg q48 hours. Will also add IV Cefepime Mike Andrade MD, FACP [facility] C: [phone] O: [phone] F: [phone] Subjective Date of service: 12/26/19 Principal diagnosis: Leg pain Interval history: No fever. No other complaints. Right hand with swelling and drainage. Objective - Exam Narrative Exam: Physical Exam: Constitutional: Alert, cooperative. No acute distress Head, Ears, Nose: Normocephalic, atraumatic. External ears, nose normal Eyes: Conjunctivae/corneas clear. No icterus. No ptosis. Neck: Supple, no meningeal signs Cardiovascular: S1, S2 normal. Respiratory: Good air entry, clear to auscultation bilaterally GI: Soft, non-tender; bowel sounds normal. No peritoneal signs Musculoskeletal: Right proximal tibia dressing present with small wound. Right upper chest PICC line +. Right hand with purulence, swelling, non tender Skin: No rash or abscess Hem/Lymphatic: No palpable cervical or supraclavicular nodes. No lymphangitis Psych: Flat affect Neurological: Awake, alert, oriented - Constitutional Vitals: Vital Signs Temp Pulse Resp BP Pulse Ox 98.4 F 68 18 118/56 95 12/26/19 11:18 12/26/19 11:18 12/26/19 11:18 12/26/19 11:18 12/26/19 11:18 Temperature -Last 24 Hours Temperature 98.4 F Temperature 98.4 F Temperature 98.0 F Temperature 98.7 F Temperature 98.4 F Temperature 98.7 F - Labs CBC & Chem 7: 12/25/19 11:00 12/26/19 10:04 Labs: Abnormal lab results 12/25/19 12/25/19 12/25/19 Range/Units 12:18 17:06 22:53 BUN (9-20) mg/dL Creatinine (0.8-1.3) mg/dL Glucose (75-100) mg/dL POC Glucose 116 H 175 H 201 H (70-105) 12/26/19 12/26/19 12/26/19 Range/Units 07:44 10:04 11:33 BUN 34 H (9-20) mg/dL Creatinine 2.1 H (0.8-1.3) mg/dL Glucose 187 H (75-100) mg/dL POC Glucose 114 H 189 H (70-105)
[2019-12-26 17:15] LABS: Hematocrit 24.1 % (35.5-45.6); Hemoglobin 7.5 gm/dl (11.8-15.2); Mean Corpuscular HGB Conc 31 % (32-34); Mean Corpuscular Volume 78 fl (84-94); Platelet Count 305 K/mm3 (140-440); Red Blood Count 3.07 M/mm3 (3.65-5.03); Red Cell Distribution Width 20.8 % (13.2-15.2)
[2019-12-26 18:09] LABS: Anisocytosis 1+; Hypochromasia 2+; Poikilocytosis 1+; Tear Drop Cells Few; Total Cells Counted 100
[2019-12-26] MEDS: INSULIN GLARGINE 100 UNITS/ML SUB-Q SCH (21:13)
[2019-12-27] MEDS: INSULIN LISPRO 100 UNIT/ML VIAL 3 mL SUB-Q SCH ×4 (07:22→22:50)
[2019-12-27] MEDS: SODIUM BICARBONATE 650 MG TAB PO SCH ×2 (09:11→22:48)
[2019-12-27] MEDS: amLODIPine 5 MG TAB PO SCH (09:11)
[2019-12-27] MEDS: FAMOTIDINE 20 MG TAB PO SCH (09:11)
[2019-12-27] MEDS: POTASSIUM CHLORIDE ER 20 MEQ TAB PO SCH (09:11)
[2019-12-27] MEDS: MYCOPHENOLATE 500 MG TAB PO SCH ×2 (09:11→22:49)
[2019-12-27] MEDS: predniSONE 5 MG TAB PO SCH (09:11)
[2019-12-27] MEDS: TACROLIMUS 1 MG CAP PO SCH ×2 (09:11→22:48)
[2019-12-27] MEDS: carvediloL 25 MG TAB PO SCH ×2 (09:11→22:50)
[2019-12-27 09:39] LABS: Hematocrit 24.1 % (35.5-45.6); Hemoglobin 7.9 gm/dl (11.8-15.2); Mean Corpuscular HGB Conc 33 % (32-34); Mean Corpuscular Volume 77 fl (84-94); Platelet Count 296 K/mm3 (140-440); Red Blood Count 3.14 M/mm3 (3.65-5.03)
[2019-12-27 09:56] LABS: Albumin 2.5 g/dL (3.9-5); Calcium 9.8 mg/dL (8.4-10.2)
[2019-12-27 09:57] LABS: C-Reactive Protein 7.7 mg/dL (0.00-1.30); Red Cell Distribution Width 20.8 % (13.2-15.2)
--- NOTE | 2019-12-27 10:48 | Progress Note ---
Assessment and Plan - Patient Problems (1) URMILA (acute kidney injury) Current Visit: Yes Status: Acute Plan to address problem: Acute tubular necrosis secondary to sepsis. Kidney function is improving. Continue to monitor electrolytes and renal function (2) Hypernatremia Current Visit: Yes Status: Acute Plan to address problem: resolved (3) Hypokalemia Current Visit: Yes Status: Acute Plan to address problem: resolved (4) Right tibial fracture Current Visit: Yes Status: Acute Qualifiers: Encounter type: initial encounter Salter-Ocampo Fracture Type: unspecified configuration Plan to address problem: Management per orthopedic surgery (5) S/P kidney transplant Current Visit: Yes Status: Acute Plan to address problem: Follow up Prograf level. Continue immunosuppression (6) Hypertension Current Visit: Yes Status: Chronic Qualifiers: Hypertension type: essential hypertension Qualified Code(s): I10 - Essential (primary) hypertension Plan to address problem: Follow-up blood pressure on current medication (7) T2DM (type 2 diabetes mellitus) Current Visit: Yes Status: Chronic Qualifiers: Diabetes mellitus termite exterminator insulin use: without termite exterminator use Plan to address problem: Blood sugar management by primary attending (8) Metabolic acidosis Current Visit: Yes Status: Acute Plan to address problem: Improving. Continue treatment with po Na bicarb (9) Infection of wound due to methicillin resistant Staphylococcus aureus (MRSA) Current Visit: Yes Status: Acute Plan to address problem: Continue antibiotics. Patient on isolation. follow ID recommendations Subjective Date of service: 12/27/19 Principal diagnosis: Leg pain Interval history: Pt awake, alert, in no acute distress Objective - Vital Signs Vital signs: Vital Signs - 12hr 12/27/19 12/27/19 05:40 07:51 Temperature 98.1 F 98.4 F Pulse Rate 72 58 L Respiratory 18 21 Rate Blood Pressure 128/56 132/56 O2 Sat by Pulse 95 95 Oximetry - General Appearance General appearance: well-developed, well-nourished, appears stated age EENT: ATNC, PERRL, mucous membranes moist Neck: no JVD Respiratory: Present: Clear to Ascultation Cardiology: regular, S1S2 Gastrointestinal: normoactive bowel sounds Integumentary: no rash Neurologic: no focal deficit, alert and oriented x3, strength 5/5, CN 3-12 intact - Lab 12/27/19 Unknown 12/27/19 Unknown Most recent lab results Calcium 9.8 mg/dL (8.4-10.2) 12/27/19 Unknown Urine Creatinine 97.4 mg/dL (0.1-20.0) H 12/16/19 06:15 Urine Sodium 14 mmol/L 12/16/19 06:15 Urine Total Protein 30 mg/dL (5-11.8) H 12/16/19 06:15 Medications & Allergies - Medications Allergies/Adverse Reactions: Allergies cefazolin Allergy (Intermediate, Verified 10/19/19 13:26) Hives itching & hives Home Medications: Home Medications Medication Instructions Recorded Confirmed Last Taken Type Aspirin 81 mg PO DAILY 10/16/19 12/14/19 5 Days Ago History ~12/09/19 Calcium Citrate/Vitamin D3 1,000 units PO DAILY 10/16/19 12/08/19 12/13/19 History Dronedarone (Nf) [Multaq (Nf)] 400 mg PO DAILY 10/16/19 12/08/19 12/13/19 History Mycophenolate 500 mg PO BID 10/16/19 12/08/19 12/13/19 History Prograf 2 mg PO Q12HR 10/16/19 12/08/19 12/13/19 History amLODIPine 5 mg PO DAILY 10/16/19 12/08/19 12/14/19 07:00 History carvediloL [Coreg] 20 mg PO BID 10/16/19 12/08/19 12/14/19 07:00 History glipiZIDE 5 mg PO DAILY 10/16/19 12/08/19 12/13/19 History predniSONE [Deltasone] 5 mg PO DAILY 10/16/19 12/08/19 12/13/19 History HYDROcodone/APAP 5-325 [Whately 1 each PO Q6HR PRN #20 tablet 10/19/19 12/08/19 12/13/19 Rx 5-325 mg TAB] HYDROcodone/APAP 7.5-325 [Whately 1 each PO Q6HR PRN #20 tablet 12/14/19 Unknown Rx 7.5-325 mg TAB] Sulfamethoxazole/Trimethoprim 1 each PO BID #30 tablet 12/14/19 Unknown Rx [Bactrim DS TAB] Active Medications: Generic Name Dose Route Start Last Admin Trade Name Freq PRN Reason Stop Dose Admin Acetaminophen 650 mg 12/14/19 22:57 Tylenol PO Q4H PRN Pain MILD(1-3)/Fever >100.5/WHALEY Amlodipine Besylate 5 mg 12/15/19 10:00 12/27/19 09:11 Amlodipine PO 5 mg DAILY NANCY Administration Carvedilol 25 mg 12/15/19 10:00 12/27/19 09:11 Coreg PO 25 mg BID NANCY Administration Dextrose 50 ml 12/22/19 07:00 12/22/19 14:00 D50w (25gm) Syringe IV 20 ml PRN PRN Administration Hypoglycemia Protocol Famotidine 20 mg 12/16/19 10:00 12/27/19 09:11 Pepcid PO 20 mg DAILY NANCY Administration Hydromorphone HCl 1 mg 12/14/19 22:57 12/16/19 18:32 Dilaudid IV 1 mg Q3H PRN Administration Pain , Severe (7-10) Daptomycin 500 mg/ Sodium 100 mls @ 200 mls/hr 12/19/19 16:00 12/25/19 15:41 Chloride IV 01/11/20 23:59 200 mls/hr Q48H NANCY Administration Protocol Levofloxacin/Dextrose 500 mg in 100 mls @ 100 mls/hr 12/26/19 15:00 12/26/19 16:30 Levaquin 500mg/100ml IV 100 mls/hr Q48HR NANCY Administration Protocol Insulin Glargine 10 units 12/25/19 22:00 12/26/19 21:13 Lantus SUB-Q 10 units QHS NANCY Administration Insulin Human Lispro 0 unit 12/23/19 17:30 12/27/19 07:22 Humalog SUB-Q Not Given ACHS COUNT INCLUDES THE [facility] Protocol Loperamide HCl 2 mg 12/15/19 14:01 12/23/19 12:33 Imodium PO 2 mg BID PRN Administration Diarrhea Metoclopramide HCl 5 mg 12/14/19 23:11 Reglan IV Q6H PRN Nausea And Vomiting Miscellaneous Medication 400 mg 12/15/19 10:00 Dronedarone (Nf) PO DAILY COUNT INCLUDES THE [facility] Mycophenolate Mofetil 500 mg 12/14/19 23:00 12/27/19 09:11 Cellcept PO 500 mg BID NANCY Administration Ondansetron HCl 4 mg 12/14/19 22:57 12/19/19 10:36 Zofran IV 4 mg Q3H PRN Administration Nausea And Vomiting Oxycodone/Acetaminophen 1 tab 12/14/19 22:57 12/20/19 10:55 Percocet 5/325 PO 1 tab Q6H PRN Administration Pain, Moderate (4-6) Potassium Chloride 20 meq 12/15/19 18:00 12/27/19 09:11 K-Dur PO 20 meq QDAY NANCY Administration Prednisone 5 mg 12/15/19 10:00 12/27/19 09:11 Deltasone PO 5 mg DAILY NANCY Administration Sodium Bicarbonate 650 mg 12/15/19 22:00 12/27/19 09:11 Sodium Bicarbonate PO 650 mg BID NANCY Administration Sodium Chloride 10 ml 12/15/19 10:00 12/27/19 09:12 Sodium Chloride Flush Syringe 10 Ml IV 10 ml BID NANCY Administration Sodium Chloride 10 ml 12/14/19 22:57 12/18/19 22:09 Sodium Chloride Flush Syringe 10 Ml IV 10 ml PRN PRN Administration LINE FLUSH Tacrolimus 2 mg 12/14/19 23:00 12/27/19 09:11 Prograf PO 2 mg Q12HR NANCY Administration
[2019-12-27 11:38] LABS: Anisocytosis 1+; Band Neutrophils # (Manual) 0.4 K/mm3; Basophils % (Manual) 0 % (0.0-1.8); Eosinophils % (Manual) 0 % (0.0-4.3); Myelocytes # (Manual) 0.3 K/mm3; Total Cells Counted 100
[2019-12-27 11:39] LABS: Hypochromasia 1+; Platelet Estimate Consistent w Auto; Tear Drop Cells Few
--- NOTE | 2019-12-27 14:34 | Progress Note ---
Assessment and Plan Cultures: 12/14/2019 right leg surgical culture: MRSA 12/26/2019 R hand culture: Gram stain with GPC A/P: 64-year-old male with diabetes, hypertension, renal transplant recipient in 2018, on immunosuppression with Prograf, CellCept and prednisone underwent right proximal tibia fracture closed reduction and external fixator placement on 10/19/2019. He was hospitalized on 12/14/2019 for elective surgery for removal of his external fixator, noted to have: #Right hand abscess: spontaneously started draining, culture in process. CT still awaited. Needs ortho eval for drainage. #Low-grade fever, leukocytosis, infection associated with external fixator inv olving proximal tibia: Intraoperatively, patient was noted to have purulent drainage from the superior pin which was debrided using a curette and cultures were obtained. These cultures are growing MRSA. Patient is immunocompromised. All hardware has been removed. Patient is at risk of osteomyelitis. ESR and CRP are both elevated. Plan to treat with IV abx until 01/11/2020. #Immunocompromised host, renal transplant recipient: On Prograf, CellCept, prednisone. #URMILA on CKD: Nephrology following. Renally dose antibiotics. Creatinine appears to be improving Recs: f/u R hand culture, CT d/w Dr. Painter, patient needs urgent ortho eval. He may need to be transferred under the care of a hand surgeon Meanwhile, continue renally dosed IV daptomycin 500 mg q48 hours and levofloxacin (pt with Ancef allergy) Mike Andrade MD, FACP [facility] ([facility]) C: [phone] O: [phone] F: [phone] Subjective Date of service: 12/27/19 Principal diagnosis: Leg pain Interval history: No fever. No other complaints. Right hand with swelling and drainage. CT not done yet, due to ?positioning issues. Objective - Exam Narrative Exam: Physical Exam: Constitutional: Alert, cooperative. No acute distress Head, Ears, Nose: Normocephalic, atraumatic. External ears, nose normal Eyes: Conjunctivae/corneas clear. No icterus. No ptosis. Neck: Supple, no meningeal signs Cardiovascular: S1, S2 normal. Respiratory: Good air entry, clear to auscultation bilaterally GI: Soft, non-tender; bowel sounds normal. No peritoneal signs Musculoskeletal: Right proximal tibia dressing present with small wound. Right upper chest PICC line +. Right hand with purulence, swelling, non tender Skin: No rash or abscess Hem/Lymphatic: No palpable cervical or supraclavicular nodes. No lymphangitis Psych: Flat affect Neurological: Awake, alert, oriented - Constitutional Vitals: Vital Signs Temp Pulse Resp BP Pulse Ox 98.0 F 60 20 126/54 97 12/27/19 13:43 12/27/19 13:43 12/27/19 13:43 12/27/19 13:43 12/27/19 13:43 Temperature -Last 24 Hours Temperature 98.0 F Temperature 98.4 F Temperature 98.1 F Temperature 98.0 F Temperature 98.2 F Temperature 98.8 F - Labs CBC & Chem 7: 12/27/19 Unknown 12/27/19 Unknown Labs: Abnormal lab results 12/26/19 12/26/19 12/26/19 Range/Units 16:35 16:36 21:28 WBC 14.3 H (4.5-11.0) K/mm3 RBC 3.07 L (3.65-5.03) M/mm3 Hgb 7.5 L (11.8-15.2) gm/dl Hct 24.1 L (35.5-45.6) % MCV 78 L (84-94) fl MCH 24 L (28-32) pg MCHC 31 L (32-34) % RDW 20.8 H (13.2-15.2) % Seg Neuts % (Manual) 84.0 H (40.0-70.0) % Lymphocytes % (Manual) 9.0 L (13.4-35.0) % Seg Neutrophils # Man 12.0 H (1.8-7.7) K/mm3 Lymphocytes # (Manual) (1.2-5.4) K/mm3 BUN (9-20) mg/dL Creatinine (0.8-1.3) mg/dL Glucose (75-100) mg/dL POC Glucose 208 H 185 H (70-105) Alkaline Phosphatase (35-129) units/L C-Reactive Protein (0.00-1.30) mg/dL Total Protein (6.3-8.2) g/dL Albumin (3.9-5) g/dL 12/27/19 12/27/19 12/27/19 Range/Units 12:11 Unknown Unknown WBC 14.4 H (4.5-11.0) K/mm3 RBC 3.14 L (3.65-5.03) M/mm3 Hgb 7.9 L (11.8-15.2) gm/dl Hct 24.1 L (35.5-45.6) % MCV 77 L (84-94) fl MCH 25 L (28-32) pg MCHC (32-34) % RDW 20.8 H (13.2-15.2) % Seg Neuts % (Manual) 85.0 H (40.0-70.0) % Lymphocytes % (Manual) 6.0 L (13.4-35.0) % Seg Neutrophils # Man 12.2 H (1.8-7.7) K/mm3 Lymphocytes # (Manual) 0.9 L (1.2-5.4) K/mm3 BUN (9-20) mg/dL Creatinine (0.8-1.3) mg/dL Glucose (75-100) mg/dL POC Glucose 178 H (70-105) Alkaline Phosphatase (35-129) units/L C-Reactive Protein 7.70 H (0.00-1.30) mg/dL Total Protein (6.3-8.2) g/dL Albumin (3.9-5) g/dL 12/27/19 Range/Units Unknown WBC (4.5-11.0) K/mm3 RBC (3.65-5.03) M/mm3 Hgb (11.8-15.2) gm/dl Hct (35.5-45.6) % MCV (84-94) fl MCH (28-32) pg MCHC (32-34) % RDW (13.2-15.2) % Seg Neuts % (Manual) (40.0-70.0) % Lymphocytes % (Manual) (13.4-35.0) % Seg Neutrophils # Man (1.8-7.7) K/mm3 Lymphocytes # (Manual) (1.2-5.4) K/mm3 BUN 30 H (9-20) mg/dL Creatinine 2.0 H (0.8-1.3) mg/dL Glucose 110 H (75-100) mg/dL POC Glucose (70-105) Alkaline Phosphatase 229 H (35-129) units/L C-Reactive Protein (0.00-1.30) mg/dL Total Protein 5.3 L (6.3-8.2) g/dL Albumin 2.5 L (3.9-5) g/dL
--- NOTE | 2019-12-27 14:41 | XRay Report ---
RIGHT HAND 3 VIEW(S) INDICATION / CLINICAL INFORMATION: Right hand swelling COMPARISON: None available. FINDINGS: BONES / JOINT(S): No acute fracture or subluxation. Moderate joint space narrowing of the index MCP j oint. Marginal erosions on both sides of the index MCP joint with periarticular osteopenia. SOFT TISSUES: Possible soft tissue laceration between the thumb and index finger. No radiopaque forei gn body. Diffuse soft tissue swelling of the distal right forearm, wrist, and hand. ADDITIONAL FINDINGS: None. Signer Name: Chris Block MD Signed: 12/27/2019 2:36 PM Workstation Name: [id number]
--- NOTE | 2019-12-27 16:12 | Cat Scan Report ---
CT RIGHT UPPER EXTREMITY HISTORY: Provided clinical history of concern for right hand abscess/right arm swelling COMPARISON: Right hand radiograph 12/27/2019 TECHNIQUE: Routine intravenous contrast-enhanced CT of the right upper extremity obtained. As low as reasonably achievable CT scanning technique was used. CONTRAST: Contrast information not provided. FINDINGS: Bones: Acute comminuted fracture at the second metacarpal head extending into the joint with addition al comminuted fracture at the adjacent second proximal phalanx base. No significant displacement is e vident. Muscles: No significant abnormality. Subcutaneous soft tissues: Diffuse subcutaneous soft tissue edema is present throughout the right palafox d and forearm. Diffuse perifascial fluid extends along the margin of the forearm muscular compartment throughout the visualized forearm and most prominent at the proximal portion. Focal fluid collection between the first and second metatarsals is subtle and measures approximately 4.1 x 2.8 x 2.6 cm. No subcutaneous emphysema. Additional Findings: None. IMPRESSION: 1. Diffuse right hand and forearm cellulitis with significant fluid extending along the perifascial m argin and findings concerning for focal abscess between the first and second metatarsals, as describe d above. Although there is no subcutaneous gas, the overall extent of the inflammation and fluid is m arked. Serious infection such as necrotizing fasciitis should be considered. Further evaluation with MR should also be considered as warranted. 2. Acute comminuted fractures at the second metacarpal phalangeal joint without dislocation. Given co ncern for infection osteomyelitis is not ruled out. Signer Name: John Winkler MD Signed: 12/27/2019 4:07 PM Workstation Name: [id number]
--- NOTE | 2019-12-27 19:10 | Progress Note ---
Assessment and Plan Assessment and plan: 64-year-old male with a history of hypertension end-stage renal disease received a kidney transplant several years ago and has had baseline creatinine of 1.3- 1.5. He presented to the hospital for surgical correction of right proximal tibial fracture. 12/14/2019 patient admitted for elective surgical correction of right proximal to tibial fracture. Patient underwent surgical intervention and external fixation device. 12/15/1999 patient was found to have elevated creatinine up from 1.5 at baseline to 2.8. Therefore renal consult was obtained. Was thought to be secondary to prerenal azotemia. Symptoms responding to IV volume replacement and creatinine going back down to baseline. 12/16/2019 patient's creatinine continued to improve toward baseline. 12/17/2019. Patient surgical blood culture showed positive for methicillin resistant staph aureus. May be contaminant because patient remained afebrile no leukocytosis. No tenderness to the area. And sensitivity of MRSA was pansensitive to Cipro and Bactrim. Patient was given 1 dose of Vanco IV and await any ID recommendations. Patient should be able to discharge with Bactrim since it is sensitive and patient is afebrile no leukocytosis. Does not appear to have underlying infection at this time. 12/18/2019. Patient is resting doubly afebrile placed on Bactrim because MRSA was sensitive to this. Await further recommendations from Ortho about discharge planning. Patient somewhat sad today. States he just lost his sister. Patient denies any wants for antidepressant medications. 12/18: Awaiting further plan by othor, continue on abx per ID and Nephrology following for urmila, Showing slight improvement and not at baseline. Monitor Right upper ext 12/19: Consult Vascular due to concern for upper ext, obtain doppler of right upper ext 12/20: Unsure why Doppler has not been done, nurse not aware either, call placed to department for stat exam, will give a dose of Lovenox prophylactically. Finally doppler done and no DVT. Elevate Upper ext 12/21: CONTINUE ABX, DISCUSSED WITH NURSINGS STAFF TO ELEVATE UPPER EXT, Tunnle catheter placed. Renal function slightly worse. Continue to monitor. 12/22: Clinically improving, Tunnel catheter placed, awaiting, clearance from Nephrology for discharge, Leukocytosis and renal functions showing slight improvement. Continue to monitor Right upper ext swelling. S/P 1 unit PRBC transfused, totalling 2 units for this admission. 12/23: Continue current clinical support. Anticipate discharge in a.m. mild elevation in WBC. Also monitor hemoglobin following transfusion. 12/24: Patient is a 64-year-old male with history of kidney transplant who presented to the hospital with right tibia fracture status post surgical correction. Did have MRSA culture which was considered a contaminant. Hospital stay had been complicated with precipitous drop in hemoglobin and also right upper extremity swelling. Doppler study was done of the right upper extremity and was negative for DVT. Due to prolonged antibiotic coverage patient was seen by vascular and a tunnel catheter placed. Renal function has continued to improve. And patient is now pending discharge. From medicine standpoint patient can be discharged when okay with nephrology and Ortho. Anticipate the patient will benefit from rehab either at home or at a facility. During this hospitalization patient did receive 2 units packed red blood cell. 12/25. Patient seen and examined at bedside this morning. He has no complaints today. Labs reviewed. Will benefit from rehab. Still on daptomycin for MRSA treatment. ID, Ortho and nephrology on board. 12/26. No complaints today. CT RUE not performed yesterday. Plan to repeat today. Patient Problems SEPSIS UNKNOWN SOURCE- POA URMILA (acute kidney injury) with vasomotor nephropathy Current Visit: Yes Status: Acute Plan to address problem: Appears to be resolving closer to baseline. Renal following. Current creatinine 2.7. Follow-up labs in the a.m. Hypernatremia Current Visit: Yes Status: Acute Plan to address problem: Resolved Right upper extremity swellinh Current Visit: Yes Status: Acute Plan to address problem: CT shows fluid collection with edema. ?Necrotizing fasciitis- not likely May need I and D Surgery consult NPO after MN Right tibial fracture Current Visit: Yes Status: Acute Qualifiers: Encounter type: initial encounter Salter-Ocampo Fracture Type: unspecified configuration Plan to address problem: Right tibial fracture status post correction. No evidence of infection. Clinically. Patient did have positive blood culture for MRSA. ID recommends daptomycin Await Ortho recommendations for discharge planning. Bilateral pressure ulcer of the sacrum stge 3: Wound care following S/P kidney transplant Current Visit: Yes Status: Acute Plan to address problem: Renal function stable. Hypertension Current Visit: Yes Status: Chronic Qualifiers: Hypertension type: essential hypertension Qualified Code(s): I10 - Essential (primary) hypertension Plan to address problem: Patient has optimal control blood pressure amlodipine Coreg continue present medical management. T2DM (type 2 diabetes mellitus) Current Visit: Yes Status: Chronic Qualifiers: Diabetes mellitus keno terminal operator insulin use: without keno terminal operator use Plan to address problem: Patient diabetes still has suboptimal control. Patient is not eating better would add long acting insulin 15 units Levemir at night. Metabolic acidosis Current Visit: Yes Status: Acute Plan to address problem: Improved with the initiation of bicarbonate isotonic. Precipitous drop in HCT, Anemia Continue to monitor. DVT prophylaxis Current Visit: Yes Status: Acute History Interval history: Patient seen and examined this morning. He is on IV daptomycin for MRSA. Plan for CT right upper extremity. Hospitalist Physical - Constitutional Vitals: Temp Pulse Resp BP Pulse Ox 98.0 F 60 20 126/54 97 12/27/19 13:43 12/27/19 13:43 12/27/19 13:43 12/27/19 13:43 12/27/19 13:43 General appearance: Present: no acute distress, well-nourished - EENT Eyes: Present: PERRL - Neck Neck: Present: supple - Respiratory Respiratory: bilateral: CTA - Extremities Extremities: abnormal (RUE extremity swelling. Dressing intact and clean) - Abdominal General gastrointestinal: soft, non-tender, non-distended, normal bowel sounds - Neurologic Neurologic: CNII-XII intact HEART Score - HEART Score Age: > 65 Risk factors: 1-2 risk factors - Critical Actions Critical Actions: 0-3 pts:0.9-1.7%risk of adverse cardiac event.Candidate for discharge Results - Labs CBC & Chem 7: 12/27/19 Unknown 12/27/19 Unknown Labs: Laboratory Last Values WBC 14.4 K/mm3 (4.5-11.0) H 12/27/19 Unknown RBC 3.14 M/mm3 (3.65-5.03) L 12/27/19 Unknown Hgb 7.9 gm/dl (11.8-15.2) L 12/27/19 Unknown Hct 24.1 % (35.5-45.6) L 12/27/19 Unknown MCV 77 fl (84-94) L 12/27/19 Unknown MCH 25 pg (28-32) L 12/27/19 Unknown MCHC 33 % (32-34) 12/27/19 Unknown RDW 20.8 % (13.2-15.2) H 12/27/19 Unknown Plt Count 296 K/mm3 (140-440) 12/27/19 Unknown Lymph % (Auto) Senior Ruby Developer 12/16/19 06:38 [place] % (Auto) Senior Ruby Developer 12/16/19 06:38 Eos % (Auto) Senior Ruby Developer 12/16/19 06:38 Baso % (Auto) Senior Ruby Developer 12/16/19 06:38 Lymph # (Auto) Senior Ruby Developer 12/16/19 06:38 [place] # (Auto) Senior Ruby Developer 12/16/19 06:38 Eos # (Auto) Senior Ruby Developer 12/16/19 06:38 Baso # (Auto) Senior Ruby Developer 12/16/19 06:38 Add Manual Diff Complete 12/27/19 Unknown Total Counted 100 12/27/19 Unknown Seg Neutrophils % Senior Ruby Developer 12/16/19 06:38 Seg Neuts % (Manual) 85.0 % (40.0-70.0) H 12/27/19 Unknown Band Neutrophils % 3.0 % 12/27/19 Unknown Lymphocytes % (Manual) 6.0 % (13.4-35.0) L 12/27/19 Unknown Reactive Lymphs % (Man) 0 % 12/27/19 Unknown Monocytes % (Manual) 4.0 % (0.0-7.3) 12/27/19 Unknown Eosinophils % (Manual) 0 % (0.0-4.3) 12/27/19 Unknown Basophils % (Manual) 0 % (0.0-1.8) 12/27/19 Unknown Metamyelocytes % 0 % 12/27/19 Unknown Myelocytes % 2.0 % 12/27/19 Unknown Promyelocytes % 0 % 12/27/19 Unknown Blast Cells % 0 % 12/27/19 Unknown Nucleated RBC % Not Reportable 12/27/19 Unknown Seg Neutrophils # Senior Ruby Developer 12/16/19 06:38 Seg Neutrophils # Man 12.2 K/mm3 (1.8-7.7) H 12/27/19 Unknown Band Neutrophils # 0.4 K/mm3 12/27/19 Unknown Lymphocytes # (Manual) 0.9 K/mm3 (1.2-5.4) L 12/27/19 Unknown Abs React Lymphs (Man) 0.0 K/mm3 12/27/19 Unknown Monocytes # (Manual) 0.6 K/mm3 (0.0-0.8) 12/27/19 Unknown Eosinophils # (Manual) 0.0 K/mm3 (0.0-0.4) 12/27/19 Unknown Basophils # (Manual) 0.0 K/mm3 (0.0-0.1) 12/27/19 Unknown Metamyelocytes # 0.0 K/mm3 12/27/19 Unknown Myelocytes # 0.3 K/mm3 12/27/19 Unknown Promyelocytes # 0.0 K/mm3 12/27/19 Unknown Blast Cells # 0.0 K/mm3 12/27/19 Unknown WBC Morphology Not Reportable 12/27/19 Unknown Hypersegmented Neuts Not Reportable 12/27/19 Unknown Hyposegmented Neuts Not Reportable 12/27/19 Unknown Hypogranular Neuts Not Reportable 12/27/19 Unknown Smudge Cells Not Reportable 12/27/19 Unknown Toxic Granulation Not Reportable 12/27/19 Unknown Toxic Vacuolation Not Reportable 12/27/19 Unknown Dohle Bodies Not Reportable 12/27/19 Unknown Pelger-Huet Anomaly Not Reportable 12/27/19 Unknown Robert Rods Not Reportable 12/27/19 Unknown Platelet Estimate Consistent w auto 12/27/19 Unknown Clumped Platelets Not Reportable 12/27/19 Unknown Plt Clumps, EDTA Not Reportable 12/27/19 Unknown Large Platelets Not Reportable 12/27/19 Unknown Giant Platelets Not Reportable 12/27/19 Unknown Platelet Satelliting Not Reportable 12/27/19 Unknown Plt Morphology Comment Not Reportable 12/27/19 Unknown RBC Morphology Not Reportable 12/27/19 Unknown Dimorphic RBCs Not Reportable 12/27/19 Unknown Polychromasia Not Reportable 12/27/19 Unknown Hypochromasia 1+ 12/27/19 Unknown Poikilocytosis Not Reportable 12/27/19 Unknown Anisocytosis 1+ 12/27/19 Unknown Microcytosis Not Reportable 12/27/19 Unknown Macrocytosis Not Reportable 12/27/19 Unknown Spherocytes Not Reportable 12/27/19 Unknown Pappenheimer Bodies Not Reportable 12/27/19 Unknown Sickle Cells Not Reportable 12/27/19 Unknown Target Cells Not Reportable 12/27/19 Unknown Tear Drop Cells Few 12/27/19 Unknown Ovalocytes Not Reportable 12/27/19 Unknown Helmet Cells Not Reportable 12/27/19 Unknown Santana-Deseret Bodies Not Reportable 12/27/19 Unknown [place] Rings Not Reportable 12/27/19 Unknown Loving Cells Not Reportable 12/27/19 Unknown Bite Cells Not Reportable 12/27/19 Unknown Crenated Cell Not Reportable 12/27/19 Unknown Elliptocytes Not Reportable 12/27/19 Unknown Acanthocytes (Spur) Not Reportable 12/27/19 Unknown Rouleaux Not Reportable 12/27/19 Unknown Hemoglobin C Crystals Not Reportable 12/27/19 Unknown Schistocytes Not Reportable 12/27/19 Unknown Malaria parasites Not Reportable 12/27/19 Unknown ESR 73 mm/Hr (0-20) 12/20/19 09:11 Hector Bodies Not Reportable 12/27/19 Unknown Hem Pathologist Commnt No 12/27/19 Unknown Sodium 138 mmol/L (137-145) 12/27/19 Unknown Potassium 4.9 mmol/L (3.6-5.0) 12/27/19 Unknown Chloride 102.9 mmol/L (98-107) 12/27/19 Unknown Carbon Dioxide 29 mmol/L (22-30) 12/27/19 Unknown Anion Gap 11 mmol/L 12/27/19 Unknown BUN 30 mg/dL (9-20) H 12/27/19 Unknown Creatinine 2.0 mg/dL (0.8-1.3) H 12/27/19 Unknown Estimated GFR 41 ml/min 12/27/19 Unknown BUN/Creatinine Ratio 15 % 12/27/19 Unknown Glucose 110 mg/dL (75-100) H 12/27/19 Unknown POC Glucose 195 (70-105) H 12/27/19 16:55 Uric Acid 11.7 mg/dL (3.5-7.6) H 12/14/19 13:24 Calcium 9.8 mg/dL (8.4-10.2) 12/27/19 Unknown Total Bilirubin 0.50 mg/dL (0.1-1.2) 12/27/19 Unknown AST 20 units/L (5-40) 12/27/19 Unknown AST 20 units/L (5-40) 12/27/19 Unknown ALT 23 units/L (7-56) 12/27/19 Unknown ALT 23 units/L (7-56) 12/27/19 Unknown Alkaline Phosphatase 229 units/L (35-129) H 12/27/19 Unknown Total Creatine Kinase 67 units/L (55-170) 12/27/19 Unknown C-Reactive Protein 7.70 mg/dL (0.00-1.30) H 12/27/19 Unknown Total Protein 5.3 g/dL (6.3-8.2) L 12/27/19 Unknown Albumin 2.5 g/dL (3.9-5) L 12/27/19 Unknown Albumin/Globulin Ratio 0.9 % 12/27/19 Unknown Urine Color Yellow (Yellow) 12/16/19 06:15 Urine Turbidity Clear (Clear) 12/16/19 06:15 Urine pH 5.0 (5.0-7.0) 12/16/19 06:15 Ur Specific Joshua 1.013 (1.003-1.030) 12/16/19 06:15 Urine Protein 30 mg/dl mg/dL (Negative) 12/16/19 06:15 Urine Glucose (UA) Neg mg/dL (Negative) 12/16/19 06:15 Urine Ketones Neg mg/dL (Negative) 12/16/19 06:15 Urine Blood Mod (Negative) 12/16/19 06:15 Urine Nitrite Neg (Negative) 12/16/19 06:15 Urine Bilirubin Neg (Negative) 12/16/19 06:15 Urine Urobilinogen < 2.0 mg/dL (<2.0) 12/16/19 06:15 Ur Leukocyte Esterase Neg (Negative) 12/16/19 06:15 Urine WBC (Auto) 1.0 /HPF (0.0-6.0) 12/16/19 06:15 Urine RBC (Auto) 1.0 /HPF (0.0-6.0) 12/16/19 06:15 Urine Bacteria (Auto) 1+ /HPF (Negative) 12/16/19 06:15 Urine Mucus Few /HPF 12/16/19 06:15 Urine Creatinine 97.4 mg/dL (0.1-20.0) H 12/16/19 06:15 Urine Sodium 14 mmol/L 12/16/19 06:15 Urine Total Protein 30 mg/dL (5-11.8) H 12/16/19 06:15 Random Vancomycin 11.7 ug/mL (0-40.0) 12/19/19 09:37 Coronavirus (PCR) Negative (Negative) 12/12/19 14:40 Blood Type O POSITIVE 12/22/19 11:20 Antibody Screen Negative 12/22/19 11:20 Crossmatch See Detail 12/22/19 11:20 Microbiology: Microbiology 12/26/19 Unknown Wrist - Right Wound Culture - Preliminary Lassiter/IV: Voiding Method Urinal IV Catheter Type [Left Wrist] INT / Saline Lock IV Catheter Type [Left Hand] Peripheral IV IV Catheter Type [Right PICC Line Internal Jugular] IV Catheter Type [Left Forearm Peripheral IV ] Active Medications - Current Medications Current Medications: Generic Name Dose Route Start Last Admin Trade Name Freq PRN Reason Stop Dose Admin Acetaminophen 650 mg 12/14/19 22:57 Tylenol PO Q4H PRN Pain MILD(1-3)/Fever >100.5/WHALEY Amlodipine Besylate 5 mg 12/15/19 10:00 12/27/19 09:11 Amlodipine PO 5 mg DAILY NANCY Administration Carvedilol 25 mg 12/15/19 10:00 12/27/19 09:11 Coreg PO 25 mg BID NANCY Administration Dextrose 50 ml 12/22/19 07:00 12/22/19 14:00 D50w (25gm) Syringe IV 20 ml PRN PRN Administration Hypoglycemia Protocol Famotidine 20 mg 12/16/19 10:00 12/27/19 09:11 Pepcid PO 20 mg DAILY NANCY Administration Hydromorphone HCl 1 mg 12/14/19 22:57 12/16/19 18:32 Dilaudid IV 1 mg Q3H PRN Administration Pain , Severe (7-10) Daptomycin 500 mg/ Sodium 100 mls @ 200 mls/hr 12/19/19 16:00 12/27/19 16:40 Chloride IV 01/11/20 23:59 200 mls/hr Q48H NANCY Administration Protocol Levofloxacin/Dextrose 500 mg in 100 mls @ 100 mls/hr 12/26/19 15:00 12/26/19 16:30 Levaquin 500mg/100ml IV 100 mls/hr Q48HR NANCY Administration Protocol Insulin Glargine 10 units 12/25/19 22:00 12/26/19 21:13 Lantus SUB-Q 10 units QHS NANCY Administration Insulin Human Lispro 0 unit 12/23/19 17:30 12/27/19 16:40 Humalog SUB-Q 1 unit ACHS NANCY Administration Protocol Loperamide HCl 2 mg 12/15/19 14:01 12/23/19 12:33 Imodium PO 2 mg BID PRN Administration Diarrhea Metoclopramide HCl 5 mg 12/14/19 23:11 Reglan IV Q6H PRN Nausea And Vomiting Miscellaneous Medication 400 mg 12/15/19 10:00 Dronedarone (Nf) PO DAILY NANCY Mycophenolate Mofetil 500 mg 12/14/19 23:00 12/27/19 09:11 Cellcept PO 500 mg BID NANCY Administration Ondansetron HCl 4 mg 12/14/19 22:57 12/19/19 10:36 Zofran IV 4 mg Q3H PRN Administration Nausea And Vomiting Oxycodone/Acetaminophen 1 tab 12/14/19 22:57 12/20/19 10:55 Percocet 5/325 PO 1 tab Q6H PRN Administration Pain, Moderate (4-6) Potassium Chloride 20 meq 12/15/19 18:00 12/27/19 09:11 K-Dur PO 20 meq QDAY NANCY Administration Prednisone 5 mg 12/15/19 10:00 12/27/19 09:11 Deltasone PO 5 mg DAILY NANCY Administration Sodium Bicarbonate 650 mg 12/15/19 22:00 12/27/19 09:11 Sodium Bicarbonate PO 650 mg BID NANCY Administration Sodium Chloride 10 ml 12/15/19 10:00 12/27/19 09:12 Sodium Chloride Flush Syringe 10 Ml IV 10 ml BID NANCY Administration Sodium Chloride 10 ml 12/14/19 22:57 12/18/19 22:09 Sodium Chloride Flush Syringe 10 Ml IV 10 ml PRN PRN Administration LINE FLUSH Tacrolimus 2 mg 12/14/19 23:00 12/27/19 09:11 Prograf PO 2 mg Q12HR NANCY Administration Nutrition/Malnutrition Assess - Dietary Evaluation Nutrition/Malnutrition Findings: Nutrition Notes Start: 12/15/19 14:1 1 Freq: Status: Active Protocol: Document 12/26/19 13:59 LM (Rec: 12/26/19 14:04 LM [id number]) Nutrition Notes Initial or Follow up Reassessment Current Diagnosis Acute Kidney Injury,Diabetes Other Pertinent Diagnosis s/p kidney transplant, MRSA, tibia fx, Hypernatremia, Hypokalemia Current Diet Consistent CHO Labs/Tests BUN 34 Cr 2.1 BG 187 Pertinent Medications K-Dur Height 6 ft Weight 79.3 kg [place] Body Weight (kg) 80.90 BMI 23.7 Subjective/Other Information Unable to speak to pt or reach RN. Pt with 50% intakes for breakfast, lunch, and dinner yesterday. Percent of energy/protein needs met: 54%/71% Burn Absent Trauma Absent Skin Integrity/Comment multiple pressure ulcers Current % PO Fair (50-74%) Minimum of two criteria No Fluid Accumulation Mild (non-severe) #1 Nutrition Diagnosis Increased nutrient needs ( specify in comment below) Diagnosis Progress(for reassessment Continues documentation) Is patient on ventilator? No Is Patient Ambulatory and/or Out of Bed No REE-([place]-[facility]. Jeor-confined to bed) 1814.492 Calculation Used for Recommendations [place] or Additional Notes Protein (0.8-1.5g/kg): 63-119g Fluid 1ml/kcal Nutrition Intervention Change Diet Order: Continue Add Supplement/Snack (indicate name/kcal Glucerna TID /protein ) Provides kCal: 660 Provides Protein (gm) 30 Goal #1 Pt will meet 75-100% of energy and protein needs by PO. Goal #2 Wound healing Anticipated Discharge Needs: Consistent Carbohydrate diet Follow-Up By: 12/28/19 Additional Comments F/U intakes, ONS
[2019-12-27] MEDS: INSULIN GLARGINE 100 UNITS/ML SUB-Q SCH (22:48)
[2019-12-28 01:35] LABS: Basophils % (Auto) 0.2 % (0.0-1.8); Eosinophils # (Auto) 0.1 K/mm3 (0.0-0.4); Eosinophils % (Auto) 0.8 % (0.0-4.3); Hematocrit 22.8 % (35.5-45.6); Hemoglobin 7.2 gm/dl (11.8-15.2); Lymphocytes # (Auto) 1.4 K/mm3 (1.2-5.4); Lymphocytes % (Auto) 9.5 % (13.4-35.0); Mean Corpuscular HGB Conc 31 % (32-34); Mean Corpuscular Volume 77 fl (84-94); Monocytes # (Auto) 0.9 K/mm3 (0.0-0.8); Monocytes % (Auto) 6.2 % (0.0-7.3); Platelet Count 294 K/mm3 (140-440); Red Blood Count 2.98 M/mm3 (3.65-5.03)
[2019-12-28 01:36] LABS: Albumin 2.6 g/dL (3.9-5); Calcium 9.4 mg/dL (8.4-10.2)
[2019-12-28 01:46] LABS: Red Cell Distribution Width 20.6 % (13.2-15.2)
[2019-12-28 01:53] LABS: INR 1.15 (0.87-1.13)
[2019-12-28] MEDS: INSULIN LISPRO 100 UNIT/ML VIAL 3 mL SUB-Q SCH ×4 (08:28→22:34)
[2019-12-28] MEDS: POTASSIUM CHLORIDE ER 20 MEQ TAB PO SCH ×2 (08:39→10:00)
[2019-12-28] MEDS: carvediloL 25 MG TAB PO SCH ×3 (08:39→22:25)
[2019-12-28] MEDS: FAMOTIDINE 20 MG TAB PO SCH ×2 (08:39→10:00)
[2019-12-28] MEDS: TACROLIMUS 1 MG CAP PO SCH ×3 (08:39→22:26)
[2019-12-28] MEDS: MYCOPHENOLATE 500 MG TAB PO SCH ×3 (08:39→22:26)
[2019-12-28] MEDS: predniSONE 5 MG TAB PO SCH ×2 (08:39→10:00)
[2019-12-28] MEDS: amLODIPine 5 MG TAB PO SCH (13:11)
[2019-12-28] MEDS: SODIUM BICARBONATE 650 MG TAB PO SCH ×2 (13:11→22:27)
--- NOTE | 2019-12-28 13:11 | Progress Note ---
Assessment and Plan - Patient Problems (1) URMILA (acute kidney injury) Current Visit: Yes Status: Acute Plan to address problem: Acute tubular necrosis secondary to sepsis. Kidney function is stabilized . Continue to monitor electrolytes and renal function (2) S/P kidney transplant Current Visit: Yes Status: Acute Plan to address problem: Follow up Prograf level. Continue immunosuppression (3) Right tibial fracture Current Visit: Yes Status: Acute Qualifiers: Encounter type: initial encounter Salter-Ocampo Fracture Type: unspecified configuration Plan to address problem: Management per orthopedic surgery (4) Hypernatremia Current Visit: Yes Status: Acute Plan to address problem: resolved (5) Hypokalemia Current Visit: Yes Status: Acute Plan to address problem: resolved (6) Hypertension Current Visit: Yes Status: Chronic Qualifiers: Hypertension type: essential hypertension Qualified Code(s): I10 - Essential (primary) hypertension Plan to address problem: Follow-up blood pressure on current medication (7) T2DM (type 2 diabetes mellitus) Current Visit: Yes Status: Chronic Qualifiers: Diabetes mellitus intermediate insulin use: without intermodal dispatcher use Plan to address problem: Blood sugar management by primary attending (8) Metabolic acidosis Current Visit: Yes Status: Acute Plan to address problem: Improving. Continue treatment with po Na bicarb (9) Infection of wound due to methicillin resistant Staphylococcus aureus (MRSA) Current Visit: Yes Status: Acute Plan to address problem: Continue antibiotics. Patient on isolation. follow ID recommendations Subjective Date of service: 12/28/19 Principal diagnosis: Leg pain Interval history: Pt awake, alert, in no acute distress Objective - Vital Signs Vital signs: Vital Signs - 12hr 12/28/19 12/28/19 12/28/19 04:33 07:22 08:39 Temperature 98.7 F 98.3 F Pulse Rate 62 60 60 Respiratory 18 18 Rate Blood Pressure 117/57 127/57 O2 Sat by Pulse 93 96 Oximetry 12/28/19 11:28 Temperature 98.8 F Pulse Rate 59 L Respiratory 18 Rate Blood Pressure 121/59 O2 Sat by Pulse 98 Oximetry - General Appearance General appearance: well-developed, well-nourished, appears stated age EENT: ATNC, PERRL, mucous membranes moist Neck: no JVD Respiratory: Present: Clear to Ascultation Cardiology: regular, S1S2 Gastrointestinal: normoactive bowel sounds Integumentary: no rash, other (Rt hand in dressing ) Neurologic: no focal deficit, alert and oriented x3, strength 5/5, CN 3-12 intact Psychiatric: mood/affect appropriate, cooperative - Lab 12/28/19 00:45 12/28/19 00:45 Most recent lab results Calcium 9.4 mg/dL (8.4-10.2) 12/28/19 00:45 Urine Creatinine 97.4 mg/dL (0.1-20.0) H 12/16/19 06:15 Urine Sodium 14 mmol/L 12/16/19 06:15 Urine Total Protein 30 mg/dL (5-11.8) H 12/16/19 06:15 Medications & Allergies - Medications Allergies/Adverse Reactions: Allergies cefazolin Allergy (Intermediate, Verified 10/19/19 13:26) Hives itching & hives Home Medications: Home Medications Medication Instructions Recorded Confirmed Last Taken Type Aspirin 81 mg PO DAILY 10/16/19 12/14/19 5 Days Ago History ~12/09/19 Calcium Citrate/Vitamin D3 1,000 units PO DAILY 10/16/19 12/08/19 12/13/19 History Dronedarone (Nf) [Multaq (Nf)] 400 mg PO DAILY 10/16/19 12/08/19 12/13/19 History Mycophenolate 500 mg PO BID 10/16/19 12/08/19 12/13/19 History Prograf 2 mg PO Q12HR 10/16/19 12/08/19 12/13/19 History amLODIPine 5 mg PO DAILY 10/16/19 12/08/19 12/14/19 07:00 History carvediloL [Coreg] 20 mg PO BID 10/16/19 12/08/19 12/14/19 07:00 History glipiZIDE 5 mg PO DAILY 10/16/19 12/08/19 12/13/19 History predniSONE [Deltasone] 5 mg PO DAILY 10/16/19 12/08/19 12/13/19 History HYDROcodone/APAP 5-325 [[place] 1 each PO Q6HR PRN #20 tablet 10/19/19 12/08/19 12/13/19 Rx 5-325 mg TAB] HYDROcodone/APAP 7.5-325 [[place] 1 each PO Q6HR PRN #20 tablet 12/14/19 Unknown Rx 7.5-325 mg TAB] Sulfamethoxazole/Trimethoprim 1 each PO BID #30 tablet 12/14/19 Unknown Rx [Bactrim DS TAB] Active Medications: Generic Name Dose Route Start Last Admin Trade Name Freq PRN Reason Stop Dose Admin Acetaminophen 650 mg 12/14/19 22:57 Tylenol PO Q4H PRN Pain MILD(1-3)/Fever >100.5/WHALEY Amlodipine Besylate 5 mg 12/15/19 10:00 12/27/19 09:11 Amlodipine PO 5 mg DAILY NANCY Administration Carvedilol 25 mg 12/15/19 10:00 12/28/19 10:00 Coreg PO Not Given BID NANCY Dextrose 50 ml 12/22/19 07:00 12/22/19 14:00 D50w (25gm) Syringe IV 20 ml PRN PRN Administration Hypoglycemia Protocol Famotidine 20 mg 12/16/19 10:00 12/28/19 10:00 Pepcid PO Not Given DAILY NANCY Hydromorphone HCl 1 mg 12/14/19 22:57 12/16/19 18:32 Dilaudid IV 1 mg Q3H PRN Administration Pain , Severe (7-10) Daptomycin 500 mg/ Sodium 100 mls @ 200 mls/hr 12/19/19 16:00 12/27/19 16:40 Chloride IV 01/11/20 23:59 200 mls/hr Q48H NANCY Administration Protocol Levofloxacin/Dextrose 500 mg in 100 mls @ 100 mls/hr 12/26/19 15:00 12/28/19 09:27 Levaquin 500mg/100ml IV 100 mls/hr Q48HR NANCY Administration Protocol Insulin Glargine 10 units 12/25/19 22:00 12/27/19 22:48 Lantus SUB-Q 10 units QHS NANCY Administration Insulin Human Lispro 0 unit 12/23/19 17:30 12/28/19 12:59 Humalog SUB-Q Not Given ACHS NANCY Protocol Loperamide HCl 2 mg 12/15/19 14:01 12/23/19 12:33 Imodium PO 2 mg BID PRN Administration Diarrhea Metoclopramide HCl 5 mg 12/14/19 23:11 Reglan IV Q6H PRN Nausea And Vomiting Miscellaneous Medication 400 mg 12/15/19 10:00 Dronedarone (Nf) PO DAILY [facility] Mycophenolate Mofetil 500 mg 12/14/19 23:00 12/28/19 10:00 Cellcept PO Not Given BID [facility] Ondansetron HCl 4 mg 12/14/19 22:57 12/19/19 10:36 Zofran IV 4 mg Q3H PRN Administration Nausea And Vomiting Oxycodone/Acetaminophen 1 tab 12/14/19 22:57 12/20/19 10:55 Percocet 5/325 PO 1 tab Q6H PRN Administration Pain, Moderate (4-6) Potassium Chloride 20 meq 12/15/19 18:00 12/28/19 10:00 K-Dur PO Not Given QDAY [facility] Prednisone 5 mg 12/15/19 10:00 12/28/19 10:00 Deltasone PO Not Given DAILY [facility] Sodium Bicarbonate 650 mg 12/15/19 22:00 12/27/19 22:48 Sodium Bicarbonate PO 650 mg BID NANCY Administration Sodium Chloride 10 ml 12/15/19 10:00 12/28/19 10:00 Sodium Chloride Flush Syringe 10 Ml IV Not Given BID [facility] Sodium Chloride 10 ml 12/14/19 22:57 12/18/19 22:09 Sodium Chloride Flush Syringe 10 Ml IV 10 ml PRN PRN Administration LINE FLUSH Tacrolimus 2 mg 12/14/19 23:00 12/28/19 10:00 Prograf PO Not Given Q12HR [facility]
--- NOTE | 2019-12-28 13:31 | Progress Note ---
Assessment and Plan Cultures: 12/14/2019 right leg surgical culture: MRSA 12/26/2019 R hand culture: Gram stain with GPC A/P: 64-year-old male with diabetes, hypertension, renal transplant recipient in 2018, on immunosuppression with Prograf, CellCept and prednisone underwent right proximal tibia fracture closed reduction and external fixator placement on 10/19/2019. He was hospitalized on 12/14/2019 for elective surgery for removal of his external fixator, noted to have: #Right hand abscess: spontaneously started draining, culture in process. CT RUE without contrast showed "diffuse right hand and forearm cellulitis with significant fluid extending along the perifascial margin and findings concerning for focal abscess" and "Acute comminuted fractures at the second metacarpal phalangeal joint without dislocation. Given concern for infection osteomyelitis is not ruled out." Needs ortho eval for drainage. #Low-grade fever, leukocytosis, infection associated with external fixator involving proximal tibia: Intraoperatively, patient was noted to have purulent drainage from the superior pin which was debrided using a curette and cultures were obtained. These cultures are growing MRSA. Patient is immunocompromised. All hardware has been removed. Patient is at risk of osteomyelitis. ESR and CRP are both elevated. Plan to treat with IV abx until 01/11/2020. #Immunocompromised host, renal transplant recipient: On Prograf, CellCept, prednisone. #URMILA on CKD: Nephrology following. Renally dose antibiotics. Creatinine appears to be improving Recs: d/w Dr. Painter, patient needs urgent ortho eval. He may need to be transferred under the care of a hand surgeon continue renally dosed IV daptomycin 500 mg q48 hours and levofloxacin (pt with Ancef allergy) f/u cultures from R hand Mike Andrade MD, FACP [facility] C: [phone] O: [phone] F: [phone] Subjective Date of service: 12/28/19 Principal diagnosis: Leg pain Interval history: No fever. No other complaints. Right hand with swelling and drainage. Got CT and Xray done. Objective - Exam Narrative Exam: Physical Exam: Constitutional: Alert, cooperative. No acute distress Head, Ears, Nose: Normocephalic, atraumatic. External ears, nose normal Eyes: Conjunctivae/corneas clear. No icterus. No ptosis. Neck: Supple, no meningeal signs Cardiovascular: S1, S2 normal. Respiratory: Good air entry, clear to auscultation bilaterally GI: Soft, non-tender; bowel sounds normal. No peritoneal signs Musculoskeletal: Right proximal tibia dressing present with small wound. Right upper chest PICC line +. Right hand with purulence, swelling, non tender, forearm edema seems better Skin: No rash or abscess Hem/Lymphatic: No palpable cervical or supraclavicular nodes. No lymphangitis Psych: Flat affect Neurological: Awake, alert, oriented - Constitutional Vitals: Vital Signs Temp Pulse Resp BP Pulse Ox 98.8 F 59 L 18 121/59 98 12/28/19 11:28 12/28/19 13:11 12/28/19 11:28 12/28/19 13:11 12/28/19 11:28 Temperature -Last 24 Hours Temperature 98.8 F Temperature 98.3 F Temperature 98.7 F Temperature 98.5 F Temperature 98.0 F - Labs CBC & Chem 7: 12/28/19 00:45 12/28/19 00:45 Labs: Abnormal lab results 12/27/19 12/27/19 12/28/19 Range/Units 16:55 22:03 00:45 WBC 15.0 H (4.5-11.0) K/mm3 RBC 2.98 L (3.65-5.03) M/mm3 Hgb 7.2 L (11.8-15.2) gm/dl Hct 22.8 L (35.5-45.6) % MCV 77 L (84-94) fl MCH 24 L (28-32) pg MCHC 31 L (32-34) % RDW 20.6 H (13.2-15.2) % Lymph % (Auto) 9.5 L (13.4-35.0) % [place] # (Auto) 0.9 H (0.0-0.8) K/mm3 Seg Neutrophils % 83.3 H (40.0-70.0) % Seg Neutrophils # 12.5 H (1.8-7.7) K/mm3 INR (0.87-1.13) BUN (9-20) mg/dL Creatinine (0.8-1.3) mg/dL Glucose (75-100) mg/dL POC Glucose 195 H 197 H (70-105) Alkaline Phosphatase (35-129) units/L Total Protein (6.3-8.2) g/dL Albumin (3.9-5) g/dL 12/28/19 12/28/19 12/28/19 Range/Units 00:45 00:45 11:44 WBC (4.5-11.0) K/mm3 RBC (3.65-5.03) M/mm3 Hgb (11.8-15.2) gm/dl Hct (35.5-45.6) % MCV (84-94) fl MCH (28-32) pg MCHC (32-34) % RDW (13.2-15.2) % Lymph % (Auto) (13.4-35.0) % [place] # (Auto) (0.0-0.8) K/mm3 Seg Neutrophils % (40.0-70.0) % Seg Neutrophils # (1.8-7.7) K/mm3 INR 1.15 H (0.87-1.13) BUN 31 H (9-20) mg/dL Creatinine 2.2 H (0.8-1.3) mg/dL Glucose 157 H (75-100) mg/dL POC Glucose 106 H (70-105) Alkaline Phosphatase 207 H (35-129) units/L Total Protein 5.2 L (6.3-8.2) g/dL Albumin 2.6 L (3.9-5) g/dL
--- NOTE | 2019-12-28 14:47 | Progress Note ---
Assessment and Plan Assessment and plan: 64-year-old male with a history of hypertension end-stage renal disease received a kidney transplant several years ago and has had baseline creatinine of 1.3- 1.5. He presented to the hospital for surgical correction of right proximal tibial fracture. 12/14/2019 patient admitted for elective surgical correction of right proximal to tibial fracture. Patient underwent surgical intervention and external fixation device. 12/15/1999 patient was found to have elevated creatinine up from 1.5 at baseline to 2.8. Therefore renal consult was obtained. Was thought to be secondary to prerenal azotemia. Symptoms responding to IV volume replacement and creatinine going back down to baseline. 12/16/2019 patient's creatinine continued to improve toward baseline. 12/17/2019. Patient surgical blood culture showed positive for methicillin resistant staph aureus. May be contaminant because patient remained afebrile no leukocytosis. No tenderness to the area. And sensitivity of MRSA was pansensitive to Cipro and Bactrim. Patient was given 1 dose of Vanco IV and await any ID recommendations. Patient should be able to discharge with Bactrim since it is sensitive and patient is afebrile no leukocytosis. Does not appear to have underlying infection at this time. 12/18/2019. Patient is resting doubly afebrile placed on Bactrim because MRSA was sensitive to this. Await further recommendations from Ortho about discharge planning. Patient somewhat sad today. States he just lost his sister. Patient denies any wants for antidepressant medications. 12/18: Awaiting further plan by othor, continue on abx per ID and Nephrology following for urmila, Showing slight improvement and not at baseline. Monitor Right upper ext 12/19: Consult Vascular due to concern for upper ext, obtain doppler of right upper ext 12/20: Unsure why Doppler has not been done, nurse not aware either, call placed to department for stat exam, will give a dose of Lovenox prophylactically. Finally doppler done and no DVT. Elevate Upper ext 12/21: CONTINUE ABX, DISCUSSED WITH NURSINGS STAFF TO ELEVATE UPPER EXT, Tunnle catheter placed. Renal function slightly worse. Continue to monitor. 12/22: Clinically improving, Tunnel catheter placed, awaiting, clearance from Nephrology for discharge, Leukocytosis and renal functions showing slight improvement. Continue to monitor Right upper ext swelling. S/P 1 unit PRBC transfused, totalling 2 units for this admission. 12/23: Continue current clinical support. Anticipate discharge in a.m. mild elevation in WBC. Also monitor hemoglobin following transfusion. 12/24: Patient is a 64-year-old male with history of kidney transplant who presented to the hospital with right tibia fracture status post surgical correction. Did have MRSA culture which was considered a contaminant. Hospital stay had been complicated with precipitous drop in hemoglobin and also right upper extremity swelling. Doppler study was done of the right upper extremity and was negative for DVT. Due to prolonged antibiotic coverage patient was seen by vascular and a tunnel catheter placed. Renal function has continued to improve. And patient is now pending discharge. From medicine standpoint patient can be discharged when okay with nephrology and Ortho. Anticipate the patient will benefit from rehab either at home or at a facility. During this hospitalization patient did receive 2 units packed red blood cell. 12/25. Patient seen and examined at bedside this morning. He has no complaints today. Labs reviewed. Will benefit from rehab. Still on daptomycin for MRSA treatment. ID, Ortho and nephrology on board. 12/26. am. No complaints today. CT RUE not performed yesterday. Plan to repeat today. 12/26. pm. CT right upper extremity shows some abscess with subcutaneous edema with possible necrotizing fasciitis. Discussed with surgery on 12/26. Patient made n.p.o. after midnight. 12/27. Right arm swelling has slightly improved after elevation yesterday. Orthopedic surgeon did I&D at bedside with wound packing. Not clear if cultures obtained. Patient was already on IV antibiotics. Plan to obtain culture if possible. Patient Problems SEPSIS UNKNOWN SOURCE- POA URMILA (acute kidney injury) with vasomotor nephropathy Current Visit: Yes Status: Acute Plan to address problem: Appears to be resolving closer to baseline. Renal following. Current creatinine 2.7. Follow-up labs in the a.m. Hypernatremia Current Visit: Yes Status: Acute Plan to address problem: Resolved Right upper extremity swelling Current Visit: Yes Status: Acute Plan to address problem: CT shows fluid collection with edema. ?Necrotizing fasciitis- not likely Orthopedic surgery evaluation-bedside I&D with wound packing performed Patient is on broad-spectrum antibiotics. Right tibial fracture Current Visit: Yes Status: Acute Qualifiers: Encounter type: initial encounter Salter-Ocampo Fracture Type: unspecified configuration Plan to address problem: Right tibial fracture status post correction. No evidence of infection. Clinically. Patient did have positive blood culture for MRSA. On daptomycin Await Ortho recommendations for discharge planning. Bilateral pressure ulcer of the sacrum stge 3: Wound care following S/P kidney transplant Current Visit: Yes Status: Acute Plan to address problem: Renal function stable. Hypertension Current Visit: Yes Status: Chronic Qualifiers: Hypertension type: essential hypertension Qualified Code(s): I10 - Essential (primary) hypertension Plan to address problem: Patient has optimal control blood pressure amlodipine Coreg continue present medical management. T2DM (type 2 diabetes mellitus) Current Visit: Yes Status: Chronic Qualifiers: Diabetes mellitus group home insulin use: without group home use Plan to address problem: Patient diabetes still has suboptimal control. Patient is not eating better would add long acting insulin 15 units Levemir at night. Metabolic acidosis Current Visit: Yes Status: Acute Plan to address problem: Improved with the initiation of bicarbonate isotonic. Precipitous drop in HCT, Anemia Continue to monitor. DVT prophylaxis Current Visit: Yes Status: Acute History Interval history: Patient seen and examined this morning. Has slight improvement of right upper extremity swelling after arm elevation yesterday. Orthopedic surgery to evaluate right upper extremity abscess/necrotizing fasciitis. Patient is on daptomycin and Levaquin. ID is on board Hospitalist Physical - Constitutional Vitals: Temp Pulse Resp BP Pulse Ox 98.8 F 59 L 18 121/59 98 12/28/19 11:28 12/28/19 13:11 12/28/19 11:28 12/28/19 13:11 12/28/19 11:28 General appearance: Present: no acute distress, well-nourished - EENT Eyes: Present: PERRL - Respiratory Respiratory: bilateral: CTA - Cardiovascular Heart Sounds: Present: S1 & S2 - Extremities Extremity abnormal: edema, other (Right upper extremity swelling with some differential warmth. Dressing intact and clean) HEART Score - HEART Score Age: > 65 Risk factors: 1-2 risk factors - Critical Actions Critical Actions: 0-3 pts:0.9-1.7%risk of adverse cardiac event.Candidate for discharge Results - Labs CBC & Chem 7: 12/28/19 00:45 12/28/19 00:45 Labs: Laboratory Last Values WBC 15.0 K/mm3 (4.5-11.0) H 12/28/19 00:45 RBC 2.98 M/mm3 (3.65-5.03) L 12/28/19 00:45 Hgb 7.2 gm/dl (11.8-15.2) L 12/28/19 00:45 Hct 22.8 % (35.5-45.6) L 12/28/19 00:45 MCV 77 fl (84-94) L 12/28/19 00:45 MCH 24 pg (28-32) L 12/28/19 00:45 MCHC 31 % (32-34) L 12/28/19 00:45 RDW 20.6 % (13.2-15.2) H 12/28/19 00:45 Plt Count 294 K/mm3 (140-440) 12/28/19 00:45 Lymph % (Auto) 9.5 % (13.4-35.0) L 12/28/19 00:45 Tate % (Auto) 6.2 % (0.0-7.3) 12/28/19 00:45 Eos % (Auto) 0.8 % (0.0-4.3) 12/28/19 00:45 Baso % (Auto) 0.2 % (0.0-1.8) 12/28/19 00:45 Lymph # (Auto) 1.4 K/mm3 (1.2-5.4) 12/28/19 00:45 Tate # (Auto) 0.9 K/mm3 (0.0-0.8) H 12/28/19 00:45 Eos # (Auto) 0.1 K/mm3 (0.0-0.4) 12/28/19 00:45 Baso # (Auto) 0.0 K/mm3 (0.0-0.1) 12/28/19 00:45 Add Manual Diff Complete 12/27/19 Unknown Total Counted 100 12/27/19 Unknown Seg Neutrophils % 83.3 % (40.0-70.0) H 12/28/19 00:45 Seg Neuts % (Manual) 85.0 % (40.0-70.0) H 12/27/19 Unknown Band Neutrophils % 3.0 % 12/27/19 Unknown Lymphocytes % (Manual) 6.0 % (13.4-35.0) L 12/27/19 Unknown Reactive Lymphs % (Man) 0 % 12/27/19 Unknown Monocytes % (Manual) 4.0 % (0.0-7.3) 12/27/19 Unknown Eosinophils % (Manual) 0 % (0.0-4.3) 12/27/19 Unknown Basophils % (Manual) 0 % (0.0-1.8) 12/27/19 Unknown Metamyelocytes % 0 % 12/27/19 Unknown Myelocytes % 2.0 % 12/27/19 Unknown Promyelocytes % 0 % 12/27/19 Unknown Blast Cells % 0 % 12/27/19 Unknown Nucleated RBC % Not Reportable 12/27/19 Unknown Seg Neutrophils # 12.5 K/mm3 (1.8-7.7) H 12/28/19 00:45 Seg Neutrophils # Man 12.2 K/mm3 (1.8-7.7) H 12/27/19 Unknown Band Neutrophils # 0.4 K/mm3 12/27/19 Unknown Lymphocytes # (Manual) 0.9 K/mm3 (1.2-5.4) L 12/27/19 Unknown Abs React Lymphs (Man) 0.0 K/mm3 12/27/19 Unknown Monocytes # (Manual) 0.6 K/mm3 (0.0-0.8) 12/27/19 Unknown Eosinophils # (Manual) 0.0 K/mm3 (0.0-0.4) 12/27/19 Unknown Basophils # (Manual) 0.0 K/mm3 (0.0-0.1) 12/27/19 Unknown Metamyelocytes # 0.0 K/mm3 12/27/19 Unknown Myelocytes # 0.3 K/mm3 12/27/19 Unknown Promyelocytes # 0.0 K/mm3 12/27/19 Unknown Blast Cells # 0.0 K/mm3 12/27/19 Unknown WBC Morphology Not Reportable 12/27/19 Unknown Hypersegmented Neuts Not Reportable 12/27/19 Unknown Hyposegmented Neuts Not Reportable 12/27/19 Unknown Hypogranular Neuts Not Reportable 12/27/19 Unknown Smudge Cells Not Reportable 12/27/19 Unknown Toxic Granulation Not Reportable 12/27/19 Unknown Toxic Vacuolation Not Reportable 12/27/19 Unknown Dohle Bodies Not Reportable 12/27/19 Unknown Pelger-Huet Anomaly Not Reportable 12/27/19 Unknown Robert Rods Not Reportable 12/27/19 Unknown Platelet Estimate Consistent w auto 12/27/19 Unknown Clumped Platelets Not Reportable 12/27/19 Unknown Plt Clumps, EDTA Not Reportable 12/27/19 Unknown Large Platelets Not Reportable 12/27/19 Unknown Giant Platelets Not Reportable 12/27/19 Unknown Platelet Satelliting Not Reportable 12/27/19 Unknown Plt Morphology Comment Not Reportable 12/27/19 Unknown RBC Morphology Not Reportable 12/27/19 Unknown Dimorphic RBCs Not Reportable 12/27/19 Unknown Polychromasia Not Reportable 12/27/19 Unknown Hypochromasia 1+ 12/27/19 Unknown Poikilocytosis Not Reportable 12/27/19 Unknown Anisocytosis 1+ 12/27/19 Unknown Microcytosis Not Reportable 12/27/19 Unknown Macrocytosis Not Reportable 12/27/19 Unknown Spherocytes Not Reportable 12/27/19 Unknown Pappenheimer Bodies Not Reportable 12/27/19 Unknown Sickle Cells Not Reportable 12/27/19 Unknown Target Cells Not Reportable 12/27/19 Unknown Tear Drop Cells Few 12/27/19 Unknown Ovalocytes Not Reportable 12/27/19 Unknown Helmet Cells Not Reportable 12/27/19 Unknown Santana-[place] Bodies Not Reportable 12/27/19 Unknown Drybranch Rings Not Reportable 12/27/19 Unknown [place] Cells Not Reportable 12/27/19 Unknown Bite Cells Not Reportable 12/27/19 Unknown Crenated Cell Not Reportable 12/27/19 Unknown Elliptocytes Not Reportable 12/27/19 Unknown Acanthocytes (Spur) Not Reportable 12/27/19 Unknown Rouleaux Not Reportable 12/27/19 Unknown Hemoglobin C Crystals Not Reportable 12/27/19 Unknown Schistocytes Not Reportable 12/27/19 Unknown Malaria parasites Not Reportable 12/27/19 Unknown ESR 73 mm/Hr (0-20) 12/20/19 09:11 Hector Bodies Not Reportable 12/27/19 Unknown Hem Pathologist Commnt No 12/27/19 Unknown PT 14.9 Sec. (12.2-14.9) 12/28/19 00:45 INR 1.15 (0.87-1.13) H 10/08/20 00:45 Sodium 138 mmol/L (137-145) 12/28/19 00:45 Potassium 5.0 mmol/L (3.6-5.0) 12/28/19 00:45 Chloride 101.7 mmol/L (98-107) 12/28/19 00:45 Carbon Dioxide 25 mmol/L (22-30) 12/28/19 00:45 Anion Gap 16 mmol/L 12/28/19 00:45 BUN 31 mg/dL (9-20) H 12/28/19 00:45 Creatinine 2.2 mg/dL (0.8-1.3) H 12/28/19 00:45 Estimated GFR 37 ml/min 12/28/19 00:45 BUN/Creatinine Ratio 14 % 12/28/19 00:45 Glucose 157 mg/dL (75-100) H 12/28/19 00:45 POC Glucose 106 (70-105) H 12/28/19 11:44 Uric Acid 11.7 mg/dL (3.5-7.6) H 12/14/19 13:24 Calcium 9.4 mg/dL (8.4-10.2) 12/28/19 00:45 Total Bilirubin 0.40 mg/dL (0.1-1.2) 12/28/19 00:45 AST 21 units/L (5-40) 12/28/19 00:45 ALT 23 units/L (7-56) 12/28/19 00:45 Alkaline Phosphatase 207 units/L (35-129) H 12/28/19 00:45 Total Creatine Kinase 67 units/L (55-170) 12/27/19 Unknown C-Reactive Protein 7.70 mg/dL (0.00-1.30) H 12/27/19 Unknown Total Protein 5.2 g/dL (6.3-8.2) L 12/28/19 00:45 Albumin 2.6 g/dL (3.9-5) L 12/28/19 00:45 Albumin/Globulin Ratio 1.0 % 12/28/19 00:45 Urine Color Yellow (Yellow) 12/16/19 06:15 Urine Turbidity Clear (Clear) 12/16/19 06:15 Urine pH 5.0 (5.0-7.0) 12/16/19 06:15 Ur Specific [place] 1.013 (1.003-1.030) 12/16/19 06:15 Urine Protein 30 mg/dl mg/dL (Negative) 12/16/19 06:15 Urine Glucose (UA) Neg mg/dL (Negative) 12/16/19 06:15 Urine Ketones Neg mg/dL (Negative) 12/16/19 06:15 Urine Blood Mod (Negative) 12/16/19 06:15 Urine Nitrite Neg (Negative) 12/16/19 06:15 Urine Bilirubin Neg (Negative) 12/16/19 06:15 Urine Urobilinogen < 2.0 mg/dL (<2.0) 12/16/19 06:15 Ur Leukocyte Esterase Neg (Negative) 12/16/19 06:15 Urine WBC (Auto) 1.0 /HPF (0.0-6.0) 12/16/19 06:15 Urine RBC (Auto) 1.0 /HPF (0.0-6.0) 12/16/19 06:15 Urine Bacteria (Auto) 1+ /HPF (Negative) 12/16/19 06:15 Urine Mucus Few /HPF 12/16/19 06:15 Urine Creatinine 97.4 mg/dL (0.1-20.0) H 12/16/19 06:15 Urine Sodium 14 mmol/L 12/16/19 06:15 Urine Total Protein 30 mg/dL (5-11.8) H 12/16/19 06:15 Random Vancomycin 11.7 ug/mL (0-40.0) 12/19/19 09:37 Tacrolimus (Send Out) 7.9 mcg/L 12/24/19 07:51 Coronavirus (PCR) Negative (Negative) 12/12/19 14:40 Blood Type O POSITIVE 12/22/19 11:20 Antibody Screen Negative 12/22/19 11:20 Crossmatch See Detail 12/22/19 11:20 Microbiology: Microbiology 12/26/19 Unknown Wrist - Right Wound Culture - Preliminary Lassiter/IV: Voiding Method Urinal IV Catheter Type [Left Wrist] INT / Saline Lock IV Catheter Type [Left Hand] Peripheral IV IV Catheter Type [Right PICC Line Internal Jugular] IV Catheter Type [Left Forearm Peripheral IV ] Active Medications - Current Medications Current Medications: Generic Name Dose Route Start Last Admin Trade Name Freq PRN Reason Stop Dose Admin Acetaminophen 650 mg 12/14/19 22:57 Tylenol PO Q4H PRN Pain MILD(1-3)/Fever >100.5/WHALEY Amlodipine Besylate 5 mg 12/15/19 10:00 12/28/19 13:11 Amlodipine PO 5 mg DAILY NANCY Administration Carvedilol 25 mg 12/15/19 10:00 12/28/19 10:00 Coreg PO Not Given BID [facility] Dextrose 50 ml 12/22/19 07:00 12/22/19 14:00 D50w (25gm) Syringe IV 20 ml PRN PRN Administration Hypoglycemia Protocol Famotidine 20 mg 12/16/19 10:00 12/28/19 10:00 Pepcid PO Not Given DAILY [facility] Hydromorphone HCl 1 mg 12/14/19 22:57 12/16/19 18:32 Dilaudid IV 1 mg Q3H PRN Administration Pain , Severe (7-10) Daptomycin 500 mg/ Sodium 100 mls @ 200 mls/hr 12/19/19 16:00 12/27/19 16:40 Chloride IV 01/11/20 23:59 200 mls/hr Q48H NANCY Administration Protocol Levofloxacin/Dextrose 500 mg in 100 mls @ 100 mls/hr 12/26/19 15:00 12/28/19 09:27 Levaquin 500mg/100ml IV 100 mls/hr Q48HR [facility] Administration Protocol Insulin Glargine 10 units 12/25/19 22:00 12/27/19 22:48 Lantus SUB-Q 10 units QHS NANCY Administration Insulin Human Lispro 0 unit 12/23/19 17:30 12/28/19 12:59 Humalog SUB-Q Not Given ACHS [facility] Protocol Loperamide HCl 2 mg 12/15/19 14:01 12/23/19 12:33 Imodium PO 2 mg BID PRN Administration Diarrhea Metoclopramide HCl 5 mg 12/14/19 23:11 Reglan IV Q6H PRN Nausea And Vomiting Miscellaneous Medication 400 mg 12/15/19 10:00 Dronedarone (Nf) PO DAILY [facility] Mycophenolate Mofetil 500 mg 12/14/19 23:00 12/28/19 10:00 Cellcept PO Not Given BID [facility] Ondansetron HCl 4 mg 12/14/19 22:57 12/19/19 10:36 Zofran IV 4 mg Q3H PRN Administration Nausea And Vomiting Oxycodone/Acetaminophen 1 tab 12/14/19 22:57 12/20/19 10:55 Percocet 5/325 PO 1 tab Q6H PRN Administration Pain, Moderate (4-6) Potassium Chloride 20 meq 12/15/19 18:00 12/28/19 10:00 K-Dur PO Not Given QDAY NANCY Prednisone 5 mg 12/15/19 10:00 12/28/19 10:00 Deltasone PO Not Given DAILY NANCY Sodium Bicarbonate 650 mg 12/15/19 22:00 12/28/19 13:11 Sodium Bicarbonate PO 650 mg BID NANCY Administration Sodium Chloride 10 ml 12/15/19 10:00 12/28/19 10:00 Sodium Chloride Flush Syringe 10 Ml IV Not Given BID NANCY Sodium Chloride 10 ml 12/14/19 22:57 12/18/19 22:09 Sodium Chloride Flush Syringe 10 Ml IV 10 ml PRN PRN Administration LINE FLUSH Tacrolimus 2 mg 12/14/19 23:00 12/28/19 10:00 Prograf PO Not Given Q12HR [facility] Nutrition/Malnutrition Assess - Dietary Evaluation Nutrition/Malnutrition Findings: Nutrition Notes Start: 12/15/19 14:11 Freq: Status: Active Protocol: Document 12/28/19 12:04 PHILLIP (Rec: 12/28/19 12:11 PHILLIP [id number]) Co-Sign 12/28/19 12:04 LP Nutrition Notes Initial or Follow up Reassessment Current Diagnosis Acute Kidney Injury,Diabetes Other Pertinent Diagnosis s/p kidney transplant, MRSA, tibia fx, Hypernatremia, Hypokalemia Current Diet NPO after midnight Labs/Tests BUN 31 Cr 2.2 BG 157 Pertinent Medications K-Dur Height 6 ft Weight 79.5 kg [place] Body Weight (kg) 80.90 BMI 23.8 Weight Status Appropriate Subjective/Other Information F/U for intakes and ONS. Pt reports consuming 100% meals and supplements. Percent of energy/protein needs met: 100%/100% Burn Absent Trauma Absent Skin Integrity/Comment multiple pressure ulcers Current % PO Good (75-100%) Minimum of two criteria No Fluid Accumulation Mild (non-severe) #1 Nutrition Diagnosis Increased nutrient needs ( specify in comment below) Diagnosis Progress(for reassessment Continues documentation) Is patient on ventilator? No Is Patient Ambulatory and/or Out of Bed No REE-([facility]-confined to bed) 1946.892 Calculation Used for Recommendations [facility] Additional Notes Protein (0.8-1.5g/kg): 63-119g Fluid 1ml/kcal Nutrition Intervention Change Diet Order: Renal diet Add Supplement/Snack (indicate name/kcal Nepro Butter Pecan BID /protein ) D/C Glucerna TID Provides kCal: 850 Provides Protein (gm) 38 Goal #1 Pt will meet 75-100% of energy and protein needs by PO. Goal #2 Wound healing Anticipated Discharge Needs: Renal diet Follow-Up By: 01/02/20 Additional Comments F/U intakes and ONS tolerance
[2019-12-28] MEDS: oxyCODONE /ACETAMINOPHEN 5-325MG TAB PO PRN (22:26)
[2019-12-28] MEDS: INSULIN GLARGINE 100 UNITS/ML SUB-Q SCH (22:27)
[2019-12-29 08:15] LABS: Basophils # (Auto) 0.1 K/mm3 (0.0-0.1); Basophils % (Auto) 0.9 % (0.0-1.8); Eosinophils # (Auto) 0.1 K/mm3 (0.0-0.4); Hematocrit 23.5 % (35.5-45.6); Hemoglobin 7.4 gm/dl (11.8-15.2); Lymphocytes # (Auto) 1.4 K/mm3 (1.2-5.4); Lymphocytes % (Auto) 10.6 % (13.4-35.0); Mean Corpuscular HGB Conc 31 % (32-34); Mean Corpuscular Volume 77 fl (84-94); Monocytes # (Auto) 0.8 K/mm3 (0.0-0.8); Monocytes % (Auto) 6.3 % (0.0-7.3); Platelet Count 288 K/mm3 (140-440); Red Blood Count 3.05 M/mm3 (3.65-5.03)
[2019-12-29 08:18] LABS: Red Cell Distribution Width 20.7 % (13.2-15.2)
[2019-12-29 09:31] LABS: Albumin 2.5 g/dL (3.9-5); Calcium 9.7 mg/dL (8.4-10.2)
[2019-12-29] MEDS: SODIUM BICARBONATE 650 MG TAB PO SCH ×2 (09:44→22:06)
[2019-12-29] MEDS: INSULIN LISPRO 100 UNIT/ML VIAL 3 mL SUB-Q SCH ×4 (09:44→22:00)
[2019-12-29] MEDS: amLODIPine 5 MG TAB PO SCH (09:44)
[2019-12-29] MEDS: FAMOTIDINE 20 MG TAB PO SCH (09:45)
[2019-12-29] MEDS: carvediloL 25 MG TAB PO SCH ×2 (09:45→22:12)
[2019-12-29] MEDS: MYCOPHENOLATE 500 MG TAB PO SCH ×2 (09:45→22:06)
[2019-12-29] MEDS: predniSONE 5 MG TAB PO SCH (09:45)
[2019-12-29] MEDS: TACROLIMUS 1 MG CAP PO SCH ×2 (09:45→22:06)
--- NOTE | 2019-12-29 12:26 | Progress Note ---
Assessment and Plan Cultures: 12/14/2019 right leg surgical culture: MRSA 12/26/2019 R hand culture: MRSA A/P: 64-year-old male with diabetes, hypertension, renal transplant recipient in 2018, on immunosuppression with Prograf, CellCept and prednisone underwent right proximal tibia fracture closed reduction and external fixator placement on 10/19/2019. He was hospitalized on 12/14/2019 for elective surgery for removal of his external fixator, noted to have: #Low-grade fever, leukocytosis, infection associated with external fixator involving proximal tibia: Intraoperatively, patient was noted to have purulent drainage from the superior pin which was debrided using a curette and cultures were obtained. These cultures are growing MRSA. Patient is immunocompromised. All hardware has been removed. Patient is at risk of osteomyelitis. ESR and CRP are both elevated. Plan to treat with IV abx until 01/11/2020. #Right hand abscess: spontaneously started draining, culture in process. CT RUE without contrast showed "diffuse right hand and forearm cellulitis with significant fluid extending along the perifascial margin and findings concerning for focal abscess" and "Acute comminuted fractures at the second metacarpal phalangeal joint without dislocation. Given concern for infection osteomyelitis is not ruled out." Underwent bedside I&D with drainage of copious purulence on 12/28/2019. Cultures with MRSA. #Immunocompromised host, renal transplant recipient: On Prograf, CellCept, prednisone. #URMILA on CKD: Nephrology following. Renally dose antibiotics. Creatinine appears to be improving Recs: continue renally dosed IV daptomycin 500 mg q48 hours x 4 more weeks from hand abscess drainage (end date: 01/26/2020) Previous CM orders updated ID clinical review nurse already notified to schedule follow up appointment if renal function improves prior to discharge (if CrCL is >30), daptomycin dose will need to be adjusted to q24 hrs wound care to R hand Mike Andrade MD, FACP [facility] ([facility] C: [phone] O: [phone] F: [phone] Subjective Date of service: 12/29/19 Principal diagnosis: Leg pain Interval history: No fever. No other complaints. Had R hand bedside I&D yesterday with copious purulence drained. Objective - Exam Narrative Exam: Physical Exam: Constitutional: Alert, cooperative. No acute distress Head, Ears, Nose: Normocephalic, atraumatic. External ears, nose normal Eyes: Conjunctivae/corneas clear. No icterus. No ptosis. Neck: Supple, no meningeal signs Cardiovascular: S1, S2 normal. Respiratory: Good air entry, clear to auscultation bilaterally GI: Soft, non-tender; bowel sounds normal. No peritoneal signs Musculoskeletal: Right proximal tibia dressing present with small wound. Right upper chest PICC line +. Right hand with dressing, forearm edema seems better Skin: No rash or abscess Hem/Lymphatic: No palpable cervical or supraclavicular nodes. No lymphangitis Psych: Flat affect Neurological: Awake, alert, oriented - Constitutional Vitals: Vital Signs Temp Pulse Resp BP Pulse Ox 98.7 F 70 20 136/61 95 12/29/19 08:20 12/29/19 11:56 12/29/19 11:56 12/29/19 11:56 12/29/19 11:56 Temperature -Last 24 Hours Temperature 98.7 F Temperature 98.6 F Temperature 98.3 F Temperature 98.8 F - Labs CBC & Chem 7: 12/29/19 08:05 12/29/19 08:05 Labs: Abnormal lab results 12/28/19 12/28/19 12/29/19 Range/Units 16:36 21:52 08:05 WBC 12.8 H (4.5-11.0) K/mm3 RBC 3.05 L (3.65-5.03) M/mm3 Hgb 7.4 L (11.8-15.2) gm/dl Hct 23.5 L (35.5-45.6) % MCV 77 L (84-94) fl MCH 24 L (28-32) pg MCHC 31 L (32-34) % RDW 20.7 H (13.2-15.2) % Lymph % (Auto) 10.6 L (13.4-35.0) % Seg Neutrophils % 81.2 H (40.0-70.0) % Seg Neutrophils # 10.4 H (1.8-7.7) K/mm3 BUN (9-20) mg/dL Creatinine (0.8-1.3) mg/dL POC Glucose 118 H 156 H (70-105) Alkaline Phosphatase (35-129) units/L Total Protein (6.3-8.2) g/dL Albumin (3.9-5) g/dL 12/29/19 Range/Units 08:05 WBC (4.5-11.0) K/mm3 RBC (3.65-5.03) M/mm3 Hgb (11.8-15.2) gm/dl Hct (35.5-45.6) % MCV (84-94) fl MCH (28-32) pg MCHC (32-34) % RDW (13.2-15.2) % Lymph % (Auto) (13.4-35.0) % Seg Neutrophils % (40.0-70.0) % Seg Neutrophils # (1.8-7.7) K/mm3 BUN 30 H (9-20) mg/dL Creatinine 2.2 H (0.8-1.3) mg/dL POC Glucose (70-105) Alkaline Phosphatase 176 H (35-129) units/L Total Protein 5.2 L (6.3-8.2) g/dL Albumin 2.5 L (3.9-5) g/dL
--- NOTE | 2019-12-29 12:32 | Progress Note ---
Assessment and Plan - Patient Problems (1) URMILA (acute kidney injury) Current Visit: Yes Status: Acute Plan to address problem: Acute tubular necrosis secondary to sepsis. Kidney function is stabilized . Continue to monitor electrolytes and renal function (2) S/P kidney transplant Current Visit: Yes Status: Acute Plan to address problem: Follow up Prograf level. Continue immunosuppression (3) Right tibial fracture Current Visit: Yes Status: Acute Qualifiers: Encounter type: initial encounter Salter-Ocampo Fracture Type: unspecified configuration Plan to address problem: Management per orthopedic surgery (4) Hypernatremia Current Visit: Yes Status: Acute Plan to address problem: resolved (5) Hypokalemia Current Visit: Yes Status: Acute Plan to address problem: resolved (6) Hypertension Current Visit: Yes Status: Chronic Qualifiers: Hypertension type: essential hypertension Qualified Code(s): I10 - Essential (primary) hypertension Plan to address problem: Follow-up blood pressure on current medication (7) T2DM (type 2 diabetes mellitus) Current Visit: Yes Status: Chronic Qualifiers: Diabetes mellitus fdc insulin use: without buttermaker continuous churn use Plan to address problem: Blood sugar management by primary attending (8) Metabolic acidosis Current Visit: Yes Status: Acute Plan to address problem: Improving. Continue treatment with po Na bicarb (9) Infection of wound due to methicillin resistant Staphylococcus aureus (MRSA) Current Visit: Yes Status: Acute Plan to address problem: Continue antibiotics. Patient on isolation. follow ID recommendations Subjective Date of service: 12/29/19 Principal diagnosis: Leg pain Interval history: Pt awake, alert, in no acute distress Objective - Vital Signs Vital signs: Vital Signs - 12hr 12/29/19 12/29/19 12/29/19 04:21 08:17 08:20 Temperature 98.6 F 98.7 F Pulse Rate 59 L 63 Respiratory 17 18 Rate Blood Pressure 120/52 136/57 O2 Sat by Pulse 96 99 Oximetry 12/29/19 11:56 Temperature Pulse Rate 70 Respiratory 20 Rate Blood Pressure 136/61 O2 Sat by Pulse 95 Oximetry - General Appearance General appearance: well-developed, well-nourished, appears stated age EENT: ATNC, PERRL, mucous membranes moist Neck: no JVD Respiratory: Present: Clear to Ascultation Cardiology: regular, S1S2 Gastrointestinal: normoactive bowel sounds Integumentary: no rash Neurologic: no focal deficit, alert and oriented x3, strength 5/5, CN 3-12 intact Psychiatric: mood/affect appropriate, cooperative - Lab 12/29/19 08:05 12/29/19 08:05 Most recent lab results Calcium 9.7 mg/dL (8.4-10.2) 12/29/19 08:05 Urine Creatinine 97.4 mg/dL (0.1-20.0) H 12/16/19 06:15 Urine Sodium 14 mmol/L 12/16/19 06:15 Urine Total Protein 30 mg/dL (5-11.8) H 12/16/19 06:15 Medications & Allergies - Medications Allergies/Adverse Reactions: Allergies cefazolin Allergy (Intermediate, Verified 10/19/19 13:26) Hives itching & hives Home Medications: Home Medications Medication Instructions Recorded Confirmed Last Taken Type Aspirin 81 mg PO DAILY 10/16/19 12/14/19 5 Days Ago History ~12/09/19 Calcium Citrate/Vitamin D3 1,000 units PO DAILY 10/16/19 12/08/19 12/13/19 History Dronedarone (Nf) [Multaq (Nf)] 400 mg PO DAILY 10/16/19 12/08/19 12/13/19 History Mycophenolate 500 mg PO BID 10/16/19 12/08/19 12/13/19 History Prograf 2 mg PO Q12HR 10/16/19 12/08/19 12/13/19 History amLODIPine 5 mg PO DAILY 10/16/19 12/08/19 12/14/19 07:00 History carvediloL [Coreg] 20 mg PO BID 10/16/19 12/08/19 12/14/19 07:00 History glipiZIDE 5 mg PO DAILY 10/16/19 12/08/19 12/13/19 History predniSONE [Deltasone] 5 mg PO DAILY 10/16/19 12/08/19 12/13/19 History HYDROcodone/APAP 5-325 [[place] 1 each PO Q6HR PRN #20 tablet 10/19/19 12/08/19 12/13/19 Rx 5-325 mg TAB] HYDROcodone/APAP 7.5-325 [[place] 1 each PO Q6HR PRN #20 tablet 12/14/19 Unknown Rx 7.5-325 mg TAB] Sulfamethoxazole/Trimethoprim 1 each PO BID #30 tablet 12/14/19 Unknown Rx [Bactrim DS TAB] Active Medications: Generic Name Dose Route Start Last Admin Trade Name Freq PRN Reason Stop Dose Admin Acetaminophen 650 mg 12/14/19 22:57 Tylenol PO Q4H PRN Pain MILD(1-3)/Fever >100.5/WHALEY Amlodipine Besylate 5 mg 12/15/19 10:00 12/29/19 09:44 Amlodipine PO 5 mg DAILY NANCY Administration Carvedilol 25 mg 12/15/19 10:00 12/29/19 09:45 Coreg PO 25 mg BID NANCY Administration Dextrose 50 ml 12/22/19 07:00 12/22/19 14:00 D50w (25gm) Syringe IV 20 ml PRN PRN Administration Hypoglycemia Protocol Famotidine 20 mg 12/16/19 10:00 12/29/19 09:45 Pepcid PO 20 mg DAILY NANCY Administration Hydromorphone HCl 1 mg 12/14/19 22:57 12/16/19 18:32 Dilaudid IV 1 mg Q3H PRN Administration Pain , Severe (7-10) Daptomycin 500 mg/ Sodium 100 mls @ 200 mls/hr 12/19/19 16:00 12/28/19 22:35 Chloride IV 01/11/20 23:59 Infused Q48H [facility] Infusion Protocol Insulin Glargine 10 units 12/25/19 22:00 12/28/19 22:27 Lantus SUB-Q 10 units QHS NANCY Administration Insulin Human Lispro 0 unit 12/23/19 17:30 12/29/19 12:16 Humalog SUB-Q Not Given ACHS [facility] Protocol Loperamide HCl 2 mg 12/15/19 14:01 12/23/19 12:33 Imodium PO 2 mg BID PRN Administration Diarrhea Metoclopramide HCl 5 mg 12/14/19 23:11 Reglan IV Q6H PRN Nausea And Vomiting Miscellaneous Medication 400 mg 12/15/19 10:00 Dronedarone (Nf) PO DAILY [facility] Mycophenolate Mofetil 500 mg 12/14/19 23:00 12/29/19 09:45 Cellcept PO 500 mg BID NANCY Administration Ondansetron HCl 4 mg 12/14/19 22:57 12/19/19 10:36 Zofran IV 4 mg Q3H PRN Administration Nausea And Vomiting Oxycodone/Acetaminophen 1 tab 12/14/19 22:57 12/28/19 22:26 Percocet 5/325 PO 1 tab Q6H PRN Administration Pain, Moderate (4-6) Prednisone 5 mg 12/15/19 10:00 12/29/19 09:45 Deltasone PO 5 mg DAILY NANCY Administration Sodium Bicarbonate 650 mg 12/15/19 22:00 12/29/19 09:44 Sodium Bicarbonate PO 650 mg BID NANCY Administration Sodium Chloride 10 ml 12/15/19 10:00 12/29/19 09:45 Sodium Chloride Flush Syringe 10 Ml IV 10 ml BID NANCY Administration Sodium Chloride 10 ml 12/14/19 22:57 12/18/19 22:09 Sodium Chloride Flush Syringe 10 Ml IV 10 ml PRN PRN Administration LINE FLUSH Tacrolimus 2 mg 12/14/19 23:00 12/29/19 09:45 Prograf PO 2 mg Q12HR NANCY Administration
--- NOTE | 2019-12-29 16:17 | Progress Note ---
Assessment and Plan Assessment and plan: 64-year-old male with a history of hypertension end-stage renal disease received a kidney transplant several years ago and has had baseline creatinine of 1.3- 1.5. He presented to the hospital for surgical correction of right proximal tibial fracture. 12/14/2019 patient admitted for elective surgical correction of right proximal to tibial fracture. Patient underwent surgical intervention and external fixation device. 12/15/1999 patient was found to have elevated creatinine up from 1.5 at baseline to 2.8. Therefore renal consult was obtained. Was thought to be secondary to prerenal azotemia. Symptoms responding to IV volume replacement and creatinine going back down to baseline. 12/16/2019 patient's creatinine continued to improve toward baseline. 12/17/2019. Patient surgical blood culture showed positive for methicillin resistant staph aureus. May be contaminant because patient remained afebrile no leukocytosis. No tenderness to the area. And sensitivity of MRSA was pansensitive to Cipro and Bactrim. Patient was given 1 dose of Vanco IV and await any ID recommendations. Patient should be able to discharge with Bactrim since it is sensitive and patient is afebrile no leukocytosis. Does not appear to have underlying infection at this time. 12/18/2019. Patient is resting doubly afebrile placed on Bactrim because MRSA was sensitive to this. Await further recommendations from Ortho about discharge planning. Patient somewhat sad today. States he just lost his sister. Patient denies any wants for antidepressant medications. 12/18: Awaiting further plan by othor, continue on abx per ID and Nephrology following for urmila, Showing slight improvement and not at baseline. Monitor Right upper ext 12/19: Consult Vascular due to concern for upper ext, obtain doppler of right upper ext 12/20: Unsure why Doppler has not been done, nurse not aware either, call placed to department for stat exam, will give a dose of Lovenox prophylactically. Finally doppler done and no DVT. Elevate Upper ext 12/21: CONTINUE ABX, DISCUSSED WITH NURSINGS STAFF TO ELEVATE UPPER EXT, Tunnle catheter placed. Renal function slightly worse. Continue to monitor. 12/22: Clinically improving, Tunnel catheter placed, awaiting, clearance from Nephrology for discharge, Leukocytosis and renal functions showing slight improvement. Continue to monitor Right upper ext swelling. S/P 1 unit PRBC transfused, totalling 2 units for this admission. 12/23: Continue current clinical support. Anticipate discharge in a.m. mild elevation in WBC. Also monitor hemoglobin following transfusion. 12/24: Patient is a 64-year-old male with history of kidney transplant who presented to the hospital with right tibia fracture status post surgical correction. Did have MRSA culture which was considered a contaminant. Hospital stay had been complicated with precipitous drop in hemoglobin and also right upper extremity swelling. Doppler study was done of the right upper extremity and was negative for DVT. Due to prolonged antibiotic coverage patient was seen by vascular and a tunnel catheter placed. Renal function has continued to improve. And patient is now pending discharge. From medicine standpoint patient can be discharged when okay with nephrology and Ortho. Anticipate the patient will benefit from rehab either at home or at a facility. During this hospitalization patient did receive 2 units packed red blood cell. 12/25. Patient seen and examined at bedside this morning. He has no complaints today. Labs reviewed. Will benefit from rehab. Still on daptomycin for MRSA treatment. ID, Ortho and nephrology on board. 12/26. am. No complaints today. CT RUE not performed yesterday. Plan to repeat today. 12/26. pm. CT right upper extremity shows some abscess with subcutaneous edema with possible necrotizing fasciitis. Discussed with surgery on 12/26. Patient made n.p.o. after midnight. 12/27. Right arm swelling has slightly improved after elevation yesterday. Orthopedic surgeon performed I&D at bedside with wound packing. Not clear if cultures obtained. Patient was already on IV antibiotics. Plan to obtain culture if possible. 12/28. RUE swelling better. Cultures - +ve MRSA. Needs discharge planning. ID following Patient Problems SEPSIS UNKNOWN SOURCE- POA URMILA (acute kidney injury) with vasomotor nephropathy Current Visit: Yes Status: Acute Plan to address problem: Cr stable at 2.2 Hypernatremia Current Visit: Yes Status: Acute Plan to address problem: Resolved Right upper extremity swelling Current Visit: Yes Status: Acute Plan to address problem: CT shows fluid collection with edema. Orthopedic surgery evaluation-bedside I&D with wound packing performed Patient is on broad-spectrum antibiotics. Right tibial fracture Current Visit: Yes Status: Acute Qualifiers: Encounter type: initial encounter Salter-Ocampo Fracture Type: unspecified configuration Plan to address problem: Right tibial fracture status post correction. No evidence of infection. Clinically. Patient did have positive blood culture for MRSA. On daptomycin Bilateral pressure ulcer of the sacrum stge 3: Wound care following S/P kidney transplant Current Visit: Yes Status: Acute Plan to address problem: Renal function stable. Hypertension Current Visit: Yes Status: Chronic Qualifiers: Hypertension type: essential hypertension Qualified Code(s): I10 - Essential (primary) hypertension Plan to address problem: Patient has optimal control blood pressure amlodipine Coreg continue present medical management. T2DM (type 2 diabetes mellitus) Current Visit: Yes Status: Chronic Qualifiers: Diabetes mellitus terminal worker insulin use: without terminal worker use Plan to address problem: Patient diabetes still has suboptimal control. Patient is not eating better would add long acting insulin 15 units Levemir at night. Metabolic acidosis Current Visit: Yes Status: Acute Plan to address problem: Resolved Precipitous drop in HCT, Anemia Continue to monitor. DVT prophylaxis Current Visit: Yes Status: Acute History Interval history: Patient seen and examined this morning. Right arm swelling improved after I&D. On antibiotics Hospitalist Physical - Constitutional Vitals: Temp Pulse Resp BP Pulse Ox 98.6 F 80 19 109/70 99 12/29/19 15:26 12/29/19 15:26 12/29/19 15:26 12/29/19 15:26 12/29/19 15:26 General appearance: Present: no acute distress, well-nourished - EENT Eyes: Present: PERRL - Respiratory Respiratory: bilateral: CTA - Cardiovascular Heart Sounds: Present: S1 & S2 - Extremities Extremities: abnormal (RUE swelling ) - Abdominal General gastrointestinal: soft, non-tender, non-distended, normal bowel sounds - Psychiatric Psychiatric: appropriate mood/affect - Neurologic Neurologic: CNII-XII intact HEART Score - HEART Score Age: > 65 Risk factors: 1-2 risk factors - Critical Actions Critical Actions: 0-3 pts:0.9-1.7%risk of adverse cardiac event.Candidate for discharge Results - Labs CBC & Chem 7: 12/29/19 08:05 12/29/19 08:05 Labs: Laboratory Last Values WBC 12.8 K/mm3 (4.5-11.0) H 12/29/19 08:05 RBC 3.05 M/mm3 (3.65-5.03) L 12/29/19 08:05 Hgb 7.4 gm/dl (11.8-15.2) L 12/29/19 08:05 Hct 23.5 % (35.5-45.6) L 12/29/19 08:05 MCV 77 fl (84-94) L 12/29/19 08:05 MCH 24 pg (28-32) L 12/29/19 08:05 MCHC 31 % (32-34) L 12/29/19 08:05 RDW 20.7 % (13.2-15.2) H 12/29/19 08:05 Plt Count 288 K/mm3 (140-440) 12/29/19 08:05 Lymph % (Auto) 10.6 % (13.4-35.0) L 12/29/19 08:05 [place] % (Auto) 6.3 % (0.0-7.3) 12/29/19 08:05 Eos % (Auto) 1.0 % (0.0-4.3) 12/29/19 08:05 Baso % (Auto) 0.9 % (0.0-1.8) 12/29/19 08:05 Lymph # (Auto) 1.4 K/mm3 (1.2-5.4) 12/29/19 08:05 [place] # (Auto) 0.8 K/mm3 (0.0-0.8) 12/29/19 08:05 Eos # (Auto) 0.1 K/mm3 (0.0-0.4) 12/29/19 08:05 Baso # (Auto) 0.1 K/mm3 (0.0-0.1) 12/29/19 08:05 Add Manual Diff Complete 12/27/19 Unknown Total Counted 100 12/27/19 Unknown Seg Neutrophils % 81.2 % (40.0-70.0) H 12/29/19 08:05 Seg Neuts % (Manual) 85.0 % (40.0-70.0) H 12/27/19 Unknown Band Neutrophils % 3.0 % 12/27/19 Unknown Lymphocytes % (Manual) 6.0 % (13.4-35.0) L 12/27/19 Unknown Reactive Lymphs % (Man) 0 % 12/27/19 Unknown Monocytes % (Manual) 4.0 % (0.0-7.3) 12/27/19 Unknown Eosinophils % (Manual) 0 % (0.0-4.3) 12/27/19 Unknown Basophils % (Manual) 0 % (0.0-1.8) 12/27/19 Unknown Metamyelocytes % 0 % 12/27/19 Unknown Myelocytes % 2.0 % 12/27/19 Unknown Promyelocytes % 0 % 12/27/19 Unknown Blast Cells % 0 % 12/27/19 Unknown Nucleated RBC % Not Reportable 12/27/19 Unknown Seg Neutrophils # 10.4 K/mm3 (1.8-7.7) H 12/29/19 08:05 Seg Neutrophils # Man 12.2 K/mm3 (1.8-7.7) H 12/27/19 Unknown Band Neutrophils # 0.4 K/mm3 12/27/19 Unknown Lymphocytes # (Manual) 0.9 K/mm3 (1.2-5.4) L 12/27/19 Unknown Abs React Lymphs (Man) 0.0 K/mm3 12/27/19 Unknown Monocytes # (Manual) 0.6 K/mm3 (0.0-0.8) 12/27/19 Unknown Eosinophils # (Manual) 0.0 K/mm3 (0.0-0.4) 12/27/19 Unknown Basophils # (Manual) 0.0 K/mm3 (0.0-0.1) 12/27/19 Unknown Metamyelocytes # 0.0 K/mm3 12/27/19 Unknown Myelocytes # 0.3 K/mm3 12/27/19 Unknown Promyelocytes # 0.0 K/mm3 12/27/19 Unknown Blast Cells # 0.0 K/mm3 12/27/19 Unknown WBC Morphology Not Reportable 12/27/19 Unknown Hypersegmented Neuts Not Reportable 12/27/19 Unknown Hyposegmented Neuts Not Reportable 12/27/19 Unknown Hypogranular Neuts Not Reportable 12/27/19 Unknown Smudge Cells Not Reportable 12/27/19 Unknown Toxic Granulation Not Reportable 12/27/19 Unknown Toxic Vacuolation Not Reportable 12/27/19 Unknown Dohle Bodies Not Reportable 12/27/19 Unknown Pelger-Huet Anomaly Not Reportable 12/27/19 Unknown Robert Rods Not Reportable 12/27/19 Unknown Platelet Estimate Consistent w auto 12/27/19 Unknown Clumped Platelets Not Reportable 12/27/19 Unknown Plt Clumps, EDTA Not Reportable 12/27/19 Unknown Large Platelets Not Reportable 12/27/19 Unknown Giant Platelets Not Reportable 12/27/19 Unknown Platelet Satelliting Not Reportable 12/27/19 Unknown Plt Morphology Comment Not Reportable 12/27/19 Unknown RBC Morphology Not Reportable 12/27/19 Unknown Dimorphic RBCs Not Reportable 12/27/19 Unknown Polychromasia Not Reportable 12/27/19 Unknown Hypochromasia 1+ 12/27/19 Unknown Poikilocytosis Not Reportable 12/27/19 Unknown Anisocytosis 1+ 12/27/19 Unknown Microcytosis Not Reportable 12/27/19 Unknown Macrocytosis Not Reportable 12/27/19 Unknown Spherocytes Not Reportable 12/27/19 Unknown Pappenheimer Bodies Not Reportable 12/27/19 Unknown Sickle Cells Not Reportable 12/27/19 Unknown Target Cells Not Reportable 12/27/19 Unknown Tear Drop Cells Few 12/27/19 Unknown Ovalocytes Not Reportable 12/27/19 Unknown Helmet Cells Not Reportable 12/27/19 Unknown [place] Bodies Not Reportable 12/27/19 Unknown [place] Rings Not Reportable 12/27/19 Unknown Juju Cells Not Reportable 12/27/19 Unknown Bite Cells Not Reportable 12/27/19 Unknown Crenated Cell Not Reportable 12/27/19 Unknown Elliptocytes Not Reportable 12/27/19 Unknown Acanthocytes (Spur) Not Reportable 12/27/19 Unknown Rouleaux Not Reportable 12/27/19 Unknown Hemoglobin C Crystals Not Reportable 12/27/19 Unknown Schistocytes Not Reportable 12/27/19 Unknown Malaria parasites Not Reportable 12/27/19 Unknown ESR 73 mm/Hr (0-20) 12/20/19 09:11 Hector Bodies Not Reportable 12/27/19 Unknown Hem Pathologist Commnt No 12/27/19 Unknown PT 14.9 Sec. (12.2-14.9) 12/28/19 00:45 INR 1.15 (0.87-1.13) H 12/28/19 00:45 Sodium 141 mmol/L (137-145) 12/29/19 08:05 Potassium 4.7 mmol/L (3.6-5.0) 12/29/19 08:05 Chloride 104.3 mmol/L (98-107) 12/29/19 08:05 Carbon Dioxide 25 mmol/L (22-30) 12/29/19 08:05 Anion Gap 16 mmol/L 12/29/19 08:05 BUN 30 mg/dL (9-20) H 12/29/19 08:05 Creatinine 2.2 mg/dL (0.8-1.3) H 12/29/19 08:05 Estimated GFR 37 ml/min 12/29/19 08:05 BUN/Creatinine Ratio 14 % 12/29/19 08:05 Glucose 85 mg/dL (75-100) 12/29/19 08:05 POC Glucose 149 (70-105) H 12/29/19 12:08 Uric Acid 11.7 mg/dL (3.5-7.6) H 12/14/19 13:24 Calcium 9.7 mg/dL (8.4-10.2) 12/29/19 08:05 Total Bilirubin 0.50 mg/dL (0.1-1.2) 12/29/19 08:05 AST 17 units/L (5-40) 12/29/19 08:05 ALT 18 units/L (7-56) 12/29/19 08:05 Alkaline Phosphatase 176 units/L (35-129) H 12/29/19 08:05 Total Creatine Kinase 67 units/L (55-170) 12/27/19 Unknown C-Reactive Protein 7.70 mg/dL (0.00-1.30) H 12/27/19 Unknown Total Protein 5.2 g/dL (6.3-8.2) L 12/29/19 08:05 Albumin 2.5 g/dL (3.9-5) L 12/29/19 08:05 Albumin/Globulin Ratio 0.9 % 12/29/19 08:05 Urine Color Yellow (Yellow) 12/16/19 06:15 Urine Turbidity Clear (Clear) 12/16/19 06:15 Urine pH 5.0 (5.0-7.0) 12/16/19 06:15 Ur Specific [place] 1.013 (1.003-1.030) 12/16/19 06:15 Urine Protein 30 mg/dl mg/dL (Negative) 12/16/19 06:15 Urine Glucose (UA) Neg mg/dL (Negative) 12/16/19 06:15 Urine Ketones Neg mg/dL (Negative) 12/16/19 06:15 Urine Blood Mod (Negative) 12/16/19 06:15 Urine Nitrite Neg (Negative) 12/16/19 06:15 Urine Bilirubin Neg (Negative) 12/16/19 06:15 Urine Urobilinogen < 2.0 mg/dL (<2.0) 12/16/19 06:15 Ur Leukocyte Esterase Neg (Negative) 12/16/19 06:15 Urine WBC (Auto) 1.0 /HPF (0.0-6.0) 12/16/19 06:15 Urine RBC (Auto) 1.0 /HPF (0.0-6.0) 12/16/19 06:15 Urine Bacteria (Auto) 1+ /HPF (Negative) 12/16/19 06:15 Urine Mucus Few /HPF 12/16/19 06:15 Urine Creatinine 97.4 mg/dL (0.1-20.0) H 12/16/19 06:15 Urine Sodium 14 mmol/L 12/16/19 06:15 Urine Total Protein 30 mg/dL (5-11.8) H 12/16/19 06:15 Random Vancomycin 11.7 ug/mL (0-40.0) 12/19/19 09:37 Tacrolimus (Send Out) 7.9 mcg/L 12/24/19 07:51 Coronavirus (PCR) Negative (Negative) 12/12/19 14:40 Blood Type O POSITIVE 12/22/19 11:20 Antibody Screen Negative 12/22/19 11:20 Crossmatch See Detail 12/22/19 11:20 Microbiology: Microbiology 12/26/19 Unknown Wrist - Right Wound Culture - Final Methicillin Resist S. Aureus Lassiter/IV: Voiding Method Urinal IV Catheter Type [Left Wrist] INT / Saline Lock IV Catheter Type [Left Hand] Peripheral IV IV Catheter Type [Right PICC Line Internal Jugular] IV Catheter Type [Left Forearm Peripheral IV ] Active Medications - Current Medications Current Medications: Generic Name Dose Route Start Last Admin Trade Name Freq PRN Reason Stop Dose Admin Acetaminophen 650 mg 12/14/19 22:57 Tylenol PO Q4H PRN Pain MILD(1-3)/Fever >100.5/WHALEY Amlodipine Besylate 5 mg 12/15/19 10:00 12/29/19 09:44 Amlodipine PO 5 mg DAILY NANCY Administration Carvedilol 25 mg 12/15/19 10:00 12/29/19 09:45 Coreg PO 25 mg BID NANCY Administration Dextrose 50 ml 12/22/19 07:00 12/22/19 14:00 D50w (25gm) Syringe IV 20 ml PRN PRN Administration Hypoglycemia Protocol Famotidine 20 mg 12/16/19 10:00 12/29/19 09:45 Pepcid PO 20 mg DAILY NANCY Administration Hydromorphone HCl 1 mg 12/14/19 22:57 12/16/19 18:32 Dilaudid IV 1 mg Q3H PRN Administration Pain , Severe (7-10) Daptomycin 500 mg/ Sodium 100 mls @ 200 mls/hr 12/19/19 16:00 12/28/19 22:35 Chloride IV 01/11/20 23:59 Infused Q48H [facility] Infusion Protocol Insulin Glargine 10 units 12/25/19 22:00 12/28/19 22:27 Lantus SUB-Q 10 units QHS [facility] Administration Insulin Human Lispro 0 unit 12/23/19 17:30 12/29/19 12:16 Humalog SUB-Q Not Given ACHS [facility] Protocol Loperamide HCl 2 mg 12/15/19 14:01 12/23/19 12:33 Imodium PO 2 mg BID PRN Administration Diarrhea Metoclopramide HCl 5 mg 12/14/19 23:11 Reglan IV Q6H PRN Nausea And Vomiting Miscellaneous Medication 400 mg 12/15/19 10:00 Dronedarone (Nf) PO DAILY [facility] Mycophenolate Mofetil 500 mg 12/14/19 23:00 12/29/19 09:45 Cellcept PO 500 mg BID NANCY Administration Ondansetron HCl 4 mg 12/14/19 22:57 12/19/19 10:36 Zofran IV 4 mg Q3H PRN Administration Nausea And Vomiting Oxycodone/Acetaminophen 1 tab 12/14/19 22:57 12/28/19 22:26 Percocet 5/325 PO 1 tab Q6H PRN Administration Pain, Moderate (4-6) Prednisone 5 mg 12/15/19 10:00 12/29/19 09:45 Deltasone PO 5 mg DAILY NANCY Administration Sodium Bicarbonate 650 mg 12/15/19 22:00 12/29/19 09:44 Sodium Bicarbonate PO 650 mg BID NANCY Administration Sodium Chloride 10 ml 12/15/19 10:00 12/29/19 09:45 Sodium Chloride Flush Syringe 10 Ml IV 10 ml BID NANCY Administration Sodium Chloride 10 ml 12/14/19 22:57 12/18/19 22:09 Sodium Chloride Flush Syringe 10 Ml IV 10 ml PRN PRN Administration LINE FLUSH Tacrolimus 2 mg 12/14/19 23:00 12/29/19 09:45 Prograf PO 2 mg Q12HR NANCY Administration Nutrition/Malnutrition Assess - Dietary Evaluation Nutrition/Malnutrition Findings: Nutrition Notes Start: 12/15/19 14:11 Freq: Status: Active Protocol: Document 12/28/19 12:04 PHILLIP (Rec: 12/28/19 12:11 PHILLIP [id number]) Co-Sign 12/28/19 12:04 LP Nutrition Notes Initial or Follow up Reassessment Current Diagnosis Acute Kidney Injury,Diabetes Other Pertinent Diagnosis s/p kidney transplant, MRSA, tibia fx, Hypernatremia, Hypokalemia Current Diet NPO after midnight Labs/Tests BUN 31 Cr 2.2 BG 157 Pertinent Medications K-Dur Height 6 ft Weight 79.5 kg [place] Body Weight (kg) 80.90 BMI 23.8 Weight Status Appropriate Subjective/Other Information F/U for intakes and ONS. Pt reports consuming 100% meals and supplements. Percent of energy/protein needs met: 100%/100% Burn Absent Trauma Absent Skin Integrity/Comment multiple pressure ulcers Current % PO Good (75-100%) Minimum of two criteria No Fluid Accumulation Mild (non-severe) #1 Nutrition Diagnosis Increased nutrient needs ( specify in comment below) Diagnosis Progress(for reassessment Continues documentation) Is patient on ventilator? No Is Patient Ambulatory and/or Out of Bed No REE-([facility]-confined to bed) [phone] Calculation Used for Recommendations [facility] Additional Notes Protein (0.8-1.5g/kg): 63-119g Fluid 1ml/kcal Nutrition Intervention Change Diet Order: Renal diet Add Supplement/Snack (indicate name/kcal Nepro Butter Pecan BID /protein ) D/C Glucerna TID Provides kCal: 850 Provides Protein (gm) 38 Goal #1 Pt will meet 75-100% of energy and protein needs by PO. Goal #2 Wound healing Anticipated Discharge Needs: Renal diet Follow-Up By: 01/02/20 Additional Comments F/U intakes and ONS tolerance
[2019-12-29] MEDS: INSULIN GLARGINE 100 UNITS/ML SUB-Q SCH (22:00)
[2019-12-30 01:39] LABS: Basophils % (Auto) 0.3 % (0.0-1.8); Eosinophils % (Auto) 0.3 % (0.0-4.3); Hematocrit 23.1 % (35.5-45.6); Hemoglobin 7.1 gm/dl (11.8-15.2); Lymphocytes # (Auto) 1.3 K/mm3 (1.2-5.4); Lymphocytes % (Auto) 9.5 % (13.4-35.0); Mean Corpuscular HGB Conc 31 % (32-34); Mean Corpuscular Volume 78 fl (84-94); Monocytes # (Auto) 0.9 K/mm3 (0.0-0.8); Monocytes % (Auto) 6.3 % (0.0-7.3); Platelet Count 296 K/mm3 (140-440); Red Blood Count 2.96 M/mm3 (3.65-5.03)
[2019-12-30 01:47] LABS: Red Cell Distribution Width 20.6 % (13.2-15.2)
[2019-12-30 02:09] LABS: Albumin 2.7 g/dL (3.9-5); Calcium 9.5 mg/dL (8.4-10.2)
[2019-12-30] MEDS: INSULIN LISPRO 100 UNIT/ML VIAL 3 mL SUB-Q SCH ×4 (08:20→22:37)
[2019-12-30] MEDS: TACROLIMUS 1 MG CAP PO SCH ×2 (09:08→22:24)
[2019-12-30] MEDS: carvediloL 25 MG TAB PO SCH ×2 (09:08→22:25)
[2019-12-30] MEDS: FAMOTIDINE 20 MG TAB PO SCH (09:08)
[2019-12-30] MEDS: MYCOPHENOLATE 500 MG TAB PO SCH ×2 (09:08→22:25)
[2019-12-30] MEDS: SODIUM BICARBONATE 650 MG TAB PO SCH ×2 (09:08→22:25)
[2019-12-30] MEDS: predniSONE 5 MG TAB PO SCH (09:09)
[2019-12-30] MEDS: amLODIPine 5 MG TAB PO SCH (09:09)
--- NOTE | 2019-12-30 09:45 | Progress Note ---
Assessment and Plan - Patient Problems (1) URMILA (acute kidney injury) Current Visit: Yes Status: Acute Plan to address problem: Acute tubular necrosis secondary to sepsis. Kidney function is stabilized . Continue to monitor electrolytes and renal function (2) S/P kidney transplant Current Visit: Yes Status: Acute Plan to address problem: Follow up Prograf level. Continue immunosuppression (3) Right tibial fracture Current Visit: Yes Status: Acute Qualifiers: Encounter type: initial encounter Salter-Ocampo Fracture Type: unspecified configuration Plan to address problem: Management per orthopedic surgery (4) Hypernatremia Current Visit: Yes Status: Acute Plan to address problem: resolved (5) Hypokalemia Current Visit: Yes Status: Acute Plan to address problem: resolved (6) Hypertension Current Visit: Yes Status: Chronic Qualifiers: Hypertension type: essential hypertension Qualified Code(s): I10 - Essential (primary) hypertension Plan to address problem: Follow-up blood pressure on current medication (7) T2DM (type 2 diabetes mellitus) Current Visit: Yes Status: Chronic Qualifiers: Diabetes mellitus usp insulin use: without intermodal dispatcher use Plan to address problem: Blood sugar management by primary attending (8) Metabolic acidosis Current Visit: Yes Status: Acute Plan to address problem: Improved with po Na bicarb (9) Infection of wound due to methicillin resistant Staphylococcus aureus (MRSA) Current Visit: Yes Status: Acute Plan to address problem: Continue antibiotics. Patient on isolation. follow ID recommendations. CT RUE confirmed extensive cellulitis, pt on ABX treatment with daptomycin, renally dosed. Subjective Date of service: 12/30/19 Principal diagnosis: Leg pain Interval history: Pt awake, alert, in no acute distress Objective - Vital Signs Vital signs: Vital Signs - 12hr 12/29/19 12/29/19 12/30/19 22:12 23:45 04:22 Temperature 98.9 F 98.9 F Pulse Rate 67 61 64 Respiratory 18 18 Rate Blood Pressure 121/57 120/49 130/57 O2 Sat by Pulse 95 96 Oximetry 12/30/19 12/30/19 07:00 07:27 Temperature 97.9 F Pulse Rate 59 L Respiratory 18 Rate Blood Pressure 115/54 O2 Sat by Pulse 96 93 Oximetry - General Appearance General appearance: well-developed, well-nourished, appears stated age EENT: ATNC, PERRL, mucous membranes moist Neck: no JVD Respiratory: Present: Clear to Ascultation Cardiology: regular, S1S2 Gastrointestinal: normal Integumentary: no rash, other (2+ RUE edema ) Neurologic: no focal deficit, alert and oriented x3, strength 5/5, CN 3-12 intact Psychiatric: mood/affect appropriate, cooperative - Lab 12/30/19 01:20 12/30/19 01:20 Most recent lab results Calcium 9.5 mg/dL (8.4-10.2) 12/30/19 01:20 Urine Creatinine 97.4 mg/dL (0.1-20.0) H 12/16/19 06:15 Urine Sodium 14 mmol/L 12/16/19 06:15 Urine Total Protein 30 mg/dL (5-11.8) H 12/16/19 06:15 Medications & Allergies - Medications Allergies/Adverse Reactions: Allergies cefazolin Allergy (Intermediate, Verified 10/19/19 13:26) Hives itching & hives Home Medications: Home Medications Medication Instructions Recorded Confirmed Last Taken Type Aspirin 81 mg PO DAILY 10/16/19 12/14/19 5 Days Ago History ~12/09/19 Calcium Citrate/Vitamin D3 1,000 units PO DAILY 10/16/19 12/08/19 12/13/19 History Dronedarone (Nf) [Multaq (Nf)] 400 mg PO DAILY 10/16/19 12/08/19 12/13/19 History Mycophenolate 500 mg PO BID 10/16/19 12/08/19 12/13/19 History Prograf 2 mg PO Q12HR 10/16/19 12/08/19 12/13/19 History amLODIPine 5 mg PO DAILY 10/16/19 12/08/19 12/14/19 07:00 History carvediloL [Coreg] 20 mg PO BID 10/16/19 12/08/19 12/14/19 07:00 History glipiZIDE 5 mg PO DAILY 10/16/19 12/08/19 12/13/19 History predniSONE [Deltasone] 5 mg PO DAILY 10/16/19 12/08/19 12/13/19 History HYDROcodone/APAP 5-325 [Hinkle 1 each PO Q6HR PRN #20 tablet 10/19/19 12/08/19 12/13/19 Rx 5-325 mg TAB] HYDROcodone/APAP 7.5-325 [Hinkle 1 each PO Q6HR PRN #20 tablet 12/14/19 Unknown Rx 7.5-325 mg TAB] Sulfamethoxazole/Trimethoprim 1 each PO BID #30 tablet 12/14/19 Unknown Rx [Bactrim DS TAB] Active Medications: Generic Name Dose Route Start Last Admin Trade Name Freq PRN Reason Stop Dose Admin Acetaminophen 650 mg 12/14/19 22:57 Tylenol PO Q4H PRN Pain MILD(1-3)/Fever >100.5/WHALEY Amlodipine Besylate 5 mg 12/15/19 10:00 12/30/19 09:09 Amlodipine PO 5 mg DAILY NANCY Administration Carvedilol 25 mg 12/15/19 10:00 12/30/19 09:08 Coreg PO 25 mg BID NANCY Administration Dextrose 50 ml 12/22/19 07:00 12/22/19 14:00 D50w (25gm) Syringe IV 20 ml PRN PRN Administration Hypoglycemia Protocol Famotidine 20 mg 12/16/19 10:00 12/30/19 09:08 Pepcid PO 20 mg DAILY NANCY Administration Hydromorphone HCl 1 mg 12/14/19 22:57 12/16/19 18:32 Dilaudid IV 1 mg Q3H PRN Administration Pain , Severe (7-10) Daptomycin 500 mg/ Sodium 100 mls @ 200 mls/hr 12/19/19 16:00 12/29/19 17:44 Chloride IV 01/11/20 23:59 100 mls/hr Q48H NANCY Administration Protocol Insulin Glargine 10 units 12/25/19 22:00 12/29/19 22:00 Lantus SUB-Q Not Given QHS NANCY Insulin Human Lispro 0 unit 12/23/19 17:30 12/30/19 08:20 Humalog SUB-Q Not Given ACHS [facility] Protocol Loperamide HCl 2 mg 12/15/19 14:01 12/23/19 12:33 Imodium PO 2 mg BID PRN Administration Diarrhea Metoclopramide HCl 5 mg 12/14/19 23:11 Reglan IV Q6H PRN Nausea And Vomiting Mycophenolate Mofetil 500 mg 12/14/19 23:00 12/30/19 09:08 Cellcept PO 500 mg BID NANCY Administration Ondansetron HCl 4 mg 12/14/19 22:57 12/19/19 10:36 Zofran IV 4 mg Q3H PRN Administration Nausea And Vomiting Oxycodone/Acetaminophen 1 tab 12/14/19 22:57 12/28/19 22:26 Percocet 5/325 PO 1 tab Q6H PRN Administration Pain, Moderate (4-6) Prednisone 5 mg 12/15/19 10:00 12/30/19 09:09 Deltasone PO 5 mg DAILY NANCY Administration Sodium Bicarbonate 650 mg 12/15/19 22:00 12/30/19 09:08 Sodium Bicarbonate PO 650 mg BID NANCY Administration Sodium Chloride 10 ml 12/15/19 10:00 12/30/19 09:09 Sodium Chloride Flush Syringe 10 Ml IV 10 ml BID NANCY Administration Sodium Chloride 10 ml 12/14/19 22:57 12/18/19 22:09 Sodium Chloride Flush Syringe 10 Ml IV 10 ml PRN PRN Administration LINE FLUSH Tacrolimus 2 mg 12/14/19 23:00 12/30/19 09:08 Prograf PO 2 mg Q12HR NANCY Administration
--- NOTE | 2019-12-30 13:46 | Progress Note ---
Assessment and Plan Assessment and plan: 64-year-old male with a history of hypertension end-stage renal disease received a kidney transplant several years ago and has had baseline creatinine of 1.3- 1.5. He presented to the hospital for surgical correction of right proximal tibial fracture. 12/14/2019 patient admitted for elective surgical correction of right proximal to tibial fracture. Patient underwent surgical intervention and external fixation device. 12/15/1999 patient was found to have elevated creatinine up from 1.5 at baseline to 2.8. Therefore renal consult was obtained. Was thought to be secondary to prerenal azotemia. Symptoms responding to IV volume replacement and creatinine going back down to baseline. 12/16/2019 patient's creatinine continued to improve toward baseline. 12/17/2019. Patient surgical blood culture showed positive for methicillin resistant staph aureus. May be contaminant because patient remained afebrile no leukocytosis. No tenderness to the area. And sensitivity of MRSA was pansensitive to Cipro and Bactrim. Patient was given 1 dose of Vanco IV and await any ID recommendations. Patient should be able to discharge with Bactrim since it is sensitive and patient is afebrile no leukocytosis. Does not appear to have underlying infection at this time. 12/18/2019. Patient is resting doubly afebrile placed on Bactrim because MRSA was sensitive to this. Await further recommendations from Ortho about discharge planning. Patient somewhat sad today. States he just lost his sister. Patient denies any wants for antidepressant medications. 12/18: Awaiting further plan by othor, continue on abx per ID and Nephrology following for urmila, Showing slight improvement and not at baseline. Monitor Right upper ext 12/19: Consult Vascular due to concern for upper ext, obtain doppler of right upper ext 12/20: Unsure why Doppler has not been done, nurse not aware either, call placed to department for stat exam, will give a dose of Lovenox prophylactically. Finally doppler done and no DVT. Elevate Upper ext 12/21: CONTINUE ABX, DISCUSSED WITH NURSINGS STAFF TO ELEVATE UPPER EXT, Tunnle catheter placed. Renal function slightly worse. Continue to monitor. 12/22: Clinically improving, Tunnel catheter placed, awaiting, clearance from Nephrology for discharge, Leukocytosis and renal functions showing slight improvement. Continue to monitor Right upper ext swelling. S/P 1 unit PRBC transfused, totalling 2 units for this admission. 12/23: Continue current clinical support. Anticipate discharge in a.m. mild elevation in WBC. Also monitor hemoglobin following transfusion. 12/24: Patient is a 64-year-old male with history of kidney transplant who presented to the hospital with right tibia fracture status post surgical correction. Did have MRSA culture which was considered a contaminant. Hospital stay had been complicated with precipitous drop in hemoglobin and also right upper extremity swelling. Doppler study was done of the right upper extremity and was negative for DVT. Due to prolonged antibiotic coverage patient was seen by vascular and a tunnel catheter placed. Renal function has continued to improve. And patient is now pending discharge. From medicine standpoint patient can be discharged when okay with nephrology and Ortho. Anticipate the patient will benefit from rehab either at home or at a facility. During this hospitalization patient did receive 2 units packed red blood cell. 12/25. Patient seen and examined at bedside this morning. He has no complaints today. Labs reviewed. Will benefit from rehab. Still on daptomycin for MRSA treatment. ID, Ortho and nephrology on board. 12/26. am. No complaints today. CT RUE not performed yesterday. Plan to repeat today. 12/26. pm. CT right upper extremity shows some abscess with subcutaneous edema with possible necrotizing fasciitis. Discussed with surgery on 12/26. Patient made n.p.o. after midnight. 12/27. Right arm swelling has slightly improved after elevation yesterday. Orthopedic surgeon performed I&D at bedside with wound packing. Not clear if cultures obtained. Patient was already on IV antibiotics. Plan to obtain culture if possible. 12/28. RUE swelling better. Cultures - +ve MRSA. Needs discharge planning. ID following. 12/29. He has no complaints today. Still on IV antibiotics. ID is following. Needs placement - CM working on this. Patient Problems SEPSIS UNKNOWN SOURCE- POA URMILA (acute kidney injury) with vasomotor nephropathy Current Visit: Yes Status: Acute Plan to address problem: Cr stable at 2.2 Hypernatremia Current Visit: Yes Status: Acute Plan to address problem: Resolved Right upper extremity swelling Current Visit: Yes Status: Acute Plan to address problem: CT shows fluid collection with edema. Orthopedic surgery evaluation-bedside I&D with wound packing performed Patient is on broad-spectrum antibiotics. Right tibial fracture Current Visit: Yes Status: Acute Qualifiers: Encounter type: initial encounter Salter-Ocampo Fracture Type: unspecified configuration Plan to address problem: Right tibial fracture status post correction. No evidence of infection. Giovanna patel. Patient did have positive blood culture for MRSA. On daptomycin Bilateral pressure ulcer of the sacrum stge 3: Wound care following S/P kidney transplant Current Visit: Yes Status: Acute Plan to address problem: Renal function stable. Hypertension Current Visit: Yes Status: Chronic Qualifiers: Hypertension type: essential hypertension Qualified Code(s): I10 - Essent ial (primary) hypertension Plan to address problem: Patient has optimal control blood pressure amlodipine Coreg continue present medical management. T2DM (type 2 diabetes mellitus) Current Visit: Yes Status: Chronic Qualifiers: Diabetes mellitus halfway insulin use: without halfway use Plan to address problem: Patient diabetes still has suboptimal control. Patient is not eating better would add long acting insulin 15 units Levemir at night. Metabolic acidosis Current Visit: Yes Status: Acute Plan to address problem: Resolved Precipitous drop in HCT, Anemia Continue to monitor. DVT prophylaxis Current Visit: Yes Status: Acute History Interval history: Patient seen and examined this morning. Right arm swelling improved after I&D. On antibiotics Hospitalist Physical - Constitutional Vitals: Temp Pulse Resp BP Pulse Ox 98.7 F 63 18 115/53 95 12/30/19 11:07 12/30/19 11:07 12/30/19 11:07 12/30/19 11:07 12/30/19 11:07 General appearance: Present: no acute distress, well-nourished - EENT Eyes: Present: PERRL - Respiratory Respiratory: bilateral: CTA - Cardiovascular Heart Sounds: Present: S1 & S2 - Extremities Extremity abnormal: other (RUE swelling with dressing intact) - Abdominal General gastrointestinal: soft, non-tender, non-distended, normal bowel sounds - Psychiatric Psychiatric: appropriate mood/affect - Neurologic Neurologic: CNII-XII intact HEART Score - HEART Score Age: > 65 Risk factors: 1-2 risk factors - Critical Actions Critical Actions: 0-3 pts:0.9-1.7%risk of adverse cardiac event.Candidate for discharge Results - Labs CBC & Chem 7: 12/30/19 01:20 12/30/19 01:20 Labs: Laboratory Last Values WBC 13.9 K/mm3 (4.5-11.0) H 10/10/20 01:20 RBC 2.96 M/mm3 (3.65-5.03) L 12/30/19 01:20 Hgb 7.1 gm/dl (11.8-15.2) L 12/30/19 01:20 Hct 23.1 % (35.5-45.6) L 12/30/19 01:20 MCV 78 fl (84-94) L 12/30/19 01:20 MCH 24 pg (28-32) L 12/30/19 01:20 MCHC 31 % (32-34) L 12/30/19 01:20 RDW 20.6 % (13.2-15.2) H 12/30/19 01:20 Plt Count 296 K/mm3 (140-440) 12/30/19 01:20 Lymph % (Auto) 9.5 % (13.4-35.0) L 12/30/19 01:20 [place] % (Auto) 6.3 % (0.0-7.3) 12/30/19 01:20 Eos % (Auto) 0.3 % (0.0-4.3) 12/30/19 01:20 Baso % (Auto) 0.3 % (0.0-1.8) 12/30/19 01:20 Lymph # (Auto) 1.3 K/mm3 (1.2-5.4) 12/30/19 01:20 [place] # (Auto) 0.9 K/mm3 (0.0-0.8) H 12/30/19 01:20 Eos # (Auto) 0.0 K/mm3 (0.0-0.4) 12/30/19 01:20 Baso # (Auto) 0.0 K/mm3 (0.0-0.1) 12/30/19 01:20 Add Manual Diff Complete 12/27/19 Unknown Total Counted 100 12/27/19 Unknown Seg Neutrophils % 83.6 % (40.0-70.0) H 12/30/19 01:20 Seg Neuts % (Manual) 85.0 % (40.0-70.0) H 12/27/19 Unknown Band Neutrophils % 3.0 % 12/27/19 Unknown Lymphocytes % (Manual) 6.0 % (13.4-35.0) L 12/27/19 Unknown Reactive Lymphs % (Man) 0 % 12/27/19 Unknown Monocytes % (Manual) 4.0 % (0.0-7.3) 12/27/19 Unknown Eosinophils % (Manual) 0 % (0.0-4.3) 12/27/19 Unknown Basophils % (Manual) 0 % (0.0-1.8) 12/27/19 Unknown Metamyelocytes % 0 % 12/27/19 Unknown Myelocytes % 2.0 % 12/27/19 Unknown Promyelocytes % 0 % 12/27/19 Unknown Blast Cells % 0 % 12/27/19 Unknown Nucleated RBC % Not Reportable 12/27/19 Unknown Seg Neutrophils # 11.6 K/mm3 (1.8-7.7) H 12/30/19 01:20 Seg Neutrophils # Man 12.2 K/mm3 (1.8-7.7) H 12/27/19 Unknown Band Neutrophils # 0.4 K/mm3 12/27/19 Unknown Lymphocytes # (Manual) 0.9 K/mm3 (1.2-5.4) L 12/27/19 Unknown Abs React Lymphs (Man) 0.0 K/mm3 12/27/19 Unknown Monocytes # (Manual) 0.6 K/mm3 (0.0-0.8) 12/27/19 Unknown Eosinophils # (Manual) 0.0 K/mm3 (0.0-0.4) 12/27/19 Unknown Basophils # (Manual) 0.0 K/mm3 (0.0-0.1) 12/27/19 Unknown Metamyelocytes # 0.0 K/mm3 12/27/19 Unknown Myelocytes # 0.3 K/mm3 12/27/19 Unknown Promyelocytes # 0.0 K/mm3 12/27/19 Unknown Blast Cells # 0.0 K/mm3 12/27/19 Unknown WBC Morphology Not Reportable 12/27/19 Unknown Hypersegmented Neuts Not Reportable 12/27/19 Unknown Hyposegmented Neuts Not Reportable 12/27/19 Unknown Hypogranular Neuts Not Reportable 12/27/19 Unknown Smudge Cells Not Reportable 12/27/19 Unknown Toxic Granulation Not Reportable 12/27/19 Unknown Toxic Vacuolation Not Reportable 12/27/19 Unknown Dohle Bodies Not Reportable 12/27/19 Unknown Pelger-Huet Anomaly Not Reportable 12/27/19 Unknown Robert Rods Not Reportable 12/27/19 Unknown Platelet Estimate Consistent w auto 12/27/19 Unknown Clumped Platelets Not Reportable 12/27/19 Unknown Plt Clumps, EDTA Not Reportable 12/27/19 Unknown Large Platelets Not Reportable 12/27/19 Unknown Giant Platelets Not Reportable 12/27/19 Unknown Platelet Satelliting Not Reportable 12/27/19 Unknown Plt Morphology Comment Not Reportable 12/27/19 Unknown RBC Morphology Not Reportable 12/27/19 Unknown Dimorphic RBCs Not Reportable 12/27/19 Unknown Polychromasia Not Reportable 12/27/19 Unknown Hypochromasia 1+ 12/27/19 Unknown Poikilocytosis Not Reportable 12/27/19 Unknown Anisocytosis 1+ 12/27/19 Unknown Microcytosis Not Reportable 12/27/19 Unknown Macrocytosis Not Reportable 12/27/19 Unknown Spherocytes Not Reportable 12/27/19 Unknown Pappenheimer Bodies Not Reportable 12/27/19 Unknown Sickle Cells Not Reportable 12/27/19 Unknown Target Cells Not Reportable 12/27/19 Unknown Tear Drop Cells Few 12/27/19 Unknown Ovalocytes Not Reportable 12/27/19 Unknown Helmet Cells Not Reportable 12/27/19 Unknown Santana-Chantilly Bodies Not Reportable 12/27/19 Unknown Drifting Rings Not Reportable 12/27/19 Unknown [place] Cells Not Reportable 12/27/19 Unknown Bite Cells Not Reportable 12/27/19 Unknown Crenated Cell Not Reportable 12/27/19 Unknown Elliptocytes Not Reportable 12/27/19 Unknown Acanthocytes (Spur) Not Reportable 12/27/19 Unknown Rouleaux Not Reportable 12/27/19 Unknown Hemoglobin C Crystals Not Reportable 12/27/19 Unknown Schistocytes Not Reportable 12/27/19 Unknown Malaria parasites Not Reportable 12/27/19 Unknown ESR 73 mm/Hr (0-20) 12/20/19 09:11 Hector Bodies Not Reportable 12/27/19 Unknown Hem Pathologist Commnt No 12/27/19 Unknown PT 14.9 Sec. (12.2-14.9) 12/28/19 00:45 INR 1.15 (0.87-1.13) H 12/28/19 00:45 Sodium 141 mmol/L (137-145) 12/30/19 01:20 Potassium 4.7 mmol/L (3.6-5.0) 12/30/19 01:20 Chloride 103.1 mmol/L (98-107) 12/30/19 01:20 Carbon Dioxide 24 mmol/L (22-30) 12/30/19 01:20 Anion Gap 19 mmol/L 12/30/19 01:20 BUN 30 mg/dL (9-20) H 12/30/19 01:20 Creatinine 2.2 mg/dL (0.8-1.3) H 12/30/19 01:20 Estimated GFR 37 ml/min 12/30/19 01:20 BUN/Creatinine Ratio 14 % 12/30/19 01:20 Glucose 115 mg/dL (75-100) H 12/30/19 01:20 POC Glucose 163 (70-105) H 12/30/19 11:22 Uric Acid 11.7 mg/dL (3.5-7.6) H 12/14/19 13:24 Calcium 9.5 mg/dL (8.4-10.2) 12/30/19 01:20 Total Bilirubin 0.40 mg/dL (0.1-1.2) 12/30/19 01:20 AST 17 units/L (5-40) 12/30/19 01:20 ALT 18 units/L (7-56) 12/30/19 01:20 Alkaline Phosphatase 170 units/L (35-129) H 12/30/19 01:20 Total Creatine Kinase 67 units/L (55-170) 12/27/19 Unknown C-Reactive Protein 7.70 mg/dL (0.00-1.30) H 12/27/19 Unknown Total Protein 5.2 g/dL (6.3-8.2) L 12/30/19 01:20 Albumin 2.7 g/dL (3.9-5) L 12/30/19 01:20 Albumin/Globulin Ratio 1.1 % 12/30/19 01:20 Urine Color Yellow (Yellow) 12/16/19 06:15 Urine Turbidity Clear (Clear) 12/16/19 06:15 Urine pH 5.0 (5.0-7.0) 12/16/19 06:15 Ur Specific [place] 1.013 (1.003-1.030) 12/16/19 06:15 Urine Protein 30 mg/dl mg/dL (Negative) 12/16/19 06:15 Urine Glucose (UA) Neg mg/dL (Negative) 12/16/19 06:15 Urine Ketones Neg mg/dL (Negative) 12/16/19 06:15 Urine Blood Mod (Negative) 12/16/19 06:15 Urine Nitrite Neg (Negative) 12/16/19 06:15 Urine Bilirubin Neg (Negative) 12/16/19 06:15 Urine Urobilinogen < 2.0 mg/dL (<2.0) 12/16/19 06:15 Ur Leukocyte Esterase Neg (Negative) 12/16/19 06:15 Urine WBC (Auto) 1.0 /HPF (0.0-6.0) 12/16/19 06:15 Urine RBC (Auto) 1.0 /HPF (0.0-6.0) 12/16/19 06:15 Urine Bacteria (Auto) 1+ /HPF (Negative) 12/16/19 06:15 Urine Mucus Few /HPF 12/16/19 06:15 Urine Creatinine 97.4 mg/dL (0.1-20.0) H 12/16/19 06:15 Urine Sodium 14 mmol/L 12/16/19 06:15 Urine Total Protein 30 mg/dL (5-11.8) H 12/16/19 06:15 Random Vancomycin 11.7 ug/mL (0-40.0) 12/19/19 09:37 Tacrolimus (Send Out) 7.9 mcg/L 12/24/19 07:51 Coronavirus (PCR) Negative (Negative) 12/12/19 14:40 Blood Type O POSITIVE 12/22/19 11:20 Antibody Screen Negative 12/22/19 11:20 Crossmatch See Detail 12/22/19 11:20 Microbiology: Microbiology 12/26/19 Unknown Wrist - Right Wound Culture - Final Methicillin Resist S. Aureus Lassiter/IV: Voiding Method Urinal IV Catheter Type [Left Wrist] INT / Saline Lock IV Catheter Type [Left Hand] Peripheral IV IV Catheter Type [Right PICC Line Internal Jugular] IV Catheter Type [Left Forearm Peripheral IV ] Active Medications - Current Medications Current Medications: Generic Name Dose Route Start Last Admin Trade Name Freq PRN Reason Stop Dose Admin Acetaminophen 650 mg 12/14/19 22:57 Tylenol PO Q4H PRN Pain MILD(1-3)/Fever >100.5/WHALEY Amlodipine Besylate 5 mg 12/15/19 10:00 12/30/19 09:09 Amlodipine PO 5 mg DAILY NANCY Administration Carvedilol 25 mg 12/15/19 10:00 12/30/19 09:08 Coreg PO 25 mg BID NANCY Administration Dextrose 50 ml 12/22/19 07:00 12/22/19 14:00 D50w (25gm) Syringe IV 20 ml PRN PRN Administration Hypoglycemia Protocol Famotidine 20 mg 12/16/19 10:00 12/30/19 09:08 Pepcid PO 20 mg DAILY NANCY Administration Hydromorphone HCl 1 mg 12/14/19 22:57 12/16/19 18:32 Dilaudid IV 1 mg Q3H PRN Administration Pain , Severe (7-10) Daptomycin 500 mg/ Sodium 100 mls @ 200 mls/hr 12/19/19 16:00 12/29/19 17:44 Chloride IV 01/11/20 23:59 100 mls/hr Q48H NANCY Administration Protocol Insulin Glargine 10 units 12/25/19 22:00 12/29/19 22:00 Lantus SUB-Q Not Given [facility]HS [facility] Insulin Human Lispro 0 unit 12/23/19 17:30 12/30/19 13:20 Humalog SUB-Q 1 unit ACHS NANCY Administration Protocol Loperamide HCl 2 mg 12/15/19 14:01 12/23/19 12:33 Imodium PO 2 mg BID PRN Administration Diarrhea Metoclopramide HCl 5 mg 12/14/19 23:11 Reglan IV Q6H PRN Nausea And Vomiting Mycophenolate Mofetil 500 mg 12/14/19 23:00 12/30/19 09:08 Cellcept PO 500 mg BID NANCY Administration Ondansetron HCl 4 mg 12/14/19 22:57 12/19/19 10:36 Zofran IV 4 mg Q3H PRN Administration Nausea And Vomiting Oxycodone/Acetaminophen 1 tab 12/14/19 22:57 12/28/19 22:26 Percocet 5/325 PO 1 tab Q6H PRN Administration Pain, Moderate (4-6) Prednisone 5 mg 12/15/19 10:00 12/30/19 09:09 Deltasone PO 5 mg DAILY NANCY Administration Sodium Bicarbonate 650 mg 12/15/19 22:00 12/30/19 09:08 Sodium Bicarbonate PO 650 mg BID NANCY Administration Sodium Chloride 10 ml 12/15/19 10:00 12/30/19 09:09 Sodium Chloride Flush Syringe 10 Ml IV 10 ml BID NANCY Administration Sodium Chloride 10 ml 12/14/19 22:57 12/18/19 22:09 Sodium Chloride Flush Syringe 10 Ml IV 10 ml PRN PRN Administration LINE FLUSH Tacrolimus 2 mg 12/14/19 23:00 12/30/19 09:08 Prograf PO 2 mg Q12HR NANCY Administration Nutrition/Malnutrition Assess - Dietary Evaluation Nutrition/Malnutrition Findings: Nutrition Notes Start: 12/15/19 14:1 1 Freq: Status: Active Protocol: Document 12/28/19 12:04 PHILLIP (Rec: 12/28/19 12:11 PHILLIP [id number]) Co-Sign 12/28/19 12:04 LP Nutrition Notes Initial or Follow up Reassessment Current Diagnosis Acute Kidney Injury,Diabetes Other Pertinent Diagnosis s/p kidney transplant, MRSA, tibia fx, Hypernatremia, Hypokalemia Current Diet NPO after midnight Labs/Tests BUN 31 Cr 2.2 BG 157 Pertinent Medications K-Dur Height 6 ft Weight 79.5 kg [place] Body Weight (kg) 80.90 BMI 23.8 Weight Status Appropriate Subjective/Other Information F/U for intakes and ONS. Pt reports consuming 100% meals and supplements. Percent of energy/protein needs met: 100%/100% Burn Absent Trauma Absent Skin Integrity/Comment multiple pressure ulcers Current % PO Good (75-100%) Minimum of two criteria No Fluid Accumulation Mild (non-severe) #1 Nutrition Diagnosis Increased nutrient needs ( specify in comment below) Diagnosis Progress(for reassessment Continues documentation) Is patient on ventilator? No Is Patient Ambulatory and/or Out of Bed No REE-([place]-St. Jeor-confined to bed) 1945.89 Calculation Used for Recommendations [facility] Additional Notes Protein (0.8-1.5g/kg): 63-119g Fluid 1ml/kcal Nutrition Intervention Change Diet Order: Renal diet Add Supplement/Snack (indicate name/kcal Nepro Butter Pecan BID /protein ) D/C Glucerna TID Provides kCal: 850 Provides Protein (gm) 38 Goal #1 Pt will meet 75-100% of energy and protein needs by PO. Goal #2 Wound healing Anticipated Discharge Needs: Renal diet Follow-Up By: 01/02/20 Additional Comments F/U intakes and ONS tolerance
--- NOTE | 2019-12-30 18:25 | Progress Note ---
Assessment and Plan Continue dressing changes and IV antibiotics Subjective Date of service: 12/30/19 Principal diagnosis: Leg pain Interval history: No major complaints noted from patient Objective Vital signs: Vital Signs - 12hr 12/30/19 12/30/19 12/30/19 07:00 07:27 11:07 Temperature 97.9 F 98.7 F Pulse Rate 59 L 63 Respiratory 18 18 Rate Blood Pressure 115/54 115/53 O2 Sat by Pulse 96 93 95 Oximetry 12/30/19 15:49 Temperature 99.0 F Pulse Rate 66 Respiratory 20 Rate Blood Pressure 120/60 O2 Sat by Pulse 95 Oximetry Narrative Exam: Dressings removed as well as packing no redness or erythema minimal drainage noted - Labs CBC & BMP: 12/30/19 01:20 12/30/19 01:20 Labs: Abnormal lab results 12/29/19 12/30/19 12/30/19 Range/Units 21:35 01:20 01:20 WBC 13.9 H (4.5-11.0) K/mm3 RBC 2.96 L (3.65-5.03) M/mm3 Hgb 7.1 L (11.8-15.2) gm/dl Hct 23.1 L (35.5-45.6) % MCV 78 L (84-94) fl MCH 24 L (28-32) pg MCHC 31 L (32-34) % RDW 20.6 H (13.2-15.2) % Lymph % (Auto) 9.5 L (13.4-35.0) % [place] # (Auto) 0.9 H (0.0-0.8) K/mm3 Seg Neutrophils % 83.6 H (40.0-70.0) % Seg Neutrophils # 11.6 H (1.8-7.7) K/mm3 BUN 30 H (9-20) mg/dL Creatinine 2.2 H (0.8-1.3) mg/dL Glucose 115 H (75-100) mg/dL POC Glucose 157 H (70-105) Alkaline Phosphatase 170 H (35-129) units/L Total Protein 5.2 L (6.3-8.2) g/dL Albumin 2.7 L (3.9-5) g/dL 12/30/19 12/30/19 Range/Units 11:22 16:55 WBC (4.5-11.0) K/mm3 RBC (3.65-5.03) M/mm3 Hgb (11.8-15.2) gm/dl Hct (35.5-45.6) % MCV (84-94) fl MCH (28-32) pg MCHC (32-34) % RDW (13.2-15.2) % Lymph % (Auto) (13.4-35.0) % [place] # (Auto) (0.0-0.8) K/mm3 Seg Neutrophils % (40.0-70.0) % Seg Neutrophils # (1.8-7.7) K/mm3 BUN (9-20) mg/dL Creatinine (0.8-1.3) mg/dL Glucose (75-100) mg/dL POC Glucose 163 H 207 H (70-105) Alkaline Phosphatase (35-129) units/L Total Protein (6.3-8.2) g/dL Albumin (3.9-5) g/dL
[2019-12-30] MEDS: INSULIN GLARGINE 100 UNITS/ML SUB-Q SCH (22:25)
[2019-12-31 05:20] LABS: Basophils # (Auto) 0.1 K/mm3 (0.0-0.1); Basophils % (Auto) 0.7 % (0.0-1.8); Eosinophils # (Auto) 0.1 K/mm3 (0.0-0.4); Eosinophils % (Auto) 1.1 % (0.0-4.3); Hematocrit 22.7 % (35.5-45.6); Hemoglobin 7.2 gm/dl (11.8-15.2); Lymphocytes # (Auto) 1.5 K/mm3 (1.2-5.4); Lymphocytes % (Auto) 12.3 % (13.4-35.0); Mean Corpuscular HGB Conc 32 % (32-34); Mean Corpuscular Volume 78 fl (84-94); Monocytes # (Auto) 0.9 K/mm3 (0.0-0.8); Monocytes % (Auto) 7.2 % (0.0-7.3); Platelet Count 260 K/mm3 (140-440); Red Blood Count 2.91 M/mm3 (3.65-5.03)
[2019-12-31 05:32] LABS: Red Cell Distribution Width 20.3 % (13.2-15.2)
[2019-12-31 05:33] LABS: Albumin 2.6 g/dL (3.9-5); Calcium 9.7 mg/dL (8.4-10.2)
[2019-12-31] MEDS: INSULIN LISPRO 100 UNIT/ML VIAL 3 mL SUB-Q SCH ×4 (07:41→22:01)
[2019-12-31] MEDS: SODIUM BICARBONATE 650 MG TAB PO SCH ×2 (09:36→21:55)
[2019-12-31] MEDS: FAMOTIDINE 20 MG TAB PO SCH (09:37)
[2019-12-31] MEDS: predniSONE 5 MG TAB PO SCH (09:37)
[2019-12-31] MEDS: amLODIPine 5 MG TAB PO SCH (09:37)
[2019-12-31] MEDS: MYCOPHENOLATE 500 MG TAB PO SCH ×2 (09:37→22:07)
[2019-12-31] MEDS: TACROLIMUS 1 MG CAP PO SCH ×2 (09:37→21:55)
[2019-12-31] MEDS: carvediloL 25 MG TAB PO SCH ×2 (09:37→21:55)
--- NOTE | 2019-12-31 10:37 | Progress Note ---
Assessment and Plan - Patient Problems (1) URMILA (acute kidney injury) Current Visit: Yes Status: Acute Plan to address problem: Acute tubular necrosis secondary to sepsis. Kidney function is stabilized . Continue to monitor electrolytes and renal function (2) S/P kidney transplant Current Visit: Yes Status: Acute Plan to address problem: Follow up Prograf level. Continue immunosuppression (3) Right tibial fracture Current Visit: Yes Status: Acute Qualifiers: Encounter type: initial encounter Salter-Ocampo Fracture Type: unspecified configuration Plan to address problem: Management per orthopedic surgery (4) Hypernatremia Current Visit: Yes Status: Acute Plan to address problem: resolved (5) Hypokalemia Current Visit: Yes Status: Acute Plan to address problem: resolved (6) Hypertension Current Visit: Yes Status: Chronic Qualifiers: Hypertension type: essential hypertension Qualified Code(s): I10 - Essential (primary) hypertension Plan to address problem: Follow-up blood pressure on current medication (7) T2DM (type 2 diabetes mellitus) Current Visit: Yes Status: Chronic Qualifiers: Diabetes mellitus skilled nursing insulin use: without termite treater use Plan to address problem: Blood sugar management by primary attending (8) Metabolic acidosis Current Visit: Yes Status: Acute Plan to address problem: Improved with po Na bicarb (9) Infection of wound due to methicillin resistant Staphylococcus aureus (MRSA) Current Visit: Yes Status: Acute Plan to address problem: Continue antibiotics. Patient on isolation. follow ID recommendations. CT RUE confirmed extensive cellulitis, pt on ABX treatment with daptomycin, renally dosed. Subjective Date of service: 12/31/19 Principal diagnosis: Leg pain Interval history: Pt awake, alert, in no acute distress Objective - Vital Signs Vital signs: Vital Signs - 12hr 12/30/19 12/31/19 12/31/19 22:57 05:58 07:19 Temperature 98.3 F 98.6 F 98.3 F Pulse Rate 62 63 68 Respiratory 18 18 19 Rate Blood Pressure 152/60 160/52 128/59 Blood Pressure [Left] O2 Sat by Pulse 97 96 99 Oximetry 12/31/19 08:00 Temperature 98.3 F Pulse Rate 69 Respiratory 19 Rate Blood Pressure Blood Pressure 128/59 [Left] O2 Sat by Pulse 97 Oximetry - General Appearance General appearance: well-developed, well-nourished, appears stated age EENT: ATNC, PERRL, mucous membranes moist Neck: no JVD Respiratory: Present: Clear to Ascultation Cardiology: regular, S1S2 Gastrointestinal: normoactive bowel sounds Integumentary: no rash, other (no edema ) Neurologic: no focal deficit, alert and oriented x3, strength 5/5, CN 3-12 intact Psychiatric: mood/affect appropriate, cooperative - Lab 12/31/19 04:40 12/31/19 00:00 Most recent lab results Calcium 9.7 mg/dL (8.4-10.2) 12/31/19 00:00 Urine Creatinine 97.4 mg/dL (0.1-20.0) H 12/16/19 06:15 Urine Sodium 14 mmol/L 12/16/19 06:15 Urine Total Protein 30 mg/dL (5-11.8) H 12/16/19 06:15 Medications & Allergies - Medications Allergies/Adverse Reactions: Allergies cefazolin Allergy (Intermediate, Verified 10/19/19 13:26) Hives itching & hives Home Medications: Home Medications Medication Instructions Recorded Confirmed Last Taken Type Aspirin 81 mg PO DAILY 10/16/19 12/14/19 5 Days Ago History ~12/09/19 Calcium Citrate/Vitamin D3 1,000 units PO DAILY 10/16/19 12/08/19 12/13/19 History Dronedarone (Nf) [Multaq (Nf)] 400 mg PO DAILY 10/16/19 12/08/19 12/13/19 History Mycophenolate 500 mg PO BID 10/16/19 12/08/19 12/13/19 History Prograf 2 mg PO Q12HR 10/16/19 12/08/19 12/13/19 History amLODIPine 5 mg PO DAILY 10/16/19 12/08/19 12/14/19 07:00 History carvediloL [Coreg] 20 mg PO BID 10/16/19 12/08/19 12/14/19 07:00 History glipiZIDE 5 mg PO DAILY 10/16/19 12/08/19 12/13/19 History predniSONE [Deltasone] 5 mg PO DAILY 10/16/19 12/08/19 12/13/19 History HYDROcodone/APAP 5-325 [[place] 1 each PO Q6HR PRN #20 tablet 10/19/19 12/08/19 12/13/19 Rx 5-325 mg TAB] HYDROcodone/APAP 7.5-325 [[place] 1 each PO Q6HR PRN #20 tablet 12/14/19 Unknown Rx 7.5-325 mg TAB] Sulfamethoxazole/Trimethoprim 1 each PO BID #30 tablet 12/14/19 Unknown Rx [Bactrim DS TAB] Active Medications: Generic Name Dose Route Start Last Admin Trade Name Freq PRN Reason Stop Dose Admin Acetaminophen 650 mg 12/14/19 22:57 Tylenol PO Q4H PRN Pain MILD(1-3)/Fever >100.5/WHALEY Amlodipine Besylate 5 mg 12/15/19 10:00 12/31/19 09:37 Amlodipine PO 5 mg DAILY NANCY Administration Carvedilol 25 mg 12/15/19 10:00 12/31/19 09:37 Coreg PO 25 mg BID NANCY Administration Dextrose 50 ml 12/22/19 07:00 12/22/19 14:00 D50w (25gm) Syringe IV 20 ml PRN PRN Administration Hypoglycemia Protocol Famotidine 20 mg 12/16/19 10:00 12/31/19 09:37 Pepcid PO 20 mg DAILY NANCY Administration Hydromorphone HCl 1 mg 12/14/19 22:57 12/16/19 18:32 Dilaudid IV 1 mg Q3H PRN Administration Pain , Severe (7-10) Daptomycin 500 mg/ Sodium 100 mls @ 200 mls/hr 12/19/19 16:00 12/29/19 17:44 Chloride IV 01/11/20 23:59 100 mls/hr Q48H NANCY Administration Protocol Insulin Glargine 10 units 12/25/19 22:00 12/30/19 22:25 Lantus SUB-Q 10 units QHS NANCY Administration Insulin Human Lispro 0 unit 12/23/19 17:30 12/31/19 07:41 Humalog SUB-Q Not Given ACHS NANCY Protocol Loperamide HCl 2 mg 12/15/19 14:01 12/23/19 12:33 Imodium PO 2 mg BID PRN Administration Diarrhea Metoclopramide HCl 5 mg 12/14/19 23:11 Reglan IV Q6H PRN Nausea And Vomiting Mycophenolate Mofetil 500 mg 12/14/19 23:00 12/31/19 09:37 Cellcept PO 500 mg BID NANCY Administration Ondansetron HCl 4 mg 12/14/19 22:57 12/19/19 10:36 Zofran IV 4 mg Q3H PRN Administration Nausea And Vomiting Oxycodone/Acetaminophen 1 tab 12/14/19 22:57 12/28/19 22:26 Percocet 5/325 PO 1 tab Q6H PRN Administration Pain, Moderate (4-6) Prednisone 5 mg 12/15/19 10:00 12/31/19 09:37 Deltasone PO 5 mg DAILY NANCY Administration Sodium Bicarbonate 650 mg 12/15/19 22:00 12/31/19 09:36 Sodium Bicarbonate PO 650 mg BID NANCY Administration Sodium Chloride 10 ml 12/15/19 10:00 12/31/19 09:38 Sodium Chloride Flush Syringe 10 Ml IV 10 ml BID NANCY Administration Sodium Chloride 10 ml 12/14/19 22:57 12/18/19 22:09 Sodium Chloride Flush Syringe 10 Ml IV 10 ml PRN PRN Administration LINE FLUSH Tacrolimus 2 mg 12/14/19 23:00 12/31/19 09:37 Prograf PO 2 mg Q12HR NANCY Administration
--- NOTE | 2019-12-31 12:32 | Progress Note ---
Assessment and Plan Assessment and plan: 64-year-old male with a history of hypertension end-stage renal disease received a kidney transplant several years ago and has had baseline creatinine of 1.3- 1.5. He presented to the hospital for surgical correction of right proximal tibial fracture. 12/14/2019 patient admitted for elective surgical correction of right proximal to tibial fracture. Patient underwent surgical intervention and external fixation device. 12/15/1999 patient was found to have elevated creatinine up from 1.5 at baseline to 2.8. Therefore renal consult was obtained. Was thought to be secondary to prerenal azotemia. Symptoms responding to IV volume replacement and creatinine going back down to baseline. 12/16/2019 patient's creatinine continued to improve toward baseline. 12/17/2019. Patient surgical blood culture showed positive for methicillin resistant staph aureus. May be contaminant because patient remained afebrile no leukocytosis. No tenderness to the area. And sensitivity of MRSA was pansensitive to Cipro and Bactrim. Patient was given 1 dose of Vanco IV and await any ID recommendations. Patient should be able to discharge with Bactrim since it is sensitive and patient is afebrile no leukocytosis. Does not appear to have underlying infection at this time. 12/18/2019. Patient is resting doubly afebrile placed on Bactrim because MRSA was sensitive to this. Await further recommendations from Ortho about discharge planning. Patient somewhat sad today. States he just lost his sister. Patient denies any wants for antidepressant medications. 12/18: Awaiting further plan by othor, continue on abx per ID and Nephrology following for urmila, Showing slight improvement and not at baseline. Monitor Right upper ext 12/19: Consult Vascular due to concern for upper ext, obtain doppler of right upper ext 12/20: Unsure why Doppler has not been done, nurse not aware either, call placed to department for stat exam, will give a dose of Lovenox prophylactically. Finally doppler done and no DVT. Elevate Upper ext 12/21: CONTINUE ABX, DISCUSSED WITH NURSINGS STAFF TO ELEVATE UPPER EXT, Tunnle catheter placed. Renal function slightly worse. Continue to monitor. 12/22: Clinically improving, Tunnel catheter placed, awaiting, clearance from Nephrology for discharge, Leukocytosis and renal functions showing slight improvement. Continue to monitor Right upper ext swelling. S/P 1 unit PRBC transfused, totalling 2 units for this admission. 12/23: Continue current clinical support. Anticipate discharge in a.m. mild elevation in WBC. Also monitor hemoglobin following transfusion. 12/24: Patient is a 64-year-old male with history of kidney transplant who presented to the hospital with right tibia fracture status post surgical correction. Did have MRSA culture which was considered a contaminant. Hospital stay had been complicated with precipitous drop in hemoglobin and also right upper extremity swelling. Doppler study was done of the right upper extremity and was negative for DVT. Due to prolonged antibiotic coverage patient was seen by vascular and a tunnel catheter placed. Renal function has continued to improve. And patient is now pending discharge. From medicine standpoint patient can be discharged when okay with nephrology and Ortho. Anticipate the patient will benefit from rehab either at home or at a facility. During this hospitalization patient did receive 2 units packed red blood cell. 12/25. Patient seen and examined at bedside this morning. He has no complaints today. Labs reviewed. Will benefit from rehab. Still on daptomycin for MRSA treatment. ID, Ortho and nephrology on board. 12/26. am. No complaints today. CT RUE not performed yesterday. Plan to repeat today. 12/26. pm. CT right upper extremity shows some abscess with subcutaneous edema with possible necrotizing fasciitis. Discussed with surgery on 12/26. Patient made n.p.o. after midnight. 12/27. Right arm swelling has slightly improved after elevation yesterday. Orthopedic surgeon performed I&D at bedside with wound packing. Not clear if cultures obtained. Patient was already on IV antibiotics. Plan to obtain culture if possible. 12/28. RUE swelling better. Cultures - +ve MRSA. Needs discharge planning. ID following. 12/29. He has no complaints today. Still on IV antibiotics. ID is following. Needs placement - CM working on this. 12/30. Awaiting placement. May need IV antibiotics at discharge - defer to ID Patient Problems SEPSIS UNKNOWN SOURCE- POA URMILA (acute kidney injury) with vasomotor nephropathy Current Visit: Yes Status: Acute Plan to address problem: Cr stable at 2.2 Hypernatremia Current Visit: Yes Status: Acute Plan to address problem: Resolved Right upper extremity swelling Current Visit: Yes Status: Acute Plan to address problem: CT shows fluid collection with edema. Orthopedic surgery evaluation-bedside I&D with wound packing performed Patient is on broad-spectrum antibiotics. Right tibial fracture Current Visit: Yes Status: Acute Qualifiers: Encounter type: initial encounter Salter-Ocampo Fracture Type: unspecified configuration Plan to address problem: Right tibial fracture status post correction. No evidence of infection. Clinically. Patient did have positive blood culture for MRSA. On daptomycin Bilateral pressure ulcer of the sacrum stge 3: Wound care following S/P kidney transplant Current Visit: Yes Status: Acute Plan to address problem: Renal function stable. Hypertension Current Visit: Yes Status: Chronic Qualifiers: Hypertension type: essential hypertension Qualified Code(s): I10 - Essential (primary) hypertension Plan to address problem: Patient has optimal control blood pressure amlodipine Coreg continue present medical management. T2DM (type 2 diabetes mellitus) Current Visit: Yes Status: Chronic Qualifiers: Diabetes mellitus seismograph operator insulin use: without seismograph operator use Plan to address problem: Patient diabetes still has suboptimal control. Patient is not eating better would add long acting insulin 15 units Levemir at night. Metabolic acidosis Current Visit: Yes Status: Acute Plan to address problem: Resolved Precipitous drop in HCT, Anemia Continue to monitor. DVT prophylaxis Current Visit: Yes Status: Acute History Interval history: Patient seen and examined this morning. Right arm swelling improved after I&D. On antibiotics. Awaiting placement. Hospitalist Physical - Constitutional Vitals: Temp Pulse Resp BP Pulse Ox 98.0 F 73 19 133/64 98 12/31/19 12:09 12/31/19 12:09 12/31/19 12:09 12/31/19 12:09 12/31/19 12:09 General appearance: Present: no acute distress, well-nourished - EENT Eyes: Present: PERRL - Neck Neck: Present: supple - Respiratory Respiratory: bilateral: CTA - Cardiovascular Heart Sounds: Present: S1 & S2 - Extremities Extremities: abnormal (RUE swelling with dressing intact) - Abdominal General gastrointestinal: soft, non-tender, non-distended, normal bowel sounds - Psychiatric Psychiatric: appropriate mood/affect - Neurologic Neurologic: CNII-XII intact HEART Score - HEART Score Age: > 65 Risk factors: 1-2 risk factors - Critical Actions Critical Actions: 0-3 pts:0.9-1.7%risk of adverse cardiac event.Candidate for discharge Results - Labs CBC & Chem 7: 12/31/19 04:40 12/31/19 00:00 Labs: Laboratory Last Values WBC 11.9 K/mm3 (4.5-11.0) H 12/31/19 04:40 RBC 2.91 M/mm3 (3.65-5.03) L 12/31/19 04:40 Hgb 7.2 gm/dl (11.8-15.2) L 12/31/19 04:40 Hct 22.7 % (35.5-45.6) L 12/31/19 04:40 MCV 78 fl (84-94) L 12/31/19 04:40 MCH 25 pg (28-32) L 12/31/19 04:40 MCHC 32 % (32-34) 12/31/19 04:40 RDW 20.3 % (13.2-15.2) H 12/31/19 04:40 Plt Count 260 K/mm3 (140-440) 12/31/19 04:40 Lymph % (Auto) 12.3 % (13.4-35.0) L 12/31/19 04:40 Piatt % (Auto) 7.2 % (0.0-7.3) 12/31/19 04:40 Eos % (Auto) 1.1 % (0.0-4.3) 12/31/19 04:40 Baso % (Auto) 0.7 % (0.0-1.8) 12/31/19 04:40 Lymph # (Auto) 1.5 K/mm3 (1.2-5.4) 12/31/19 04:40 Piatt # (Auto) 0.9 K/mm3 (0.0-0.8) H 12/31/19 04:40 Eos # (Auto) 0.1 K/mm3 (0.0-0.4) 12/31/19 04:40 Baso # (Auto) 0.1 K/mm3 (0.0-0.1) 12/31/19 04:40 Add Manual Diff Complete 12/27/19 Unknown Total Counted 100 12/27/19 Unknown Seg Neutrophils % 78.7 % (40.0-70.0) H 12/31/19 04:40 Seg Neuts % (Manual) 85.0 % (40.0-70.0) H 12/27/19 Unknown Band Neutrophils % 3.0 % 12/27/19 Unknown Lymphocytes % (Manual) 6.0 % (13.4-35.0) L 12/27/19 Unknown Reactive Lymphs % (Man) 0 % 12/27/19 Unknown Monocytes % (Manual) 4.0 % (0.0-7.3) 12/27/19 Unknown Eosinophils % (Manual) 0 % (0.0-4.3) 12/27/19 Unknown Basophils % (Manual) 0 % (0.0-1.8) 12/27/19 Unknown Metamyelocytes % 0 % 12/27/19 Unknown Myelocytes % 2.0 % 12/27/19 Unknown Promyelocytes % 0 % 12/27/19 Unknown Blast Cells % 0 % 12/27/19 Unknown Nucleated RBC % Not Reportable 12/27/19 Unknown Seg Neutrophils # 9.4 K/mm3 (1.8-7.7) H 12/31/19 04:40 Seg Neutrophils # Man 12.2 K/mm3 (1.8-7.7) H 12/27/19 Unknown Band Neutrophils # 0.4 K/mm3 12/27/19 Unknown Lymphocytes # (Manual) 0.9 K/mm3 (1.2-5.4) L 12/27/19 Unknown Abs React Lymphs (Man) 0.0 K/mm3 12/27/19 Unknown Monocytes # (Manual) 0.6 K/mm3 (0.0-0.8) 12/27/19 Unknown Eosinophils # (Manual) 0.0 K/mm3 (0.0-0.4) 12/27/19 Unknown Basophils # (Manual) 0.0 K/mm3 (0.0-0.1) 12/27/19 Unknown Metamyelocytes # 0.0 K/mm3 12/27/19 Unknown Myelocytes # 0.3 K/mm3 12/27/19 Unknown Promyelocytes # 0.0 K/mm3 12/27/19 Unknown Blast Cells # 0.0 K/mm3 12/27/19 Unknown WBC Morphology Not Reportable 12/27/19 Unknown Hypersegmented Neuts Not Reportable 12/27/19 Unknown Hyposegmented Neuts Not Reportable 12/27/19 Unknown Hypogranular Neuts Not Reportable 12/27/19 Unknown Smudge Cells Not Reportable 12/27/19 Unknown Toxic Granulation Not Reportable 12/27/19 Unknown Toxic Vacuolation Not Reportable 12/27/19 Unknown Dohle Bodies Not Reportable 12/27/19 Unknown Pelger-Huet Anomaly Not Reportable 12/27/19 Unknown Robert Rods Not Reportable 12/27/19 Unknown Platelet Estimate Consistent w auto 12/27/19 Unknown Clumped Platelets Not Reportable 12/27/19 Unknown Plt Clumps, EDTA Not Reportable 12/27/19 Unknown Large Platelets Not Reportable 12/27/19 Unknown Giant Platelets Not Reportable 12/27/19 Unknown Platelet Satelliting Not Reportable 12/27/19 Unknown Plt Morphology Comment Not Reportable 12/27/19 Unknown RBC Morphology Not Reportable 12/27/19 Unknown Dimorphic RBCs Not Reportable 12/27/19 Unknown Polychromasia Not Reportable 12/27/19 Unknown Hypochromasia 1+ 12/27/19 Unknown Poikilocytosis Not Reportable 12/27/19 Unknown Anisocytosis 1+ 12/27/19 Unknown Microcytosis Not Reportable 12/27/19 Unknown Macrocytosis Not Reportable 12/27/19 Unknown Spherocytes Not Reportable 12/27/19 Unknown Pappenheimer Bodies Not Reportable 12/27/19 Unknown Sickle Cells Not Reportable 12/27/19 Unknown Target Cells Not Reportable 12/27/19 Unknown Tear Drop Cells Few 12/27/19 Unknown Ovalocytes Not Reportable 12/27/19 Unknown Helmet Cells Not Reportable 12/27/19 Unknown [place] Bodies Not Reportable 12/27/19 Unknown [place] Rings Not Reportable 12/27/19 Unknown Juju Cells Not Reportable 12/27/19 Unknown Bite Cells Not Reportable 12/27/19 Unknown Crenated Cell Not Reportable 12/27/19 Unknown Elliptocytes Not Reportable 12/27/19 Unknown Acanthocytes (Spur) Not Reportable 12/27/19 Unknown Rouleaux Not Reportable 12/27/19 Unknown Hemoglobin C Crystals Not Reportable 12/27/19 Unknown Schistocytes Not Reportable 12/27/19 Unknown Malaria parasites Not Reportable 12/27/19 Unknown ESR 73 mm/Hr (0-20) 12/20/19 09:11 Hector Bodies Not Reportable 12/27/19 Unknown Hem Pathologist Commnt No 12/27/19 Unknown PT 14.9 Sec. (12.2-14.9) 12/28/19 00:45 INR 1.15 (0.87-1.13) H 12/28/19 00:45 Sodium 140 mmol/L (137-145) 12/31/19 00:00 Potassium 4.4 mmol/L (3.6-5.0) 12/31/19 00:00 Chloride 103.3 mmol/L (98-107) 12/31/19 00:00 Carbon Dioxide 24 mmol/L (22-30) 12/31/19 00:00 Anion Gap 17 mmol/L 12/31/19 00:00 BUN 26 mg/dL (9-20) H 12/31/19 00:00 Creatinine 2.1 mg/dL (0.8-1.3) H 12/31/19 00:00 Estimated GFR 39 ml/min 12/31/19 00:00 BUN/Creatinine Ratio 12 % 12/31/19 00:00 Glucose 65 mg/dL (75-100) L 12/31/19 00:00 POC Glucose 168 (70-105) H 12/31/19 11:39 Uric Acid 11.7 mg/dL (3.5-7.6) H 12/14/19 13:24 Calcium 9.7 mg/dL (8.4-10.2) 12/31/19 00:00 Total Bilirubin 0.40 mg/dL (0.1-1.2) 12/31/19 00:00 AST 17 units/L (5-40) 12/31/19 00:00 ALT 16 units/L (7-56) 12/31/19 00:00 Alkaline Phosphatase 155 units/L (35-129) H 12/31/19 00:00 Total Creatine Kinase 67 units/L (55-170) 12/27/19 Unknown C-Reactive Protein 7.70 mg/dL (0.00-1.30) H 12/27/19 Unknown Total Protein 5.2 g/dL (6.3-8.2) L 12/31/19 00:00 Albumin 2.6 g/dL (3.9-5) L 12/31/19 00:00 Albumin/Globulin Ratio 1.0 % 12/31/19 00:00 Urine Color Yellow (Yellow) 12/16/19 06:15 Urine Turbidity Clear (Clear) 12/16/19 06:15 Urine pH 5.0 (5.0-7.0) 12/16/19 06:15 Ur Specific [place] 1.013 (1.003-1.030) 12/16/19 06:15 Urine Protein 30 mg/dl mg/dL (Negative) 12/16/19 06:15 Urine Glucose (UA) Neg mg/dL (Negative) 12/16/19 06:15 Urine Ketones Neg mg/dL (Negative) 12/16/19 06:15 Urine Blood Mod (Negative) 12/16/19 06:15 Urine Nitrite Neg (Negative) 12/16/19 06:15 Urine Bilirubin Neg (Negative) 12/16/19 06:15 Urine Urobilinogen < 2.0 mg/dL (<2.0) 12/16/19 06:15 Ur Leukocyte Esterase Neg (Negative) 12/16/19 06:15 Urine WBC (Auto) 1.0 /HPF (0.0-6.0) 12/16/19 06:15 Urine RBC (Auto) 1.0 /HPF (0.0-6.0) 12/16/19 06:15 Urine Bacteria (Auto) 1+ /HPF (Negative) 12/16/19 06:15 Urine Mucus Few /HPF 12/16/19 06:15 Urine Creatinine 97.4 mg/dL (0.1-20.0) H 12/16/19 06:15 Urine Sodium 14 mmol/L 12/16/19 06:15 Urine Total Protein 30 mg/dL (5-11.8) H 12/16/19 06:15 Random Vancomycin 11.7 ug/mL (0-40.0) 12/19/19 09:37 Tacrolimus (Send Out) 7.9 mcg/L 12/24/19 07:51 Coronavirus (PCR) Negative (Negative) 12/12/19 14:40 Blood Type O POSITIVE 12/22/19 11:20 Antibody Screen Negative 12/22/19 11:20 Crossmatch See Detail 12/22/19 11:20 Lassiter/IV: Voiding Method Urinal IV Catheter Type [Left Wrist] INT / Saline Lock IV Catheter Type [Left Hand] Peripheral IV IV Catheter Type [Right PICC Line Internal Jugular] IV Catheter Type [Left Forearm Peripheral IV ] Active Medications - Current Medications Current Medications: Generic Name Dose Route Start Last Admin Trade Name Freq PRN Reason Stop Dose Admin Acetaminophen 650 mg 12/14/19 22:57 Tylenol PO Q4H PRN Pain MILD(1-3)/Fever >100.5/WHALEY Amlodipine Besylate 5 mg 12/15/19 10:00 12/31/19 09:37 Amlodipine PO 5 mg DAILY NANCY Administration Carvedilol 25 mg 12/15/19 10:00 12/31/19 09:37 Coreg PO 25 mg BID NANCY Administration Dextrose 50 ml 12/22/19 07:00 12/22/19 14:00 D50w (25gm) Syringe IV 20 ml PRN PRN Administration Hypoglycemia Protocol Famotidine 20 mg 12/16/19 10:00 12/31/19 09:37 Pepcid PO 20 mg DAILY NANCY Administration Hydromorphone HCl 1 mg 12/14/19 22:57 12/16/19 18:32 Dilaudid IV 1 mg Q3H PRN Administration Pain , Severe (7-10) Daptomycin 500 mg/ Sodium 100 mls @ 200 mls/hr 12/19/19 16:00 12/29/19 17:44 Chloride IV 01/11/20 23:59 100 mls/hr Q48H NANCY Administration Protocol Insulin Glargine 10 units 12/25/19 22:00 12/30/19 22:25 Lantus SUB-Q 10 units QHS NANCY Administration Insulin Human Lispro 0 unit 12/23/19 17:30 12/31/19 07:41 Humalog SUB-Q Not Given ACHS NANCY Protocol Loperamide HCl 2 mg 12/15/19 14:01 12/23/19 12:33 Imodium PO 2 mg BID PRN Administration Diarrhea Metoclopramide HCl 5 mg 12/14/19 23:11 Reglan IV Q6H PRN Nausea And Vomiting Mycophenolate Mofetil 500 mg 12/14/19 23:00 12/31/19 09:37 Cellcept PO 500 mg BID NANCY Administration Ondansetron HCl 4 mg 12/14/19 22:57 12/19/19 10:36 Zofran IV 4 mg Q3H PRN Administration Nausea And Vomiting Oxycodone/Acetaminophen 1 tab 12/14/19 22:57 12/28/19 22:26 Percocet 5/325 PO 1 tab Q6H PRN Administration Pain, Moderate (4-6) Prednisone 5 mg 12/15/19 10:00 12/31/19 09:37 Deltasone PO 5 mg DAILY NANCY Administration Sodium Bicarbonate 650 mg 12/15/19 22:00 12/31/19 09:36 Sodium Bicarbonate PO 650 mg BID NANCY Administration Sodium Chloride 10 ml 12/15/19 10:00 12/31/19 09:38 Sodium Chloride Flush Syringe 10 Ml IV 10 ml BID NANCY Administration Sodium Chloride 10 ml 12/14/19 22:57 12/18/19 22:09 Sodium Chloride Flush Syringe 10 Ml IV 10 ml PRN PRN Administration LINE FLUSH Tacrolimus 2 mg 12/14/19 23:00 12/31/19 09:37 Prograf PO 2 mg Q12HR NANCY Administration Nutrition/Malnutrition Assess - Dietary Evaluation Nutrition/Malnutrition Findings: Nutrition Notes Start: 12/15/19 14:11 Freq: Status: Active Protocol: Document 12/28/19 12:04 PHILLIP (Rec: 12/28/19 12:11 PHILLIP [id number]) Co-Sign 12/28/19 12:04 LP Nutrition Notes Initial or Follow up Reassessment Current Diagnosis Acute Kidney Injury,Diabetes Other Pertinent Diagnosis s/p kidney transplant, MRSA, tibia fx, Hypernatremia, Hypokalemia Current Diet NPO after midnight Labs/Tests BUN 31 Cr 2.2 BG 157 Pertinent Medications K-Dur Height 6 ft Weight 79.5 kg [place] Body Weight (kg) 80.90 BMI 23.8 Weight Status Appropriate Subjective/Other Information F/U for intakes and ONS. Pt reports consuming 100% meals and supplements. Percent of energy/protein needs met: 100%/100% Burn Absent Trauma Absent Skin Integrity/Comment multiple pressure ulcers Current % PO Good (75-100%) Minimum of two criteria No Fluid Accumulation Mild (non-severe) #1 Nutrition Diagnosis Increased nutrient needs ( specify in comment below) Diagnosis Progress(for reassessment Continues documentation) Is patient on ventilator? No Is Patient Ambulatory and/or Out of Bed No REE-([place]-St. Jeor-confined to bed) 1945.89 Calculation Used for Recommendations [facility] Additional Notes Protein (0.8-1.5g/kg): 63-119g Fluid 1ml/kcal Nutrition Intervention Change Diet Order: Renal diet Add Supplement/Snack (indicate name/kcal Nepro Butter Pecan BID /protein ) D/C Glucerna TID Provides kCal: 850 Provides Protein (gm) 38 Goal #1 Pt will meet 75-100% of energy and protein needs by PO. Goal #2 Wound healing Anticipated Discharge Needs: Renal diet Follow-Up By: 01/02/20 Additional Comments F/U intakes and ONS tolerance
[2019-12-31] MEDS: INSULIN GLARGINE 100 UNITS/ML SUB-Q SCH (21:53)
[2020-01-01 04:52] LABS: Basophils # (Auto) 0.1 K/mm3 (0.0-0.1); Basophils % (Auto) 0.6 % (0.0-1.8); Eosinophils # (Auto) 0.1 K/mm3 (0.0-0.4); Eosinophils % (Auto) 0.6 % (0.0-4.3); Lymphocytes # (Auto) 1.2 K/mm3 (1.2-5.4); Lymphocytes % (Auto) 9.9 % (13.4-35.0); Mean Corpuscular HGB Conc 32 % (32-34); Mean Corpuscular Volume 77 fl (84-94); Monocytes # (Auto) 0.9 K/mm3 (0.0-0.8); Monocytes % (Auto) 7.1 % (0.0-7.3); Platelet Count 238 K/mm3 (140-440); Red Blood Count 2.85 M/mm3 (3.65-5.03)
[2020-01-01 04:53] LABS: Red Cell Distribution Width 20.1 % (13.2-15.2)
[2020-01-01 05:31] LABS: Albumin 2.7 g/dL (3.9-5); Calcium 9.4 mg/dL (8.4-10.2)
[2020-01-01] MEDS: INSULIN LISPRO 100 UNIT/ML VIAL 3 mL SUB-Q SCH ×4 (08:00→22:54)
--- NOTE | 2020-01-01 09:04 | Progress Note ---
Assessment and Plan - Patient Problems (1) Acute kidney failure Current Visit: Yes Status: Acute Plan to address problem: Acute tubular necrosis secondary to sepsis. Kidney function is not significantly changed. Continue to monitor electrolytes and renal function (2) S/P kidney transplant Current Visit: Yes Status: Acute Plan to address problem: Follow up Prograf level. Continue immunosuppression (3) Swelling of right upper extremity Current Visit: Yes Status: Acute Plan to address problem: Cellulitis with culture growing MRSA. Continue antibiotics per ID (4) Type 2 diabetes mellitus with diabetic nephropathy Current Visit: Yes Status: Acute Plan to address problem: Blood sugar management by primary attending (5) Hypertensive chronic kidney disease with stage 1 through stage 4 chronic kidney disease, or unspecified chronic kidney disease Current Visit: Yes Status: Acute Plan to address problem: Follow-up blood pressure on current medication (6) Metabolic acidosis Current Visit: Yes Status: Acute Plan to address problem: Improving. Continue treatment (7) Infection of wound due to methicillin resistant Staphylococcus aureus (MRSA) Current Visit: Yes Status: Acute Plan to address problem: Continue antibiotics. Patient on isolation. Infectious disease financial consultant on the case (8) Right tibial fracture Current Visit: Yes Status: Acute Qualifiers: Encounter type: initial encounter Salter-Ocampo Fracture Type: unspecified configuration Plan to address problem: Management per orthopedic surgery Subjective Date of service: 01/01/20 Principal diagnosis: Leg pain Interval history: Patient seen sitting up in bed. He feels better today. No nausea or vomiting. No Pain Objective - Exam Narrative Exam: Middle-aged -Citizen Of [place] male sitting up in bed in no acute distress HEENT: NCAT, Neck: Supple, no venous distention CVS: S1S2 RRR with no murmur, rub or gallop Chest: Clear to auscultation Abdomen: Protuberant, soft, nontender, no organomegaly, bowel sounds are present Extremities: 3+ swelling of the right' upper extremity extending to the hand. Mild edema to the right leg,, Dressing right leg Genitourinary deferred Neuro: Awake, alert no focal deficits - Vital Signs Vital signs: Vital Signs - 12hr 12/31/19 12/31/19 12/31/19 21:55 23:19 23:23 Temperature 98.3 F 98.3 F Pulse Rate 76 75 72 Respiratory 18 18 Rate Blood Pressure 117/60 161/74 O2 Sat by Pulse 98 98 Oximetry 01/01/20 01/01/20 05:34 07:18 Temperature 98.7 F 98.2 F Pulse Rate 63 60 Respiratory 18 18 Rate Blood Pressure 144/57 125/50 O2 Sat by Pulse 98 97 Oximetry - Lab 01/01/20 04:40 01/01/20 04:40 Most recent lab results Calcium 9.4 mg/dL (8.4-10.2) 01/01/20 04:40 Urine Creatinine 97.4 mg/dL (0.1-20.0) H 12/16/19 06:15 Urine Sodium 14 mmol/L 12/16/19 06:15 Urine Total Protein 30 mg/dL (5-11.8) H 12/16/19 06:15 Medications & Allergies - Medications Allergies/Adverse Reactions: Allergies cefazolin Allergy (Intermediate, Verified 10/19/19 13:26) Hives itching & hives Home Medications: Home Medications Medication Instructions Recorded Confirmed Last Taken Type Aspirin 81 mg PO DAILY 10/16/19 12/14/19 5 Days Ago History ~12/09/19 Calcium Citrate/Vitamin D3 1,000 units PO DAILY 10/16/19 12/08/19 12/13/19 History Dronedarone (Nf) [Multaq (Nf)] 400 mg PO DAILY 10/16/19 12/08/19 12/13/19 History Mycophenolate 500 mg PO BID 10/16/19 12/08/19 12/13/19 History Prograf 2 mg PO Q12HR 10/16/19 12/08/19 12/13/19 History amLODIPine 5 mg PO DAILY 10/16/19 12/08/19 12/14/19 07:00 History carvediloL [Coreg] 20 mg PO BID 10/16/19 12/08/19 12/14/19 07:00 History glipiZIDE 5 mg PO DAILY 10/16/19 12/08/19 12/13/19 History predniSONE [Deltasone] 5 mg PO DAILY 10/16/19 12/08/19 12/13/19 History HYDROcodone/APAP 5-325 [[place] 1 each PO Q6HR PRN #20 tablet 10/19/19 12/08/19 12/13/19 Rx 5-325 mg TAB] HYDROcodone/APAP 7.5-325 [[place] 1 each PO Q6HR PRN #20 tablet 12/14/19 Unknown Rx 7.5-325 mg TAB] Sulfamethoxazole/Trimethoprim 1 each PO BID #30 tablet 12/14/19 Unknown Rx [Bactrim DS TAB] Active Medications: Generic Name Dose Route Start Last Admin Trade Name Freq PRN Reason Stop Dose Admin Acetaminophen 650 mg 12/14/19 22:57 Tylenol PO Q4H PRN Pain MILD(1-3)/Fever >100.5/WHALEY Amlodipine Besylate 5 mg 12/15/19 10:00 12/31/19 09:37 Amlodipine PO 5 mg DAILY NANCY Administration Carvedilol 25 mg 12/15/19 10:00 12/31/19 21:55 Coreg PO 25 mg BID NANCY Administration Dextrose 50 ml 12/22/19 07:00 12/22/19 14:00 D50w (25gm) Syringe IV 20 ml PRN PRN Administration Hypoglycemia Protocol Famotidine 20 mg 12/16/19 10:00 12/31/19 09:37 Pepcid PO 20 mg DAILY NANCY Administration Hydromorphone HCl 1 mg 12/14/19 22:57 12/16/19 18:32 Dilaudid IV 1 mg Q3H PRN Administration Pain , Severe (7-10) Daptomycin 500 mg/ Sodium 100 mls @ 200 mls/hr 12/19/19 16:00 12/31/19 16:06 Chloride IV 01/11/20 23:59 100 mls/hr Q48H NANCY Administration Protocol Insulin Glargine 10 units 12/25/19 22:00 12/31/19 21:53 Lantus SUB-Q 10 units QHS NANCY Administration Insulin Human Lispro 0 unit 12/23/19 17:30 12/31/19 22:01 Humalog SUB-Q 4 unit ACHS NANCY Administration Protocol Loperamide HCl 2 mg 12/15/19 14:01 12/23/19 12:33 Imodium PO 2 mg BID PRN Administration Diarrhea Metoclopramide HCl 5 mg 12/14/19 23:11 Reglan IV Q6H PRN Nausea And Vomiting Mycophenolate Mofetil 500 mg 12/14/19 23:00 12/31/19 22:07 Cellcept PO 500 mg BID NANCY Administration Ondansetron HCl 4 mg 12/14/19 22:57 12/19/19 10:36 Zofran IV 4 mg Q3H PRN Administration Nausea And Vomiting Oxycodone/Acetaminophen 1 tab 12/14/19 22:57 12/28/19 22:26 Percocet 5/325 PO 1 tab Q6H PRN Administration Pain, Moderate (4-6) Prednisone 5 mg 12/15/19 10:00 12/31/19 09:37 Deltasone PO 5 mg DAILY NANCY Administration Sodium Bicarbonate 650 mg 12/15/19 22:00 12/31/19 21:55 Sodium Bicarbonate PO 650 mg BID NANCY Administration Sodium Chloride 10 ml 12/15/19 10:00 12/31/19 21:57 Sodium Chloride Flush Syringe 10 Ml IV 10 ml BID NANCY Administration Sodium Chloride 10 ml 12/14/19 22:57 12/18/19 22:09 Sodium Chloride Flush Syringe 10 Ml IV 10 ml PRN PRN Administration LINE FLUSH Tacrolimus 2 mg 12/14/19 23:00 12/31/19 21:55 Prograf PO 2 mg Q12HR NANCY Administration
--- NOTE | 2020-01-01 11:27 | Progress Note ---
Assessment and Plan Assessment and plan: 64-year-old male with a history of hypertension end-stage renal disease received a kidney transplant several years ago and has had baseline creatinine of 1.3- 1.5. He presented to the hospital for surgical correction of right proximal tibial fracture. 12/14/2019 patient admitted for elective surgical correction of right proximal to tibial fracture. Patient underwent surgical intervention and external fixation device. 12/15/1999 patient was found to have elevated creatinine up from 1.5 at baseline to 2.8. Therefore renal consult was obtained. Was thought to be secondary to prerenal azotemia. Symptoms responding to IV volume replacement and creatinine going back down to baseline. 12/16/2019 patient's creatinine continued to improve toward baseline. 12/17/2019. Patient surgical blood culture showed positive for methicillin resistant staph aureus. May be contaminant because patient remained afebrile no leukocytosis. No tenderness to the area. And sensitivity of MRSA was pansensitive to Cipro and Bactrim. Patient was given 1 dose of Vanco IV and await any ID recommendations. Patient should be able to discharge with Bactrim since it is sensitive and patient is afebrile no leukocytosis. Does not appear to have underlying infection at this time. 12/18/2019. Patient is resting doubly afebrile placed on Bactrim because MRSA was sensitive to this. Await further recommendations from Ortho about discharge planning. Patient somewhat sad today. States he just lost his sister. Patient denies any wants for antidepressant medications. 12/18: Awaiting further plan by othor, continue on abx per ID and Nephrology following for urmila, Showing slight improvement and not at baseline. Monitor Right upper ext 12/19: Consult Vascular due to concern for upper ext, obtain doppler of right upper ext 12/20: Unsure why Doppler has not been done, nurse not aware either, call placed to department for stat exam, will give a dose of Lovenox prophylactically. Finally doppler done and no DVT. Elevate Upper ext 12/21: CONTINUE ABX, DISCUSSED WITH NURSINGS STAFF TO ELEVATE UPPER EXT, Tunnle catheter placed. Renal function slightly worse. Continue to monitor. 12/22: Clinically improving, Tunnel catheter placed, awaiting, clearance from Nephrology for discharge, Leukocytosis and renal functions showing slight improvement. Continue to monitor Right upper ext swelling. S/P 1 unit PRBC transfused, totalling 2 units for this admission. 12/23: Continue current clinical support. Anticipate discharge in a.m. mild elevation in WBC. Also monitor hemoglobin following transfusion. 12/24: Patient is a 64-year-old male with history of kidney transplant who presented to the hospital with right tibia fracture status post surgical correction. Did have MRSA culture which was considered a contaminant. Hospital stay had been complicated with precipitous drop in hemoglobin and also right upper extremity swelling. Doppler study was done of the right upper extremity and was negative for DVT. Due to prolonged antibiotic coverage patient was seen by vascular and a tunnel catheter placed. Renal function has continued to improve. And patient is now pending discharge. From medicine standpoint patient can be discharged when okay with nephrology and Ortho. Anticipate the patient will benefit from rehab either at home or at a facility. During this hospitalization patient did receive 2 units packed red blood cell. 12/25. Patient seen and examined at bedside this morning. He has no complaints today. Labs reviewed. Will benefit from rehab. Still on daptomycin for MRSA treatment. ID, Ortho and nephrology on board. 12/26. am. No complaints today. CT RUE not performed yesterday. Plan to repeat today. 12/26. pm. CT right upper extremity shows some abscess with subcutaneous edema with possible necrotizing fasciitis. Discussed with surgery on 12/26. Patient made n.p.o. after midnight. 12/27. Right arm swelling has slightly improved after elevation yesterday. Orthopedic surgeon performed I&D at bedside with wound packing. Not clear if cultures obtained. Patient was already on IV antibiotics. Plan to obtain culture if possible. 12/28. RUE swelling better. Cultures - +ve MRSA. Needs discharge planning. ID following. 12/29. He has no complaints today. Still on IV antibiotics. ID is following. Needs placement - CM working on this. 12/30. Awaiting placement. May need IV antibiotics at discharge - defer to ID. 12/31. Will need placement and IV antibiotics for 4 weeks - Last dose 01/10. ID following. Continue wound care. Patient Problems SEPSIS UNKNOWN SOURCE- POA URMILA (acute kidney injury) with vasomotor nephropathy Current Visit: Yes Status: Acute Plan to address problem: Cr stable at 2.3 Hypernatremia Current Visit: Yes Status: Acute Plan to address problem: Resolved Right upper extremity swelling Current Visit: Yes Status: Acute Plan to address problem: CT shows fluid collection with edema. Orthopedic surgery evaluation-bedside I&D with wound packing performed Patient is on broad-spectrum antibiotics. Right tibial fracture Current Visit: Yes Status: Acute Qualifiers: Encounter type: initial encounter Salter-Ocampo Fracture Type: unspecified configuration Plan to address problem: Right tibial fracture status post correction. No evidence of infection. Clinically. Patient did have positive blood culture for MRSA. On daptomycin. Ortho follow up Bilateral pressure ulcer of the sacrum stge 3: Wound care following S/P kidney transplant Current Visit: Yes Status: Acute Plan to address problem: Renal function stable. Hypertension Current Visit: Yes Status: Chronic Qualifiers: Hypertension type: essential hypertension Qualified Code(s): I10 - Essential (primary) hypertension Plan to address problem: Patient has optimal control blood pressure amlodipine Coreg. Continue present medical management. T2DM (type 2 diabetes mellitus) Current Visit: Yes Status: Chronic Qualifiers: Diabetes mellitus senior living insulin use: without senior living use Plan to address problem: Continue insulin regimen and adjust according to blood glucose levels Metabolic acidosis Current Visit: Yes Status: Acute Plan to address problem: Resolved Precipitous drop in HCT, Anemia Continue to monitor. DVT prophylaxis Current Visit: Yes Status: Acute History Interval history: Patient seen and examined this morning. Right arm swelling improved after I&D. On antibiotics. Awaiting placement. Hospitalist Physical - Constitutional Vitals: Temp Pulse Resp BP Pulse Ox 98.2 F 60 18 125/50 97 01/01/20 07:18 01/01/20 07:18 01/01/20 07:18 01/01/20 07:18 01/01/20 07:18 General appearance: Present: no acute distress, well-nourished - EENT Eyes: Present: PERRL - Respiratory Respiratory: bilateral: CTA - Cardiovascular Heart Sounds: Present: S1 & S2 - Extremities Extremity abnormal: edema (RUE edema - improving. Dressing intactr and clean) - Abdominal General gastrointestinal: soft, non-tender, non-distended, normal bowel sounds - Psychiatric Psychiatric: appropriate mood/affect - Neurologic Neurologic: CNII-XII intact HEART Score - HEART Score Age: > 65 Risk factors: 1-2 risk factors - Critical Actions Critical Actions: 0-3 pts:0.9-1.7%risk of adverse cardiac event.Candidate for discharge Results - Labs CBC & Chem 7: 01/01/20 04:40 01/01/20 04:40 Labs: Laboratory Last Values WBC 12.3 K/mm3 (4.5-11.0) H 01/01/20 04:40 RBC 2.85 M/mm3 (3.65-5.03) L 01/01/20 04:40 Hgb 7.0 gm/dl (11.8-15.2) L 01/01/20 04:40 Hct 22.0 % (35.5-45.6) L 01/01/20 04:40 MCV 77 fl (84-94) L 01/01/20 04:40 MCH 25 pg (28-32) L 01/01/20 04:40 MCHC 32 % (32-34) 01/01/20 04:40 RDW 20.1 % (13.2-15.2) H 01/01/20 04:40 Plt Count 238 K/mm3 (140-440) 01/01/20 04:40 Lymph % (Auto) 9.9 % (13.4-35.0) L 01/01/20 04:40 [place] % (Auto) 7.1 % (0.0-7.3) 01/01/20 04:40 Eos % (Auto) 0.6 % (0.0-4.3) 01/01/20 04:40 Baso % (Auto) 0.6 % (0.0-1.8) 01/01/20 04:40 Lymph # (Auto) 1.2 K/mm3 (1.2-5.4) 01/01/20 04:40 [place] # (Auto) 0.9 K/mm3 (0.0-0.8) H 01/01/20 04:40 Eos # (Auto) 0.1 K/mm3 (0.0-0.4) 01/01/20 04:40 Baso # (Auto) 0.1 K/mm3 (0.0-0.1) 01/01/20 04:40 Add Manual Diff Complete 12/27/19 Unknown Total Counted 100 12/27/19 Unknown Seg Neutrophils % 81.8 % (40.0-70.0) H 01/01/20 04:40 Seg Neuts % (Manual) 85.0 % (40.0-70.0) H 12/27/19 Unknown Band Neutrophils % 3.0 % 12/27/19 Unknown Lymphocytes % (Manual) 6.0 % (13.4-35.0) L 12/27/19 Unknown Reactive Lymphs % (Man) 0 % 12/27/19 Unknown Monocytes % (Manual) 4.0 % (0.0-7.3) 12/27/19 Unknown Eosinophils % (Manual) 0 % (0.0-4.3) 12/27/19 Unknown Basophils % (Manual) 0 % (0.0-1.8) 12/27/19 Unknown Metamyelocytes % 0 % 12/27/19 Unknown Myelocytes % 2.0 % 12/27/19 Unknown Promyelocytes % 0 % 12/27/19 Unknown Blast Cells % 0 % 12/27/19 Unknown Nucleated RBC % Not Reportable 12/27/19 Unknown Seg Neutrophils # 10.1 K/mm3 (1.8-7.7) H 01/01/20 04:40 Seg Neutrophils # Man 12.2 K/mm3 (1.8-7.7) H 12/27/19 Unknown Band Neutrophils # 0.4 K/mm3 12/27/19 Unknown Lymphocytes # (Manual) 0.9 K/mm3 (1.2-5.4) L 12/27/19 Unknown Abs React Lymphs (Man) 0.0 K/mm3 12/27/19 Unknown Monocytes # (Manual) 0.6 K/mm3 (0.0-0.8) 12/27/19 Unknown Eosinophils # (Manual) 0.0 K/mm3 (0.0-0.4) 12/27/19 Unknown Basophils # (Manual) 0.0 K/mm3 (0.0-0.1) 12/27/19 Unknown Metamyelocytes # 0.0 K/mm3 12/27/19 Unknown Myelocytes # 0.3 K/mm3 12/27/19 Unknown Promyelocytes # 0.0 K/mm3 12/27/19 Unknown Blast Cells # 0.0 K/mm3 12/27/19 Unknown WBC Morphology Not Reportable 12/27/19 Unknown Hypersegmented Neuts Not Reportable 12/27/19 Unknown Hyposegmented Neuts Not Reportable 12/27/19 Unknown Hypogranular Neuts Not Reportable 12/27/19 Unknown Smudge Cells Not Reportable 12/27/19 Unknown Toxic Granulation Not Reportable 12/27/19 Unknown Toxic Vacuolation Not Reportable 12/27/19 Unknown Dohle Bodies Not Reportable 12/27/19 Unknown Pelger-Huet Anomaly Not Reportable 12/27/19 Unknown Robert Rods Not Reportable 12/27/19 Unknown Platelet Estimate Consistent w auto 12/27/19 Unknown Clumped Platelets Not Reportable 12/27/19 Unknown Plt Clumps, EDTA Not Reportable 12/27/19 Unknown Large Platelets Not Reportable 12/27/19 Unknown Giant Platelets Not Reportable 12/27/19 Unknown Platelet Satelliting Not Reportable 12/27/19 Unknown Plt Morphology Comment Not Reportable 12/27/19 Unknown RBC Morphology Not Reportable 12/27/19 Unknown Dimorphic RBCs Not Reportable 12/27/19 Unknown Polychromasia Not Reportable 12/27/19 Unknown Hypochromasia 1+ 12/27/19 Unknown Poikilocytosis Not Reportable 12/27/19 Unknown Anisocytosis 1+ 12/27/19 Unknown Microcytosis Not Reportable 12/27/19 Unknown Macrocytosis Not Reportable 12/27/19 Unknown Spherocytes Not Reportable 12/27/19 Unknown Pappenheimer Bodies Not Reportable 12/27/19 Unknown Sickle Cells Not Reportable 12/27/19 Unknown Target Cells Not Reportable 12/27/19 Unknown Tear Drop Cells Few 12/27/19 Unknown Ovalocytes Not Reportable 12/27/19 Unknown Helmet Cells Not Reportable 12/27/19 Unknown Santana-Seaford Bodies Not Reportable 12/27/19 Unknown [place] Rings Not Reportable 12/27/19 Unknown [place] Cells Not Reportable 12/27/19 Unknown Bite Cells Not Reportable 12/27/19 Unknown Crenated Cell Not Reportable 12/27/19 Unknown Elliptocytes Not Reportable 12/27/19 Unknown Acanthocytes (Spur) Not Reportable 12/27/19 Unknown Rouleaux Not Reportable 12/27/19 Unknown Hemoglobin C Crystals Not Reportable 12/27/19 Unknown Schistocytes Not Reportable 12/27/19 Unknown Malaria parasites Not Reportable 12/27/19 Unknown ESR 73 mm/Hr (0-20) 12/20/19 09:11 Hector Bodies Not Reportable 12/27/19 Unknown Hem Pathologist Commnt No 12/27/19 Unknown PT 14.9 Sec. (12.2-14.9) 12/28/19 00:45 INR 1.15 (0.87-1.13) H 12/28/19 00:45 Sodium 138 mmol/L (137-145) 01/01/20 04:40 Potassium 4.2 mmol/L (3.6-5.0) 01/01/20 04:40 Chloride 103.0 mmol/L (98-107) 01/01/20 04:40 Carbon Dioxide 25 mmol/L (22-30) 01/01/20 04:40 Anion Gap 14 mmol/L 01/01/20 04:40 BUN 27 mg/dL (9-20) H 01/01/20 04:40 Creatinine 2.3 mg/dL (0.8-1.3) H 01/01/20 04:40 Estimated GFR 35 ml/min 01/01/20 04:40 BUN/Creatinine Ratio 12 % 01/01/20 04:40 Glucose 100 mg/dL (75-100) 01/01/20 04:40 POC Glucose 111 (70-105) H 01/01/20 07:35 Uric Acid 11.7 mg/dL (3.5-7.6) H 12/14/19 13:24 Calcium 9.4 mg/dL (8.4-10.2) 01/01/20 04:40 Total Bilirubin 0.40 mg/dL (0.1-1.2) 01/01/20 04:40 AST 20 units/L (5-40) 01/01/20 04:40 ALT 16 units/L (7-56) 01/01/20 04:40 Alkaline Phosphatase 150 units/L (35-129) H 01/01/20 04:40 Total Creatine Kinase 67 units/L (55-170) 12/27/19 Unknown C-Reactive Protein 7.70 mg/dL (0.00-1.30) H 12/27/19 Unknown Total Protein 5.3 g/dL (6.3-8.2) L 01/01/20 04:40 Albumin 2.7 g/dL (3.9-5) L 01/01/20 04:40 Albumin/Globulin Ratio 1.0 % 01/01/20 04:40 Urine Color Yellow (Yellow) 12/16/19 06:15 Urine Turbidity Clear (Clear) 12/16/19 06:15 Urine pH 5.0 (5.0-7.0) 12/16/19 06:15 Ur Specific [place] 1.013 (1.003-1.030) 12/16/19 06:15 Urine Protein 30 mg/dl mg/dL (Negative) 12/16/19 06:15 Urine Glucose (UA) Neg mg/dL (Negative) 12/16/19 06:15 Urine Ketones Neg mg/dL (Negative) 12/16/19 06:15 Urine Blood Mod (Negative) 12/16/19 06:15 Urine Nitrite Neg (Negative) 12/16/19 06:15 Urine Bilirubin Neg (Negative) 12/16/19 06:15 Urine Urobilinogen < 2.0 mg/dL (<2.0) 12/16/19 06:15 Ur Leukocyte Esterase Neg (Negative) 12/16/19 06:15 Urine WBC (Auto) 1.0 /HPF (0.0-6.0) 12/16/19 06:15 Urine RBC (Auto) 1.0 /HPF (0.0-6.0) 12/16/19 06:15 Urine Bacteria (Auto) 1+ /HPF (Negative) 12/16/19 06:15 Urine Mucus Few /HPF 12/16/19 06:15 Urine Creatinine 97.4 mg/dL (0.1-20.0) H 12/16/19 06:15 Urine Sodium 14 mmol/L 12/16/19 06:15 Urine Total Protein 30 mg/dL (5-11.8) H 12/16/19 06:15 Random Vancomycin 11.7 ug/mL (0-40.0) 12/19/19 09:37 Tacrolimus (Send Out) 7.9 mcg/L 12/24/19 07:51 Coronavirus (PCR) Negative (Negative) 12/12/19 14:40 Blood Type O POSITIVE 12/22/19 11:20 Antibody Screen Negative 12/22/19 11:20 Crossmatch See Detail 12/22/19 11:20 - Diagnostic Impressions Diagnostic Impressions: Echocardiogram 12/29/19 15:01 Transthoracic Echocardiogram Indication: Endocarditis BP: 130/57 HR: 63 Conclusions *Mild concentric left ventricular hypertrophy is observed. *Global left ventricular systolic function is normal. *The estimated ejection fraction is 60-65%. *The left atrium is mildly dilated. *There is mild to moderate aortic regurgitation. Findings Left Ventricle: The left ventricular chamber size is normal. Mild concentric left ventricular hypertrophy is observed. Global left ventricular wall motion and contractility are within normal limits. Global left ventricular systolic function is normal. The estimated ejection fraction is 60-65%. Abnormal left ventricular diastolic function is observed. Abnormal left ventricular diastolic filling is observed, consistent with impaired relaxation. Left Atrium: The left atrium is mildly dilated. Right Ventricle: The right ventricular cavity size is normal. The right ventricular global systolic function is normal. Right Atrium: The right atrium appears normal. The interatrial septum appears normal. There is evidence of an atrial septal aneurysm. Aortic Valve: The aortic valve structure is normal. The aortic valve leaflets are moderately thickened. There is mild to moderate aortic regurgitation. There is no evidence of aortic stenosis. Mitral Valve: The mitral valve leaflets appear normal. There is trace of mitral regurgitation. There is no evidence of mitral stenosis. Tricuspid Valve: The tricuspid valve leaflets are normal. There is mild tricuspid regurgitation. The right ventricular systolic pressure is calculated at 20 mmHg. There is no tricuspid stenosis. Pulmonic Valve: The pulmonic valve appears normal. There is no evidence of pulmonic regurgitation. There is no pulmonic stenosis. Pericardium: There is a minimial pericardial effusion. Aorta: There is no dilatation of the ascending aorta. There is no dilatation of the aortic arch. There is no dilatation of the descending thoracic aorta. There is no dilatation of the aortic root. Venous: The inferior vena cava appears normal in size. Measurements Chambers 2D Name Value Normal Range IVSd (2D) 1.06 cm (0.6 - 1.1) LVPWd (2D) 1.06 cm (0.6 - 1.1) LVIDd (2D) 5.64 cm (3.7 - 5.6) LVIDs (2D) 3.88 cm (2 - 3.8) LV FS (2D) 31.08 % - EF Teichholz (2D) 58.13 % - Ao root diameter (2D) 3.14 cm (2 - 3.7) Volumes/Mass Name Value Normal Range LA ESV SP 4CH (A/L) 76.68 ml - LA ESV SP 2CH (A/L) 76.71 ml - LA ESV BP (A/L) 78.08 ml - LA ESV SP 4CH (MOD) 74.11 ml - LA ESV SP 2CH (MOD) 71.28 ml - LA ESV BP (MOD) 73.59 ml - LA ESV BP (MOD) index 36.98 ml/m2 - LV EDV SP 4CH (MOD) 101.32 ml - LV ESV SP 4CH (MOD) 40.14 ml - EF SP 4CH (MOD) 60.38 % - LV EDV SP 2CH (MOD) 140.6 ml - LV ESV SP 2CH (MOD) 42.72 ml - EF SP 2CH (MOD) 69.61 % - LV EDV BP 120.25 ml - LV ESV BP 44.29 ml - BP EF (MOD) 63.17 % - Diastolic/Systolic Function Name Value Normal Range MV E-wave Vmax 0.55 m/sec - MV deceleration time 240.52 msec - MV A-wave Vmax 0.8 m/sec - MV E:A ratio 0.69 ratio - Aortic Valve Name Value Normal Range AV Vmax 1.83 m/sec - AV VTI 31.94 cm - AV peak gradient 13.4 mmHg - AV mean gradient 7.39 mmHg - LVOT diameter 2.14 cm - LVOT Vmax 1.37 m/sec - LVOT VTI 26.33 cm - LVOT peak gradient 7.53 mmHg - LVOT mean gradient 3.71 mmHg - SV LVOT 94.33 ml - SWETA (continuity Vmax) 2.69 cm2 - SWETA (continuity VTI) 2.95 cm2 - AR PHT 458.58 msec - AR peak gradient 56.08 mmHg - Ascending Ao 3.09 cm - Tricuspid Valve Name Value Normal Range TR Vmax 2.06 m/sec - TR peak gradient 17 mmHg - RAP 3 mmHg - RVSP 20 mmHg - Pulmonic Valve/Qp:Qs Name Value Normal Range PV Vmax 1.26 m/sec - PV peak gradient 6.39 mmHg - PV acceleration time 72.31 msec - Lassiter/IV: Voiding Method Urinal IV Catheter Type [Left Wrist] INT / Saline Lock IV Catheter Type [Left Hand] Peripheral IV IV Catheter Type [Right PICC Line Internal Jugular] IV Catheter Type [Left Forearm Peripheral IV ] Active Medications - Current Medications Current Medications: Generic Name Dose Route Start Last Admin Trade Name Freq PRN Reason Stop Dose Admin Acetaminophen 650 mg 12/14/19 22:57 Tylenol PO Q4H PRN Pain MILD(1-3)/Fever >100.5/WHALEY Amlodipine Besylate 5 mg 12/15/19 10:00 12/31/19 09:37 Amlodipine PO 5 mg DAILY NANCY Administration Carvedilol 25 mg 12/15/19 10:00 12/31/19 21:55 Coreg PO 25 mg BID NANCY Administration Dextrose 50 ml 12/22/19 07:00 12/22/19 14:00 D50w (25gm) Syringe IV 20 ml PRN PRN Administration Hypoglycemia Protocol Famotidine 20 mg 12/16/19 10:00 12/31/19 09:37 Pepcid PO 20 mg DAILY NANCY Administration Hydromorphone HCl 1 mg 12/14/19 22:57 12/16/19 18:32 Dilaudid IV 1 mg Q3H PRN Administration Pain , Severe (7-10) Daptomycin 500 mg/ Sodium 100 mls @ 200 mls/hr 12/19/19 16:00 12/31/19 16:06 Chloride IV 01/11/20 23:59 100 mls/hr Q48H NANCY Administration Protocol Insulin Glargine 10 units 12/25/19 22:00 12/31/19 21:53 Lantus SUB-Q 10 units QHS NANCY Administration Insulin Human Lispro 0 unit 12/23/19 17:30 12/31/19 22:01 Humalog SUB-Q 4 unit ACHS NANCY Administration Protocol Loperamide HCl 2 mg 12/15/19 14:01 12/23/19 12:33 Imodium PO 2 mg BID PRN Administration Diarrhea Metoclopramide HCl 5 mg 12/14/19 23:11 Reglan IV Q6H PRN Nausea And Vomiting Mycophenolate Mofetil 500 mg 12/14/19 23:00 12/31/19 22:07 Cellcept PO 500 mg BID NANCY Administration Ondansetron HCl 4 mg 12/14/19 22:57 12/19/19 10:36 Zofran IV 4 mg Q3H PRN Administration Nausea And Vomiting Oxycodone/Acetaminophen 1 tab 12/14/19 22:57 12/28/19 22:26 Percocet 5/325 PO 1 tab Q6H PRN Administration Pain, Moderate (4-6) Prednisone 5 mg 12/15/19 10:00 12/31/19 09:37 Deltasone PO 5 mg DAILY NANCY Administration Sodium Bicarbonate 650 mg 12/15/19 22:00 12/31/19 21:55 Sodium Bicarbonate PO 650 mg BID NANCY Administration Sodium Chloride 10 ml 12/15/19 10:00 12/31/19 21:57 Sodium Chloride Flush Syringe 10 Ml IV 10 ml BID NANCY Administration Sodium Chloride 10 ml 12/14/19 22:57 12/18/19 22:09 Sodium Chloride Flush Syringe 10 Ml IV 10 ml PRN PRN Administration LINE FLUSH Tacrolimus 2 mg 12/14/19 23:00 12/31/19 21:55 Prograf PO 2 mg Q12HR NANCY Administration Nutrition/Malnutrition Assess - Dietary Evaluation Nutrition/Malnutrition Findings: Nutrition Notes Start: 12/15/19 14:11 Freq: Status: Active Protocol: Document 12/28/19 12:04 PHILLIP (Rec: 12/28/19 12:11 PHILLIP [id number]) Co-Sign 12/28/19 12:04 LP Nutrition Notes Initial or Follow up Reassessment Current Diagnosis Acute Kidney Injury,Diabetes Other Pertinent Diagnosis s/p kidney transplant, MRSA, tibia fx, Hypernatremia, Hypokalemia Current Diet NPO after midnight Labs/Tests BUN 31 Cr 2.2 BG 157 Pertinent Medications K-Dur Height 6 ft Weight 79.5 kg [place] Body Weight (kg) 80.90 BMI 23.8 Weight Status Appropriate Subjective/Other Information F/U for intakes and ONS. Pt reports consuming 100% meals and supplements. Percent of energy/protein needs met: 100%/100% Burn Absent Trauma Absent Skin Integrity/Comment multiple pressure ulcers Current % PO Good (75-100%) Minimum of two criteria No Fluid Accumulation Mild (non-severe) #1 Nutrition Diagnosis Increased nutrient needs ( specify in comment below) Diagnosis Progress(for reassessment Continues documentation) Is patient on ventilator? No Is Patient Ambulatory and/or Out of Bed No REE-([employer]-confined to bed) 1945.892 Calculation Used for Recommendations [facility] Additional Notes Protein (0.8-1.5g/kg): 63-119g Fluid 1ml/kcal Nutrition Intervention Change Diet Order: Renal diet Add Supplement/Snack (indicate name/kcal Nepro Butter Pecan BID /protein ) D/C Glucerna TID Provides kCal: 850 Provides Protein (gm) 38 Goal #1 Pt will meet 75-100% of energy and protein needs by PO. Goal #2 Wound healing Anticipated Discharge Needs: Renal diet Follow-Up By: 01/02/20 Additional Comments F/U intakes and ONS tolerance
[2020-01-01] MEDS: SODIUM BICARBONATE 650 MG TAB PO SCH ×2 (13:03→22:52)
[2020-01-01] MEDS: predniSONE 5 MG TAB PO SCH (13:03)
[2020-01-01] MEDS: carvediloL 25 MG TAB PO SCH ×2 (13:03→22:52)
[2020-01-01] MEDS: FAMOTIDINE 20 MG TAB PO SCH (13:04)
[2020-01-01] MEDS: MYCOPHENOLATE 500 MG TAB PO SCH ×2 (13:04→22:52)
[2020-01-01] MEDS: TACROLIMUS 1 MG CAP PO SCH ×2 (13:04→22:52)
[2020-01-01] MEDS: amLODIPine 5 MG TAB PO SCH (13:05)
--- NOTE | 2020-01-01 14:09 | Progress Note ---
Assessment and Plan Cultures: 12/14/2019 right leg surgical culture: MRSA 12/26/2019 R hand culture: MRSA A/P: 64-year-old male with diabetes, hypertension, renal transplant recipient in 2018, on immunosuppression with Prograf, CellCept and prednisone underwent right proximal tibia fracture closed reduction and external fixator placement on 10/19/2019. He was hospitalized on 12/14/2019 for elective surgery for removal of his external fixator, noted to have: #Low-grade fever, leukocytosis, infection associated with external fixator involving proximal tibia: Intraoperatively, patient was noted to have purulent drainage from the superior pin which was debrided using a curette and cultures were obtained. These cultures are growing MRSA. Patient is immunocompromised. All hardware has been removed. Patient is at risk of osteomyelitis. ESR and CRP are both elevated. Plan to treat with IV abx until 01/11/2020. #Right hand abscess: spontaneously started draining, culture in process. CT RUE without contrast showed "diffuse right hand and forearm cellulitis with significant fluid extending along the perifascial margin and findings concerning for focal abscess" and "Acute comminuted fractures at the second metacarpal phalangeal joint without dislocation. Given concern for infection osteomyelitis is not ruled out." Underwent bedside I&D with drainage of copious purulence on 12/28/2019. Cultures with MRSA. #Immunocompromised host, renal transplant recipient: On Prograf, CellCept, prednisone. #URMILA on CKD: Nephrology following. Renally dose antibiotics. Creatinine appears to be improving Recs: continue renally dosed IV daptomycin 500 mg q24 hours x 4 more weeks from hand abscess drainage (end date: 01/26/2020) Adjusted daptomycin to every 24 hours due to improved renal function. Previous CM orders updated ID clinical dietician already notified to schedule follow up appointment wound care to Kee Cochran MD [facility] ([facility] M: [phone] O: [phone] F: [phone] Subjective Date of service: 01/01/20 Principal diagnosis: Leg pain Interval history: Afebrile, white count 12.3 which is stable from the last few days. Objective - Exam Narrative Exam: Constitutional: Alert, cooperative. No acute distress Head, Ears, Nose: Normocephalic, atraumatic. Eyes: Conjunctivae/corneas clear. No icterus. No ptosis. Neck: Supple, no meningeal signs Cardiovascular: S1, S2 normal. Respiratory: Good air entry, clear to auscultation bilaterally GI: Soft, non-tender; bowel sounds normal. No peritoneal signs Musculoskeletal: Right proximal tibia dressing present with small wound. Right upper chest PICC line +. Right hand with dressing Skin: No rash or abscess Hem/Lymphatic: No palpable cervical or supraclavicular nodes. No lymphangitis Psych: Flat affect Neurological: Awake, alert, oriented - Constitutional Vitals: Vital Signs Temp Pulse Resp BP Pulse Ox 98.2 F 66 18 112/53 96 01/01/20 11:25 01/01/20 13:03 01/01/20 11:25 01/01/20 13:03 01/01/20 11:25 Temperature -Last 24 Hours Temperature 98.2 F Temperature 98.2 F Temperature 98.7 F Temperature 98.3 F Temperature 98.3 F Temperature 98.0 F Temperature 98.8 F - Labs CBC & Chem 7: 01/01/20 04:40 01/01/20 04:40 Labs: Abnormal lab results 12/31/19 12/31/19 01/01/20 Range/Units 16:44 20:27 04:40 WBC 12.3 H (4.5-11.0) K/mm3 RBC 2.85 L (3.65-5.03) M/mm3 Hgb 7.0 L (11.8-15.2) gm/dl Hct 22.0 L (35.5-45.6) % MCV 77 L (84-94) fl MCH 25 L (28-32) pg RDW 20.1 H (13.2-15.2) % Lymph % (Auto) 9.9 L (13.4-35.0) % [place] # (Auto) 0.9 H (0.0-0.8) K/mm3 Seg Neutrophils % 81.8 H (40.0-70.0) % Seg Neutrophils # 10.1 H (1.8-7.7) K/mm3 BUN (9-20) mg/dL Creatinine (0.8-1.3) mg/dL POC Glucose 170 H 303 H (70-105) Alkaline Phosphatase (35-129) units/L Total Protein (6.3-8.2) g/dL Albumin (3.9-5) g/dL 01/01/20 01/01/20 01/01/20 Range/Units 04:40 07:35 11:41 WBC (4.5-11.0) K/mm3 RBC (3.65-5.03) M/mm3 Hgb (11.8-15.2) gm/dl Hct (35.5-45.6) % MCV (84-94) fl MCH (28-32) pg RDW (13.2-15.2) % Lymph % (Auto) (13.4-35.0) % [place] # (Auto) (0.0-0.8) K/mm3 Seg Neutrophils % (40.0-70.0) % Seg Neutrophils # (1.8-7.7) K/mm3 BUN 27 H (9-20) mg/dL Creatinine 2.3 H (0.8-1.3) mg/dL POC Glucose 111 H 135 H (70-105) Alkaline Phosphatase 150 H (35-129) units/L Total Protein 5.3 L (6.3-8.2) g/dL Albumin 2.7 L (3.9-5) g/dL
[2020-01-01] MEDS: oxyCODONE /ACETAMINOPHEN 5-325MG TAB PO PRN (22:53)
[2020-01-01] MEDS: INSULIN GLARGINE 100 UNITS/ML SUB-Q SCH (22:54)
[2020-01-02 07:01] LABS: Basophils # (Auto) 0.1 K/mm3 (0.0-0.1); Basophils % (Auto) 0.7 % (0.0-1.8); Eosinophils # (Auto) 0.1 K/mm3 (0.0-0.4); Eosinophils % (Auto) 0.6 % (0.0-4.3); Hematocrit 22.9 % (35.5-45.6); Lymphocytes # (Auto) 1.3 K/mm3 (1.2-5.4); Lymphocytes % (Auto) 9.9 % (13.4-35.0); Mean Corpuscular HGB Conc 31 % (32-34); Mean Corpuscular Volume 78 fl (84-94); Monocytes % (Auto) 7.3 % (0.0-7.3); Platelet Count 231 K/mm3 (140-440); Red Blood Count 2.95 M/mm3 (3.65-5.03)
[2020-01-02 07:02] LABS: Red Cell Distribution Width 20.3 % (13.2-15.2)
[2020-01-02 07:31] LABS: Albumin 2.6 g/dL (3.9-5); Calcium 9.4 mg/dL (8.4-10.2)
[2020-01-02] MEDS: INSULIN LISPRO 100 UNIT/ML VIAL 3 mL SUB-Q SCH ×4 (08:00→22:05)
[2020-01-02] MEDS: TACROLIMUS 1 MG CAP PO SCH ×2 (11:17→21:57)
[2020-01-02] MEDS: predniSONE 5 MG TAB PO SCH (11:17)
[2020-01-02] MEDS: SODIUM BICARBONATE 650 MG TAB PO SCH ×2 (11:18→21:57)
[2020-01-02] MEDS: MYCOPHENOLATE 500 MG TAB PO SCH ×2 (11:18→21:57)
[2020-01-02] MEDS: FAMOTIDINE 20 MG TAB PO SCH (11:18)
[2020-01-02] MEDS: carvediloL 25 MG TAB PO SCH ×2 (11:23→21:59)
[2020-01-02] MEDS: amLODIPine 5 MG TAB PO SCH (11:23)
--- NOTE | 2020-01-02 11:30 | Progress Note ---
Assessment and Plan Cultures: 12/14/2019 right leg surgical culture: MRSA 12/26/2019 R hand culture: MRSA A/P: 64-year-old male with diabetes, hypertension, renal transplant recipient in 2018, on immunosuppression with Prograf, CellCept and prednisone underwent right proximal tibia fracture closed reduction and external fixator placement on 10/19/2019. He was hospitalized on 12/14/2019 for elective surgery for removal of his external fixator, noted to have: #Low-grade fever, leukocytosis, infection associated with external fixator involving proximal tibia: Intraoperatively, patient was noted to have purulent drainage from the superior pin which was debrided using a curette and cultures were obtained. These cultures are growing MRSA. Patient is immunocompromised. All hardware has been removed. Patient is at risk of osteomyelitis. ESR and CRP are both elevated. Plan to treat with IV abx until 01/11/2020. #Right hand abscess: spontaneously started draining, culture in process. CT RUE without contrast showed "diffuse right hand and forearm cellulitis with significant fluid extending along the perifascial margin and findings concerning for focal abscess" and "Acute comminuted fractures at the second metacarpal phalangeal joint without dislocation. Given concern for infection osteomyelitis is not ruled out." Underwent bedside I&D with drainage of copious purulence on 12/28/2019. Cultures with MRSA. #Immunocompromised host, renal transplant recipient: On Prograf, CellCept, prednisone. #URMILA on CKD: Nephrology following. Renally dose antibiotics. Creatinine appears to be improving Recs: continue renally dosed IV daptomycin 500 mg q24 hours x 4 more weeks from hand abscess drainage (end date: 01/26/2020) Adjusted daptomycin to every 24 hours due to improved renal function. Previous CM orders updated ID clinical quality analyst already notified to schedule follow up appointment wound care to Kee Cochran MD [facility] ([facility] M: [phone] O: [phone] F: [phone] Subjective Date of service: 01/02/20 Principal diagnosis: Leg pain Interval history: Afebrile, white count elevated to 13.5. Objective - Exam Narrative Exam: Constitutional: Alert, cooperative. No acute distress Head, Ears, Nose: Normocephalic, atraumatic. Eyes: Conjunctivae/corneas clear. No icterus. Neck: Supple, no meningeal signs Cardiovascular: S1, S2 normal. Respiratory: Good air entry, clear to auscultation bilaterally GI: Soft, non-tender; bowel sounds normal. No peritoneal signs Musculoskeletal: Right proximal tibia dressing present with small wound. Right upper chest PICC line +. Right hand with dressing Skin: No rash or abscess Hem/Lymphatic: No palpable cervical or supraclavicular nodes. No lymphangitis Psych: Flat affect Neurological: Awake, alert, oriented - Constitutional Vitals: Vital Signs Temp Pulse Resp BP Pulse Ox 98.4 F 63 18 128/58 98 01/02/20 07:27 01/02/20 11:23 01/02/20 07:27 01/02/20 11:23 01/02/20 07:27 Temperature -Last 24 Hours Temperature 98.4 F Temperature 97.7 F Temperature 99.9 F Temperature 98.7 F Temperature 98.2 F - Labs CBC & Chem 7: 01/02/20 06:50 01/02/20 06:50 Labs: Abnormal lab results 01/01/20 01/01/20 01/01/20 Range/Units 11:41 16:15 21:19 WBC (4.5-11.0) K/mm3 RBC (3.65-5.03) M/mm3 Hgb (11.8-15.2) gm/dl Hct (35.5-45.6) % MCV (84-94) fl MCH (28-32) pg MCHC (32-34) % RDW (13.2-15.2) % Lymph % (Auto) (13.4-35.0) % [place] # (Auto) (0.0-0.8) K/mm3 Seg Neutrophils % (40.0-70.0) % Seg Neutrophils # (1.8-7.7) K/mm3 BUN (9-20) mg/dL Creatinine (0.8-1.3) mg/dL Glucose (75-100) mg/dL POC Glucose 135 H 187 H 291 H (70-105) Alkaline Phosphatase (35-129) units/L Total Protein (6.3-8.2) g/dL Albumin (3.9-5) g/dL 10/13/20 10/13/20 10/13/20 Range/Units 06:50 06:50 07:43 WBC 13.5 H (4.5-11.0) K/mm3 RBC 2.95 L (3.65-5.03) M/mm3 Hgb 7.0 L (11.8-15.2) gm/dl Hct 22.9 L (35.5-45.6) % MCV 78 L (84-94) fl MCH 24 L (28-32) pg MCHC 31 L (32-34) % RDW 20.3 H (13.2-15.2) % Lymph % (Auto) 9.9 L (13.4-35.0) % [place] # (Auto) 1.0 H (0.0-0.8) K/mm3 Seg Neutrophils % 81.5 H (40.0-70.0) % Seg Neutrophils # 11.0 H (1.8-7.7) K/mm3 BUN 27 H (9-20) mg/dL Creatinine 2.1 H (0.8-1.3) mg/dL Glucose 119 H (75-100) mg/dL POC Glucose 126 H (70-105) Alkaline Phosphatase 139 H (35-129) units/L Total Protein 5.3 L (6.3-8.2) g/dL Albumin 2.6 L (3.9-5) g/dL
--- NOTE | 2020-01-02 15:36 | Progress Note ---
Assessment and Plan ---Sepsis, POA -presented with Low-grade fever, leukocytosis, infection associated with external fixator involving proximal tibia: - Intraoperatively, patient was noted to have purulent drainage from the superior pin which was debrided using a curette and cultures were obtained. These cultures are growing MRSA. Patient is immunocompromised. All hardware has been removed. Patient is at risk of osteomyelitis. ESR and CRP are both elevated. - Plan to treat with IV abx until 01/11/2020. ---Right hand abscess: -CT RUE without contrast showed "diffuse right hand and forearm cellulitis with significant fluid extending along the perifascial margin and findings concerning for focal abscess" and "Acute comminuted fractures at the second metacarpal phalangeal joint without dislocation. - Underwent bedside I&D with drainage of copious purulence on 12/28/2019. Cultures with MRSA. - cont iv abx: continue renally dosed IV daptomycin 500 mg q24 hours x 4 more weeks from hand abscess drainage (end date: 01/26/2020) ---Immunocompromised host, renal transplant recipient: On Prograf, CellCept, prednisone. ---URMILA on CKD: Nephrology following. Renally dose antibiotics. Creatinine appears to be improving -- Hypernatremia Resolved ---Bilateral pressure ulcer of the sacrum stge 3: Wound care following ---Hypertension Patient has optimal control blood pressure amlodipine Coreg. Continue present medical management. ---T2DM (type 2 diabetes mellitus) Continue insulin regimen and adjust according to blood glucose levels --- Metabolic acidosis Resolved ---Anemia of CD Continue to monitor. ---DVT prophylaxis Brief History: 64-year-old male with diabetes, hypertension, renal transplant recipient in 2018, on immunosuppression with Prograf, CellCept and prednisone underwent right proximal tibia fracture closed reduction and external fixator placement on 10/19/2019. He was hospitalized on 12/14/2019 for elective surgery for removal of his external fixator, Daily course: 12/14/2019 patient admitted for elective surgical correction of right proximal to tibial fracture. Patient underwent surgical intervention and external fixation device. 12/15/1999 patient was found to have elevated creatinine up from 1.5 at baseline to 2.8. Therefore renal consult was obtained. Was thought to be secondary to prerenal azotemia. Symptoms responding to IV volume replacement and creatinine going back down to baseline. 12/16/2019 patient's creatinine continued to improve toward baseline. 12/17/2019. Patient surgical blood culture showed positive for methicillin resistant staph aureus. May be contaminant because patient remained afebrile no leukocytosis. No tenderness to the area. And sensitivity of MRSA was pansensitive to Cipro and Bactrim. Patient was given 1 dose of Vanco IV and await any ID recommendations. Patient should be able to discharge with Bactrim since it is sensitive and patient is afebrile no leukocytosis. Does not appear to have underlying infection at this time. 12/18/2019. Patient is resting doubly afebrile placed on Bactrim because MRSA was sensitive to this. Await further recommendations from Ortho about discharge planning. Patient somewhat sad today. States he just lost his sister. Patient denies any wants for antidepressant medications. 12/18: Awaiting further plan by othor, continue on abx per ID and Nephrology following for urmila, Showing slight improvement and not at baseline. Monitor Right upper ext 12/19: Consult Vascular due to concern for upper ext, obtain doppler of right upper ext 12/20: Unsure why Doppler has not been done, nurse not aware either, call placed to department for stat exam, will give a dose of Lovenox prophylactically. Finally doppler done and no DVT. Elevate Upper ext 12/21: CONTINUE ABX, DISCUSSED WITH NURSINGS STAFF TO ELEVATE UPPER EXT, Tunnle catheter placed. Renal function slightly worse. Continue to monitor. 12/22: Clinically improving, Tunnel catheter placed, awaiting, clearance from Nephrology for discharge, Leukocytosis and renal functions showing slight improv ement. Continue to monitor Right upper ext swelling. S/P 1 unit PRBC transfused, totalling 2 units for this admission. 12/23: Continue current clinical support. Anticipate discharge in a.m. mild eva vation in WBC. Also monitor hemoglobin following transfusion. 12/24: Patient is a 64-year-old male with history of kidney transplant who presented to the hospital with right tibia fracture status post surgical correction. Did have MRSA culture which was considered a contaminant. Hospital stay had been complicated with precipitous drop in hemoglobin and also right upper extremity swelling. Doppler study was done of the right upper extremity and was negative for DVT. Due to prolonged antibiotic coverage patient was seen by vascular and a tunnel catheter placed. Renal function has continued to improve. And patient is now pending discharge. From medicine standpoint patient can be discharged when okay with nephrology and Ortho. Anticipate the patient will benefit from rehab either at home or at a facility. During this hospitalization patient did receive 2 units packed red blood cell. 12/25. Patient seen and examined at bedside this morning. He has no complaints today. Labs reviewed. Will benefit from rehab. Still on daptomycin for MRSA treatment. ID, Ortho and nephrology on board. 12/26. am. No complaints today. CT RUE not performed yesterday. Plan to repeat today. 12/26. pm. CT right upper extremity shows some abscess with subcutaneous edema with possible necrotizing fasciitis. Discussed with surgery on 12/26. Patient made n.p.o. after midnight. 12/27. Right arm swelling has slightly improved after elevation yesterday. Orthopedic surgeon performed I&D at bedside with wound packing. Not clear if cultures obtained. Patient was already on IV antibiotics. Plan to obtain culture if possible. 12/28. RUE swelling better. Cultures - +ve MRSA. Needs discharge planning. ID following. 12/29. He has no complaints today. Still on IV antibiotics. ID is following. Needs placement - CM working on this. 12/30. Awaiting placement. May need IV antibiotics at discharge - defer to ID. 12/31. Will need placement and IV antibiotics for 4 weeks. ID following. Co ntinue wound care. 01/01; PT recommended [place], need IV abx till (end date: 01/26/2020 for hand absce ss and 01/11/2020 for right leg ). CM working on placement. Subjective Date of service: 01/02/20 Principal diagnosis: Leg pain Interval history: Patient seen and examined. Medical records and medication list reviewed. No acute event overnight noted by the RN. Patient denies any chest pain or difficulty breathing. Patient is tolerating diet. Discussed plan of care at bedside with patient. Pending placement Objective - Exam Narrative Exam: General appearance: Present: no acute distress, well-nourished - EENT Eyes: Present: PERRL - Respiratory Respiratory: bilateral: CTA - Cardiovascular Heart Sounds: Present: S1 & S2 - Extremities Extremity abnormal: edema (RUE edema - improving. Dressing intact and clean) - Abdominal General gastrointestinal: soft, non-tender, non-distended, normal bowel sounds - Psychiatric Psychiatric: appropriate mood/affect - Neurologic Neurologic: CNII-XII intact - Constitutional Vitals: Vital Signs - 12hr 01/02/20 01/02/20 01/02/20 05:33 07:27 11:23 Temperature 97.7 F 98.4 F Pulse Rate 60 62 63 Respiratory 18 18 Rate Blood Pressure 160/57 126/59 128/58 Blood Pressure [Left] O2 Sat by Pulse 97 98 Oximetry 01/02/20 11:25 Temperature Pulse Rate 63 Respiratory 18 Rate Blood Pressure Blood Pressure 128/58 [Left] O2 Sat by Pulse 96 Oximetry - Labs CBC & Chem 7: 01/02/20 06:50 01/03/20 11:45 Labs: Abnormal lab results 01/01/20 01/01/20 01/02/20 Range/Units 16:15 21:19 06:50 WBC 13.5 H (4.5-11.0) K/mm3 RBC 2.95 L (3.65-5.03) M/mm3 Hgb 7.0 L (11.8-15.2) gm/dl Hct 22.9 L (35.5-45.6) % MCV 78 L (84-94) fl MCH 24 L (28-32) pg MCHC 31 L (32-34) % RDW 20.3 H (13.2-15.2) % Lymph % (Auto) 9.9 L (13.4-35.0) % [place] # (Auto) 1.0 H (0.0-0.8) K/mm3 Seg Neutrophils % 81.5 H (40.0-70.0) % Seg Neutrophils # 11.0 H (1.8-7.7) K/mm3 BUN (9-20) mg/dL Creatinine (0.8-1.3) mg/dL Glucose (75-100) mg/dL POC Glucose 187 H 291 H (70-105) Alkaline Phosphatase (35-129) units/L Total Protein (6.3-8.2) g/dL Albumin (3.9-5) g/dL 01/02/20 01/02/20 01/02/20 Range/Units 06:50 07:43 11:44 WBC (4.5-11.0) K/mm3 RBC (3.65-5.03) M/mm3 Hgb (11.8-15.2) gm/dl Hct (35.5-45.6) % MCV (84-94) fl MCH (28-32) pg MCHC (32-34) % RDW (13.2-15.2) % Lymph % (Auto) (13.4-35.0) % [place] # (Auto) (0.0-0.8) K/mm3 Seg Neutrophils % (40.0-70.0) % Seg Neutrophils # (1.8-7.7) K/mm3 BUN 27 H (9-20) mg/dL Creatinine 2.1 H (0.8-1.3) mg/dL Glucose 119 H (75-100) mg/dL POC Glucose 126 H 138 H (70-105) Alkaline Phosphatase 139 H (35-129) units/L Total Protein 5.3 L (6.3-8.2) g/dL Albumin 2.6 L (3.9-5) g/dL HEART Score - HEART Score Age: > 65 Risk factors: 1-2 risk factors - Critical Actions Critical Actions: 0-3 pts:0.9-1.7%risk of adverse cardiac event.Candidate for discharge
[2020-01-02] MEDS: INSULIN GLARGINE 100 UNITS/ML SUB-Q SCH (21:58)
[2020-01-03] MEDS: INSULIN LISPRO 100 UNIT/ML VIAL 3 mL SUB-Q SCH ×4 (09:53→23:10)
[2020-01-03] MEDS: MYCOPHENOLATE 500 MG TAB PO SCH ×2 (09:54→23:07)
[2020-01-03] MEDS: carvediloL 25 MG TAB PO SCH ×2 (09:54→23:09)
[2020-01-03] MEDS: amLODIPine 5 MG TAB PO SCH (09:54)
[2020-01-03] MEDS: TACROLIMUS 1 MG CAP PO SCH ×2 (09:55→23:06)
[2020-01-03] MEDS: FAMOTIDINE 20 MG TAB PO SCH (09:55)
[2020-01-03] MEDS: predniSONE 5 MG TAB PO SCH (09:55)
[2020-01-03] MEDS: SODIUM BICARBONATE 650 MG TAB PO SCH ×2 (09:55→23:07)
--- NOTE | 2020-01-03 12:26 | Progress Note ---
Assessment and Plan - Patient Problems (1) URMILA (acute kidney injury) Current Visit: Yes Status: Acute Plan to address problem: In the setting of pre-renal injury. No new labs this am, but labs from yesterday indicate stable renal function. (2) Hypernatremia Current Visit: Yes Status: Acute Plan to address problem: Improved on most recent labs. (3) Hypokalemia Current Visit: Yes Status: Acute Plan to address problem: Replete per protocol. (4) Right tibial fracture Current Visit: Yes Status: Acute Qualifiers: Encounter type: initial encounter Salter-Ocampo Fracture Type: unspecified configuration Plan to address problem: S/p fixation. Further management per orthopedic surgery. (5) S/P kidney transplant Current Visit: Yes Status: Acute Plan to address problem: Continue on current immunosupression. (6) Hypertension Current Visit: Yes Status: Chronic Qualifiers: Hypertension type: essential hypertension Qualified Code(s): I10 - Essential (primary) hypertension Plan to address problem: Monitor on current regimen. (7) T2DM (type 2 diabetes mellitus) Current Visit: Yes Status: Chronic Qualifiers: Diabetes mellitus press tender long goods insulin use: without detention use Plan to address problem: DM management per primary attending. (8) Infection of wound due to methicillin resistant Staphylococcus aureus (MRSA) Current Visit: Yes Status: Acute Plan to address problem: ID recommendations reviewed, and plan for ~4 weeks more of IV antibiotics to complete course. Subjective Date of service: 01/03/20 Principal diagnosis: Leg pain Interval history: No acute issues overnight from renal standpoint. Objective - Vital Signs Vital signs: Vital Signs - 12hr 01/03/20 01/03/20 01/03/20 05:04 05:21 07:27 Temperature 99.0 F 98.8 F Pulse Rate 71 57 L 63 Respiratory 18 17 18 Rate Blood Pressure 182/65 112/53 Blood Pressure 123/57 [Left] O2 Sat by Pulse 100 96 98 Oximetry - General Appearance General appearance: appears stated age EENT: ATNC Neck: no JVD Respiratory: Present: Clear to Ascultation Cardiology: regular, S1S2 Gastrointestinal: normal Integumentary: warm and dry Neurologic: no focal deficit Musculoskeletal: deferred - Lab 01/02/20 06:50 01/02/20 06:50 Most recent lab results Calcium 9.4 mg/dL (8.4-10.2) 01/02/20 06:50 Urine Creatinine 97.4 mg/dL (0.1-20.0) H 12/16/19 06:15 Urine Sodium 14 mmol/L 12/16/19 06:15 Urine Total Protein 30 mg/dL (5-11.8) H 12/16/19 06:15 - Allied health notes Allied health notes reviewed: nursing Medications & Allergies - Medications Allergies/Adverse Reactions: Allergies cefazolin Allergy (Intermediate, Verified 10/19/19 13:26) Hives itching & hives Home Medications: Home Medications Medication Instructions Recorded Confirmed Last Taken Type Aspirin 81 mg PO DAILY 10/16/19 12/14/19 5 Days Ago History ~12/09/19 Calcium Citrate/Vitamin D3 1,000 units PO DAILY 10/16/19 12/08/19 12/13/19 History Dronedarone (Nf) [Multaq (Nf)] 400 mg PO DAILY 10/16/19 12/08/19 12/13/19 History Mycophenolate 500 mg PO BID 10/16/19 12/08/19 12/13/19 History Prograf 2 mg PO Q12HR 10/16/19 12/08/19 12/13/19 History amLODIPine 5 mg PO DAILY 10/16/19 12/08/19 12/14/19 07:00 History carvediloL [Coreg] 20 mg PO BID 10/16/19 12/08/19 12/14/19 07:00 History glipiZIDE 5 mg PO DAILY 10/16/19 12/08/19 12/13/19 History predniSONE [Deltasone] 5 mg PO DAILY 10/16/19 12/08/19 12/13/19 History HYDROcodone/APAP 5-325 [[place] 1 each PO Q6HR PRN #20 tablet 10/19/19 12/08/19 12/13/19 Rx 5-325 mg TAB] HYDROcodone/APAP 7.5-325 [[place] 1 each PO Q6HR PRN #20 tablet 12/14/19 Unknown Rx 7.5-325 mg TAB] Sulfamethoxazole/Trimethoprim 1 each PO BID #30 tablet 12/14/19 Unknown Rx [Bactrim DS TAB] Active Medications: Generic Name Dose Route Start Last Admin Trade Name Freq PRN Reason Stop Dose Admin Acetaminophen 650 mg 12/14/19 22:57 Tylenol PO Q4H PRN Pain MILD(1-3)/Fever >100.5/WHALEY Amlodipine Besylate 5 mg 12/15/19 10:00 01/03/20 09:54 Amlodipine PO 5 mg DAILY NANCY Administration Carvedilol 25 mg 12/15/19 10:00 01/03/20 09:54 Coreg PO 25 mg BID NANCY Administration Dextrose 50 ml 12/22/19 07:00 12/22/19 14:00 D50w (25gm) Syringe IV 20 ml PRN PRN Administration Hypoglycemia Protocol Famotidine 20 mg 12/16/19 10:00 01/03/20 09:55 Pepcid PO 20 mg DAILY NANCY Administration Hydromorphone HCl 1 mg 12/14/19 22:57 12/16/19 18:32 Dilaudid IV 1 mg Q3H PRN Administration Pain , Severe (7-10) Daptomycin 500 mg/ Sodium 100 mls @ 200 mls/hr 01/01/20 15:00 01/02/20 18:18 Chloride IV 01/26/20 20:00 100 mls/hr Q24H NANCY Administration Protocol Insulin Glargine 10 units 12/25/19 22:00 01/02/20 21:58 Lantus SUB-Q 10 units QHS NANCY Administration Insulin Human Lispro 0 unit 12/23/19 17:30 01/03/20 09:53 Humalog SUB-Q Not Given ACHS [facility] Protocol Loperamide HCl 2 mg 12/15/19 14:01 12/23/19 12:33 Imodium PO 2 mg BID PRN Administration Diarrhea Metoclopramide HCl 5 mg 12/14/19 23:11 Reglan IV Q6H PRN Nausea And Vomiting Mycophenolate Mofetil 500 mg 12/14/19 23:00 01/03/20 09:54 Cellcept PO 500 mg BID NANCY Administration Ondansetron HCl 4 mg 12/14/19 22:57 12/19/19 10:36 Zofran IV 4 mg Q3H PRN Administration Nausea And Vomiting Oxycodone/Acetaminophen 1 tab 12/14/19 22:57 01/01/20 22:53 Percocet 5/325 PO 1 tab Q6H PRN Administration Pain, Moderate (4-6) Prednisone 5 mg 12/15/19 10:00 01/03/20 09:55 Deltasone PO 5 mg DAILY NANCY Administration Sodium Bicarbonate 650 mg 12/15/19 22:00 01/03/20 09:55 Sodium Bicarbonate PO 650 mg BID NANCY Administration Sodium Chloride 10 ml 12/15/19 10:00 01/03/20 09:56 Sodium Chloride Flush Syringe 10 Ml IV 10 ml BID NANCY Administration Sodium Chloride 10 ml 12/14/19 22:57 12/18/19 22:09 Sodium Chloride Flush Syringe 10 Ml IV 10 ml PRN PRN Administration LINE FLUSH Tacrolimus 2 mg 12/14/19 23:00 01/03/20 09:55 Prograf PO 2 mg Q12HR NANCY Administration
[2020-01-03 12:27] LABS: Calcium 9.5 mg/dL (8.4-10.2)
--- NOTE | 2020-01-03 13:52 | Progress Note ---
Assessment and Plan ---Sepsis, POA -presented with Low-grade fever, leukocytosis, infection associated with external fixator involving proximal tibia: - Intraoperatively, patient was noted to have purulent drainage from the superior pin which was debrided using a curette and cultures were obtained. These cultures are growing MRSA. Patient is immunocompromised. All hardware has been removed. Patient is at risk of osteomyelitis. ESR and CRP are both elevated. - Plan to treat with IV abx until 01/11/2020. ---Right hand abscess: -CT RUE without contrast showed "diffuse right hand and forearm cellulitis with significant fluid extending along the perifascial margin and findings concerning for focal abscess" and "Acute comminuted fractures at the second metacarpal phalangeal joint without dislocation. - Underwent bedside I&D with drainage of copious purulence on 12/28/2019. Cultures with MRSA. - cont iv abx: continue renally dosed IV daptomycin 500 mg q24 hours x 4 more weeks from hand abscess drainage (end date: 01/26/2020) ---Immunocompromised host, renal transplant recipient: On Prograf, CellCept, prednisone. ---URMILA on CKD: Nephrology following. Renally dose antibiotics. Creatinine appears to be improving -- Hypernatremia Resolved ---Bilateral pressure ulcer of the sacrum stge 3: Wound care following ---Hypertension Patient has optimal control blood pressure amlodipine Coreg. Continue present medical management. ---T2DM (type 2 diabetes mellitus) Continue insulin regimen and adjust according to blood glucose levels --- Metabolic acidosis Resolved ---Anemia of CD Continue to monitor. ---DVT prophylaxis Brief History: 64-year-old male with diabetes, hypertension, renal transplant recipient in 2018, on immunosuppression with Prograf, CellCept and prednisone underwent right proximal tibia fracture closed reduction and external fixator placement on 10/19/2019. He was hospitalized on 12/14/2019 for elective surgery for removal of his external fixator, Daily course: 12/14/2019 patient admitted for elective surgical correction of right proximal to tibial fracture. Patient underwent surgical intervention and external fixation device. 12/15/1999 patient was found to have elevated creatinine up from 1.5 at baseline to 2.8. Therefore renal consult was obtained. Was thought to be secondary to prerenal azotemia. Symptoms responding to IV volume replacement and creatinine going back down to baseline. 12/16/2019 patient's creatinine continued to improve toward baseline. 12/17/2019. Patient surgical blood culture showed positive for methicillin resistant staph aureus. May be contaminant because patient remained afebrile no leukocytosis. No tenderness to the area. And sensitivity of MRSA was pansensitive to Cipro and Bactrim. Patient was given 1 dose of Vanco IV and await any ID recommendations. Patient should be able to discharge with Bactrim since it is sensitive and patient is afebrile no leukocytosis. Does not appear to have underlying infection at this time. 12/18/2019. Patient is resting doubly afebrile placed on Bactrim because MRSA was sensitive to this. Await further recommendations from Ortho about discharge planning. Patient somewhat sad today. States he just lost his sister. Patient denies any wants for antidepressant medications. 12/18: Awaiting further plan by othor, continue on abx per ID and Nephrology following for urmila, Showing slight improvement and not at baseline. Monitor Right upper ext 12/19: Consult Vascular due to concern for upper ext, obtain doppler of right upper ext 12/20: Unsure why Doppler has not been done, nurse not aware either, call placed to department for stat exam, will give a dose of Lovenox prophylactically. Finally doppler done and no DVT. Elevate Upper ext 12/21: CONTINUE ABX, DISCUSSED WITH NURSINGS STAFF TO ELEVATE UPPER EXT, Tunnle catheter placed. Renal function slightly worse. Continue to monitor. 12/22: Clinically improving, Tunnel catheter placed, awaiting, clearance from Nephrology for discharge, Leukocytosis and renal functions showing slight improv ement. Continue to monitor Right upper ext swelling. S/P 1 unit PRBC transfused, totalling 2 units for this admission. 12/23: Continue current clinical support. Anticipate discharge in a.m. mild eva vation in WBC. Also monitor hemoglobin following transfusion. 12/24: Patient is a 64-year-old male with history of kidney transplant who presented to the hospital with right tibia fracture status post surgical correction. Did have MRSA culture which was considered a contaminant. Hospital stay had been complicated with precipitous drop in hemoglobin and also right upper extremity swelling. Doppler study was done of the right upper extremity and was negative for DVT. Due to prolonged antibiotic coverage patient was seen by vascular and a tunnel catheter placed. Renal function has continued to improve. And patient is now pending discharge. From medicine standpoint patient can be discharged when okay with nephrology and Ortho. Anticipate the patient will benefit from rehab either at home or at a facility. During this hospitalization patient did receive 2 units packed red blood cell. 12/25. Patient seen and examined at bedside this morning. He has no complaints today. Labs reviewed. Will benefit from rehab. Still on daptomycin for MRSA treatment. ID, Ortho and nephrology on board. 12/26. am. No complaints today. CT RUE not performed yesterday. Plan to repeat today. 12/26. pm. CT right upper extremity shows some abscess with subcutaneous edema with possible necrotizing fasciitis. Discussed with surgery on 12/26. Patient made n.p.o. after midnight. 12/27. Right arm swelling has slightly improved after elevation yesterday. Orthopedic surgeon performed I&D at bedside with wound packing. Not clear if cultures obtained. Patient was already on IV antibiotics. Plan to obtain culture if possible. 12/28. RUE swelling better. Cultures - +ve MRSA. Needs discharge planning. ID following. 12/29. He has no complaints today. Still on IV antibiotics. ID is following. Needs placement - CM working on this. 12/30. Awaiting placement. May need IV antibiotics at discharge - defer to ID. 12/31. Will need placement and IV antibiotics for 4 weeks. ID following. Co ntinue wound care. 01/01; PT recommended [facility], need IV abx till (end date: 01/26/2020 for hand absce ss and 01/11/2020 for right leg ). CM working on placement. 01/02: Discharge pending on subacute rehab and IV antibiotics set up. Subjective Date of service: 01/03/20 Principal diagnosis: Leg pain Interval history: Patient seen and examined. Medical records and medication list reviewed. No acute event overnight noted by the RN. Patient denies any chest pain or difficulty breathing. Patient is tolerating diet. Discussed plan of care at bedside with patient. Pending placement Objective - Exam Narrative Exam: General appearance: Present: no acute distress, well-nourished - EENT Eyes: Present: PERRL - Respiratory Respiratory: bilateral: CTA - Cardiovascular Heart Sounds: Present: S1 & S2 - Extremities Extremity abnormal: edema (RUE edema - improving. Dressing intact and clean) - Abdominal General gastrointestinal: soft, non-tender, non-distended, normal bowel sounds - Psychiatric Psychiatric: appropriate mood/affect - Neurologic Neurologic: CNII-XII intact - Constitutional Vitals: Vital Signs - 12hr 01/03/20 01/03/20 01/03/20 05:04 05:21 07:27 Temperature 99.0 F 98.8 F Pulse Rate 71 57 L 63 Respiratory 18 17 18 Rate Blood Pressure 182/65 112/53 Blood Pressure 123/57 [Left] O2 Sat by Pulse 100 96 98 Oximetry - Labs CBC & Chem 7: 01/02/20 06:50 01/03/20 11:45 Labs: Abnormal lab results 01/02/20 01/02/20 01/03/20 Range/Units 17:11 21:56 07:45 BUN (9-20) mg/dL Creatinine (0.8-1.3) mg/dL Glucose (75-100) mg/dL POC Glucose 261 H 271 H 115 H (70-105) 01/03/20 01/03/20 Range/Units 11:39 11:45 BUN 28 H (9-20) mg/dL Creatinine 2.1 H (0.8-1.3) mg/dL Glucose 145 H (75-100) mg/dL POC Glucose 155 H (70-105) HEART Score - HEART Score Age: > 65 Risk factors: 1-2 risk factors - Critical Actions Critical Actions: 0-3 pts:0.9-1.7%risk of adverse cardiac event.Candidate for discharge
--- NOTE | 2020-01-03 15:23 | Progress Note ---
Assessment and Plan Cultures: 12/14/2019 right leg surgical culture: MRSA 12/26/2019 R hand culture: MRSA A/P: 64-year-old male with diabetes, hypertension, renal transplant recipient in 2018, on immunosuppression with Prograf, CellCept and prednisone underwent right proximal tibia fracture closed reduction and external fixator placement on 10/19/2019. He was hospitalized on 12/14/2019 for elective surgery for removal of his external fixator, noted to have: #Low-grade fever, leukocytosis, infection associated with external fixator involving proximal tibia: Intraoperatively, patient was noted to have purulent drainage from the superior pin which was debrided using a curette and cultures were obtained. These cultures are growing MRSA. Patient is immunocompromised. All hardware has been removed. Patient is at risk of osteomyelitis. ESR and CRP are both elevated. Plan to treat with IV abx until 01/11/2020. #Right hand abscess: spontaneously started draining, culture in process. CT RUE without contrast showed "diffuse right hand and forearm cellulitis with significant fluid extending along the perifascial margin and findings concerning for focal abscess" and "Acute comminuted fractures at the second metacarpal phalangeal joint without dislocation. Given concern for infection osteomyelitis is not ruled out." Underwent bedside I&D with drainage of copious purulence on 12/28/2019. Cultures with MRSA. #Immunocompromised host, renal transplant recipient: On Prograf, CellCept, prednisone. #URMILA on CKD: Nephrology following. Renally dose antibiotics. Creatinine appears to be improving Recs: continue renally dosed IV daptomycin 500 mg q24 hours x 4 more weeks from hand abscess drainage (end date: 01/26/2020) Adjusted daptomycin to every 24 hours due to improved renal function. Previous CM orders updated ID clinic manager already notified to schedule follow up appointment wound care to R hand Ordered repeat hand CT due to persistent leukocytosis. Would prefer with contrast, however will defer with patient recovering renal function Lucille Cochran MD [facility] M: [phone] O: [phone] F: [phone] Subjective Date of service: 01/03/20 Principal diagnosis: Leg pain Interval history: Afebrile, elevated white count of 13.5. Objective - Exam Narrative Exam: Constitutional: Alert, cooperative. No acute distress Head, Ears, Nose: Normocephalic, atraumatic. Eyes: Conjunctivae/corneas clear. No icterus. Neck: Supple, no meningeal signs Cardiovascular: S1, S2 normal. Respiratory: Good air entry, clear to auscultation bilaterally GI: Soft, non-tender; bowel sounds normal. No peritoneal signs Musculoskeletal: Right proximal tibia dressing present with small wound. Right upper chest PICC line +. Right hand with dressing Skin: No rash or abscess Hem/Lymphatic: No palpable cervical or supraclavicular nodes. No lymphangitis Psych: Flat affect Neurological: Awake, alert, oriented - Constitutional Vitals: Vital Signs Temp Pulse Resp BP Pulse Ox 99.7 F H 71 20 123/59 97 01/03/20 11:21 01/03/20 11:21 01/03/20 11:21 01/03/20 11:21 01/03/20 11:21 Temperature -Last 24 Hours Temperature 99.7 F Temperature 98.8 F Temperature 99.0 F Temperature 98.7 F Temperature 98.4 F - Labs CBC & Chem 7: 01/02/20 06:50 01/03/20 11:45 Labs: Abnormal lab results 01/02/20 01/02/20 01/03/20 Range/Units 17:11 21:56 07:45 BUN (9-20) mg/dL Creatinine (0.8-1.3) mg/dL Glucose (75-100) mg/dL POC Glucose 261 H 271 H 115 H (70-105) 01/03/20 01/03/20 Range/Units 11:39 11:45 BUN 28 H (9-20) mg/dL Creatinine 2.1 H (0.8-1.3) mg/dL Glucose 145 H (75-100) mg/dL POC Glucose 155 H (70-105)
--- NOTE | 2020-01-03 23:02 | Cat Scan Report ---
CT upper extrem RT wo con INDICATION: Recent debridement of infection, persistent leukoc. TECHNIQUE: All CT scans at this location are performed using the following dose modulation technique: Automated exposure control. COMPARISON: CT 12/27/2019. FINDINGS: There are destructive changes along both sides of the second MCP joint. There is surrounding soft tis heber inflammation with a few foci of soft tissue gas and index finger bases. Prominent soft tissue den sity in the thenar eminence could be due to musculature or fluid collection. No new skeletal abnormality. Anterior to the proximal right humerus, there is a gas and fluid collection which measures approximat waldemar 3 x 2 cm on series 301 image 22. This appears deep to the anterior deltoid and may be tracking al lesly the subdeltoid bursa. Diffuse, extensive subcutaneous edema is again seen in the distal arm, forearm, and wrist/hand. IMPRESSION: 1. Persistent destructive changes along both sides of the second MCP joint consistent with septic art hritis and associated osteomyelitis. Adjacent inflammation in the soft tissues with a few foci of sof t tissue gas between the thumb and index finger. These findings are relatively similar to the prior e xam. 2. 3 x 2 cm gas and fluid collection anterior to the proximal humerus, likely within the anterior sub deltoid space. This is concerning for infection. 3. Extensive subcutaneous edema throughout the right upper extremity, greatest within the forearm. Th is is similar to the prior exam. Signer Name: Santi Manuel MD Signed: 01/03/2020 10:57 PM Workstation Name: [id number]
[2020-01-03] MEDS: INSULIN GLARGINE 100 UNITS/ML SUB-Q SCH (23:07)
[2020-01-04] MEDS: INSULIN LISPRO 100 UNIT/ML VIAL 3 mL SUB-Q SCH ×4 (08:04→22:55)
[2020-01-04] MEDS: TACROLIMUS 1 MG CAP PO SCH ×2 (10:28→22:53)
[2020-01-04] MEDS: FAMOTIDINE 20 MG TAB PO SCH (10:28)
[2020-01-04] MEDS: MYCOPHENOLATE 500 MG TAB PO SCH ×2 (10:28→22:51)
[2020-01-04] MEDS: predniSONE 5 MG TAB PO SCH (10:29)
[2020-01-04] MEDS: SODIUM BICARBONATE 650 MG TAB PO SCH ×2 (10:29→22:53)
[2020-01-04] MEDS: amLODIPine 5 MG TAB PO SCH (10:29)
[2020-01-04] MEDS: carvediloL 25 MG TAB PO SCH ×2 (10:29→22:54)
--- NOTE | 2020-01-04 14:20 | Progress Note ---
Assessment and Plan ---Sepsis, POA -presented with Low-grade fever, leukocytosis, infection associated with external fixator involving proximal tibia: - Intraoperatively, patient was noted to have purulent drainage from the superior pin which was debrided using a curette and cultures were obtained. These cultures are growing MRSA. Patient is immunocompromised. All hardware has been removed. Patient is at risk of osteomyelitis. ESR and CRP are both elevated. - Plan to treat with IV abx until 01/11/2020. ---Right hand abscess: -CT RUE without contrast showed "diffuse right hand and forearm cellulitis with significant fluid extending along the perifascial margin and findings concerning for focal abscess" and "Acute comminuted fractures at the second metacarpal phalangeal joint without dislocation. - Underwent bedside I&D with drainage of copious purulence on 12/28/2019. Cultures with MRSA. - cont iv abx: continue renally dosed IV daptomycin 500 mg q24 hours x 4 more weeks from hand abscess drainage (end date: 01/26/2020) ---Immunocompromised host, renal transplant recipient: On Prograf, CellCept, prednisone. ---URMILA on CKD: Nephrology following. Renally dose antibiotics. Creatinine appears to be improving -- Hypernatremia Resolved ---Bilateral pressure ulcer of the sacrum stge 3: Wound care following ---Hypertension Patient has optimal control blood pressure amlodipine Coreg. Continue present medical management. ---T2DM (type 2 diabetes mellitus) Continue insulin regimen and adjust according to blood glucose levels --- Metabolic acidosis Resolved ---Anemia of CD Continue to monitor. ---DVT prophylaxis Brief History: 64-year-old male with diabetes, hypertension, renal transplant recipient in 2018, on immunosuppression with Prograf, CellCept and prednisone underwent right proximal tibia fracture closed reduction and external fixator placement on 10/19/2019. He was hospitalized on 12/14/2019 for elective surgery for removal of his external fixator, Daily course: 12/14/2019 patient admitted for elective surgical correction of right proximal to tibial fracture. Patient underwent surgical intervention and external fixation device. 12/15/1999 patient was found to have elevated creatinine up from 1.5 at baseline to 2.8. Therefore renal consult was obtained. Was thought to be secondary to prerenal azotemia. Symptoms responding to IV volume replacement and creatinine going back down to baseline. 12/16/2019 patient's creatinine continued to improve toward baseline. 12/17/2019. Patient surgical blood culture showed positive for methicillin resistant staph aureus. May be contaminant because patient remained afebrile no leukocytosis. No tenderness to the area. And sensitivity of MRSA was pansensitive to Cipro and Bactrim. Patient was given 1 dose of Vanco IV and await any ID recommendations. Patient should be able to discharge with Bactrim since it is sensitive and patient is afebrile no leukocytosis. Does not appear to have underlying infection at this time. 12/18/2019. Patient is resting doubly afebrile placed on Bactrim because MRSA was sensitive to this. Await further recommendations from Ortho about discharge planning. Patient somewhat sad today. States he just lost his sister. Patient denies any wants for antidepressant medications. 12/18: Awaiting further plan by othor, continue on abx per ID and Nephrology following for urmila, Showing slight improvement and not at baseline. Monitor Right upper ext 12/19: Consult Vascular due to concern for upper ext, obtain doppler of right upper ext 12/20: Unsure why Doppler has not been done, nurse not aware either, call placed to department for stat exam, will give a dose of Lovenox prophylactically. Finally doppler done and no DVT. Elevate Upper ext 12/21: CONTINUE ABX, DISCUSSED WITH NURSINGS STAFF TO ELEVATE UPPER EXT, Tunnle catheter placed. Renal function slightly worse. Continue to monitor. 12/22: Clinically improving, Tunnel catheter placed, awaiting, clearance from Nephrology for discharge, Leukocytosis and renal functions showing slight improv ement. Continue to monitor Right upper ext swelling. S/P 1 unit PRBC transfused, totalling 2 units for this admission. 12/23: Continue current clinical support. Anticipate discharge in a.m. mild eva vation in WBC. Also monitor hemoglobin following transfusion. 12/24: Patient is a 64-year-old male with history of kidney transplant who presented to the hospital with right tibia fracture status post surgical correction. Did have MRSA culture which was considered a contaminant. Hospital stay had been complicated with precipitous drop in hemoglobin and also right upper extremity swelling. Doppler study was done of the right upper extremity and was negative for DVT. Due to prolonged antibiotic coverage patient was seen by vascular and a tunnel catheter placed. Renal function has continued to improve. And patient is now pending discharge. From medicine standpoint patient can be discharged when okay with nephrology and Ortho. Anticipate the patient will benefit from rehab either at home or at a facility. During this hospitalization patient did receive 2 units packed red blood cell. 12/25. Patient seen and examined at bedside this morning. He has no complaints today. Labs reviewed. Will benefit from rehab. Still on daptomycin for MRSA treatment. ID, Ortho and nephrology on board. 12/26. am. No complaints today. CT RUE not performed yesterday. Plan to repeat today. 12/26. pm. CT right upper extremity shows some abscess with subcutaneous edema with possible necrotizing fasciitis. Discussed with surgery on 12/26. Patient made n.p.o. after midnight. 12/27. Right arm swelling has slightly improved after elevation yesterday. Orthopedic surgeon performed I&D at bedside with wound packing. Not clear if cultures obtained. Patient was already on IV antibiotics. Plan to obtain culture if possible. 12/28. RUE swelling better. Cultures - +ve MRSA. Needs discharge planning. ID following. 12/29. He has no complaints today. Still on IV antibiotics. ID is following. Needs placement - CM working on this. 12/30. Awaiting placement. May need IV antibiotics at discharge - defer to ID. 12/31. Will need placement and IV antibiotics for 4 weeks. ID following. Co ntinue wound care. 01/01; PT recommended [facility], need IV abx till (end date: 01/26/2020 for hand absce ss and 01/11/2020 for right leg ). CM working on placement. 01/02: Discharge pending on subacute rehab and IV antibiotics set up. 01/03; pending placement Subjective Date of service: 01/04/20 Principal diagnosis: Leg pain Interval history: Patient seen and examined. Medical records and medication list reviewed. No acute event overnight noted by the RN. Patient denies any chest pain or difficulty breathing. Patient is tolerating diet. Discussed plan of care at bedside with patient. Pending placement Objective - Exam Narrative Exam: General appearance: Present: no acute distress, well-nourished - EENT Eyes: Present: PERRL - Respiratory Respiratory: bilateral: CTA - Cardiovascular Heart Sounds: Present: S1 & S2 - Extremities Extremity abnormal: edema (RUE edema - improving. Dressing intact and clean) - Abdominal General gastrointestinal: soft, non-tender, non-distended, normal bowel sounds - Psychiatric Psychiatric: appropriate mood/affect - Neurologic Neurologic: CNII-XII intact - Constitutional Vitals: Vital Signs - 12hr 01/04/20 01/04/20 01/04/20 06:10 09:57 10:29 Temperature 99.0 F 97.8 F Pulse Rate 60 60 60 Respiratory 18 18 Rate Blood Pressure 112/51 94/54 Blood Pressure 94/45 [Left] O2 Sat by Pulse 95 99 Oximetry 01/04/20 12:00 Temperature 97.2 F L Pulse Rate 66 Respiratory 19 Rate Blood Pressure Blood Pressure 103/52 [Left] O2 Sat by Pulse 99 Oximetry - Labs CBC & Chem 7: 01/06/20 Unknown 01/05/20 Unknown Labs: Abnormal lab results 01/03/20 01/03/20 01/04/20 Range/Units 16:27 22:52 11:51 POC Glucose 169 H 160 H 160 H (70-105) HEART Score - HEART Score Age: > 65 Risk factors: 1-2 risk factors - Critical Actions Critical Actions: 0-3 pts:0.9-1.7%risk of adverse cardiac event.Candidate for discharge
--- NOTE | 2020-01-04 15:22 | Progress Note ---
Assessment and Plan Cultures: 12/14/2019 right leg surgical culture: MRSA 12/26/2019 R hand culture: MRSA A/P: 64-year-old male with diabetes, hypertension, renal transplant recipient in 2018, on immunosuppression with Prograf, CellCept and prednisone underwent right proximal tibia fracture closed reduction and external fixator placement on 10/19/2019. He was hospitalized on 12/14/2019 for elective surgery for removal of his external fixator, noted to have: #Low-grade fever, leukocytosis, infection associated with external fixator involving proximal tibia: Intraoperatively, patient was noted to have purulent drainage from the superior pin which was debrided using a curette and cultures were obtained. These cultures are growing MRSA. Patient is immunocompromised. All hardware has been removed. Patient is at risk of osteomyelitis. ESR and CRP are both elevated. #Right hand abscess: spontaneously started draining, culture in process. CT RUE without contrast showed "diffuse right hand and forearm cellulitis with significant fluid extending along the perifascial margin and findings concerning for focal abscess" and "Acute comminuted fractures at the second metacarpal phalangeal joint without dislocation. Given concern for infection o steomyelitis is not ruled out." Underwent bedside I&D with drainage of copious purulence on 12/28/2019. Cultures with MRSA. #Immunocompromised host, renal transplant recipient: On Prograf, CellCept, prednisone. #URMILA on CKD: Nephrology following. Renally dose antibiotics. Creatinine appears to be improving Recs: continue renally dosed IV daptomycin 500 mg q24 hours x 4 more weeks from hand abscess drainage (end date: 01/26/2020) Adjusted daptomycin to every 24 hours due to improved renal function. Previous CM orders updated ID rn clinical resource already notified to schedule follow up appointment wound care to R hand Possible abscess and subdeltoid space Repeat CBC in iris Cochran MD [facility] ([facility] M: [phone] O: [phone] F: [phone] Subjective Date of service: 01/04/20 Principal diagnosis: Leg pain Interval history: Afebrile, no acute concerns. Imaging personally reviewed: Right upper extremity CT: Persistent destructive changes in the hand with septic arthritis and associated osteomyelitis. Small gas fluid collection anterior to the proximal humerus in the subdeltoid space. Objective - Exam Narrative Exam: Constitutional: Alert, cooperative. No acute distress Head, Ears, Nose: Normocephalic, atraumatic. Eyes: Conjunctivae/corneas clear. No icterus. Neck: Supple, no meningeal signs Cardiovascular: S1, S2 normal. Respiratory: Good air entry, clear to auscultation bilaterally GI: Soft, non-tender; bowel sounds normal. No peritoneal signs Musculoskeletal: Right proximal tibia dressing present with small wound. Right upper chest PICC line +. Right hand with dressing Skin: No rash or abscess Hem/Lymphatic: No palpable cervical or supraclavicular nodes. No lymphangitis Psych: Flat affect Neurological: Awake, alert, oriented - Constitutional Vitals: Vital Signs Temp Pulse Resp BP Pulse Ox 97.2 F L 66 19 103/52 99 01/04/20 12:00 01/04/20 12:00 01/04/20 12:00 01/04/20 12:00 01/04/20 12:00 Temperature -Last 24 Hours Temperature 97.2 F Temperature 97.8 F Temperature 99.0 F Temperature 98.1 F Temperature 98.1 F Temperature 97.0 F - Labs CBC & Chem 7: 01/02/20 06:50 01/03/20 11:45 Labs: Abnormal lab results 01/03/20 01/03/20 01/04/20 Range/Units 16:27 22:52 11:51 POC Glucose 169 H 160 H 160 H (70-105)
--- NOTE | 2020-01-04 17:24 | Consultation ---
History of Present Illness Consult date: 01/04/20 Chief complaint: Sacral pressure ulcer - History of present illness History of present illness: 64 yo male admitted on 12/14/19 after having an external fixator removed from his right leg. He is diabetic. Past History Past Medical History: diabetes, hypertension, renal failure (s/p DDKTx in 09/2017 ), other (Transplant) Past Surgical History: Other (Tibial fracture--right with external fixation, DDKTx in 09/2017) Social history: lives with family, full code Family history: hypertension Medications and Allergies Allergies Allergy/AdvReac Type Severity Reaction Status Date / Time cefazolin Allergy Intermediate Hives Verified 10/19/19 13:26 Home Medications Medication Instructions Recorded Confirmed Last Taken Type Aspirin 81 mg PO DAILY 10/16/19 12/14/19 5 Days Ago History ~12/09/19 Calcium Citrate/Vitamin D3 1,000 units PO DAILY 10/16/19 12/08/19 12/13/19 History Dronedarone (Nf) [Multaq (Nf)] 400 mg PO DAILY 10/16/19 12/08/19 12/13/19 History Mycophenolate 500 mg PO BID 10/16/19 12/08/19 12/13/19 History Prograf 2 mg PO Q12HR 10/16/19 12/08/19 12/13/19 History amLODIPine 5 mg PO DAILY 10/16/19 12/08/19 12/14/19 07:00 History carvediloL [Coreg] 20 mg PO BID 10/16/19 12/08/19 12/14/19 07:00 History glipiZIDE 5 mg PO DAILY 10/16/19 12/08/19 12/13/19 History predniSONE [Deltasone] 5 mg PO DAILY 10/16/19 12/08/19 12/13/19 History HYDROcodone/APAP 5-325 [S[place]ry 1 each PO Q6HR PRN #20 tablet 10/19/19 12/08/19 12/13/19 Rx 5-325 mg TAB] HYDROcodone/APAP 7.5-325 [[place]ry 1 each PO Q6HR PRN #20 tablet 12/14/19 Unknown Rx 7.5-325 mg TAB] Sulfamethoxazole/Trimethoprim 1 each PO BID #30 tablet 12/14/19 Unknown Rx [Bactrim DS TAB] Active Meds: Active Medications Acetaminophen (Tylenol) 650 mg PO Q4H PRN PRN Reason: Pain MILD(1-3)/Fever >100.5/WHALEY Amlodipine Besylate (Amlodipine) 5 mg PO DAILY [facility] Last Admin: 01/04/20 10:29 Dose: Not Given Documented by: Carvedilol (Coreg) 25 mg PO BID [facility] Last Admin: 01/04/20 10:29 Dose: Not Given Documented by: Dextrose (D50w (25gm) Syringe) 50 ml IV PRN PRN; Protocol PRN Reason: Hypoglycemia Last Admin: 12/22/19 14:00 Dose: 20 ml Documented by: Famotidine (Pepcid) 20 mg PO DAILY [facility] Last Admin: 01/04/20 10:28 Dose: 20 mg Documented by: Hydromorphone HCl (Dilaudid) 1 mg IV Q3H PRN PRN Reason: Pain , Severe (7-10) Last Admin: 12/16/19 18:32 Dose: 1 mg Documented by: Daptomycin 500 mg/ Sodium (Chloride) 100 mls @ 200 mls/hr IV Q24H [facility]; Protocol Stop: 01/26/20 20:00 Last Admin: 01/03/20 15:26 Dose: 100 mls/hr Documented by: Insulin Glargine (Lantus) 10 units SUB-Q QHS [facility] Last Admin: 01/03/20 23:07 Dose: 10 units Documented by: Insulin Human Lispro (Humalog) 0 unit SUB-Q ACHS [facility]; Protocol Last Admin: 01/04/20 12:05 Dose: 1 unit Documented by: Loperamide HCl (Imodium) 2 mg PO BID PRN PRN Reason: Diarrhea Last Admin: 12/23/19 12:33 Dose: 2 mg Documented by: Metoclopramide HCl (Reglan) 5 mg IV Q6H PRN PRN Reason: Nausea And Vomiting Mycophenolate Mofetil (Cellcept) 500 mg PO BID [facility] Last Admin: 01/04/20 10:28 Dose: 500 mg Documented by: Ondansetron HCl (Zofran) 4 mg IV Q3H PRN PRN Reason: Nausea And Vomiting Last Admin: 12/19/19 10:36 Dose: 4 mg Documented by: Oxycodone/Acetaminophen (Percocet 5/325) 1 tab PO Q6H PRN PRN Reason: Pain, Moderate (4-6) Last Admin: 01/01/20 22:53 Dose: 1 tab Documented by: Prednisone (Deltasone) 5 mg PO DAILY [facility] Last Admin: 01/04/20 10:29 Dose: 5 mg Documented by: Sodium Bicarbonate (Sodium Bicarbonate) 650 mg PO BID [facility] Last Admin: 01/04/20 10:29 Dose: 650 mg Documented by: Sodium Chloride (Sodium Chloride Flush Syringe 10 Ml) 10 ml IV BID [facility] Last Admin: 01/04/20 10:30 Dose: 10 ml Documented by: Sodium Chloride (Sodium Chloride Flush Syringe 10 Ml) 10 ml IV PRN PRN PRN Reason: LINE FLUSH Last Admin: 12/18/19 22:09 Dose: 10 ml Documented by: Tacrolimus (Prograf) 2 mg PO Q12HR [facility] Last Admin: 01/04/20 10:28 Dose: 2 mg Documented by: Review of Systems All systems: negative (none) Exam Vital Signs Temp Pulse Resp BP Pulse Ox 98.3 F 70 20 116/52 100 12/12/19 14:45 12/12/19 14:45 12/12/19 14:45 12/12/19 14:45 12/12/19 14:45 - General physical appearance Positive: well developed, well nourished, no distress - Eyes Positive: PERRL, normal occular movement - ENT Positive: normal pinna, normal nares, normal mucosa, no hearing loss, no congestion - Neck Positive: no masses, no bruits, trachea midline, no venous distension - Respiratory Positive: normal expansion, normal respiratory effort, clear to auscultation - Cardiovascular Rhythm: regular Heart Sounds: Present: S1 & S2. Absent: rub, click - Extremities Extremities: no ischemia, pulses symmetrical, No edema - Breasts Breasts: deferred - Abdomen Abdomen: Present: soft, bowel sounds normal. Absent: tender, distended Hernia: none - Genitourinary Male Genitourinary: deferred - Integumentary other (There is a 9 X 7.5 X 0.1 cm unstageable sacral pressure ulcer covered with moist non-viable eschar. No obvious underlying abscess.) - Neurologic Neurologic: alert and oriented to time, place and person, motor strength and sensation are grossly intact - Musculoskeletal normal gait, normal posture - Psychiatric Psychiatric: appropriate mood/affect, intact judgment & insight Results - Labs 01/02/20 06:50 01/03/20 11:45 Abnormal lab results 01/03/20 01/04/20 01/04/20 Range/Units 22:52 11:51 16:38 POC Glucose 160 H 160 H 189 H (70-105) Assessment and Plan - Patient Problems (1) Unstageable pressure ulcer of sacral region Current Visit: Yes Status: Acute Plan to address problem: 1) Off loading 2) Intense nutritional support 3) I will debride the sacral pressure ulcer tomorrow.
--- NOTE | 2020-01-04 17:26 | Progress Note ---
Assessment and Plan Continue dressing changes and IV antibiotics Subjective Date of service: 01/04/20 Principal diagnosis: Leg pain Interval history: No major complaints noted from patient Objective Vital signs: Vital Signs - 12hr 01/04/20 01/04/20 01/04/20 06:10 09:57 10:29 Temperature 99.0 F 97.8 F Pulse Rate 60 60 60 Respiratory 18 18 Rate Blood Pressure 112/51 94/54 Blood Pressure 94/45 [Left] O2 Sat by Pulse 95 99 Oximetry 01/04/20 01/04/20 12:00 16:00 Temperature 97.2 F L 97.2 F L Pulse Rate 66 68 Respiratory 19 19 Rate Blood Pressure Blood Pressure 103/52 111/58 [Left] O2 Sat by Pulse 99 99 Oximetry Incision: swollen Weight bearing status: partial - Labs CBC & BMP: 01/06/20 Unknown 01/08/20 07:16 Labs: Abnormal lab results 01/03/20 01/04/20 01/04/20 Range/Units 22:52 11:51 16:38 POC Glucose 160 H 160 H 189 H (70-105)
[2020-01-04] MEDS: INSULIN GLARGINE 100 UNITS/ML SUB-Q SCH (22:51)
[2020-01-05 05:41] LABS: Basophils # (Auto) 0.1 K/mm3 (0.0-0.1); Basophils % (Auto) 0.6 % (0.0-1.8); Eosinophils # (Auto) 0.1 K/mm3 (0.0-0.4); Eosinophils % (Auto) 1.2 % (0.0-4.3); Hematocrit 21.6 % (35.5-45.6); Hemoglobin 6.8 gm/dl (11.8-15.2); Lymphocytes # (Auto) 1.2 K/mm3 (1.2-5.4); Lymphocytes % (Auto) 13.3 % (13.4-35.0); Mean Corpuscular HGB Conc 32 % (32-34); Mean Corpuscular Volume 79 fl (84-94); Monocytes # (Auto) 0.7 K/mm3 (0.0-0.8); Monocytes % (Auto) 7.5 % (0.0-7.3); Platelet Count 189 K/mm3 (140-440); Red Blood Count 2.74 M/mm3 (3.65-5.03); Red Cell Distribution Width 19.7 % (13.2-15.2)
[2020-01-05 06:01] LABS: Calcium 9.2 mg/dL (8.4-10.2)
[2020-01-05] MEDS: INSULIN LISPRO 100 UNIT/ML VIAL 3 mL SUB-Q SCH ×4 (10:17→23:08)
[2020-01-05] MEDS: FAMOTIDINE 20 MG TAB PO SCH (10:21)
[2020-01-05] MEDS: predniSONE 5 MG TAB PO SCH (10:22)
[2020-01-05] MEDS: SODIUM BICARBONATE 650 MG TAB PO SCH ×2 (10:22→21:15)
[2020-01-05] MEDS: MYCOPHENOLATE 500 MG TAB PO SCH ×2 (10:22→21:15)
[2020-01-05] MEDS: carvediloL 25 MG TAB PO SCH ×2 (10:23→21:15)
[2020-01-05] MEDS: TACROLIMUS 1 MG CAP PO SCH ×2 (10:23→21:15)
[2020-01-05] MEDS: amLODIPine 5 MG TAB PO SCH (10:24)
[2020-01-05] MEDS ORDERED: LIDOCAINE (4%) 40 MG/ML TOPICAL SOLN 50 ML BOTTLE TP ONE (11:13)
[2020-01-05] MEDS: HYDROmorphone 1 MG/1 ML INJ IV PRN (11:33)
--- NOTE | 2020-01-05 14:56 | Procedure Note ---
Date of procedure: 01/05/20 Pre-op diagnosis: Unstageable sacral pressure ulcer Post-op diagnosis: other (Stage 4 sacral pressure ulcer) Procedure: Debridement of sacral pressure ulcer Description of procedure: Pt was positioned left side down. The sacral area was prepped and draped. Necrotic skin, SQ, muscle and fascia were surgically, excisionally debrided with forceps and scissors. Bleeding was minimal and was controlled with pressure. Pt tolerated the procedure well. Post-debridement measurements: 14.5 X 10 X 1.7 cm Anesthesia: other (4% topical Lidocaine) Surgeon: BUDDY FREEMAN Estimated blood loss: minimal Pathology: none Specimen disposition: discarded Condition: stable Disposition: no change
--- NOTE | 2020-01-05 15:19 | Progress Note ---
Assessment and Plan Cultures: 12/14/2019 right leg surgical culture: MRSA 12/26/2019 R hand culture: MRSA A/P: 64-year-old male with diabetes, hypertension, renal transplant recipient in 2018, on immunosuppression with Prograf, CellCept and prednisone underwent right proximal tibia fracture closed reduction and external fixator placement on 10/19/2019. He was hospitalized on 12/14/2019 for elective surgery for removal of his external fixator, noted to have: #Low-grade fever, leukocytosis, infection associated with external fixator involving proximal tibia: Intraoperatively, patient was noted to have purulent drainage from the superior pin which was debrided using a curette and cultures were obtained. These cultures are growing MRSA. Patient is immunocompromised. All hardware has been removed. Patient is at risk of osteomyelitis. ESR and CRP are both elevated. #Right hand abscess: spontaneously started draining, culture in process. CT RUE without contrast showed "diffuse right hand and forearm cellulitis with significant fluid extending along the perifascial margin and findings concerning for focal abscess" and "Acute comminuted fractures at the second metacarpal phalangeal joint without dislocation. Given concern for infection o steomyelitis is not ruled out." Underwent bedside I&D with drainage of copious purulence on 12/28/2019. Cultures with MRSA. #Immunocompromised host, renal transplant recipient: On Prograf, CellCept, prednisone. #URMILA on CKD: Nephrology following. Renally dose antibiotics. Creatinine appears to be improving Recs: continue renally dosed IV daptomycin 500 mg q24 hours x 4 more weeks from hand abscess drainage (end date: 01/26/2020) Adjusted daptomycin to every 24 hours due to improved renal function. Previous CM orders updated ID clinical laboratory manager already notified to schedule follow up appointment wound care to R hand Possible abscess and subdeltoid space Lucille Cochran MD [facility] M: [phone] O: [phone] F: [phone] Subjective Date of service: 01/05/20 Principal diagnosis: Leg pain Interval history: Afebrile, normal white count. For debridement of sacral pressure ulcer. Objective - Exam Narrative Exam: Constitutional: Alert, cooperative. No acute distress Head, Ears, Nose: Normocephalic, atraumatic. Eyes: Conjunctivae/corneas clear. No icterus. Neck: Supple, no meningeal signs Cardiovascular: S1, S2 normal. Respiratory: Good air entry, clear to auscultation bilaterally GI: Soft, non-tender; bowel sounds normal. No peritoneal signs Musculoskeletal: Right proximal tibia dressing present with small wound. Right upper chest PICC line +. Right hand with dressing Skin: No rash or abscess Hem/Lymphatic: No palpable cervical or supraclavicular nodes. No lymphangitis Psych: Flat affect Neurological: Awake, alert, oriented - Constitutional Vitals: Vital Signs Temp Pulse Resp BP Pulse Ox 98.1 F 62 19 126/56 96 01/05/20 12:57 01/05/20 12:57 01/05/20 12:57 01/05/20 12:57 01/05/20 12:57 Temperature -Last 24 Hours Temperature 98.1 F Temperature 98.2 F Temperature 97.9 F Temperature 98.3 F Temperature 97.2 F - Labs CBC & Chem 7: 01/05/20 Unknown 01/05/20 Unknown Labs: Abnormal lab results 01/04/20 01/04/20 01/05/20 Range/Units 16:38 22:38 12:27 RBC (3.65-5.03) M/mm3 Hgb (11.8-15.2) gm/dl Hct (35.5-45.6) % MCV (84-94) fl MCH (28-32) pg RDW (13.2-15.2) % Lymph % (Auto) (13.4-35.0) % [place] % (Auto) (0.0-7.3) % Seg Neutrophils % (40.0-70.0) % BUN (9-20) mg/dL Creatinine (0.8-1.3) mg/dL POC Glucose 189 H 142 H 134 H (70-105) 01/05/20 01/05/20 Range/Units Unknown Unknown RBC 2.74 L (3.65-5.03) M/mm3 Hgb 6.8 L (11.8-15.2) gm/dl Hct 21.6 L (35.5-45.6) % MCV 79 L (84-94) fl MCH 25 L (28-32) pg RDW 19.7 H (13.2-15.2) % Lymph % (Auto) 13.3 L (13.4-35.0) % [place] % (Auto) 7.5 H (0.0-7.3) % Seg Neutrophils % 77.4 H (40.0-70.0) % BUN 24 H (9-20) mg/dL Creatinine 2.0 H (0.8-1.3) mg/dL POC Glucose (70-105)
[2020-01-05] MEDS ORDERED: SODIUM CHLORIDE 0.9% 500 ML 500 ML IV NR (19:14)
--- NOTE | 2020-01-05 19:17 | Progress Note ---
Assessment and Plan ---Sepsis, POA -presented with Low-grade fever, leukocytosis, infection associated with external fixator involving proximal tibia: - Intraoperatively, patient was noted to have purulent drainage from the superior pin which was debrided using a curette and cultures were obtained. These cultures are growing MRSA. Patient is immunocompromised. All hardware has been removed. Patient is at risk of osteomyelitis. ESR and CRP are both elevated. - Plan to treat with IV abx until 01/11/2020. ---Right hand abscess: -CT RUE without contrast showed "diffuse right hand and forearm cellulitis with significant fluid extending along the perifascial margin and findings concerning for focal abscess" and "Acute comminuted fractures at the second metacarpal phalangeal joint without dislocation. - Underwent bedside I&D with drainage of copious purulence on 12/28/2019. Cultures with MRSA. - cont iv abx: continue renally dosed IV daptomycin 500 mg q24 hours x 4 more weeks from hand abscess drainage (end date: 01/26/2020) ---Immunocompromised host, renal transplant recipient: On Prograf, CellCept, prednisone. ---URMILA on CKD: Nephrology following. Renally dose antibiotics. Creatinine appears to be improving -- Hypernatremia Resolved ---Bilateral pressure ulcer of the sacrum stge 3: Wound care following ---Hypertension Patient has optimal control blood pressure amlodipine Coreg. Continue present medical management. ---T2DM (type 2 diabetes mellitus) Continue insulin regimen and adjust according to blood glucose levels --- Metabolic acidosis Resolved ---Anemia of CD Continue to monitor. ---DVT prophylaxis Brief History: 64-year-old male with diabetes, hypertension, renal transplant recipient in 2018, on immunosuppression with Prograf, CellCept and prednisone underwent right proximal tibia fracture closed reduction and external fixator placement on 10/19/2019. He was hospitalized on 12/14/2019 for elective surgery for removal of his external fixator, Daily course: 12/14/2019 patient admitted for elective surgical correction of right proximal to tibial fracture. Patient underwent surgical intervention and external fixation device. 12/15/1999 patient was found to have elevated creatinine up from 1.5 at baseline to 2.8. Therefore renal consult was obtained. Was thought to be secondary to prerenal azotemia. Symptoms responding to IV volume replacement and creatinine going back down to baseline. 12/16/2019 patient's creatinine continued to improve toward baseline. 12/17/2019. Patient surgical blood culture showed positive for methicillin resistant staph aureus. May be contaminant because patient remained afebrile no leukocytosis. No tenderness to the area. And sensitivity of MRSA was pansensitive to Cipro and Bactrim. Patient was given 1 dose of Vanco IV and await any ID recommendations. Patient should be able to discharge with Bactrim since it is sensitive and patient is afebrile no leukocytosis. Does not appear to have underlying infection at this time. 12/18/2019. Patient is resting doubly afebrile placed on Bactrim because MRSA was sensitive to this. Await further recommendations from Ortho about discharge planning. Patient somewhat sad today. States he just lost his sister. Patient denies any wants for antidepressant medications. 12/18: Awaiting further plan by othor, continue on abx per ID and Nephrology following for urmila, Showing slight improvement and not at baseline. Monitor Right upper ext 12/19: Consult Vascular due to concern for upper ext, obtain doppler of right upper ext 12/20: Unsure why Doppler has not been done, nurse not aware either, call placed to department for stat exam, will give a dose of Lovenox prophylactically. Finally doppler done and no DVT. Elevate Upper ext 12/21: CONTINUE ABX, DISCUSSED WITH NURSINGS STAFF TO ELEVATE UPPER EXT, Tunnle catheter placed. Renal function slightly worse. Continue to monitor. 12/22: Clinically improving, Tunnel catheter placed, awaiting, clearance from Nephrology for discharge, Leukocytosis and renal functions showing slight improv ement. Continue to monitor Right upper ext swelling. S/P 1 unit PRBC transfused, totalling 2 units for this admission. 12/23: Continue current clinical support. Anticipate discharge in a.m. mild eva vation in WBC. Also monitor hemoglobin following transfusion. 12/24: Patient is a 64-year-old male with history of kidney transplant who presented to the hospital with right tibia fracture status post surgical correction. Did have MRSA culture which was considered a contaminant. Hospital stay had been complicated with precipitous drop in hemoglobin and also right upper extremity swelling. Doppler study was done of the right upper extremity and was negative for DVT. Due to prolonged antibiotic coverage patient was seen by vascular and a tunnel catheter placed. Renal function has continued to improve. And patient is now pending discharge. From medicine standpoint patient can be discharged when okay with nephrology and Ortho. Anticipate the patient will benefit from rehab either at home or at a facility. During this hospitalization patient did receive 2 units packed red blood cell. 12/25. Patient seen and examined at bedside this morning. He has no complaints today. Labs reviewed. Will benefit from rehab. Still on daptomycin for MRSA treatment. ID, Ortho and nephrology on board. 12/26. am. No complaints today. CT RUE not performed yesterday. Plan to repeat today. 12/26. pm. CT right upper extremity shows some abscess with subcutaneous edema with possible necrotizing fasciitis. Discussed with surgery on 12/26. Patient made n.p.o. after midnight. 12/27. Right arm swelling has slightly improved after elevation yesterday. Orthopedic surgeon performed I&D at bedside with wound packing. Not clear if cultures obtained. Patient was already on IV antibiotics. Plan to obtain culture if possible. 12/28. RUE swelling better. Cultures - +ve MRSA. Needs discharge planning. ID following. 12/29. He has no complaints today. Still on IV antibiotics. ID is following. Needs placement - CM working on this. 12/30. Awaiting placement. May need IV antibiotics at discharge - defer to ID. 12/31. Will need placement and IV antibiotics for 4 weeks. ID following. Co ntinue wound care. 01/01; PT recommended [facility], need IV abx till (end date: 01/26/2020 for hand absce ss and 01/11/2020 for right leg ). CM working on placement. 01/02: Discharge pending on subacute rehab and IV antibiotics set up. 01/03; pending placement 01/04: s/p Debridement of sacral pressure ulcer at the bedside Subjective Date of service: 01/05/20 Principal diagnosis: Leg pain Interval history: Patient seen and examined. Medical records and medication list reviewed. No acute event overnight noted by the RN. Patient denies any chest pain or difficulty breathing. Patient is tolerating diet. Discussed plan of care at bedside with patient. Pending placement Objective - Exam Narrative Exam: General appearance: Present: no acute distress, well-nourished - EENT Eyes: Present: PERRL - Respiratory Respiratory: bilateral: CTA - Cardiovascular Heart Sounds: Present: S1 & S2 - Extremities Extremity abnormal: edema (RUE edema - improving. Dressing intact and clean) - Abdominal General gastrointestinal: soft, non-tender, non-distended, normal bowel sounds - Psychiatric Psychiatric: appropriate mood/affect - Neurologic Neurologic: CNII-XII intact - Constitutional Vitals: Vital Signs - 12hr 01/05/20 01/05/20 01/05/20 07:30 08:22 10:23 Temperature 98.2 F Pulse Rate 74 69 Respiratory 18 Rate Blood Pressure 120/54 125/55 Blood Pressure 120/54 [Left] O2 Sat by Pulse 95 Oximetry 01/05/20 01/05/20 10:24 12:57 Temperature 98.1 F Pulse Rate 69 62 Respiratory 19 Rate Blood Pressure 125/55 Blood Pressure 126/56 [Left] O2 Sat by Pulse 96 Oximetry - Labs CBC & Chem 7: 01/06/20 Unknown 01/05/20 Unknown Labs: Abnormal lab results 01/04/20 01/05/20 01/05/20 Range/Units 22:38 12:27 16:42 RBC (3.65-5.03) M/mm3 Hgb (11.8-15.2) gm/dl Hct (35.5-45.6) % MCV (84-94) fl MCH (28-32) pg RDW (13.2-15.2) % Lymph % (Auto) (13.4-35.0) % Tama % (Auto) (0.0-7.3) % Seg Neutrophils % (40.0-70.0) % BUN (9-20) mg/dL Creatinine (0.8-1.3) mg/dL POC Glucose 142 H 134 H 239 H (70-105) 01/05/20 01/05/20 Range/Units Unknown Unknown RBC 2.74 L (3.65-5.03) M/mm3 Hgb 6.8 L (11.8-15.2) gm/dl Hct 21.6 L (35.5-45.6) % MCV 79 L (84-94) fl MCH 25 L (28-32) pg RDW 19.7 H (13.2-15.2) % Lymph % (Auto) 13.3 L (13.4-35.0) % Tama % (Auto) 7.5 H (0.0-7.3) % Seg Neutrophils % 77.4 H (40.0-70.0) % BUN 24 H (9-20) mg/dL Creatinine 2.0 H (0.8-1.3) mg/dL POC Glucose (70-105) HEART Score - HEART Score Age: > 65 Risk factors: 1-2 risk factors - Critical Actions Critical Actions: 0-3 pts:0.9-1.7%risk of adverse cardiac event.Candidate for discharge
[2020-01-05 21:56] LABS: Iron 36 ug/dL (49-181); Total Iron Binding Capacity 98 mcg/dL (250-450)
[2020-01-05] MEDS: INSULIN GLARGINE 100 UNITS/ML SUB-Q SCH (23:07)
[2020-01-06 07:37] LABS: Basophils % (Auto) 0.6 % (0.0-1.8); Eosinophils # (Auto) 0.1 K/mm3 (0.0-0.4); Eosinophils % (Auto) 1.7 % (0.0-4.3); Hematocrit 26.7 % (35.5-45.6); Hemoglobin 8.6 gm/dl (11.8-15.2); Lymphocytes # (Auto) 1.3 K/mm3 (1.2-5.4); Lymphocytes % (Auto) 16.4 % (13.4-35.0); Mean Corpuscular HGB Conc 32 % (32-34); Mean Corpuscular Volume 79 fl (84-94); Monocytes # (Auto) 0.6 K/mm3 (0.0-0.8); Monocytes % (Auto) 8.1 % (0.0-7.3); Platelet Count 181 K/mm3 (140-440); Red Blood Count 3.39 M/mm3 (3.65-5.03); Red Cell Distribution Width 18.1 % (13.2-15.2)
[2020-01-06] MEDS: INSULIN LISPRO 100 UNIT/ML VIAL 3 mL SUB-Q SCH ×4 (07:51→23:55)
[2020-01-06] MEDS: DEXTROSE 50% IN WATER (25GM) 50 ML SYRINGE IV PRN (07:58)
[2020-01-06] MEDS: amLODIPine 5 MG TAB PO SCH (10:10)
[2020-01-06] MEDS: predniSONE 5 MG TAB PO SCH (10:10)
[2020-01-06] MEDS: MYCOPHENOLATE 500 MG TAB PO SCH ×2 (10:10→23:51)
[2020-01-06] MEDS: carvediloL 25 MG TAB PO SCH ×2 (10:10→23:50)
[2020-01-06] MEDS: SODIUM BICARBONATE 650 MG TAB PO SCH ×2 (10:11→23:50)
[2020-01-06] MEDS: TACROLIMUS 1 MG CAP PO SCH ×2 (10:11→23:49)
[2020-01-06] MEDS: FAMOTIDINE 20 MG TAB PO SCH (10:11)
--- NOTE | 2020-01-06 11:54 | Progress Note ---
Assessment and Plan - Patient Problems (1) URMILA (acute kidney injury) Current Visit: Yes Status: Acute Plan to address problem: In the setting of pre-renal injury. Renal function stable this am. (2) Hypernatremia Current Visit: Yes Status: Acute Plan to address problem: Improved on most recent labs. (3) Hypokalemia Current Visit: Yes Status: Acute Plan to address problem: Replete per protocol. (4) Right tibial fracture Current Visit: Yes Status: Acute Qualifiers: Encounter type: initial encounter Salter-Ocampo Fracture Type: unspecified configuration Plan to address problem: S/p fixation. Further management per orthopedic surgery. (5) S/P kidney transplant Current Visit: Yes Status: Acute Plan to address problem: Continue on current immunosupression. (6) Hypertension Current Visit: Yes Status: Chronic Qualifiers: Hypertension type: essential hypertension Qualified Code(s): I10 - Essential (primary) hypertension Plan to address problem: Monitor on current regimen. (7) T2DM (type 2 diabetes mellitus) Current Visit: Yes Status: Chronic Qualifiers: Diabetes mellitus watermaster insulin use: without custodial use Plan to address problem: DM management per primary attending. (8) Infection of wound due to methicillin resistant Staphylococcus aureus (MRSA) Current Visit: Yes Status: Acute Plan to address problem: ID recommendations reviewed, and plan for ~4 weeks more of IV antibiotics to complete course. Subjective Date of service: 01/06/20 Principal diagnosis: Leg pain Interval history: Received 1 unit PRBC. Improvement noted on repeat CBC. Renal function stable. Objective - Vital Signs Vital signs: Vital Signs - 12hr 01/06/20 01/06/20 01/06/20 00:22 00:40 02:20 Temperature 98.2 F 98.4 F 98.1 F Pulse Rate 63 60 61 Respiratory 17 17 Rate Blood Pressure 132/62 131/59 134/59 O2 Sat by Pulse 97 98 Oximetry 01/06/20 01/06/20 01/06/20 02:50 03:20 03:50 Temperature 98.3 F 98.2 F 98.1 F Pulse Rate 64 60 59 L Respiratory 17 18 18 Rate Blood Pressure 138/62 134/68 142/62 O2 Sat by Pulse 97 96 97 Oximetry 01/06/20 01/06/20 01/06/20 04:08 05:00 07:35 Temperature 98.1 F 98.4 F Pulse Rate 58 L 55 L Respiratory 17 17 18 Rate Blood Pressure 145/65 139/58 O2 Sat by Pulse 96 97 Oximetry 01/06/20 10:10 Temperature Pulse Rate 66 Respiratory Rate Blood Pressure 116/60 O2 Sat by Pulse Oximetry - General Appearance General appearance: well-developed, appears stated age EENT: ATNC Neck: no JVD Respiratory: Present: Clear to Ascultation Cardiology: regular Gastrointestinal: normal Neurologic: no focal deficit Musculoskeletal: other (edema of RUE) Psychiatric: cooperative - Lab 01/06/20 Unknown 01/05/20 Unknown Most recent lab results Calcium 9.2 mg/dL (8.4-10.2) 01/05/20 Unknown Urine Creatinine 97.4 mg/dL (0.1-20.0) H 12/16/19 06:15 Urine Sodium 14 mmol/L 12/16/19 06:15 Urine Total Protein 30 mg/dL (5-11.8) H 12/16/19 06:15 - Allied health notes Allied health notes reviewed: nursing Medications & Allergies - Medications Allergies/Adverse Reactions: Allergies cefazolin Allergy (Intermediate, Verified 10/19/19 13:26) Hives itching & hives Home Medications: Home Medications Medication Instructions Recorded Confirmed Last Taken Type Aspirin 81 mg PO DAILY 10/16/19 12/14/19 5 Days Ago History ~12/09/19 Calcium Citrate/Vitamin D3 1,000 units PO DAILY 10/16/19 12/08/19 12/13/19 History Dronedarone (Nf) [Multaq (Nf)] 400 mg PO DAILY 10/16/19 12/08/19 12/13/19 History Mycophenolate 500 mg PO BID 10/16/19 12/08/19 12/13/19 History Prograf 2 mg PO Q12HR 10/16/19 12/08/19 12/13/19 History amLODIPine 5 mg PO DAILY 10/16/19 12/08/19 12/14/19 07:00 History carvediloL [Coreg] 20 mg PO BID 10/16/19 12/08/19 12/14/19 07:00 History glipiZIDE 5 mg PO DAILY 10/16/19 12/08/19 12/13/19 History predniSONE [Deltasone] 5 mg PO DAILY 10/16/19 12/08/1920 History HYDROcodone/APAP 5-325 [[place] 1 each PO Q6HR PRN #20 tablet 10/19/19 12/08/19 0 12/13/19 Rx 5-325 mg TAB] HYDROcodone/APAP 7.5-325 [[place] 1 each PO Q6HR PRN #20 tablet 12/14/19 Unknown Rx 7.5-325 mg TAB] Sulfamethoxazole/Trimethoprim 1 each PO BID #30 tablet 12/14/19 Unknown Rx [Bactrim DS TAB] Active Medications: Generic Name Dose Route Start Last Admin Trade Name Freq PRN Reason Stop Dose Admin Acetaminophen 650 mg 12/14/19 22:57 Tylenol PO Q4H PRN Pain MILD(1-3)/Fever >100.5/WHALEY Amlodipine Besylate 5 mg 12/15/19 10:00 01/06/20 10:10 Amlodipine PO 5 mg DAILY NANCY Administration Carvedilol 25 mg 12/15/19 10:00 01/06/20 10:10 Coreg PO 25 mg BID NANCY Administration Dextrose 50 ml 12/22/19 07:00 01/06/20 07:58 D50w (25gm) Syringe IV 20 ml PRN PRN Administration Hypoglycemia Protocol Famotidine 20 mg 12/16/19 10:00 01/06/20 10:11 Pepcid PO 20 mg DAILY NANCY Administration Hydromorphone HCl 1 mg 12/14/19 22:57 01/05/20 11:33 Dilaudid IV 1 mg Q3H PRN Administration Pain , Severe (7-10) Daptomycin 500 mg/ Sodium 100 mls @ 200 mls/hr 01/01/20 15:00 01/05/20 16:26 Chloride IV 01/26/20 20:00 100 mls/hr Q24H NANCY Administration Protocol Insulin Glargine 10 units 12/25/19 22:00 01/05/20 23:07 Lantus SUB-Q 10 units QHS NANCY Administration Insulin Human Lispro 0 unit 12/23/19 17:30 01/06/20 07:51 Humalog SUB-Q Not Given ACHS NANCY Protocol Loperamide HCl 2 mg 12/15/19 14:01 12/23/19 12:33 Imodium PO 2 mg BID PRN Administration Diarrhea Metoclopramide HCl 5 mg 12/14/19 23:11 Reglan IV Q6H PRN Nausea And Vomiting Mycophenolate Mofetil 500 mg 12/14/19 23:00 01/06/20 10:10 Cellcept PO 500 mg BID NANCY Administration Ondansetron HCl 4 mg 12/14/19 22:57 12/19/19 10:36 Zofran IV 4 mg Q3H PRN Administration Nausea And Vomiting Oxycodone/Acetaminophen 1 tab 12/14/19 22:57 01/01/20 22:53 Percocet 5/325 PO 1 tab Q6H PRN Administration Pain, Moderate (4-6) Prednisone 5 mg 12/15/19 10:00 01/06/20 10:10 Deltasone PO 5 mg DAILY NANCY Administration Sodium Bicarbonate 650 mg 12/15/19 22:00 01/06/20 10:11 Sodium Bicarbonate PO 650 mg BID NANCY Administration Sodium Chloride 10 ml 12/15/19 10:00 01/06/20 10:11 Sodium Chloride Flush Syringe 10 Ml IV 10 ml BID NANCY Administration Sodium Chloride 10 ml 12/14/19 22:57 12/18/19 22:09 Sodium Chloride Flush Syringe 10 Ml IV 10 ml PRN PRN Administration LINE FLUSH Tacrolimus 2 mg 12/14/19 23:00 01/06/20 10:11 Prograf PO 2 mg Q12HR NANCY Administration
--- NOTE | 2020-01-06 17:54 | Progress Note ---
Assessment and Plan ---Sepsis, POA -presented with Low-grade fever, leukocytosis, infection associated with external fixator involving proximal tibia: - Intraoperatively, patient was noted to have purulent drainage from the superior pin which was debrided using a curette and cultures were obtained. These cultures are growing MRSA. Patient is immunocompromised. All hardware has been removed. Patient is at risk of osteomyelitis. ESR and CRP are both elevated. - Plan to treat with IV abx until 01/11/2020. ---Right hand abscess: -CT RUE without contrast showed "diffuse right hand and forearm cellulitis with significant fluid extending along the perifascial margin and findings concerning for focal abscess" and "Acute comminuted fractures at the second metacarpal phalangeal joint without dislocation. - Underwent bedside I&D with drainage of copious purulence on 12/28/2019. Cultures with MRSA. - cont iv abx: continue renally dosed IV daptomycin 500 mg q24 hours x 4 more weeks from hand abscess drainage (end date: 01/26/2020) ---Immunocompromised host, renal transplant recipient: On Prograf, CellCept, prednisone. ---URMILA on CKD: Nephrology following. Renally dose antibiotics. Creatinine appears to be improving -- Hypernatremia Resolved ---Bilateral pressure ulcer of the sacrum stge 3: Wound care following, s/p debridement at bedside ---Hypertension Patient has optimal control blood pressure amlodipine Coreg. Continue present medical management. ---T2DM (type 2 diabetes mellitus) Continue insulin regimen and adjust according to blood glucose levels --- Metabolic acidosis Resolved ---Anemia of CD Continue to monitor. ---DVT prophylaxis Brief History: 64-year-old male with diabetes, hypertension, renal transplant recipient in 2018, on immunosuppression with Prograf, CellCept and prednisone underwent right proximal tibia fracture closed reduction and external fixator placement on . He was hospitalized on 12/14/2019 for elective surgery for removal of his external fixator, Daily course: 12/14/2019 patient admitted for elective surgical correction of right proximal to tibial fracture. Patient underwent surgical intervention and external fixation device. 12/15/1999 patient was found to have elevated creatinine up from 1.5 at baseline to 2.8. Therefore renal consult was obtained. Was thought to be secondary to prerenal azotemia. Symptoms responding to IV volume replacement and creatinine going back down to baseline. 12/16/2019 patient's creatinine continued to improve toward baseline. 12/17/2019. Patient surgical blood culture showed positive for methicillin resistant staph aureus. May be contaminant because patient remained afebrile no leukocytosis. No tenderness to the area. And sensitivity of MRSA was pansensitive to Cipro and Bactrim. Patient was given 1 dose of Vanco IV and await any ID recommendations. Patient should be able to discharge with Bactrim since it is sensitive and patient is afebrile no leukocytosis. Does not appear to have underlying infection at this time. 12/18/2019. Patient is resting doubly afebrile placed on Bactrim because MRSA was sensitive to this. Await further recommendations from Ortho about discharge planning. Patient somewhat sad today. States he just lost his sister. Patient denies any wants for antidepressant medications. 12/18: Awaiting further plan by othor, continue on abx per ID and Nephrology following for urmila, Showing slight improvement and not at baseline. Monitor Right upper ext 12/19: Consult Vascular due to concern for upper ext, obtain doppler of right upper ext 12/20: Unsure why Doppler has not been done, nurse not aware either, call placed to department for stat exam, will give a dose of Lovenox prophylactically. Finally doppler done and no DVT. Elevate Upper ext 12/21: CONTINUE ABX, DISCUSSED WITH NURSINGS STAFF TO ELEVATE UPPER EXT, Tunnle catheter placed. Renal function slightly worse. Continue to monitor. 12/22: Clinically improving, Tunnel catheter placed, awaiting, clearance from Nephrology for discharge, Leukocytosis and renal functions showing slight improvement. Continue to monitor Right upper ext swelling. S/P 1 unit PRBC tra nsfused, totalling 2 units for this admission. 12/23: Continue current clinical support. Anticipate discharge in a.m. mild elevation in WBC. Also monitor hemoglobin following transfusion. 12/24: Patient is a 64-year-old male with history of kidney transplant who presented to the hospital with right tibia fracture status post surgical correction. Did have MRSA culture which was considered a contaminant. Hospital stay had been complicated with precipitous drop in hemoglobin and also right up per extremity swelling. Doppler study was done of the right upper extremity and was negative for DVT. Due to prolonged antibiotic coverage patient was seen by vascular and a tunnel catheter placed. Renal function has continued to improve. And patient is now pending discharge. From medicine standpoint patient can be discharged when okay with nephrology and Ortho. Anticipate the patient will b enefit from rehab either at home or at a facility. During this hospitalization patient did receive 2 units packed red blood cell. 12/25. Patient seen and examined at bedside this morning. He has no complaints today. Labs reviewed. Will benefit from rehab. Still on daptomycin for MRSA treatment. ID, Ortho and nephrology on board. 12/26. am. No complaints today. CT RUE not performed yesterday. Plan to repeat today. 12/26. pm. CT right upper extremity shows some abscess with subcutaneous edema with possible necrotizing fasciitis. Discussed with surgery on 12/26. Patient made n.p.o. after midnight. 12/27. Right arm swelling has slightly improved after elevation yesterday. Orthopedic surgeon performed I&D at bedside with wound packing. Not clear if cultures obtained. Patient was already on IV antibiotics. Plan to obtain culture if possible. 12/28. RUE swelling better. Cultures - +ve MRSA. Needs discharge planning. ID following. 12/29. He has no complaints today. Still on IV antibiotics. ID is following. Needs placement - CM working on this. 12/30. Awaiting placement. May need IV antibiotics at discharge - defer to ID. 12/31. Will need placement and IV antibiotics for 4 weeks. ID following. Continue wound care. 01/01; PT recommended [facility], need IV abx till (end date: 01/26/2020 for hand abscess and 01/11/2020 for right leg ). CM working on placement. 01/02: Discharge pending on subacute rehab and IV antibiotics set up. 01/03; pending placement 01/04: s/p Debridement of sacral pressure ulcer at the bedside 01/05; cont iv abx, wound care - dressing change, need [facility] Subjective Date of service: 01/06/20 Principal diagnosis: Leg pain Interval history: Patient seen and examined. Medical records and medication list reviewed. No acute event overnight noted by the RN. Patient denies any chest pain or difficulty breathing. Patient is tolerating diet. Discussed plan of care at bedside with patient. Pending placement Objective - Exam Narrative Exam: General appearance: Present: no acute distress, well-nourished - EENT Eyes: Present: PERRL - Respiratory Respiratory: bilateral: CTA - Cardiovascular Heart Sounds: Present: S1 & S2 - Extremities Extremity abnormal: edema (RUE edema - improving. Dressing intact and clean) - Abdominal General gastrointestinal: soft, non-tender, non-distended, normal bowel sounds - Psychiatric Psychiatric: appropriate mood/affect - Neurologic Neurologic: CNII-XII intact - Constitutional Vitals: Vital Signs - 12hr 01/06/20 01/06/20 01/06/20 07:35 10:10 11:38 Temperature 98.4 F 98.5 F Pulse Rate 55 L 66 50 L Respiratory 18 18 Rate Blood Pressure 139/58 116/60 126/58 O2 Sat by Pulse 97 96 Oximetry 01/06/20 16:43 Temperature 98.7 F Pulse Rate 61 Respiratory 18 Rate Blood Pressure 150/64 O2 Sat by Pulse 100 Oximetry - Labs CBC & Chem 7: 01/06/20 Unknown 01/05/20 Unknown Labs: Abnormal lab results 12/22/19 01/05/20 01/05/20 Range/Units 11:20 20:30 23:07 RBC (3.65-5.03) M/mm3 Hgb (11.8-15.2) gm/dl Hct (35.5-45.6) % MCV (84-94) fl MCH (28-32) pg RDW (13.2-15.2) % [place] % (Auto) (0.0-7.3) % Seg Neutrophils % (40.0-70.0) % POC Glucose 216 H (70-105) Iron (49-181) ug/dL TIBC (250-450) mcg/dL Crossmatch See Detail See Detail 01/05/20 01/06/20 01/06/20 Range/Units Unknown 07:51 08:37 RBC (3.65-5.03) M/mm3 Hgb (11.8-15.2) gm/dl Hct (35.5-45.6) % MCV (84-94) fl MCH (28-32) pg RDW (13.2-15.2) % [place] % (Auto) (0.0-7.3) % Seg Neutrophils % (40.0-70.0) % POC Glucose 57 L 158 H (70-105) Iron 36 L (49-181) ug/dL TIBC 98 L (250-450) mcg/dL Crossmatch 01/06/20 01/06/20 01/06/20 Range/Units 11:54 16:59 Unknown RBC 3.39 L (3.65-5.03) M/mm3 Hgb 8.6 L (11.8-15.2) gm/dl Hct 26.7 L (35.5-45.6) % MCV 79 L (84-94) fl MCH 25 L (28-32) pg RDW 18.1 H (13.2-15.2) % [place] % (Auto) 8.1 H (0.0-7.3) % Seg Neutrophils % 73.2 H (40.0-70.0) % POC Glucose 129 H 194 H (70-105) Iron (49-181) ug/dL TIBC (250-450) mcg/dL Crossmatch HEART Score - HEART Score Age: > 65 Risk factors: 1-2 risk factors - Critical Actions Critical Actions: 0-3 pts:0.9-1.7%risk of adverse cardiac event.Candidate for discharge
[2020-01-06] MEDS: oxyCODONE /ACETAMINOPHEN 5-325MG TAB PO PRN (23:51)
[2020-01-06] MEDS: INSULIN GLARGINE 100 UNITS/ML SUB-Q SCH (23:55)
[2020-01-07] MEDS: INSULIN LISPRO 100 UNIT/ML VIAL 3 mL SUB-Q SCH ×4 (10:00→22:08)
[2020-01-07] MEDS: FAMOTIDINE 20 MG TAB PO SCH (10:02)
[2020-01-07] MEDS: predniSONE 5 MG TAB PO SCH (10:02)
[2020-01-07] MEDS: TACROLIMUS 1 MG CAP PO SCH ×2 (10:02→22:07)
[2020-01-07] MEDS: amLODIPine 5 MG TAB PO SCH (10:02)
[2020-01-07] MEDS: MYCOPHENOLATE 500 MG TAB PO SCH ×2 (10:03→22:07)
[2020-01-07] MEDS: SODIUM BICARBONATE 650 MG TAB PO SCH ×2 (10:03→22:07)
[2020-01-07] MEDS: carvediloL 25 MG TAB PO SCH ×2 (10:04→22:06)
--- NOTE | 2020-01-07 13:55 | Progress Note ---
Assessment and Plan - Patient Problems (1) URMILA (acute kidney injury) Current Visit: Yes Status: Acute Plan to address problem: In the setting of pre-renal injury. Renal function stable based on labs from yesterday. No new labs this am. (2) Hypernatremia Current Visit: Yes Status: Acute Plan to address problem: Improved on most recent labs. (3) Hypokalemia Current Visit: Yes Status: Acute Plan to address problem: Replete per protocol. (4) Right tibial fracture Current Visit: Yes Status: Acute Qualifiers: Encounter type: initial encounter Salter-Ocampo Fracture Type: unspecified configuration Plan to address problem: S/p fixation. Further management per orthopedic surgery. (5) S/P kidney transplant Current Visit: Yes Status: Acute Plan to address problem: Continue on current immunosupression. (6) Hypertension Current Visit: Yes Status: Chronic Qualifiers: Hypertension type: essential hypertension Qualified Code(s): I10 - Essential (primary) hypertension Plan to address problem: Monitor on current regimen. (7) T2DM (type 2 diabetes mellitus) Current Visit: Yes Status: Chronic Qualifiers: Diabetes mellitus snf insulin use: without snf use Plan to address problem: DM management per primary attending. (8) Infection of wound due to methicillin resistant Staphylococcus aureus (MRSA) Current Visit: Yes Status: Acute Plan to address problem: ID recommendations reviewed, and plan for ~4 weeks more of IV antibiotics to complete course. Subjective Date of service: 01/07/20 Principal diagnosis: Leg pain Interval history: No acute complaints this am. No new renal function labs. H/H stable. FOBT (-). Objective - Vital Signs Vital signs: Vital Signs - 12hr 01/07/20 01/07/20 01/07/20 04:52 07:49 10:02 Temperature 97.6 F 98.4 F Pulse Rate 50 L 50 L 50 L Respiratory 18 18 Rate Blood Pressure 133/63 138/59 138/59 Blood Pressure [Left] O2 Sat by Pulse 96 97 Oximetry 01/07/20 01/07/20 10:04 11:45 Temperature 98.5 F Pulse Rate 50 L 58 L Respiratory 18 Rate Blood Pressure 138/59 Blood Pressure 134/62 [Left] O2 Sat by Pulse 97 Oximetry - General Appearance General appearance: well-developed, appears stated age EENT: ATNC Neck: no JVD Respiratory: Present: Clear to Ascultation Cardiology: regular Gastrointestinal: normal Integumentary: warm and dry Neurologic: no focal deficit Musculoskeletal: other (RUE edema) Psychiatric: mood/affect appropriate, cooperative - Lab 01/06/20 Unknown 01/05/20 Unknown Most recent lab results Calcium 9.2 mg/dL (8.4-10.2) 01/05/20 Unknown Urine Creatinine 97.4 mg/dL (0.1-20.0) H 12/16/19 06:15 Urine Sodium 14 mmol/L 12/16/19 06:15 Urine Total Protein 30 mg/dL (5-11.8) H 12/16/19 06:15 - Allied health notes Allied health notes reviewed: nursing Medications & Allergies - Medications Allergies/Adverse Reactions: Allergies cefazolin Allergy (Intermediate, Verified 10/19/19 13:26) Hives itching & hives Home Medications: Home Medications Medication Instructions Recorded Confirmed Last Taken Type Aspirin 81 mg PO DAILY 10/16/19 12/14/19 5 Days Ago History ~12/09/19 Calcium Citrate/Vitamin D3 1,000 units PO DAILY 10/16/19 12/08/19 12/13/19 History Dronedarone (Nf) [Multaq (Nf)] 400 mg PO DAILY 10/16/19 12/08/19 12/13/19 Hi story Mycophenolate 500 mg PO BID 10/16/19 12/08/19 12/13/19 History Prograf 2 mg PO Q12HR 10/16/19 12/08/19 12/13/19 History amLODIPine 5 mg PO DAILY 10/16/19 12/08/19 12/14/19 07:00 History carvediloL [Coreg] 20 mg PO BID 10/16/19 12/08/19 12/14/19 07:00 History glipiZIDE 5 mg PO DAILY 10/16/19 12/08/19 12/13/19 History predniSONE [Deltasone] 5 mg PO DAILY 10/16/19 12/08/19 12/13/19 History HYDROcodone/APAP 5-325 [[place] 1 each PO Q6HR PRN #20 tablet 10/19/19 12/08/19 12/13/19 Rx 5-325 mg TAB] HYDROcodone/APAP 7.5-325 [[place] 1 each PO Q6HR PRN #20 tablet 12/14/19 Unknown Rx 7.5-325 mg TAB] Sulfamethoxazole/Trimethoprim 1 each PO BID #30 tablet 12/14/19 Unknown Rx [Bactrim DS TAB] Active Medications: Generic Name Dose Route Start Last Admin Trade Name Freq PRN Reason Stop Dose Admin Acetaminophen 650 mg 12/14/19 22:57 Tylenol PO Q4H PRN Pain MILD(1-3)/Fever >100.5/WHALEY Amlodipine Besylate 5 mg 12/15/19 10:00 01/07/20 10:02 Amlodipine PO 5 mg DAILY NANCY Administration Carvedilol 25 mg 12/15/19 10:00 01/07/20 10:04 Coreg PO Not Given BID NANCY Dextrose 50 ml 12/22/19 07:00 01/06/20 07:58 D50w (25gm) Syringe IV 20 ml PRN PRN Administration Hypoglycemia Protocol Famotidine 20 mg 12/16/19 10:00 01/07/20 10:02 Pepcid PO 20 mg DAILY NANCY Administration Hydromorphone HCl 1 mg 12/14/19 22:57 01/05/20 11:33 Dilaudid IV 1 mg Q3H PRN Administration Pain , Severe (7-10) Daptomycin 500 mg/ Sodium 100 mls @ 200 mls/hr 01/01/20 15:00 01/06/20 20:33 Chloride IV 01/26/20 20:00 Infused Q24H NANCY Infusion Protocol Insulin Glargine 10 units 12/25/19 22:00 01/06/20 23:55 Lantus SUB-Q 10 units QHS NANCY Administration Insulin Human Lispro 0 unit 12/23/19 17:30 01/07/20 12:36 Humalog SUB-Q Not Given ACHS NANCY Protocol Loperamide HCl 2 mg 12/15/19 14:01 12/23/19 12:33 Imodium PO 2 mg BID PRN Administration Diarrhea Metoclopramide HCl 5 mg 12/14/19 23:11 Reglan IV Q6H PRN Nausea And Vomiting Mycophenolate Mofetil 500 mg 12/14/19 23:00 01/07/20 10:03 Cellcept PO 500 mg BID NANCY Administration Ondansetron HCl 4 mg 12/14/19 22:57 12/19/19 10:36 Zofran IV 4 mg Q3H PRN Administration Nausea And Vomiting Oxycodone/Acetaminophen 1 tab 12/14/19 22:57 01/06/20 23:51 Percocet 5/325 PO 1 tab Q6H PRN Administration Pain, Moderate (4-6) Prednisone 5 mg 12/15/19 10:00 01/07/20 10:02 Deltasone PO 5 mg DAILY NANCY Administration Sodium Bicarbonate 650 mg 12/15/19 22:00 01/07/20 10:03 Sodium Bicarbonate PO 650 mg BID NANCY Administration Sodium Chloride 10 ml 12/15/19 10:00 01/07/20 10:03 Sodium Chloride Flush Syringe 10 Ml IV 10 ml BID NANCY Administration Sodium Chloride 10 ml 12/14/19 22:57 12/18/19 22:09 Sodium Chloride Flush Syringe 10 Ml IV 10 ml PRN PRN Administration LINE FLUSH Tacrolimus 2 mg 12/14/19 23:00 01/07/20 10:02 Prograf PO 2 mg Q12HR NANCY Administration
--- NOTE | 2020-01-07 14:49 | Progress Note ---
Assessment and Plan ---Sepsis, POA -presented with Low-grade fever, leukocytosis, infection associated with external fixator involving proximal tibia: - Intraoperatively, patient was noted to have purulent drainage from the superior pin which was debrided using a curette and cultures were obtained. These cultures are growing MRSA. Patient is immunocompromised. All hardware has been removed. Patient is at risk of osteomyelitis. ESR and CRP are both elevated. - Plan to treat with IV abx until 01/11/2020. ---Right hand abscess: -CT RUE without contrast showed "diffuse right hand and forearm cellulitis with significant fluid extending along the perifascial margin and findings concerning for focal abscess" and "Acute comminuted fractures at the second metacarpal phalangeal joint without dislocation. - Underwent bedside I&D with drainage of copious purulence on 12/28/2019. Cultures with MRSA. - cont iv abx: continue renally dosed IV daptomycin 500 mg q24 hours x 4 more weeks from hand abscess drainage (end date: 01/26/2020) ---Immunocompromised host, renal transplant recipient: On Prograf, CellCept, prednisone. ---URMILA on CKD: Nephrology following. Renally dose antibiotics. Creatinine appears to be improving -- Hypernatremia Resolved ---Bilateral pressure ulcer of the sacrum stge 3: Wound care following, s/p debridement at bedside ---Hypertension Patient has optimal control blood pressure amlodipine Coreg. Continue present medical management. ---T2DM (type 2 diabetes mellitus) Continue insulin regimen and adjust according to blood glucose levels --- Metabolic acidosis Resolved ---Anemia of CD Continue to monitor. ---DVT prophylaxis Brief History: 64-year-old male with diabetes, hypertension, renal transplant recipient in 2018, on immunosuppression with Prograf, CellCept and prednisone underwent right proximal tibia fracture closed reduction and external fixator placement on . He was hospitalized on 12/14/2019 for elective surgery for removal of his external fixator, Daily course: 12/14/2019 patient admitted for elective surgical correction of right proximal to tibial fracture. Patient underwent surgical intervention and external fixation device. 12/15/1999 patient was found to have elevated creatinine up from 1.5 at baseline to 2.8. Therefore renal consult was obtained. Was thought to be secondary to prerenal azotemia. Symptoms responding to IV volume replacement and creatinine going back down to baseline. 12/16/2019 patient's creatinine continued to improve toward baseline. 12/17/2019. Patient surgical blood culture showed positive for methicillin resistant staph aureus. May be contaminant because patient remained afebrile no leukocytosis. No tenderness to the area. And sensitivity of MRSA was pansensitive to Cipro and Bactrim. Patient was given 1 dose of Vanco IV and await any ID recommendations. Patient should be able to discharge with Bactrim since it is sensitive and patient is afebrile no leukocytosis. Does not appear to have underlying infection at this time. 12/18/2019. Patient is resting doubly afebrile placed on Bactrim because MRSA was sensitive to this. Await further recommendations from Ortho about discharge planning. Patient somewhat sad today. States he just lost his sister. Patient denies any wants for antidepressant medications. 12/18: Awaiting further plan by othor, continue on abx per ID and Nephrology following for urmila, Showing slight improvement and not at baseline. Monitor Right upper ext 12/19: Consult Vascular due to concern for upper ext, obtain doppler of right upper ext 12/20: Unsure why Doppler has not been done, nurse not aware either, call placed to department for stat exam, will give a dose of Lovenox prophylactically. Finally doppler done and no DVT. Elevate Upper ext 12/21: CONTINUE ABX, DISCUSSED WITH NURSINGS STAFF TO ELEVATE UPPER EXT, Tunnle catheter placed. Renal function slightly worse. Continue to monitor. 12/22: Clinically improving, Tunnel catheter placed, awaiting, clearance from Nephrology for discharge, Leukocytosis and renal functions showing slight improvement. Continue to monitor Right upper ext swelling. S/P 1 unit PRBC tra nsfused, totalling 2 units for this admission. 12/23: Continue current clinical support. Anticipate discharge in a.m. mild elevation in WBC. Also monitor hemoglobin following transfusion. 12/24: Patient is a 64-year-old male with history of kidney transplant who presented to the hospital with right tibia fracture status post surgical correction. Did have MRSA culture which was considered a contaminant. Hospital stay had been complicated with precipitous drop in hemoglobin and also right up per extremity swelling. Doppler study was done of the right upper extremity and was negative for DVT. Due to prolonged antibiotic coverage patient was seen by vascular and a tunnel catheter placed. Renal function has continued to improve. And patient is now pending discharge. From medicine standpoint patient can be discharged when okay with nephrology and Ortho. Anticipate the patient will b enefit from rehab either at home or at a facility. During this hospitalization patient did receive 2 units packed red blood cell. 12/25. Patient seen and examined at bedside this morning. He has no complaints today. Labs reviewed. Will benefit from rehab. Still on daptomycin for MRSA treatment. ID, Ortho and nephrology on board. 12/26. am. No complaints today. CT RUE not performed yesterday. Plan to repeat today. 12/26. pm. CT right upper extremity shows some abscess with subcutaneous edema with possible necrotizing fasciitis. Discussed with surgery on 12/26. Patient made n.p.o. after midnight. 12/27. Right arm swelling has slightly improved after elevation yesterday. Orthopedic surgeon performed I&D at bedside with wound packing. Not clear if cultures obtained. Patient was already on IV antibiotics. Plan to obtain culture if possible. 12/28. RUE swelling better. Cultures - +ve MRSA. Needs discharge planning. ID following. 12/29. He has no complaints today. Still on IV antibiotics. ID is following. Needs placement - CM working on this. 12/30. Awaiting placement. May need IV antibiotics at discharge - defer to ID. 12/31. Will need placement and IV antibiotics for 4 weeks. ID following. Continue wound care. 01/01; PT recommended [facility], need IV abx till (end date: 01/26/2020 for hand abscess and 01/11/2020 for right leg ). CM working on placement. 01/02: Discharge pending on subacute rehab and IV antibiotics set up. 01/03; pending placement 01/04: s/p Debridement of sacral pressure ulcer at the bedside 01/05; cont iv abx, wound care - dressing change, need [facility] 01/06: clinically stable, need placement Subjective Date of service: 01/07/20 Principal diagnosis: Leg pain Interval history: Patient seen and examined. Medical records and medication list reviewed. No acute event overnight noted by the RN. Patient denies any chest pain or difficulty breathing. Patient is tolerating diet. Discussed plan of care at bedside with patient. Pending placement Objective - Exam Narrative Exam: General appearance: Present: no acute distress, well-nourished - EENT Eyes: Present: PERRL - Respiratory Respiratory: bilateral: CTA - Cardiovascular Heart Sounds: Present: S1 & S2 - Extremities Extremity abnormal: edema (RUE edema - improving. Dressing intact and clean) - Abdominal General gastrointestinal: soft, non-tender, non-distended, normal bowel sounds - Psychiatric Psychiatric: appropriate mood/affect - Neurologic Neurologic: CNII-XII intact - Constitutional Vitals: Vital Signs - 12hr 01/07/20 01/07/20 01/07/20 04:52 07:49 10:02 Temperature 97.6 F 98.4 F Pulse Rate 50 L 50 L 50 L Respiratory 18 18 Rate Blood Pressure 133/63 138/59 138/59 Blood Pressure [Left] O2 Sat by Pulse 96 97 Oximetry 01/07/20 01/07/20 10:04 11:45 Temperature 98.5 F Pulse Rate 50 L 58 L Respiratory 18 Rate Blood Pressure 138/59 Blood Pressure 134/62 [Left] O2 Sat by Pulse 97 Oximetry - Labs CBC & Chem 7: 01/06/20 Unknown 01/08/20 07:16 Labs: Abnormal lab results 01/06/20 01/06/20 01/07/20 Range/Units 16:59 21:05 11:41 POC Glucose 194 H 243 H 141 H (70-105) HEART Score - HEART Score Age: > 65 Risk factors: 1-2 risk factors - Critical Actions Critical Actions: 0-3 pts:0.9-1.7%risk of adverse cardiac event.Candidate for discharge
[2020-01-07] MEDS: oxyCODONE /ACETAMINOPHEN 5-325MG TAB PO PRN (22:06)
[2020-01-07] MEDS: INSULIN GLARGINE 100 UNITS/ML SUB-Q SCH (22:09)
[2020-01-08] MEDS: INSULIN LISPRO 100 UNIT/ML VIAL 3 mL SUB-Q SCH ×3 (07:10→18:11)
--- NOTE | 2020-01-08 10:20 | Progress Note ---
Assessment and Plan - Patient Problems (1) Acute kidney failure Current Visit: Yes Status: Acute Plan to address problem: Acute tubular necrosis secondary to sepsis. Kidney function was not significantly changed. No labs today. Continue to monitor electrolytes and renal function (2) S/P kidney transplant Current Visit: Yes Status: Acute Plan to address problem: Follow up Prograf level. Continue immunosuppression (3) Swelling of right upper extremity Current Visit: Yes Status: Acute Plan to address problem: Cellulitis with culture growing MRSA. Continue antibiotics per ID (4) Type 2 diabetes mellitus with diabetic nephropathy Current Visit: Yes Status: Acute Plan to address problem: Blood sugar management by primary attending (5) Hypertensive chronic kidney disease with stage 1 through stage 4 chronic kidney disease, or unspecified chronic kidney disease Current Visit: Yes Status: Acute Plan to address problem: Follow-up blood pressure on current medication (6) Metabolic acidosis Current Visit: Yes Status: Acute Plan to address problem: Improving. Continue treatment (7) Infection of wound due to methicillin resistant Staphylococcus aureus (MRSA) Current Visit: Yes Status: Acute Plan to address problem: Continue antibiotics. Patient on isolation. Infectious disease senior wind energy consultant on the case (8) Right tibial fracture Current Visit: Yes Status: Acute Qualifiers: Encounter type: initial encounter Salter-Ocampo Fracture Type: unspecified configuration Plan to address problem: Management per orthopedic surgery Subjective Date of service: 01/08/20 Principal diagnosis: Leg pain Interval history: Patient seen sitting up in bed. He feels better today. No nausea or vomiting. No Pain. Swelling right upper extremity improving. He has been getting out of bed and ambulating on the floor with therapy Objective - Exam Narrative Exam: Middle-aged -[place] male sitting up in bed in no acute distress Exam limited due to lack of PPE Extremities: 3+ swelling of the right' upper extremity extending to the hand. Mild edema to the right leg,, Dressing right leg Genitourinary deferred Neuro: Awake, alert no focal deficits - Vital Signs Vital signs: Vital Signs - 12hr 01/07/20 01/08/20 01/08/20 23:52 04:14 07:44 Temperature 98.5 F 97.8 F 98 F Pulse Rate 64 55 L 75 Respiratory 18 18 20 Rate Blood Pressure 134/56 124/56 Blood Pressure 133/55 [Left] O2 Sat by Pulse 95 97 95 Oximetry - Lab 01/06/20 Unknown 01/05/20 Unknown Most recent lab results Calcium 9.2 mg/dL (8.4-10.2) 01/05/20 Unknown Urine Creatinine 97.4 mg/dL (0.1-20.0) H 12/16/19 06:15 Urine Sodium 14 mmol/L 12/16/19 06:15 Urine Total Protein 30 mg/dL (5-11.8) H 12/16/19 06:15 Medications & Allergies - Medications Allergies/Adverse Reactions: Allergies cefazolin Allergy (Intermediate, Verified 10/19/19 13:26) Hives itching & hives Home Medications: Home Medications Medication Instructions Recorded Confirmed Last Taken Type Aspirin 81 mg PO DAILY 10/16/19 12/14/19 5 Days Ago History ~12/09/19 Calcium Citrate/Vitamin D3 1,000 units PO DAILY 10/16/19 12/08/19 12/13/19 History Dronedarone (Nf) [Multaq (Nf)] 400 mg PO DAILY 10/16/19 12/08/19 12/13/19 History Mycophenolate 500 mg PO BID 10/16/19 12/08/19 12/13/19 History Prograf 2 mg PO Q12HR 10/16/19 12/08/19 12/13/19 History amLODIPine 5 mg PO DAILY 10/16/19 12/08/19 12/14/19 07:00 History carvediloL [Coreg] 20 mg PO BID 10/16/19 12/08/19 12/14/19 07:00 History glipiZIDE 5 mg PO DAILY 10/16/19 12/08/19 12/13/19 History predniSONE [Deltasone] 5 mg PO DAILY 10/16/19 12/08/19 12/13/19 History HYDROcodone/APAP 5-325 [[place] 1 each PO Q6HR PRN #20 tablet 10/19/19 12/08/19 12/13/19 Rx 5-325 mg TAB] HYDROcodone/APAP 7.5-325 [[place] 1 each PO Q6HR PRN #20 tablet 12/14/19 Unknown Rx 7.5-325 mg TAB] Sulfamethoxazole/Trimethoprim 1 each PO BID #30 tablet 12/14/19 Unknown Rx [Bactrim DS TAB] Active Medications: Generic Name Dose Route Start Last Admin Trade Name Freq PRN Reason Stop Dose Admin Acetaminophen 650 mg 12/14/19 22:57 Tylenol PO Q4H PRN Pain MILD(1-3)/Fever >100.5/WHALEY Amlodipine Besylate 5 mg 12/15/19 10:00 01/07/20 10:02 Amlodipine PO 5 mg DAILY NANCY Administration Carvedilol 25 mg 12/15/19 10:00 01/07/20 22:06 Coreg PO 25 mg BID NANCY Administration Dextrose 50 ml 12/22/19 07:00 01/06/20 07:58 D50w (25gm) Syringe IV 20 ml PRN PRN Administration Hypoglycemia Protocol Famotidine 20 mg 12/16/19 10:00 01/07/20 10:02 Pepcid PO 20 mg DAILY NANCY Administration Hydromorphone HCl 1 mg 12/14/19 22:57 01/05/20 11:33 Dilaudid IV 1 mg Q3H PRN Administration Pain , Severe (7-10) Daptomycin 500 mg/ Sodium 100 mls @ 200 mls/hr 01/01/20 15:00 01/07/20 15:55 Chloride IV 01/26/20 20:00 100 mls/hr Q24H NANCY Administration Protocol Insulin Glargine 10 units 12/25/19 22:00 01/07/20 22:09 Lantus SUB-Q 10 units QHS NANCY Administration Insulin Human Lispro 0 unit 12/23/19 17:30 01/07/20 22:08 Humalog SUB-Q Not Given ACHS [facility] Protocol Loperamide HCl 2 mg 12/15/19 14:01 12/23/19 12:33 Imodium PO 2 mg BID PRN Administration Diarrhea Metoclopramide HCl 5 mg 12/14/19 23:11 Reglan IV Q6H PRN Nausea And Vomiting Mycophenolate Mofetil 500 mg 12/14/19 23:00 01/07/20 22:07 Cellcept PO 500 mg BID NANCY Administration Ondansetron HCl 4 mg 12/14/19 22:57 12/19/19 10:36 Zofran IV 4 mg Q3H PRN Administration Nausea And Vomiting Oxycodone/Acetaminophen 1 tab 12/14/19 22:57 01/07/20 22:06 Percocet 5/325 PO 1 tab Q6H PRN Administration Pain, Moderate (4-6) Prednisone 5 mg 12/15/19 10:00 01/07/20 10:02 Deltasone PO 5 mg DAILY NANCY Administration Sodium Bicarbonate 650 mg 12/15/19 22:00 01/07/20 22:07 Sodium Bicarbonate PO 650 mg BID NANCY Administration Sodium Chloride 10 ml 12/15/19 10:00 01/07/20 22:07 Sodium Chloride Flush Syringe 10 Ml IV 10 ml BID NANCY Administration Sodium Chloride 10 ml 12/14/19 22:57 12/18/19 22:09 Sodium Chloride Flush Syringe 10 Ml IV 10 ml PRN PRN Administration LINE FLUSH Tacrolimus 2 mg 12/14/19 23:00 01/07/20 22:07 Prograf PO 2 mg Q12HR NANCY Administration
[2020-01-08 10:43] LABS: Calcium 9.2 mg/dL (8.4-10.2)
[2020-01-08] MEDS: MYCOPHENOLATE 500 MG TAB PO SCH (11:19)
[2020-01-08] MEDS: amLODIPine 5 MG TAB PO SCH (12:20)
[2020-01-08] MEDS: predniSONE 5 MG TAB PO SCH (12:20)
[2020-01-08] MEDS: carvediloL 25 MG TAB PO SCH (12:21)
[2020-01-08] MEDS: FAMOTIDINE 20 MG TAB PO SCH (12:23)
[2020-01-08] MEDS: TACROLIMUS 1 MG CAP PO SCH (12:24)
[2020-01-08] MEDS: oxyCODONE /ACETAMINOPHEN 5-325MG TAB PO PRN ×2 (12:45→18:12)
--- NOTE | 2020-01-08 15:44 | Discharge Summary ---
Providers - Providers Date of Admission: 12/14/19 11:14 Date of discharge: 01/08/20 Attending physician: ILEANA CHARLES 12/14/19 20:23 Consult to Wound/ET Nurse [CONS] Routine Reason For Exam: wound eval to buttocks and scrotum area 12/14/19 22:57 Consult to Physician [CONS] Routine Comment: Consulting Provider: KALYANI DONOHUE Physician Instructions: Reason For Exam: Tibia fracture 12/14/19 23:06 Consult to Dietitian/Nutrition [CONS] Routine Physician Instructions: Reason For Exam: Reason for Consult: Pt needs oral supplement 12/15/19 07:56 Consult to Physician [CONS] Routine Comment: Consulting Provider: ROSA BALTAZAR Physician Instructions: Reason For Exam: URMILA/Renal transplant 12/15/19 15:58 Physical Therapy Evaluation and Treat [CONS] Routine Comment: Reason For Exam: gait training and ROM exercises right knee Weight bearing status?: Full wt bearing Assistive devices?: Yes If so list: Walker 12/18/19 16:46 Consult to Physician [CONS] Routine Comment: Consulting Provider: ALYSA MIRANDA Physician Instructions: does alberto need vanco or is bactrim ok Reason For Exam: pos BC 12/20/19 09:38 Consult to Physician [CONS] Routine Comment: Consulting Provider: YASMEEN QUINTANILLA Physician Instructions: Reason For Exam: right upper ext edema 12/21/19 10:01 PICC Line Insertion [Consult to PICC Line RN] [CONS] Urgent Reason For Exam: Patient needs 4-6 wks of IV abx Type Line:: PICC 12/21/19 11:08 Consult to Interventional Radiology [CONS] Routine Consulting Provider: YASMEEN LOUIS Reason For Exam: tunnled picc placement Notified:: ir 12/22/19 13:07 Consult to Case Management [CONS] Routine Services Needed at Discharge: Other Notified:: cm notified Comment:: abx Additional Physician Instructions: [facility] O: [phone] F: [phone] OUTPATIENT PARENTERAL ANTIBIOTIC THERAPY (OPAT) ORDERS Diagnoses: Right leg hardware infection Antimicrobial administration: IV daptomycin 500 mg q24 hours, end date: 01/26/2020 - IR removal of tunneled PICC line at the end of therapy. Lines: Maintain IV access with weekly dressing changes and locks per protocol. Lab monitoring: - CBC, creatinine, AST, ALT, CPK, CRP once a week every Wednesday while on IV antibiotics. Please fax results to [phone] and call [phone] for critical lab results. MD [facility] 12/27/19 13:46 Consult to Physician [CONS] Routine Comment: Consulting Provider: KALYANI DONOHUE Physician Instructions: Reason For Exam: Right hand infection/abscess 12/27/19 17:39 Consult to Physician [CONS] Urgent Comment: Consulting Provider: BUDDY FREEMAN Physician Instructions: Reason For Exam: Necrotizing fasciitis 01/04/20 04:32 Consult to Wound/ET Nurse [CONS] Routine Reason For Exam: wound eval 01/04/20 16:18 Consult to Physician [CONS] Routine Comment: Consulting Provider: BUDDY FREEMAN Physician Instructions: Reason For Exam: evaluate sacral wound for surgical debridement Primary care physician: [facility] Hospitalization Hospital course: 64-year-old male with diabetes, hypertension, renal transplant recipient in 2018, on immunosuppression with Prograf, CellCept and prednisone underwent right proximal tibia fracture closed reduction and external fixator placement on . He was hospitalized on 12/14/2019 for elective surgery for removal of his external fixator, Daily course: 12/14/2019 patient admitted for elective surgical correction of right proximal to tibial fracture. Patient underwent surgical intervention and external fixation device. 12/15/1999 patient was found to have elevated creatinine up from 1.5 at baseline to 2.8. Therefore renal consult was obtained. Was thought to be secondary to prerenal azotemia. Symptoms responding to IV volume replacement and creatinine going back down to baseline. 12/16/2019 patient's creatinine continued to improve toward baseline. 12/17/2019. Patient surgical blood culture showed positive for methicillin resistant staph aureus. May be contaminant because patient remained afebrile no leukocytosis. No tenderness to the area. And sensitivity of MRSA was pansensitive to Cipro and Bactrim. Patient was given 1 dose of Vanco IV and await any ID recommendations. Patient should be able to discharge with Bactrim since it is sensitive and patient is afebrile no leukocytosis. Does not appear to have underlying infection at this time. 12/18/2019. Patient is resting doubly afebrile placed on Bactrim because MRSA was sensitive to this. Await further recommendations from Ortho about discharge planning. Patient somewhat sad today. States he just lost his sister. Patient denies any wants for antidepressant medications. 12/18: Awaiting further plan by othor, continue on abx per ID and Nephrology following for urmila, Showing slight improvement and not at baseline. Monitor Right upper ext 12/19: Consult Vascular due to concern for upper ext, obtain doppler of right upper ext 12/20: Unsure why Doppler has not been done, nurse not aware either, call placed to department for stat exam, will give a dose of Lovenox prophylactically. Finally doppler done and no DVT. Elevate Upper ext 12/21: CONTINUE ABX, DISCUSSED WITH NURSINGS STAFF TO ELEVATE UPPER EXT, Tunnle catheter placed. Renal function slightly worse. Continue to monitor. 12/22: Clinically improving, Tunnel catheter placed, awaiting, clearance from Nephrology for discharge, Leukocytosis and renal functions showing slight improvement. Continue to monitor Right upper ext swelling. S/P 1 unit PRBC transfused, totalling 2 units for this admission. 12/23: Continue current clinical support. Anticipate discharge in a.m. mild elevation in WBC. Also monitor hemoglobin following transfusion. 12/24: Patient is a 64-year-old male with history of kidney transplant who presented to the hospital with right tibia fracture status post surgical correction. Did have MRSA culture which was considered a contaminant. Hospital stay had been complicated with precipitous drop in hemoglobin and also right u pper extremity swelling. Doppler study was done of the right upper extremity and was negative for DVT. Due to prolonged antibiotic coverage patient was seen by vascular and a tunnel catheter placed. Renal function has continued to improve. And patient is now pending discharge. From medicine standpoint patient can be discharged when okay with nephrology and Ortho. Anticipate the patient will benefit from rehab either at home or at a facility. During this hospitalization patient did receive 2 units packed red blood cell. 12/25. Patient seen and examined at bedside this morning. He has no complaints today. Labs reviewed. Will benefit from rehab. Still on daptomycin for MRSA treatment. ID, Ortho and nephrology on board. 12/26. am. No complaints today. CT RUE not performed yesterday. Plan to repeat today. 12/26. pm. CT right upper extremity shows some abscess with subcutaneous edema with possible necrotizing fasciitis. Discussed with surgery on 12/26. Patient made n.p.o. after midnight. 12/27. Right arm swelling has slightly improved after elevation yesterday. Orthopedic surgeon performed I&D at bedside with wound packing. Not clear if cultures obtained. Patient was already on IV antibiotics. Plan to obtain culture if possible. 12/28. RUE swelling better. Cultures - +ve MRSA. Needs discharge planning. ID following. 12/29. He has no complaints today. Still on IV antibiotics. ID is following. Needs placement - CM working on this. 12/30. Awaiting placement. May need IV antibiotics at discharge - defer to ID. 12/31. Will need placement and IV antibiotics for 4 weeks. ID following. Continue wound care. 01/01; PT recommended [facility], need IV abx till (end date: 01/26/2020 for hand abscess and 01/11/2020 for right leg ). CM working on placement. 01/02: Discharge pending on subacute rehab and IV antibiotics set up. 01/03; pending placement 01/04: s/p Debridement of sacral pressure ulcer at the bedside 01/05; cont iv abx, wound care - dressing change, need [facility] 01/06: clinically stable, need placement 01/07: d/c to SNF/[facility] Discharge diagnosis: ---Sepsis, POA -presented with Low-grade fever, leukocytosis, infection associated with external fixator involving proximal tibia: - Intraoperatively, patient was noted to have purulent drainage from the superior pin which was debrided using a curette and cultures were obtained. These cultures are growing MRSA. Patient is immunocompromised. All hardware has been removed. Patient is at risk of osteomyelitis. ESR and CRP are both elevated. - Plan to treat with IV abx until 01/11/2020. ---Right hand abscess: -CT RUE without contrast showed "diffuse right hand and forearm cellulitis with significant fluid extending along the perifascial margin and findings devi rning for focal abscess" and "Acute comminuted fractures at the second metacarpal phalangeal joint without dislocation. - Underwent bedside I&D with drainage of copious purulence on 12/28/2019. Cultur es with MRSA. - cont iv abx: continue renally dosed IV daptomycin 500 mg q24 hours x 4 more weeks from hand abscess drainage (end date: 01/26/2020) ---Immunocompromised host, renal transplant recipient: On Prograf, CellCept, prednisone. ---URMILA on CKD: Nephrology following. Renally dose antibiotics. Creatinine appears to be improving -- Hypernatremia Resolved ---Bilateral pressure ulcer of the sacrum stge 3: Wound care following, s/p debridement at bedside ---Hypertension Patient has optimal control blood pressure amlodipine Coreg. Continue present medical management. ---T2DM (type 2 diabetes mellitus) Continue insulin regimen and adjust according to blood glucose levels --- Metabolic acidosis Resolved ---Anemia of CD Continue to monitor. ---DVT prophylaxis Disposition: [id number] Time spent for discharge: 34 minutes Core Measure Documentation - Palliative Care Palliative Care/ Comfort Measures: Not Applicable - Core Measures Any of the following diagnoses?: none Exam - Physical Exam Narrative exam: General appearance: Present: no acute distress, well-nourished - EENT Eyes: Present: PERRL - Respiratory Respiratory: bilateral: CTA - Cardiovascular Heart Sounds: Present: S1 & S2 - Extremities Extremity abnormal: edema (RUE edema - improving. Dressing intact and clean) - Abdominal General gastrointestinal: soft, non-tender, non-distended, normal bowel sounds - Psychiatric Psychiatric: appropriate mood/affect - Neurologic Neurologic: CNII-XII intact - Constitutional Vitals: Temp Pulse Resp BP Pulse Ox 98 F 75 20 133/55 95 01/08/20 07:44 01/08/20 07:44 01/08/20 07:44 01/08/20 07:44 01/08/20 07:44 Plan Activity: advance as tolerated, fall precautions Diet: diabetic Additional Instructions: IV daptomycin 500 mg q24 hours x 4 more weeks from hand abscess drainage (end date: 01/26/2020) Follow up with: [facility] [Primary Care Provider] - 7 Days Forms: Outpatient Surgery DC Inst. Prescriptions: HYDROcodone/APAP 7.5-325 [[place] 7.5-325 mg TAB] 1 each PO Q6HR PRN #20 tablet PRN Reason: Pain
--- NOTE | 2020-01-08 15:44 | Progress Note ---
Assessment and Plan Cultures: 12/14/2019 right leg surgical culture: MRSA 12/26/2019 R hand culture: MRSA A/P: 64-year-old male with diabetes, hypertension, renal transplant recipient in 2018, on immunosuppression with Prograf, CellCept and prednisone underwent right proximal tibia fracture closed reduction and external fixator placement on 10/19/2019. He was hospitalized on 12/14/2019 for elective surgery for removal of his external fixator, noted to have: #Low-grade fever, leukocytosis, infection associated with external fixator involving proximal tibia: Intraoperatively, patient was noted to have purulent drainage from the superior pin which was debrided using a curette and cultures were obtained. These cultures are growing MRSA. Patient is immunocompromised. All hardware has been removed. Patient is at risk of osteomyelitis. ESR and CRP are both elevated. #Right hand abscess: spontaneously started draining, culture in process. CT RUE without contrast showed "diffuse right hand and forearm cellulitis with significant fluid extending along the perifascial margin and findings concerning for focal abscess" and "Acute comminuted fractures at the second metacarpal phalangeal joint without dislocation. Given concern for infection o steomyelitis is not ruled out." Underwent bedside I&D with drainage of copious purulence on 12/28/2019. Cultures with MRSA. #Immunocompromised host, renal transplant recipient: On Prograf, CellCept, prednisone. #URMILA on CKD: Nephrology following. Renally dose antibiotics. Creatinine appears to be improving Recs: continue renally dosed IV daptomycin 500 mg q24 hours x 4 more weeks from hand abscess drainage (end date: 01/26/2020) Adjusted daptomycin to every 24 hours due to improved renal function. Previous CM orders updated ID clinical pharmacologist already notified to schedule follow up appointment wound care to R hand Awaiting placement. ID will sign off. Please call with questions. Lucille Cochran MD [facility] M: [phone] O: [phone] F: [phone] Subjective Date of service: 01/08/20 Principal diagnosis: Leg pain Interval history: Afebrile, no acute change. Objective - Exam Narrative Exam: Constitutional: Alert, cooperative. No acute distress Head, Ears, Nose: Normocephalic, atraumatic. Eyes: Conjunctivae/corneas clear. No icterus. Neck: Supple, no meningeal signs Cardiovascular: S1, S2 normal. Respiratory: Good air entry, clear to auscultation bilaterally GI: Soft, non-tender; bowel sounds normal. No peritoneal signs Musculoskeletal: Right proximal tibia dressing present with small wound. Right upper chest PICC line +. Right hand with dressing Skin: No rash or abscess Hem/Lymphatic: No palpable cervical or supraclavicular nodes. No lymphangitis Psych: Flat affect Neurological: Awake, alert, oriented - Constitutional Vitals: Vital Signs Temp Pulse Resp BP Pulse Ox 98 F 75 20 133/55 95 01/08/20 07:44 01/08/20 07:44 01/08/20 07:44 01/08/20 07:44 01/08/20 07:44 Temperature -Last 24 Hours Temperature 98 F Temperature 97.8 F Temperature 98.5 F Temperature 98.4 F Temperature 98.3 F - Labs CBC & Chem 7: 01/06/20 Unknown 01/08/20 07:16 Labs: Abnormal lab results 01/07/20 01/07/20 01/08/20 Range/Units 16:22 20:47 07:16 Creatinine 1.7 H (0.8-1.3) mg/dL Glucose 138 H (75-100) mg/dL POC Glucose 138 H 224 H (70-105) 01/08/20 Range/Units 11:32 Creatinine (0.8-1.3) mg/dL Glucose (75-100) mg/dL POC Glucose 152 H (70-105)
[2020-01-08] MEDS: HYDROmorphone 1 MG/1 ML INJ IV PRN (15:45)
[2020-01-08 18:14] VITALS: BP 149/63
[2020-01-08] MEDS: SODIUM BICARBONATE 650 MG TAB PO SCH (18:23)
== END 2020-01-08 18:30 | DRG 853 ==
LOC: 3A 12-14 11:14 → 3B-SURG 12-14 17:34
PROVIDERS: ADMIT Orthopaedic Surgery; ATTEND Internal Medicine
PROC: 0QPG05Z Removal of External Fixation Device from Right Tibia, Open Approach (ICD-10-PCS; principal; 2019-12-14)
PROC: 30233N1 Transfusion of Nonautologous Red Blood Cells into Peripheral Vein, Percutaneous Approach (ICD-10-PCS; 2019-12-14)
PROC: 02H633Z Insertion of Infusion Device into Right Atrium, Percutaneous Approach (ICD-10-PCS; 2019-12-22)
PROC: B5181ZA Fluoroscopy of Superior Vena Cava using Low Osmolar Contrast, Guidance (ICD-10-PCS; 2019-12-22)
PROC: B548ZZA Ultrasonography of Superior Vena Cava, Guidance (ICD-10-PCS; 2019-12-22)
PROC: 0JH63XZ Insertion of Tunneled Vascular Access Device into Chest Subcutaneous Tissue and Fascia, Percutaneous Approach (ICD-10-PCS; 2019-12-22)
PROC: 0J9D0ZZ Drainage of Right Upper Arm Subcutaneous Tissue and Fascia, Open Approach (ICD-10-PCS; 2019-12-28)
PROC: 0KBP0ZZ Excision of Left Hip Muscle, Open Approach (ICD-10-PCS; 2020-01-05)
PROC: 0KBN0ZZ Excision of Right Hip Muscle, Open Approach (ICD-10-PCS; 2020-01-05)
DX: A41.02 Sepsis due to Methicillin resistant Staphylococcus aureus (principal); L89.154 Pressure ulcer of sacral region, stage 4; L89.323 Pressure ulcer of left buttock, stage 3; N17.0 Acute kidney failure with tubular necrosis; L89.313 Pressure ulcer of right buttock, stage 3; S82.101A Unspecified fracture of upper end of right tibia, initial encounter for closed fracture; E87.0 Hyperosmolality and hypernatremia; E87.2 Acidosis; Z94.0 Kidney transplant status; L03.113 Cellulitis of right upper limb; E87.6 Hypokalemia; Z82.49 Family history of ischemic heart disease and other diseases of the circulatory system; I12.9 Hypertensive chronic kidney disease with stage 1 through stage 4 chronic kidney disease, or unspecified chronic kidney disease; E11.22 Type 2 diabetes mellitus with diabetic chronic kidney disease; Z79.84 Long term (current) use of oral hypoglycemic drugs; Z79.82 Long term (current) use of aspirin; Z99.2 Dependence on renal dialysis; D63.8 Anemia in other chronic diseases classified elsewhere; N18.9 Chronic kidney disease, unspecified; Z20.828 Contact with and (suspected) exposure to other viral communicable diseases; X58.XXXA Exposure to other specified factors, initial encounter
CPT/HCPCS: 36415; 36558; 77001; 80048; 80053; 80197; 80202; 81001; 82270; 82550; 82570; 82962; 83550; 84156; 84300; 84450; 84460; 84550; 85007; 85025; 85027; 85610; 85652; 86140; 86850; 86900; 86901; 86920; 87075; 87076; 87116; 87186; 93306; G0378; C1751; J0878; J1170; J1644; J1650; J1815; J1956; J2250; J2370; J2405; J2704; J3010; J3370; J3490; J7030; J7040; J7042; J7050; J7070; J7507; J7512; J7517; P9016; U0003-CS

== ENCOUNTER 2019-11-13 09:44 | Outpatient (CLI) | payer OTHER ==
--- NOTE | 2019-11-13 11:08 | XRay Report ---
RIGHT TIBIA FIBULA 2 VIEWS INDICATION: S82.291AOther fracture of shaft of right tibia, initial encounter. COMPARISON: Right knee intraoperative films 10/19/2019 IMPRESSION: There appears to be an external fixator in place which is partially imaged. Mildly displ aced fracture through the proximal tibial metaphysis and nondisplaced fracture through the proximal f ibular shaft are unchanged in position and alignment since 10/19/2019 operative films. There is also a mildly displaced fracture through the inferior third of the patella with 1 cm separation. There are severe tricompartmental osteoarthritic changes at the right knee. Large joint effusion. Signer Name: Fermin Ware Jr, MD Signed: 11/13/2019 11:03 AM Workstation Name: [id number]
== END 2019-11-13 09:45 | disposition home or self-care (01) ==
LOC: XRAY 09:44
PROVIDERS: ATTEND Orthopaedic Surgery
DX: S82.091A Other fracture of right patella, initial encounter for closed fracture (principal); S82.291D Other fracture of shaft of right tibia, subsequent encounter for closed fracture with routine healing; M17.11 Unilateral primary osteoarthritis, right knee; M25.461 Effusion, right knee; X58.XXXA Exposure to other specified factors, initial encounter; X58.XXXD Exposure to other specified factors, subsequent encounter; Y93.89 Activity, other specified; Y92.89 Other specified places as the place of occurrence of the external cause; Y99.8 Other external cause status

== ENCOUNTER 2019-12-04 10:18 | Outpatient (CLI) | payer OTHER ==
--- NOTE | 2019-12-04 11:22 | XRay Report ---
RIGHT FORELEG 5 VIEWS INDICATION / CLINICAL INFORMATION: S82.914AOther fracture of shaft of right tibia, initial encounter. COMPARISON: Right foreleg 11/13/2019 FINDINGS: External fixator pins are again seen within the proximal third right tibial shaft. Osteopenia is agai n noted with mildly displaced fractures involving the proximal tibia metadiaphysis and proximal fibul a. Fracture of inferior portion of the patella is again noted with associated knee effusion and prepa tellar soft tissue swelling. Signer Name: Winston Weiss MD Signed: 12/04/2019 11:18 AM Workstation Name: [email or web address]
== END 2019-12-04 10:19 | disposition home or self-care (01) ==
LOC: XRAY 10:18
PROVIDERS: ATTEND Orthopaedic Surgery
DX: S82.291A Other fracture of shaft of right tibia, initial encounter for closed fracture (principal); S82.091A Other fracture of right patella, initial encounter for closed fracture; M85.861 Other specified disorders of bone density and structure, right lower leg; X58.XXXA Exposure to other specified factors, initial encounter; Y93.89 Activity, other specified; Y92.89 Other specified places as the place of occurrence of the external cause; Y99.8 Other external cause status; M25.461 Effusion, right knee

== ENCOUNTER 2020-04-29 10:50 | Outpatient (CLI) | payer MEDICARE, OTHER ==
--- NOTE | 2020-04-29 11:58 | XRay Report ---
RIGHT KNEE 3 VIEWS RIGHT TIBIA AND FIBULA 2 VIEWS INDICATION: RIGHT LEG PAIN.. COMPARISON: 12/04/2019 IMPRESSION: The external fixator device has been removed since the previous exam. Osteopenia is aga in noted. The previously described mildly displaced fractures through the proximal tibia and fibula a re unchanged in position and alignment since the previous exam. There does appear to be mild increase in calcified callus although fracture lines remain vaguely evident. No new or acute fracture is appr eciated. Severe tricompartmental degenerative changes at the right knee appear stable. Moderate joint effusion extends to the suprapatellar bursa. Signer Name: Fermin Ware Jr, MD Signed: 04/29/2020 11:54 AM Workstation Name: [id number]
== END 2020-04-29 10:51 | disposition home or self-care (01) ==
LOC: XRAY 10:50
PROVIDERS: ATTEND Orthopaedic Surgery
DX: M17.11 Unilateral primary osteoarthritis, right knee (principal); M85.88 Other specified disorders of bone density and structure, other site; M25.461 Effusion, right knee

== ENCOUNTER 2020-05-14 10:54 | Outpatient (CLI) | payer MEDICARE, OTHER ==
[2020-05-14 11:26] LABS: Basophils % (Auto) 0.5 % (0.0-1.8); Eosinophils # (Auto) 0.1 K/mm3 (0.0-0.4); Lymphocytes # (Auto) 1.1 K/mm3 (1.2-5.4); Lymphocytes % (Auto) 19.8 % (13.4-35.0); Mean Corpuscular HGB Conc 30 % (32-34); Mean Corpuscular Volume 77 fl (84-94); Monocytes # (Auto) 0.4 K/mm3 (0.0-0.8); Monocytes % (Auto) 7.1 % (0.0-7.3); Platelet Count 159 K/mm3 (140-440); Red Blood Count 3.94 M/mm3 (3.65-5.03); Red Cell Distribution Width 17.1 % (13.2-15.2)
[2020-05-14 11:32] LABS: Albumin 3.6 g/dL (3.9-5); BUN/Creatinine Ratio 20; Blood Urea Nitrogen 41 mg/dL (9-20); Calcium 9.2 mg/dL (8.4-10.2); Hemolysis Index 6
[2020-05-14 11:34] LABS: Hematocrit 30.4 % (35.5-45.6); Hemoglobin 9.1 gm/dl (11.8-15.2)
[2020-05-14 11:36] LABS: Alanine Aminotransferase < 5 units/L (7-56)
[2020-05-14 11:44] LABS: Erythrocyte Sedimentation Rate 8 mm/Hr (0-20)
== END 2020-05-14 10:55 | disposition home or self-care (01) ==
LOC: LAB 10:54
PROVIDERS: ATTEND Orthopaedic Surgery
DX: A41.02 Sepsis due to Methicillin resistant Staphylococcus aureus (principal)
CPT/HCPCS: 36415; 80053; 85025; 85652; 86140